=== PATIENT | male | born 1950 | race Caucasian/White ===

== ENCOUNTER 2020-12-24 16:03 | Outpatient (REF) | payer OTHER, SELFPAY ==
[2020-12-24 17:57] LABS: Anion Gap 14 (12-20); Blood Urea Nitrogen 27 mg/dL (9-16); Carbon Dioxide 27 mmol/L (22-29); Chloride 104 mmol/L (96-108); Estimated Glomerular Filt Rate 37; Potassium 4.6 mmol/L (3.3-5.1); Sodium 140 mmol/L (135-145)
== END 2020-12-24 16:04 | disposition home or self-care (01) ==
LOC: HO.LAB 16:03
PROVIDERS: PCP Family Medicine; Visit Provider Family Medicine
DX: I10 Essential (primary) hypertension (principal)
CPT/HCPCS: 36415; 80051; 82565; 84520

== ENCOUNTER → 2020-12-25 12:41 | Outpatient (BNVA) | payer OTHER, SELFPAY | PROVIDERS: PCP Family Medicine; Visit Provider Internal Medicine Cardiovascular Disease | DX: I48.0 Paroxysmal atrial fibrillation (principal) | CPT/HCPCS: 93005 ==

== ENCOUNTER 2021-01-09 15:57 | Outpatient (REF) | payer OTHER, SELFPAY ==
[2021-01-09 17:06] LABS: Blood Urea Nitrogen 19 mg/dL (9-16); Estimated Glomerular Filt Rate > 60
== END 2021-01-09 15:58 | disposition home or self-care (01) ==
LOC: HO.LAB 15:57
PROVIDERS: PCP Family Medicine; Visit Provider Family Medicine
DX: I10 Essential (primary) hypertension (principal)
CPT/HCPCS: 36415; 82565; 84520

== ENCOUNTER → 2021-02-12 09:18 | Outpatient (REF) | payer OTHER, SELFPAY ==
--- NOTE | 2021-02-12 09:21 | CA_ITS ---
Transthoracic Echocardiogram Patient (Last, First, Middle): Graham Hodges R Gender: Male Date of : 1950 Age: 70 Procedure Date: 02/12/2021 Procedure Type: Transthoracic Echocardiogram Location: OP Height: 172.72 cm Weight: 79.38 kg BSA: 1.93 m2 Heart Rate: bpm BP: 130 / 72 mmHg Emd Special Education Teacher: RODRICK/KAN Referring MD: Reese Nicholson MD Printed Circuit Board Panels Plater: Baljit Calderón MD Symptoms: I42.9 - Cardiomyopathy, unspecified Study Quality: Good ECG Rhythm: Atrial Fibrillation Conclusions: - 1. Low normal LV ejection fraction 50-55% 2. Mildly dilated left atrium 3. Mild mitral regurgitation 4. Normal RV systolic pressure 5. No pericardial effusion Findings Left Ventricle Normal left ventricular cavity size. There is normal left ventricular wall thickness. The left ventricular systolic function is low normal. The visually estimated ejection fraction is between 50-55%. Diastolic function is indeterminate on the basis of available data. Right Ventricle Mildly increased right ventricular cavity size. There is normal right ventricular systolic function. Atria The left atrium is mildly dilated. There is no evidence of interatrial shunt. The right atrium is likely dilated. Aortic Valve Normal aortic valve structure and function. There is no aortic valve stenosis. There is no aortic valve regurgitation. Mitral Valve Normal mitral valve structure and function. There is mild mitral valve regurgitation. There is no mitral valve stenosis. Pulmonic Valve The pulmonic valve is likely normal. There is trace pulmonic valve regurgitation. Tricuspid Valve Likely normal tricuspid valve structure and function. There is mild tricuspid valve regurgitation. The right ventricular systolic pressure is normal. The right ventricular systolic pressure is 27 mmHg. Normal right atrial pressure. There is no evidence of pulmonary hypertension. Great Vessels All visible segments of the aorta are normal in size. The pulmonary artery was not well visualized. Venous The inferior vena cava is normal in size and collapses greater than 50% with inspiration. Pericardium/Pleural There is no evidence of pericardial effusion. Prior Study Comparison Changes noted compared to prior study dated: 06/28/2019. LV systolic function is marginally reduced Measurements 2D Linear Measurements IVSd: 0.98 0.6-0.9/0.6-1.0 cm LVIDd: 4.29 3.9-5.3/4.2-5.9 cm LVIDd Index: 2.22 2.4-3.2/2.2-3.1 cm/m2 LVIDs: 3.17 2.0-3.6 cm LVPWd: 0.92 0.7-1.1 cm Ao Root: 3.40 2.1-3.5 cm LA Diam: 3.40 2.7-3.8/3.0-4.0 cm LAIDs Index: 1.76 1.5-2.3 cm/m2 LV Mass: 164.55 67-162/88-224 g LV Mass Index: 85.26 43-95/49-115 g/m2 LVOT Diam: 2.10 3.0+(-)1.3 cm 2D Systolic Function EF 4C: 50.80 >55% EF 2C: 50.90 >55% EF BiP: 52.10 >55% Aortic Valve AoV Pk Lux: 1.09 AoV Mn Lux: 0.83 AoV VTI: 0.19 AoV Pk Grad: 5.00 Aov Mn Grad: 3.00 ESAU Cont.VTI: 3.20 LVOT LVOT Pk Lux: 0.97 LVOT Mn Lux: 0.62 LVOT VTI: 0.17 LVOT Pk Grad: 4.00 LVOT Mn Grad: 2.00 LVOT Diam: 2.10 LVOT Area: 3.46 Right Ventricle TAPSE (mm): 1.74 Tricuspid Valve TR Pk Lux: 2.43 TR Pk Grad: 24.00 RA Press: 3.00 RVSP: 27.00 Great Vessels Aorta Ao Root-2D: 3.40 2.0-3.7 cm Ao Asc: 3.70 2.1-3.4 cm Ao Arch: 3.50 Updated in Other Vendor System with Status of Final Baljit Calderón MD electronically signed on 02/13/2021 9:02:53 AM with status of Final
== END ==
LOC: HO.CARD 09:18
PROVIDERS: Visit Provider Internal Medicine Cardiovascular Disease
DX: I42.9 Cardiomyopathy, unspecified (principal); I48.0 Paroxysmal atrial fibrillation
CPT/HCPCS: 93306

== ENCOUNTER 2021-04-04 07:58 | Day surgery (SDC) | payer OTHER, SELFPAY ==
--- NOTE | 2021-04-03 09:43 | HO.ANESPROP2 ---
Documented by User: Mel Liz NP 04/03/21 09:47 HPI - Anesthesia Eval Consult details Narrative: 70yo M for Colonoscopy Eliquis for PAF PMFSH Active Problems Active Problems: All Active Problems (Updated 03/28/21 @ 15:11 by Amber Mistry RN) PAF (paroxysmal atrial fibrillation) (Acute) Past Medical History Medical History (Updated 03/28/21 @ 15:11 by Amber Mistry RN) GERD (gastroesophageal reflux disease) HTN (hypertension) On anticoagulant therapy Osteoarthritis PAF (paroxysmal atrial fibrillation) Post-nasal drip Surgical History Surgical History (Updated 03/28/21 @ 15:11 by Amber Mistry RN) History of hip replacement Hx of colonoscopy Social History Social History (Updated 12/25/20 @ 13:39 by SYLVESTER Rosales) Alcohol intake: current Alcohol intake frequency: a few times a week Alcohol type: beer Patient Tobacco Use Status: Former Tobacco user Quit Date: 1979 Tobacco use type: Cigarette Years Smoked: 10 Use of substances other than those prescribed or required for medical reasons: No Have you been hit, kicked, punched, or otherwise hurt by someone within the past year? If so, by whom?: No Are you DNR?: No Advance Directives: No Advance Directives Information Provided: Yes Recently lost weight without trying: No Nutrition Risks: No Nutritional Risk Meds Allergies Allergy/AdvReac Type Severity Reaction Status Date / Time No Known Allergies Allergy Unverified 04/11/20 15:02 [No Known Allergies*] Home Medications Medication Instructions Recorded Confirmed Last Taken Type diltiazem HCl 120 mg 120 mg PO DAILY 12/25/20 03/28/21 Unknown History capsule,extended release 24 hr lisinopril 20 mg tablet 20 mg PO DAILY 12/25/20 03/28/21 Unknown History glucosamine sulf dipot 1 cap PO DAILY 03/28/21 03/28/21 Unknown History chlr,msm,chond 550 mg-C 30 mg-william 1 mg capsule (Glucosamine Chondroitin) omeprazole 20 mg capsule,delayed 20 mg PO DAILY 03/28/21 03/28/21 Unknown History release Exam Exam Date and Time: April 03, 2021 0943 Pertinent Lab Results Pertinent Lab Results: Laboratory Tests 06/09/19 12/24/20 01/09/21 10:22 16:23 16:05 WBC 6.1 Hgb 14.1 Hct 42.4 Plt Count 243 Sodium 140 Potassium 4.6 Chloride 104 Carbon Dioxide 27 BUN 19 H Creatinine 1.17 Narrative Narrative: EKG 12/2020 Atrial fibrillation at 98 beats per minute, normal axis, QTC 421 milliseconds. ECHO 01/2021 Conclusions: -? 1. Low normal LV ejection fraction 50-55% ? 2. Mildly dilated left atrium? 3. Mild mitral regurgitation ? 4. Normal RV systolic pressure ? 5. No pericardial effusion ? Assessment and Plan Assessment Anesthesia Assessment: Chart Reviewed Documented by User: Pastora Salinas MD 04/04/21 08:47 PMFSH Past Medical History Medical History (Updated 03/28/21 @ 15:11 by Amber Mistry RN) GERD (gastroesophageal reflux disease) HTN (hypertension) On anticoagulant therapy Osteoarthritis PAF (paroxysmal atrial fibrillation) Post-nasal drip Surgical History Surgical History (Updated 03/28/21 @ 15:11 by Amber Mistry RN) History of hip replacement Hx of colonoscopy Social History Social History (Updated 12/25/20 @ 13:39 by SYLVESTER Rosales) Alcohol intake: current Alcohol intake frequency: a few times a week Alcohol type: beer Patient Tobacco Use Status: Former Tobacco user Quit Date: 1979 Tobacco use type: Cigarette Years Smoked: 10 Use of substances other than those prescribed or required for medical reasons: No Have you been hit, kicked, punched, or otherwise hurt by someone within the past year? If so, by whom?: No Are you DNR?: No Advance Directives: No Advance Directives Information Provided: Yes Recently lost weight without trying: No Nutrition Risks: No Nutritional Risk Meds Allergies Allergy/AdvReac Type Severity Reaction Status Date / Time No Known Allergies Allergy Unverified 04/11/20 15:02 [No Known Allergies*] Home Medications Medication Instructions Recorded Confirmed Last Taken Type diltiazem HCl 120 mg 120 mg PO DAILY 12/25/20 03/28/21 Unknown History capsule,extended release 24 hr lisinopril 20 mg tablet 20 mg PO DAILY 12/25/20 03/28/21 Unknown History glucosamine sulf dipot 1 cap PO DAILY 03/28/21 03/28/21 Unknown History chlr,msm,chond 550 mg-C 30 mg-william 1 mg capsule (Glucosamine Chondroitin) omeprazole 20 mg capsule,delayed 20 mg PO DAILY 03/28/21 03/28/21 Unknown History release Exam Airway Mallampati Class: II TM Dist: >3cm Neck ROM: Full
[2021-04-04] VITALS (7 sets, daily range): BP systolic 97–154; BP diastolic 66–97; PULSE 93–123; RESP 16–18; TEMP 36.1–36.6; O2SAT 96–100; BMI 27.3
--- NOTE | 2021-04-04 08:29 | PC.NURSE ---
pt pulse 93-120S sts hx afib
--- NOTE | 2021-04-04 08:31 | PC.NURSE ---
pt asymptomatic afib now 120s-[address] schulz aware at bedside bianka c/p pwbronson denies dizziness
--- NOTE | 2021-04-04 08:38 | PC.NURSE ---
per anesthesia hydrate pt fluids w/o will reassess pt resting comfortably
[2021-04-04] MEDS: Lactated Ringers 1,000 ML 100 ML IVCONT (08:40)
--- NOTE | 2021-04-04 10:18 | PM.OP ---
Brief Operative Note Date of Service: 04/04/21 Pre-op diagnosis: Screening Post-op diagnosis: other (Colon polyps) Procedure: Colonoscopy to the cecum and TI with snare polypectomy and placement of Resolution clips. Surgeon: Stevan Watters Anesthesia: MAC Was an Chief Passenger Ship Steward/Stewardess used for this Procedure?: No Estimated blood loss (mL): 3.0 Pathology: other (A. Ascending colon polyp B. Polyp at 40cm C. Polyp at 20cm) Condition: stable Disposition: PACU
--- NOTE | 2021-04-04 10:49 | OP_ITS ---
SURGEON: Stevan Watters MD INDICATIONS: The patient presents for evaluation of a personal history of tubular adenomas of the colon and colorectal cancer screening. Full consent has been obtained from him for this, including risks of bleeding and perforation. PREOPERATIVE DIAGNOSIS: POSTOPERATIVE DIAGNOSIS: PROCEDURE PERFORMED: Colonoscopy to the cecum and terminal ileum with snare polypectomy and placement of resolution clips. ESTIMATED BLOOD LOSS: COMPLICATIONS: ANESTHESIA: Monitored anesthesia care. ASSISTANTS: SPECIMENS: PREOPERATIVE DIAGNOSES: Colorectal cancer screening and personal history of tubular adenomas of the colon. POSTOPERATIVE DIAGNOSES: Colorectal cancer screening and personal history of tubular adenomas of the colon, colon polyps, diverticulosis, and internal hemorrhoids. DESCRIPTION OF PROCEDURE: The patient was placed in the left lateral decubitus position. The digital rectal exam revealed no abnormalities. The Photo[employer] video pediatric colonoscope was entered into the rectum and advanced easily to the cecum. Once in the cecum, I did identify normal-appearing cecal pouch other than an approximately 5 mm grossly adenomatous polyp. The remainder of the cecum, including the appendiceal orifice, appeared normal. The terminal ileum was cannulated and appeared normal. The scope was withdrawn back in the colon. The ileocecal valve appeared normal. The cecal polyp was removed by snare polypectomy, but the polypectomy specimen was not recovered. I did place a single clip on the polypectomy site given that he has to go back on his Eliquis. The scope was slowly withdrawn assessing all mucosal surfaces carefully. Preparation was excellent. In the proximal ascending colon, at 40 cm, and at 20 cm, were polyps between 8 and 10 mm in diameter. These were each snared and recovered by suction. Each polypectomy site appeared clean, without any sign of residual polyp nor significant bleeding. I did place resolution clips on each polypectomy site. The polypectomy site at 20 cm did require 2 clips as there was some oozing post polypectomy. All the clips deployed well with good hemostasis. I did not visualize any other polyps, colitis, nor angiodysplasia. There was a mild amount of sigmoid diverticulosis. In the rectum, scope was retroflexed visualizing small internal hemorrhoids, but no other pathology. The rectal mucosa appeared normal. The scope was straightened out and withdrawn from the patient. He tolerated the procedure well and was returned to the recovery area in stable condition. IMPRESSION: 1. Colon polyps. 2. Diverticulosis. 3. Internal hemorrhoids. PLAN: The results of the pathology will be checked. I would recommend a repeat colonoscopy in 5 years. He was advised to resume his Eliquis in 48 hours. He was advised not to use any aspirin and NSAIDs long-term due to his use of Eliquis. MD PENNY Franco/ROBER / [id number] MTDD
== END 2021-04-04 11:25 | disposition home or self-care (01) ==
PROVIDERS: PCP Family Medicine; Visit Provider Internal Medicine
PROC: 0DJD8ZZ Inspection of Lower Intestinal Tract, Via Natural or Artificial Opening Endoscopic (ICD-10-PCS; CPT 45378; principal; 2021-04-04 09:20)
DX: Z12.11 Encounter for screening for malignant neoplasm of colon (principal); D12.2 Benign neoplasm of ascending colon; D12.6 Benign neoplasm of colon, unspecified; K63.5 Polyp of colon; K57.30 Diverticulosis of large intestine without perforation or abscess without bleeding; K64.8 Other hemorrhoids; Z86.010 Personal history of colon polyps; I10 Essential (primary) hypertension; I48.91 Unspecified atrial fibrillation; Z79.01 Long term (current) use of anticoagulants; Z79.899 Other long term (current) drug therapy
CPT/HCPCS: 45385; 88305

== ENCOUNTER → 2021-05-28 09:50 | Outpatient (BNVA) | payer OTHER, SELFPAY | PROVIDERS: PCP Family Medicine; Visit Provider Internal Medicine Cardiovascular Disease ==

== ENCOUNTER → 2021-08-05 11:11 | Outpatient (REF) | payer OTHER, SELFPAY ==
--- NOTE | 2021-08-05 11:15 | HM_ITS ---
Conclusion: 1. Patient was monitored for total period of 2 days and 23 hours 2. Baseline rhythm is atrial fibrillation with average heart rate of 101 beats per minute 3. In adequate rate control with frequent rapid ventricular response, greater than 40% of the time 4. No significant pauses or bradycardia noted 5. Total of 240 PVCs accounting for rare PVCs 6. No patient reported events MTDD
== END ==
LOC: HO.CARD 11:11
PROVIDERS: Visit Provider Internal Medicine Cardiovascular Disease
DX: I48.0 Paroxysmal atrial fibrillation (principal)
CPT/HCPCS: 93242

== ENCOUNTER → 2021-10-16 14:03 | Outpatient (BNVA) | payer OTHER, SELFPAY | PROVIDERS: PCP Family Medicine; Visit Provider Internal Medicine Cardiovascular Disease | DX: I48.0 Paroxysmal atrial fibrillation (principal) | CPT/HCPCS: 93005 ==

== ENCOUNTER 2021-10-17 11:37 | Outpatient (REF) | payer OTHER, SELFPAY ==
[2021-10-17 12:00] LABS: MANUAL DIFF FLAG NO
[2021-10-17 13:17] LABS: Basophils Absolute Auto 0.1 X10*3/uL (0.0-0.2); Basophils Percent Auto 1.4 % (0-2); Eosinophils Absolute Auto 0.1 X10*3/uL (0.0-0.4); Eosinophils Percent Auto 1.9 % (0-4); Hematocrit 46.3 % (42.0-52.0); Hemoglobin 14.8 g/dl (14.0-18.0); Imm Gran Abs Auto 0.01 X10*3/uL (0.00-0.03); Imm Gran Pct Auto 0.2 % (0.0-0.4); Lymphocytes Absolute Auto 1.1 X10*3/uL (1.2-4.9); Lymphocytes Percent Auto 17.3 % (20-40); Mean Corpuscular Hemoglobin 31.9 pg (27.0-33.0); Mean Corpuscular Volume 99.8 fL (80.0-98.0); Monocytes Absolute Auto 0.7 X10*3/uL (0.1-1.2); Monocytes Percent Auto 11.9 % (2-11); Neutrophils Absolute Auto 4.2 x10*3/uL (2.0-8.3); Neutrophils Percent Auto 67.3 % (45-73); Platelet Count 260 X10*3/uL (160-400); Red Blood Count 4.64 X10*6/uL (4.60-5.80); Red Cell Distribution Width 14.4 % (11.0-16.0); White Blood Count 6.2 X10*3/uL (4.8-10.8)
[2021-10-17 13:40] LABS: Alanine Aminotransferase 23 U/L (0-40); Alkaline Phosphatase 133 U/L (39-117); Anion Gap 16 (12-20); Aspartate Amino Transferase 20 U/L (5-37); Bilirubin Total 1.2 mg/dL (0.0-1.0); Blood Urea Nitrogen 12 mg/dL (9-16); Calcium 9.5 mg/dL (8.4-10.2); Carbon Dioxide 25 mmol/L (22-29); Chloride 104 mmol/L (96-108); Estimated Glomerular Filt Rate > 60; Glucose Random 88 mg/dL (60-115); Potassium 4.2 mmol/L (3.3-5.1); Sodium 141 mmol/L (135-145)
== END 2021-10-17 11:38 | disposition home or self-care (01) ==
LOC: HO.LAB 11:37
PROVIDERS: PCP Family Medicine; Visit Provider Family Medicine
DX: I10 Essential (primary) hypertension (principal); I48.91 Unspecified atrial fibrillation; R53.1 Weakness
CPT/HCPCS: 36415; 80053; 85025

== ENCOUNTER → 2021-10-28 11:05 | Outpatient (REF) | payer OTHER, SELFPAY ==
--- NOTE | 2021-10-28 11:10 | CA_ITS ---
Transthoracic Echocardiogram Patient (Last, First, Middle): Graham Hodges R Gender: Male Date of : 1950 Age: 70 Procedure Date: 10/28/2021 Procedure Type: Transthoracic Echocardiogram Location: OP Height: 172.72 cm Weight: 81.65 kg BSA: 1.95 m2 Heart Rate: bpm BP: 160 / 90 mmHg Channel Layer: YR/TO Referring MD: Reese Nicholson MD Gasket Former: Baljit Calderón MD Symptoms: I48.0 - Paroxysmal atrial fibrillation Study Quality: Fair ECG Rhythm: Atrial Fibrillation Conclusions: - 1. Low normal LV ejection fraction 50-55% 2. Moderate biatrial enlargement 3. Mild mitral regurgitation 4. Normal RV systolic pressure 5. No gross pericardial effusion Findings Left Ventricle Normal left ventricular cavity size. There is normal left ventricular wall thickness. The left ventricular systolic function is low normal. The visually estimated ejection fraction is between 50-55%. E/E prime ratio is <8, consistent with normal filling pressures. Right Ventricle Normal right ventricular cavity size and systolic function. Atria The left atrium is moderately dilated. There is no evidence of interatrial shunt. The right atrium is moderately dilated. Aortic Valve There is mild calcification of the aortic valve. There is no aortic valve stenosis. There is no aortic valve regurgitation. Mitral Valve There is mild anterior and posterior mitral leaflet thickening. There is mild mitral valve regurgitation. There is no mitral valve stenosis. Pulmonic Valve The pulmonic valve was not well visualized. Tricuspid Valve Likely normal tricuspid valve structure and function. There is mild to moderate tricuspid valve regurgitation. The right ventricular systolic pressure is normal. The right ventricular systolic pressure is 31 mmHg. Normal right atrial pressure. There is no evidence of pulmonary hypertension. Great Vessels The pulmonary artery was not well visualized. There is mild dilatation of the ascending aorta measuring 4.05 cm. Venous The inferior vena cava is normal in size and collapses greater than 50% with inspiration. Pericardium/Pleural There is no evidence of pericardial effusion. Prior Study Comparison No significant change compared to prior study dated: 02/12/2021. Measurements 2D Linear Measurements IVSd: 0.90 0.6-0.9/0.6-1.0 cm LVIDd: 4.65 3.9-5.3/4.2-5.9 cm LVIDd Index: 2.38 2.4-3.2/2.2-3.1 cm/m2 LVIDs: 3.45 2.0-3.6 cm LVPWd: 0.90 0.7-1.1 cm LA Diam: 4.20 2.7-3.8/3.0-4.0 cm LAIDs Index: 2.15 1.5-2.3 cm/m2 LV Mass: 174.37 67-162/88-224 g LV Mass Index: 89.42 43-95/49-115 g/m2 LVOT Diam: 2.00 3.0+(-)1.3 cm 2D Systolic Function EF 4C: 51.30 >55% EF 2C: 50.60 >55% EF BiP: 50.30 >55% Mitral Valve E'Lateral: 10.80 E'Medial: 8.27 Aortic Valve AoV Pk Lux: 1.51 AoV Mn Lux: 1.13 AoV VTI: 0.27 AoV Pk Grad: 9.00 Aov Mn Grad: 6.00 ESAU Cont.VTI: 1.78 LVOT LVOT Pk Lux: 0.88 LVOT Mn Lux: 0.62 LVOT VTI: 0.15 LVOT Pk Grad: 3.00 LVOT Mn Grad: 2.00 LVOT Diam: 2.00 LVOT Area: 3.14 Diastolic Function E'Medial: 8.27 E' Laterial: 10.80 Right Ventricle TAPSE (mm): 16.10 TVS' Lux: 13.50 Tricuspid Valve TR Pk Lux: 2.65 TR Pk Grad: 28.00 RA Press: 3.00 RVSP: 31.00 Great Vessels Aorta Ao Asc: 4.05 2.1-3.4 cm Ao Arch: 3.10 Updated in Other Vendor System with Status of Final Baljit Calderón MD electronically signed on 10/28/2021 6:15:26 PM with status of Final
== END ==
LOC: HO.CARD 11:05
PROVIDERS: Visit Provider Internal Medicine Cardiovascular Disease
DX: I48.0 Paroxysmal atrial fibrillation (principal)
CPT/HCPCS: 93306

== ENCOUNTER → 2022-03-16 13:53 | Outpatient (BNVA) | payer OTHER, SELFPAY | PROVIDERS: PCP Family Medicine; Referring Provider Family Medicine; Visit Provider Internal Medicine Cardiovascular Disease | DX: R60.9 Edema, unspecified (principal); I48.0 Paroxysmal atrial fibrillation | CPT/HCPCS: 93005 ==

== ENCOUNTER 2022-04-27 11:12 | Outpatient (REF) | payer OTHER, SELFPAY ==
[2022-04-27 12:48] LABS: Anion Gap 14 (12-20); Blood Urea Nitrogen 15 mg/dL (9-16); Carbon Dioxide 33 mmol/L (22-29); Chloride 98 mmol/L (96-108); Estimated Glomerular Filt Rate > 60; Magnesium 1.9 mg/dL (1.6-2.6); Potassium 3.8 mmol/L (3.3-5.1); Sodium 141 mmol/L (135-145)
[2022-04-27 12:58] LABS: Prostate Specific Antigen Scr 1.08 ng/mL (<0.05-4.0)
== END 2022-04-27 11:13 | disposition home or self-care (01) ==
LOC: HO.LAB 11:12
PROVIDERS: Absent Provider Internal Medicine Cardiovascular Disease; PCP Family Medicine; Visit Provider Family Medicine
DX: Z12.5 Encounter for screening for malignant neoplasm of prostate (principal); I10 Essential (primary) hypertension
CPT/HCPCS: 36415; 80051; 82565; 83735; 84153; 84520

== ENCOUNTER 2022-05-26 14:15 | Outpatient (REF) | payer OTHER, SELFPAY | END 2022-05-26 14:16 | disposition home or self-care (01) | LOC: HO.US 14:15 | PROVIDERS: Visit Provider Internal Medicine Cardiovascular Disease | DX: Z13.89 Encounter for screening for other disorder (principal) ==

== ENCOUNTER 2022-08-03 07:43 | Outpatient (REF) | payer OTHER, SELFPAY ==
--- NOTE | ~2022-08-03 | US_ITS ---
EXAMINATION: US LOWER EXTREMITY VENOUS (REFLUX EXAM), BILATERAL CLINICAL INDICATION: Chronic venous insufficiency with lower extremity varicose veins COMPARISON: None. TECHNIQUE: Color flow triplex imaging and compression Doppler was performed to evaluate both the deep and the superficial systems bilaterally. To evaluate the superficial system, the examination was performed in the upright position. Color-flow Doppler ultrasound and compression ultrasound were utilized. In addition, maneuvers were utilized to demonstrate reflux. FINDINGS: 1. DEEP VENOUS ULTRASOUND OF THE RIGHT LOWER EXTREMITY: Common Femoral Vein: Compressible, normal respiratory variation and augmented flow. Femoral Vein: Compressible, normal color flow and augmentation. Popliteal Vein: Compressible, normal augmentation. Deep Reflux: Diffuse deep venous reflux is seen in the common femoral vein, superficial femoral vein and popliteal vein with reflux ranging from 1080 ms to 2064 ms There is no evidence of a Grider's cyst. 2. SUPERFICIAL ULTRASOUND WITH DOPPLER OF RIGHT LOWER EXTREMITY: GREAT SAPHENOUS VEIN: Saphenofemoral Junction: 0.7 cm; Reflux: 0 ms Proximal Thigh: 0.4 cm; Reflux: 0 ms Mid Thigh: 0.2 cm; Reflux: 0 ms Above Knee: 0.1 cm; Reflux: 0 ms At Knee: 0.1 cm; Reflux: 0 ms Below Knee: 0.2 cm; Reflux: 2072 ms Mid Calf: 0.2 cm; Reflux: 0 ms Ankle: 0.2 cm; Reflux: 0 ms DUPLICATED MEDIAL GREAT SAPHENOUS VEIN: Diameter: None Imaged Reflux: NA DUPLICATED LATERAL GREAT SAPHENOUS VEIN: Diameter: 0.2 cm Reflux: None SMALL SAPHENOUS VEIN: Proximal: 0.2 cm; Reflux: 0 ms Distal: 0.2 cm; Reflux: 0 ms VEIN OF GIACOMINI: None Imaged. PERFORATORS: Location: None significant Size: NA Reflux: NA VARICOSITIES: Location: Proximal thigh,Proximal calf and mid calf arising from the great saphenous vein. Size: 0.3 to 0.4 cm Reflux: Ranging from 540 ms to 1820 ms 3. DEEP VENOUS ULTRASOUND OF THE LEFT LOWER EXTREMITY: Common Femoral Vein: Compressible, normal respiratory variation and augmented flow. Femoral Vein: Compressible, normal color flow and augmentation. Popliteal Vein: Compressible, normal augmentation. Deep Reflux: Diffuse deep venous reflux is seen in the common femoral vein, superficial femoral vein and popliteal vein with reflux ranging from 848 ms to 2232 ms There is no evidence of a Grider's cyst. 4. SUPERFICIAL ULTRASOUND WITH DOPPLER OF LEFT LOWER EXTREMITY: GREAT SAPHENOUS VEIN: Saphenofemoral Junction: 0.8 cm; Reflux: 2772 ms Proximal Thigh: 0.6 cm; Reflux: 2040 ms Mid Thigh: 0.2 cm; Reflux: 0 ms Above Knee: 0.2 cm; Reflux: 0 ms At Knee: Not visualized Below Knee: Not visualized Mid Calf: 0.4 cm; Reflux: 0 ms Ankle: 0.4 cm; Reflux: 996 ms DUPLICATED MEDIAL GREAT SAPHENOUS VEIN: Diameter: None Imaged Reflux: NA DUPLICATED LATERAL GREAT SAPHENOUS VEIN: Diameter: None Imaged Reflux: NA SMALL SAPHENOUS VEIN: Proximal: 0.1 cm; Reflux: 0 ms Distal: 0.3 cm; Reflux: 0 ms VEIN OF GIACOMINI: None Imaged. PERFORATORS: Location: None Imaged Size: NA Reflux: NA VARICOSITIES: Location: Mid thigh arising from the great saphenous vein which then rejoins the great saphenous vein in the mid calf Size: 0.4 cm Reflux: 2624 ms US/US venous duplex LE BI IMPRESSION: Right: Moderate diffuse of deep venous reflux throughout the right lower extremity. Focal reflux in the right great saphenous vein in the proximal calf. There are scattered varicose veins as described above Left: Moderate diffuse deep venous reflux throughout the left lower extremity. Severe reflux in the left great saphenous vein with associated varicose vein as described above
== END 2022-08-03 07:44 | disposition home or self-care (01) ==
LOC: HO.US 07:43
PROVIDERS: PCP Family Medicine; Visit Provider Internal Medicine Cardiovascular Disease
DX: R60.9 Edema, unspecified (principal)
CPT/HCPCS: 93970

== ENCOUNTER → 2022-08-13 12:33 | Outpatient (BNVA) | payer OTHER, SELFPAY | PROVIDERS: PCP Family Medicine; Referring Provider Family Medicine; Visit Provider Internal Medicine Cardiovascular Disease | DX: R60.9 Edema, unspecified (principal); I48.0 Paroxysmal atrial fibrillation; I87.2 Venous insufficiency (chronic) (peripheral) | CPT/HCPCS: 93005 ==

== ENCOUNTER 2022-09-09 10:44 | Day surgery (SDC) | payer OTHER, SELFPAY ==
[2022-09-04 10:21] VITALS: BMI 28.8
--- NOTE | 2022-09-09 | ECG_ITS ---
Test Reason : postop Blood Pressure : / mmHG Vent. Rate : 075 BPM Atrial Rate : 075 BPM P-R Int : 182 ms QRS Dur : 080 ms QT Int : 400 ms P-R-T Axes : 044 022 028 degrees QTc Int : 446 ms Sinus rhythm with Premature atrial complexes Otherwise normal ECG When compared with ECG of 09-JUN-2019 10:15, Sinus rhythm has replaced Atrial fibrillation Vent. rate has decreased BY 57 BPM Referred By: Reese Nicholson Electronically Signed By:Reese Nicholson
[2022-09-09 11:26] VITALS: BP 158/91; PULSE 92; RESP 16; TEMP 37.1; O2SAT 98
--- NOTE | 2022-09-09 11:49 | P.CONAN_ITS ---
[facility] Active Problems Active Problems: All Active Problems (Updated 08/13/22 @ 13:38 by Reese Nicholson MD) PAF (paroxysmal atrial fibrillation) (Acute) Peripheral edema (Acute) Impacted molar (Acute) Venous reflux (Acute) Past Medical History Medical History GERD (gastroesophageal reflux disease) HTN (hypertension) On anticoagulant therapy Osteoarthritis PAF (paroxysmal atrial fibrillation) Post-nasal drip Surgical History Surgical History History of hip replacement Hx of colonoscopy History of Problems with Anesthesia: No Social History Social History Alcohol intake: current Alcohol intake frequency: a few times a week Alcohol type: beer Patient Tobacco Use Status: Former Tobacco user Quit Date: 1979 Tobacco use type: Cigarette Years Smoked: 10 +/- Use of substances other than those prescribed or required for medical reasons: No Are you DNR?: No Advance Directives: Yes Advance Directives on File: Yes Advance Directives Date on File: 09/22/16 Meds Allergies Allergy/AdvReac Type Severity Reaction Status Date / Time No Known Allergies Allergy Verified 08/13/22 13:12 [No Known Allergies*] Home Medications Medication Instructions Recorded Confirmed Last Taken Type glucosamine sulf dipot 1 cap PO DAILY 03/28/21 09/04/22 Unknown History chlr,msm,chond 550 mg-C 30 mg-william 1 mg capsule (Glucosamine Chondroitin) omeprazole 20 mg capsule,delayed 20 mg PO DAILY 03/28/21 09/04/22 Unknown History release diltiazem HCl 240 mg 240 mg PO DAILY 05/28/21 09/04/22 Unknown History capsule,extended release 24 hr Exam Exam Date and Time: September 09, 2022 1149 Height,Weight and Vital Signs: Height 5 ft 8 in Weight 86.183 kg Last Vital Signs Temp 98.7 F 09/09/22 11:26 Pulse 92 09/09/22 11:26 Resp 16 09/09/22 11:26 BP 158/91 H 09/09/22 11:26 Pulse Ox 98 09/09/22 11:26 O2 Del Method 09/09/22 11:26 Airway Mallampati Class: III TM Dist: >3cm Neck ROM: Full Loose/Missing/Broken Teeth: No Heart: RRR Lungs: CTA Assessment and Plan Assessment Anesthesia Assessment: Anesthesia Plan Discussed and Chart Reviewed Final Anesthetic Review History of Problems with Anesthesia: No NPO: Yes ASA Class: III Final Preanesthetic Review: Meds/Allgs Chart Reviewed, Consent Obtained/Reviewed and Anes Risks/Benef Reviewed Patient Risk: Intermediate Procedure Risk: Intermediate Anesthetic Plan Anesthetic Plan: GA Disposition: Standard PACU
--- NOTE | 2022-09-09 12:34 | MHC.SHP ---
Pre-Procedural Eval Section A Date of Service: 09/09/22 The patient is an INPATIENT: No Section B Chief Complaint: Paroxysmal atrial fibrillation Details of Present Illness: Here for cardioversion Allergies: Allergies Allergy/AdvReac Type Severity Reaction Status Date / Time No Known Allergies Allergy Verified 08/13/22 13:12 [No Known Allergies*] Plan Diagnosis/Plan: Unchanged I have reviewed the history and physical and performed a pertinent physical examination on my patient. No changes have occurred unless specified. Time Spent With Patient Time: Total time managing care of this patient today ____ minutes.
--- NOTE | 2022-09-09 13:06 | HO.CARDIVERS ---
Cardioversion Procedure Note Cardioversion Date of Procedure: 09/09/22 Ordering Provider: Reese Nicholson MD Performing Provider: Reese Nicholson MD Indication for Procedure: PAF Consent: Verbal and Written consent was obtained from the patient before starting. The patient was made aware of the risk of stroke, skin cassidy, aspiration and failure. Procedure: After consent obtained, defib pads were attached and the patient was sedated by the anesthesia team. Once adequate sedation achieved, single synchronized shock of 200 J was given to the patient. He converted to sinus rhythm. Complications: No acute complications. Recommendations: Adding Multaq 400 mg BID. Continue other medications as before. Eliquis must not be held in the month.
[2022-09-09 13:10] VITALS: BP 136/79; PULSE 80; RESP 18; TEMP 36.6; O2SAT 100
[2022-09-09 13:25] VITALS: BP 157/83; PULSE 82; RESP 16; TEMP 36.6; O2SAT 97
== END 2022-09-09 14:09 | disposition home or self-care (01) ==
PROVIDERS: PCP Family Medicine; Visit Provider Internal Medicine Cardiovascular Disease
PROC: 5A2204Z Restoration of Cardiac Rhythm, Single (ICD-10-PCS; principal; 2022-09-09 12:30)
DX: I48.0 Paroxysmal atrial fibrillation (principal); I10 Essential (primary) hypertension; I87.2 Venous insufficiency (chronic) (peripheral); R60.9 Edema, unspecified; Z79.01 Long term (current) use of anticoagulants; Z79.899 Other long term (current) drug therapy; Z87.891 Personal history of nicotine dependence
CPT/HCPCS: 92960; 93005

== ENCOUNTER → 2022-10-01 10:29 | Outpatient (BNVA) | payer OTHER, SELFPAY | PROVIDERS: PCP Family Medicine; Referring Provider Family Medicine; Visit Provider Internal Medicine Cardiovascular Disease | DX: I48.0 Paroxysmal atrial fibrillation (principal) | CPT/HCPCS: 93005 ==

== ENCOUNTER → 2022-10-14 09:43 | Outpatient (REF) | payer OTHER, SELFPAY ==
--- NOTE | 2022-10-14 09:50 | CA_ITS ---
Transthoracic Echocardiogram Patient (Last, First, Middle): Graham Hodges R Gender: Male Date of : 1950 Age: 71 Procedure Date: 10/14/2022 Procedure Type: Transthoracic Echocardiogram Location: OP Height: 172.72 cm Weight: 81.65 kg BSA: 1.95 m2 Heart Rate: 89 bpm BP: 120 / 74 mmHg Upper [place]: SB Referring MD: Reese Nicholson MD Lead Database Developer: Reese Nicholson MD Symptoms: I48.0 - Paroxysmal atrial fibrillation Study Quality: Adequate ECG Rhythm: Atrial Fibrillation Conclusions: - Normal left ventricular size, thickness, systolic function, and wall motion. The visually estimated ejection fraction is between 60-65%. - Mildly increased right ventricular cavity size. There is normal right ventricular systolic function. Findings Left Ventricle Normal left ventricular size, thickness, systolic function, and wall motion. The visually estimated ejection fraction is between 60-65%. Diastolic function is indeterminate on the basis of available data. Right Ventricle Mildly increased right ventricular cavity size. There is normal right ventricular systolic function. Atria The left atrium is moderately dilated. The right atrium is moderately dilated. Aortic Valve There is a normal trileaflet aortic valve. There is mild calcification of the aortic valve. There is no aortic valve stenosis. There is no aortic valve regurgitation. Mitral Valve Normal mitral valve structure and function. There is trace mitral valve regurgitation. There is no mitral valve stenosis. Pulmonic Valve Normal pulmonic valve structure and function. There is trace pulmonic valve regurgitation. Tricuspid Valve Normal tricuspid valve structure. There is mild tricuspid valve regurgitation. Normal right atrial pressure. There is no evidence of pulmonary hypertension. Great Vessels There is mild dilatation of the ascending aorta measuring 3.80 cm. The visualized portions of the pulmonary artery and branches are normal. Venous The inferior vena cava is normal in size and collapses greater than 50% with inspiration. Pericardium/Pleural There is no evidence of pericardial effusion. Prior Study Comparison Changes noted compared to prior study dated: 10/28/2021. EF 60-65%. Mild RV dilation, Measurements 2D Linear Measurements IVSd: 0.68 0.6-0.9/0.6-1.0 cm LVIDd: 5.27 3.9-5.3/4.2-5.9 cm LVIDd Index: 2.70 2.4-3.2/2.2-3.1 cm/m2 LVIDs: 3.64 2.0-3.6 cm LVPWd: 0.77 0.7-1.1 cm LA Diam: 4.60 2.7-3.8/3.0-4.0 cm LAIDs Index: 2.36 1.5-2.3 cm/m2 LV Mass: 163.10 67-162/88-224 g LV Mass Index: 83.64 43-95/49-115 g/m2 LVOT Diam: 2.20 3.0+(-)1.3 cm 2D Systolic Function EF 4C: 52.30 >55% EF 2C: 63.50 >55% EF BiP: 59.80 >55% Mitral Valve MV Pk E: 1.06 Aortic Valve AoV Pk Lux: 1.32 AoV Pk Grad: 7.00 ESAU: 2.40 LVOT LVOT Pk Lux: 0.83 LVOT Mn Lux: 0.60 LVOT VTI: 0.15 LVOT Pk Grad: 3.00 LVOT Mn Grad: 2.00 LVOT Diam: 2.20 LVOT Area: 3.80 Diastolic Function MV Pk E: 1.06 Right Ventricle TAPSE (mm): 14.70 TVS' Lux: 9.20 Tricuspid Valve TR Pk Lux: 2.35 TR Pk Grad: 22.00 RA Press: 3.00 RVSP: 25.00 Great Vessels Aorta Sinus of Valsalva: 3.50 2.0-3.5 cm Ao Asc: 3.80 2.1-3.4 cm Pulmonary Valve PV Pk Lux: 0.90 Peak PV Grad: 3.00 Updated in Other Vendor System with Status of Final Reese Nicholson MD electronically signed on 10/14/2022 12:53:24 PM with status of Final
== END ==
LOC: HO.CARD 09:43
PROVIDERS: PCP Family Medicine; Visit Provider Internal Medicine Cardiovascular Disease
DX: I48.0 Paroxysmal atrial fibrillation (principal)
CPT/HCPCS: 93306

== ENCOUNTER → 2022-10-26 08:34 | Outpatient (REF) | payer OTHER, SELFPAY | LOC: HO.CARD 08:34 | PROVIDERS: PCP Family Medicine; Visit Provider Internal Medicine Cardiovascular Disease | DX: Z13.89 Encounter for screening for other disorder (principal) ==

== ENCOUNTER → 2022-11-05 08:44 | Outpatient (REF) | payer OTHER, SELFPAY ==
--- NOTE | 2022-11-05 08:47 | HM_ITS ---
Conclusion: 1. Patient was monitored for total period of 3 days 2. Baseline was atrial fibrillation with average heart of 89 beats per minute with borderline rate control with peak heart rate of 160 beats per minute 3. No significant pauses noted 4. Rare PVCs noted 5. No patient reported symptoms MTDD
== END ==
LOC: HO.CARD 08:44
PROVIDERS: PCP Family Medicine; Visit Provider Nurse Practitioner Family
DX: I48.0 Paroxysmal atrial fibrillation (principal); I83.12 Varicose veins of left lower extremity with inflammation; I89.0 Lymphedema, not elsewhere classified
CPT/HCPCS: 93242

== ENCOUNTER → 2022-12-11 10:28 | Outpatient (BNVA) | payer OTHER, SELFPAY | PROVIDERS: PCP Family Medicine; Visit Provider Surgery Vascular Surgery | DX: I83.12 Varicose veins of left lower extremity with inflammation (principal); M79.605 Pain in left leg; I48.0 Paroxysmal atrial fibrillation; I10 Essential (primary) hypertension; Z79.01 Long term (current) use of anticoagulants | CPT/HCPCS: 36482 ==

== ENCOUNTER 2022-12-14 13:44 | Outpatient (REF) | payer OTHER, SELFPAY ==
--- NOTE | ~2022-12-14 | US_ITS ---
EXAMINATION: US VENOUS ULTRASOUND WITH DOPPLER LOWER EXTREMITY, LEFT CLINICAL INFORMATION: Left leg pain COMPARISON: Previous exam July 2022 TECHNIQUE: Ultrasound of the deep veins is performed from the hip to the calf with compression sonography and color and pulse Doppler assessment. Spectral analysis with color-flow imaging is performed. FINDINGS: There is normal venous compression and respiratory variation and augmented flow. The visualized common femoral vein, superficial femoral vein, profunda femoral vein, popliteal vein, and the trifurcation region shows no evidence of deep venous thrombosis. There is echogenic material seen in the left greater saphenous vein post vena seal procedure. This extends to 1.9 cm from the saphenofemoral junction. The greater saphenous vein is partially closed. There is no popliteal fossa cyst. US/US venous duplex LE LT IMPRESSION: No DVT demonstrated in the left lower extremity.
== END 2022-12-14 13:45 | disposition home or self-care (01) ==
LOC: HO.US 13:44
PROVIDERS: PCP Family Medicine; Visit Provider Surgery Vascular Surgery
DX: M79.605 Pain in left leg (principal)
CPT/HCPCS: 93971

== ENCOUNTER → 2022-12-24 09:45 | Outpatient (BNVA) | payer OTHER, SELFPAY | PROVIDERS: PCP Family Medicine; Visit Provider Surgery Vascular Surgery ==

== ENCOUNTER → 2023-01-13 09:34 | Outpatient (BNVA) | payer OTHER, SELFPAY | PROVIDERS: PCP Family Medicine; Referring Provider Family Medicine; Visit Provider Internal Medicine Cardiovascular Disease | DX: I48.19 Other persistent atrial fibrillation (principal); R60.9 Edema, unspecified | CPT/HCPCS: 93005 ==

== ENCOUNTER 2023-04-06 07:42 | Outpatient (REF) | payer OTHER, SELFPAY ==
[2023-04-06 09:08] LABS: Anion Gap 13 (12-20); Blood Urea Nitrogen 11 mg/dL (9-16); Carbon Dioxide 30 mmol/L (22-29); Chloride 103 mmol/L (96-108); Estimated Glomerular Filt Rate > 60; Potassium 4.2 mmol/L (3.3-5.1); Sodium 142 mmol/L (135-145)
== END 2023-04-06 07:43 | disposition home or self-care (01) ==
LOC: HO.LAB 07:42
PROVIDERS: PCP Family Medicine; Visit Provider Family Medicine
DX: I10 Essential (primary) hypertension (principal)
CPT/HCPCS: 36415; 80051; 82565; 84520

== ENCOUNTER 2023-07-21 08:35 | Outpatient (AMB) | payer OTHER, SELFPAY ==
--- NOTE | 2023-07-21 09:27 | A.OFFVIS_ITS ---
Intake Vital Signs 07/21/23 09:28 Height 5 ft 8 in Weight 178 lb 9.191 oz BMI 27.1 BP 130/50 L Blood Pressure Location Rt brachial Position Sitting Pulse 55 Pulse Source Pulse Oximeter Intake Visit Reasons: 6 mth f/up Intake Note: 6 mht f/up pt its feeling good. 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 He has been asymptomatic from atrial fibrillation point of view. Here peripheral edema due to venous reflux and was referred to vascular surgery for further assessment. He underwent cardioversion on 09/09/2022 which was successful and was started on Multaq. Unfortunately his insurance did not cover for Multaq any was not taking it on an follow-up he is back in atrial fibrillation. Our plan was to do a treadmill stress test to see if he has any ischemic changes or symptoms and to consider flecainide or propafenone in that case. Give for stress testing but had atrial fibrillation with rapid ventricular response at that time. His medications were adjusted. Subsequent to that he was referred for transthoracic echocardiography which she did on 10/14/2022 showing normal left ventricular size and function. Mildly increased right ventricular cavity size with normal right ventricular function. He also had a Holter monitor done for 3 days which showed average heart rate of 89 with some he RVR up to 160 beats per minute. He is back in the office. He is denying any other issues right now. Taking medications regularly. Clinically stable. 07/21/2023: He returns for follow-up. Heart rate is well controlled diltiazem and metoprolol tartrate. Denying any symptoms. No chest discomfort shortness of breath. No palpitations. Blood pressure is well controlled. [facility] Medical History GERD (gastroesophageal reflux disease) HTN (hypertension) On anticoagulant therapy Osteoarthritis PAF (paroxysmal atrial fibrillation) Post-nasal drip Surgical History History of cardioversion Hx of colonoscopy History of hip replacement Social History Alcohol intake: current Alcohol intake frequency: a few times a week Alcohol type: beer Patient Tobacco Use Status: Former Tobacco user Quit Date: 1979 Tobacco use type: Cigarette Years Smoked: 10 +/- Advance Directives Date on File: 09/22/16 Review of Systems Const Reports chills, Reports fatigue, Reports fever(s), Reports frequent falls, Reports weakness, Reports weight gain and Reports weight loss ENT Reports dizziness Card Reports chest pain, Reports leg edema, Reports lightheadedness, Reports pal pitations, Reports dyspnea and Reports dyspnea on exertion Resp Reports cough, Reports dyspnea and Reports dyspnea on exertion GI Reports hematochezia Musc Reports abnormal gait, Reports muscle weakness, Reports numbness, Reports radiating pain into limb and Reports tingling Neuro Reports abnormal gait, Reports dizziness, Reports frequent falls, Reports numbness, Reports tingling and Reports weakness Endo Reports fatigue and Reports palpitations Physical Exam Vital Signs: Last Vital Signs Pulse 55 07/21/23 09:28 BP 130/50 L 07/21/23 09:28 BMI result Body Mass Index 27.1 GENERAL APPEARANCE: in no acute distress, pleasant. NECK: no carotid bruit, no jugular venous distention. SKIN: no suspicious lesions, warm and dry. HEART: no murmurs, irregular rate and rhythm. LUNGS: clear to auscultation bilaterally. ABDOMEN: soft, nontender. EXTREMITIES: No significant edema. PERIPHERAL PULSES: equal. NEUROLOGIC: No gross deficits, AAO X 3 Assessment & Plan Assessment & Plan (1) Persistent atrial fibrillation: Code(s): I48.19 - Other persistent atrial fibrillation Plan Pleasant 72-year-old gentleman who is here for follow-up. He has background of atrial fibrillation and hypertension. Blood pressure is well controlled currently. He is on diltiazem and metoprolol tartrate for rate control strategy. Previous echocardiography in October 2022 has shown normal LV function. We have decided to continue rate control strategy for now. He will see us back in 6 months. Thank you for allowing me to participate in the care of your patient. Please feel free to contact me if you have any questions. Coding Level of Care Code Est Pt Level 3 (50890) Diagnoses Persistent atrial fibrillation I48.19
[2023-07-21 09:28] VITALS: BP 130/50; PULSE 55; BMI 27.1
== END 2023-07-21 09:44 | disposition home or self-care (01) ==
PROVIDERS: PCP Family Medicine; Visit Provider Internal Medicine Cardiovascular Disease
DX: I48.19 Other persistent atrial fibrillation (principal)
CPT/HCPCS: 99213

== ENCOUNTER → 2023-07-21 08:35 | Outpatient (BNVA) | payer OTHER, SELFPAY | PROVIDERS: PCP Family Medicine; Visit Provider Internal Medicine Cardiovascular Disease ==

== ENCOUNTER 2024-01-24 08:14 | Outpatient (AMB) | payer OTHER, SELFPAY ==
[2024-01-24 09:11] VITALS: BP 150/70; PULSE 90; BMI 27.1
--- NOTE | 2024-01-24 09:11 | A.OFFVIS_ITS ---
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 Accompanied by: Self / Same As Patient Allergies No Known Allergies [No Known Allergies*] Allergy (Verified 01/13/23 09:50) Medication List - Last Reconciled 01/24/24 by Reese Nicholson MD apixaban (Eliquis) 5 mg PO BID 90 days diltiazem HCl CD 240 mg PO DAILY furosemide 20 mg PO DAILY 90 days glucos sul [id number]-sve-uvfwj-C-Mn 550-30-1 mg (Glucosamine Chondroitin) 1 cap PO DAILY [heel lift As directed Please measure leg length for righ side leg length discrepancy Fit as appropriate ] metoprolol tartrate 50 mg PO BID 90 days omeprazole 20 mg PO DAILY HPI Comments Details: 73-year-old gentleman with atrial fibrillation. He has been asymptomatic from atrial fibrillation point of view. Here peripheral edema due to venous reflux and was referred to vascular surgery for further assessment. He underwent cardioversion on 09/09/2022 which was successful and was started on Multaq. Unfortunately his insurance did not cover for Multaq any was not taking it on an follow-up he is back in atrial fibrillation. Our plan was to do a treadmill stress test to see if he has any ischemic changes or symptoms and to consider flecainide or propafenone in that case. Give for stress testing but had atrial fibrillation with rapid ventricular response at that time. His medications were adjusted. Subsequent to that he was referred for transthoracic echocardiography which she did on 10/14/2022 showing normal left ventricular size and function. Mildly increased right ventricular cavity size with normal right ventricular function. He also had a Holter monitor done for 3 days which showed average heart rate of 89 with some he RVR up to 160 beats per minute. He is back in the office. He is denying any other issues right now. Taking medications regularly. Clinically stable. 07/21/2023: He returns for follow-up. Heart rate is well controlled diltiazem and metoprolol tartrate. Denying any symptoms. No chest discomfort shortness of breath. No palpitations. Blood pressure is well controlled. 01/24/2024: He is here for follow-up. He has been doing well. No palpitations, chest pain or shortness of breath. He has been getting some blisters on his toes and is currently walking with a wa lker. He said he is seeing Podiatry next month. [facility] Medical History GERD (gastroesophageal reflux disease) HTN (hypertension) On anticoagulant therapy Osteoarthritis PAF (paroxysmal atrial fibrillation) Post-nasal drip Surgical History History of cardioversion Hx of colonoscopy History of hip replacement Social History Alcohol intake: current Alcohol intake frequency: a few times a week Alcohol type: beer Patient Tobacco Use Status: Former Tobacco user Tobacco use type: Cigarette Years Smoked: 10 +/- Advance Directives Date on File: 09/22/16 Review of Systems Const Denies chills, Denies fatigue, Denies fever(s), Denies frequent falls, Denies weakness, Denies weight gain and Denies weight loss ENT Denies dizziness Card Denies chest pain, Denies leg edema, Denies lightheadedness, Denies palpitations, Denies dyspnea and Denies dyspnea on exertion Resp Denies cough, Denies dyspnea and Denies dyspnea on exertion GI Denies hematochezia Musc Denies abnormal gait, Denies muscle weakness, Denies numbness, Denies radiating pain into limb and Denies tingling Neuro Denies abnormal gait, Denies dizziness, Denies frequent falls, Denies numbness, Denies tingling and Denies weakness Endo Denies fatigue and Denies palpitations Physical Exam Vital Signs: BMI result Body Mass Index 27.1 GENERAL APPEARANCE: in no acute distress, pleasant. NECK: no carotid bruit, no jugular venous distention. SKIN: no suspicious lesions, warm and dry. HEART: no murmurs, irregular rate and rhythm. LUNGS: clear to auscultation bilaterally. ABDOMEN: soft, nontender. EXTREMITIES: No significant edema. PERIPHERAL PULSES: equal. NEUROLOGIC: No gross deficits, AAO X 3 Office Procedures EKG Details: Atrial fibrillation 90 beats per minute, nonspecific T-wave changes, left ventricular hypertrophy, QTC 464 milliseconds. [id number], Complete Assessment & Plan Assessment & Plan (1) Persistent atrial fibrillation: Code(s): I48.19 - Other persistent atrial fibrillation Category: Medical Plan Pleasant 73 year gentleman who is here for follow-up. He has persistent atrial fibrillation. He is being treated with rate control strategy at this point. Heart rate is well controlled. Denying any chest pain or shortness of breath. No symptoms/signs of congestive heart failure. Continue same medications currently. He has asked for a 90 day supply for metoprolol and I am sending that to his pharmacy. Thank you for allowing me to participate in the care of your patient. Please feel free to contact me if you have any questions. Medications: Refilled metoprolol tartrate 50 mg PO BID 90 days 180 tabs 3RF Coding Level of Care Code Est Pt Level 3 (76626) Diagnoses Persistent atrial fibrillation I48.19 CPT Codes EKG - CPT: 26463-[id number], Complete ([id number])
== END 2024-01-24 09:30 | disposition home or self-care (01) ==
PROVIDERS: PCP Family Medicine; Visit Provider Internal Medicine Cardiovascular Disease
DX: I48.19 Other persistent atrial fibrillation (principal)
CPT/HCPCS: 93010; 99213

== ENCOUNTER → 2024-01-24 08:14 | Outpatient (BNVA) | payer OTHER, SELFPAY | PROVIDERS: PCP Family Medicine; Visit Provider Internal Medicine Cardiovascular Disease | DX: I48.19 Other persistent atrial fibrillation (principal); Z79.899 Other long term (current) drug therapy | CPT/HCPCS: 93005 ==

== ENCOUNTER 2024-01-24 15:07 | Outpatient (REF) | payer OTHER, SELFPAY ==
--- NOTE | ~2024-01-24 | XR_ITS ---
EXAMINATION: XR HAND, RIGHT CLINICAL INFORMATION: Cramping pain COMPARISON: None available. TECHNIQUE: PA, lateral, and oblique views of the right hand. FINDINGS: BONES: Bony structures are intact. Marginal osteophytosis is seen at the base of right second and third fingers distal phalanges. Prominent sesamoid bone is seen just volar to the right first metacarpal head. Prominent hypertrophic bone formation is seen surrounding the right third metacarpal head. Marginal osteophytosis is also seen along the radial border of the right hjlbxofhe-bjwbydtlj-oxjgevmu joint. There is no focal bone destruction or periosteal reaction seen. JOINTS: There is volar subluxation of the right first and third metacarpophalangeal joints. SOFT TISSUE: Soft tissue is normal. Extensive atherosclerotic calcification of the right ulnar artery is partially visualized. No radiopaque foreign body or abnormal air collection is seen. XR/XR hand RT min 3V IMPRESSION: 1. No acute fracture or dislocation. 2. Volar subluxation of the right first and third metacarpophalangeal joints. 3. Right second and third fingers distal interphalangeal joints, right ktfmckwsj-iadrcdjrp-ibtcrnfs joint osteoarthritis. 4. Marked hypertrophic bone formation around the right third metacarpal head is seen. 5. Extensive atherosclerotic calcification of the right ulna artery.
[2024-01-24 15:25] LABS: MANUAL DIFF FLAG NO
[2024-01-24 15:40] LABS: Basophils Percent Auto 0.1 % (0-2); Hematocrit 36.3 % (42.0-52.0); Hemoglobin 12.3 g/dl (14.0-18.0); Imm Gran Abs Auto 0.12 X10*3/uL (0.00-0.03); Imm Gran Pct Auto 1.2 % (0.0-0.4); Lymphocytes Absolute Auto 0.8 X10*3/uL (1.2-4.9); Lymphocytes Percent Auto 7.7 % (20-40); Mean Corpuscular HGB Conc 33.9 g/dl (31.0-36.0); Mean Corpuscular Hemoglobin 31.6 pg (27.0-33.0); Mean Corpuscular Volume 93.3 fL (80.0-98.0); Mean Platelet Volume 9.2 fL (9.4-12.4); Monocytes Absolute Auto 0.5 X10*3/uL (0.1-1.2); Monocytes Percent Auto 4.8 % (2-11); Neutrophils Absolute Auto 8.9 x10*3/uL (2.0-8.3); Neutrophils Percent Auto 86.2 % (45-73); Platelet Count 478 X10*3/uL (160-400); Red Blood Count 3.89 X10*6/uL (4.60-5.80); White Blood Count 10.4 X10*3/uL (4.8-10.8)
[2024-01-24 16:08] LABS: Anion Gap 14 (12-20); Blood Urea Nitrogen 21 mg/dL (9-16); Carbon Dioxide 29 mmol/L (22-29); Chloride 99 mmol/L (96-108); Estimated Glomerular Filt Rate 45; Potassium 3.5 mmol/L (3.3-5.1); Sodium 138 mmol/L (135-145); Uric Acid 4.7 mg/dL (3.4-7.0)
[2024-01-24 16:22] LABS: Rheumatoid Factor < 13.0 IU/mL (<15.0)
== END 2024-01-24 15:08 | disposition home or self-care (01) ==
LOC: HO.XRAY 15:07
PROVIDERS: PCP Family Medicine; Visit Provider Family Medicine
DX: M79.641 Pain in right hand (principal); M19.90 Unspecified osteoarthritis, unspecified site; I10 Essential (primary) hypertension
CPT/HCPCS: 36415; 73130; 80051; 82565; 84520; 84550; 85025; 86431

== ENCOUNTER 2024-01-28 12:30 | Outpatient (REF) | payer OTHER, SELFPAY ==
[2024-01-28 12:48] LABS: MANUAL DIFF FLAG NO
[2024-01-28 13:44] LABS: Basophils Absolute Auto 0.1 X10*3/uL (0.0-0.2); Basophils Percent Auto 0.6 % (0-2); Eosinophils Absolute Auto 0.1 X10*3/uL (0.0-0.4); Eosinophils Percent Auto 1.5 % (0-4); Hematocrit 37.7 % (42.0-52.0); Hemoglobin 12.3 g/dl (14.0-18.0); Imm Gran Abs Auto 0.09 X10*3/uL (0.00-0.03); Immature Retic Fraction 19.3 % (2.3-13.4); Lymphocytes Absolute Auto 1.7 X10*3/uL (1.2-4.9); Lymphocytes Percent Auto 17.7 % (20-40); Mean Corpuscular HGB Conc 32.6 g/dl (31.0-36.0); Mean Corpuscular Hemoglobin 31.9 pg (27.0-33.0); Mean Corpuscular Volume 97.9 fL (80.0-98.0); Mean Platelet Volume 9.5 fL (9.4-12.4); Monocytes Percent Auto 10.3 % (2-11); Neutrophils Absolute Auto 6.4 x10*3/uL (2.0-8.3); Neutrophils Percent Auto 68.9 % (45-73); Platelet Count 473 X10*3/uL (160-400); Red Blood Count 3.85 X10*6/uL (4.60-5.80); Red Cell Distribution Width 13.7 % (11.0-16.0); Retic HGB Equivalent 35.6 pg (30.0-35.0); Reticulocyte Percent 2.6 % (0.5-1.8); White Blood Count 9.3 X10*3/uL (4.8-10.8)
[2024-01-28 14:00] LABS: Blood Urea Nitrogen 16 mg/dL (9-16); Estimated Glomerular Filt Rate > 60; Iron 42 mcg/dL (45-160); Percent Iron Saturation 20 % (15-50); Total Iron Binding Capacity 215 mcg/dL (228-428); Unsaturated Iron Binding 173 ug/dL
[2024-01-28 14:17] LABS: Ferritin 617 ng/mL (20-250)
[2024-01-28 14:33] LABS: Folate 7.6 ng/mL (> or = 4.0); Vitamin B12 313 pg/mL (200-900)
[2024-01-28 14:34] LABS: Erythrocyte Sedimentation Rate 29 MM/HR (0-15)
== END 2024-01-28 12:31 | disposition home or self-care (01) ==
LOC: HO.LAB 12:30
PROVIDERS: PCP Family Medicine; Visit Provider Family Medicine
DX: I10 Essential (primary) hypertension (principal); D64.9 Anemia, unspecified
CPT/HCPCS: 36415; 82565; 82607; 82728; 82746; 83540; 84520; 85025; 85045; 85652

== ENCOUNTER 2024-03-16 11:58 | Outpatient (REF) | payer OTHER, SELFPAY ==
--- NOTE | ~2024-03-16 | XR_ITS ---
EXAMINATION: XR BOTH KNEES AP STANDING XR LEFT KNEE, 2 VIEWS CLINICAL INFORMATION: Left knee pain. COMPARISON: 07/13/2016 TECHNIQUE: Standing AP view of both knees and lateral and sunrise views of the left knee. FINDINGS: LEFT KNEE: Minimal lateral compartment joint space narrowing with tiny marginal osteophytes. Patellofemoral and medial compartment are normal. No effusion. Atherosclerotic calcifications are present in the popliteal and runoff arteries. No fractures. RIGHT KNEE: Mild medial and lateral compartment osteoarthritis on this single AP view, characterized by joint space narrowing. Atherosclerotic calcifications are noted. XR/XR knee LT 3V IMPRESSION: 1. Minimal lateral compartment osteoarthritis in the left knee. 2. Mild medial and lateral compartment osteoarthritis in the right knee. Electronically signed by: Lopez Acosta MD 04/10/2024 05:36 PM EDT
--- NOTE | ~2024-03-16 | XR_ITS ---
EXAMINATION: XR PELVIS CLINICAL INFORMATION: Hip pain. COMPARISON: 11/05/2016 TECHNIQUE: AP view of the pelvis. FINDINGS: Prosthetic components of the right total hip arthroplasty are appropriately aligned. No periprosthetic fracture. There is a small amount of heterotopic bone extending from the right anterior inferior iliac spine, likely at the rectus femoris origin. There is end-stage degenerative arthritis of the left hip with femoral head collapse and impaction into the acetabular roof with degenerative remodeling of both the acetabular roof and femoral head. There is significant loss of height of the left hip as a result, measuring approximately 2.5 cm when compared to the contralateral side. Osseous debris suspected in the left acetabular fossa. Atherosclerotic calcifications are present in the iliac and femoral arteries. XR/XR pelvis 1-2V IMPRESSION: 1. End-stage degenerative arthritis of the left hip with femoral head collapse and impaction into the acetabular roof with significant bone loss. 2. Appropriate alignment of the right total hip arthroplasty. Electronically signed by: Lopez Acosta MD 04/10/2024 05:37 PM EDT
== END 2024-03-16 11:59 | disposition home or self-care (01) ==
LOC: HO.HOSX 11:58
PROVIDERS: Visit Provider Orthopaedic Surgery
DX: M25.562 Pain in left knee (principal); M25.559 Pain in unspecified hip
CPT/HCPCS: 72170; 73562

== ENCOUNTER 2024-03-16 13:27 | Outpatient (AMB) | payer OTHER, SELFPAY ==
[2024-03-16 13:28] VITALS: BMI 27.1
--- NOTE | 2024-03-16 13:28 | MHC.OFFVIS ---
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 Patient reports pain for 3 weeks, this pain is mostly felt while walking,no previous treatment, and doesn't take anything for pain. She can no longer work. He can no longer walk. He had a right hip replacement about 7 years ago. HPI Comments Details: Graham is a 73 year old male who presents today as a new patient with complaints of right knee pain PFSH Medical History Post-nasal drip Osteoarthritis GERD (gastroesophageal reflux disease) PAF (paroxysmal atrial fibrillation) On anticoagulant therapy HTN (hypertension) Surgical History History of cardioversion Hx of colonoscopy History of hip replacement Social History Alcohol intake: current Alcohol intake frequency: a few times a week Alcohol type: beer Patient Tobacco Use Status: Former Tobacco user Tobacco use type: Cigarette Years Smoked: 10 +/- Advance Directives Date on File: 09/22/16 Physical Exam Vital Signs: BMI result Body Mass Index 27.1 Extrem Other: Minimal rotation left hip with markedly positive impingement test. Severe gait antalgia. Results Reviewed Results Reviewed: I personally reviewed relevant radiographs. There is proximal migration and loss of the femoral head consistent with severe arthritis likely secondary to avascular necrosis. 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 He can not function. He still works. I recommend hip replacement. He had a hip replacement on the right 7 years ago and did very well. I discussed the risks, benefits and alternatives including, but not limited to infection, persistent leg length discrepancy, dislocation, fracture, need for further surgery. I also explained some of the medical complications including blood clots, cardio pulmonary complications. He expressed understanding and we will begin the preoperative clearance process. Orders: Orders XR knee LT 3V Today M25.562 - Pain in left knee XR pelvis 1-2V Today M25.559 - Pain in unspecified hip Coding Level of Care Code New Pt Level 4 (21689) Diagnoses Avascular necrosis of bone of left hip M87.052
== END 2024-03-16 14:29 | disposition home or self-care (01) ==
PROVIDERS: PCP Family Medicine; Visit Provider Orthopaedic Surgery
DX: M87.052 Idiopathic aseptic necrosis of left femur (principal)
CPT/HCPCS: 99204

== ENCOUNTER 2024-04-13 07:59 | Outpatient (REF) | payer OTHER, SELFPAY ==
[2024-04-13 08:13] LABS: MANUAL DIFF FLAG NO
[2024-04-13 08:24] LABS: Basophils Absolute Auto 0.1 X10*3/uL (0.0-0.2); Basophils Percent Auto 1.3 % (0-2); Eosinophils Absolute Auto 0.2 X10*3/uL (0.0-0.4); Eosinophils Percent Auto 1.7 % (0-4); Hematocrit 42.8 % (42.0-52.0); Hemoglobin 13.8 g/dl (14.0-18.0); Imm Gran Abs Auto 0.11 X10*3/uL (0.00-0.03); Imm Gran Pct Auto 1.2 % (0.0-0.4); Lymphocytes Absolute Auto 2.1 X10*3/uL (1.2-4.9); Lymphocytes Percent Auto 22.3 % (20-40); Mean Corpuscular HGB Conc 32.2 g/dl (31.0-36.0); Mean Corpuscular Hemoglobin 30.6 pg (27.0-33.0); Mean Corpuscular Volume 94.9 fL (80.0-98.0); Mean Platelet Volume 9.3 fL (9.4-12.4); Monocytes Absolute Auto 1.2 X10*3/uL (0.1-1.2); Monocytes Percent Auto 12.7 % (2-11); Neutrophils Absolute Auto 5.7 x10*3/uL (2.0-8.3); Neutrophils Percent Auto 60.8 % (45-73); Platelet Count 375 X10*3/uL (160-400); Red Blood Count 4.51 X10*6/uL (4.60-5.80); Red Cell Distribution Width 14.4 % (11.0-16.0); White Blood Count 9.4 X10*3/uL (4.8-10.8)
[2024-04-13 08:55] LABS: Iron 72 mcg/dL (45-160); Percent Iron Saturation 29 % (15-50); Total Iron Binding Capacity 252 mcg/dL (228-428); Unsaturated Iron Binding 180 ug/dL
[2024-04-13 09:09] LABS: Erythrocyte Sedimentation Rate 23 MM/HR (0-15)
[2024-04-13 09:22] LABS: Carcinoembryonic Antigen < 1.73 ng/mL; Ferritin 380 ng/mL (20-250)
== END 2024-04-13 08:00 | disposition home or self-care (01) ==
LOC: HO.LAB 07:59
PROVIDERS: PCP Family Medicine; Visit Provider Family Medicine
DX: D50.9 Iron deficiency anemia, unspecified (principal)
CPT/HCPCS: 36415; 82378; 82728; 83540; 85025; 85652

== ENCOUNTER 2024-05-29 12:45 | Outpatient (REF) | payer OTHER, SELFPAY ==
[2024-05-29 16:10] LABS: Anion Gap 16 (12-20); Blood Urea Nitrogen 20 mg/dL (9-16); Carbon Dioxide 25 mmol/L (22-29); Chloride 103 mmol/L (96-108); Estimated Glomerular Filt Rate > 60; Potassium 3.7 mmol/L (3.3-5.1); Sodium 140 mmol/L (135-145)
== END 2024-05-29 12:46 | disposition home or self-care (01) ==
LOC: HO.LAB 12:45
PROVIDERS: PCP Family Medicine; Visit Provider Family Medicine
DX: Z01.810 Encounter for preprocedural cardiovascular examination (principal); I10 Essential (primary) hypertension; I48.19 Other persistent atrial fibrillation
CPT/HCPCS: 36415; 80051; 82565; 84520; 93005

== ENCOUNTER 2024-05-29 13:14 | Outpatient (AMB) | payer OTHER, SELFPAY ==
[2024-05-29 13:39] VITALS: BP 130/60; BMI 27.5
--- NOTE | 2024-05-29 13:39 | MHC.OFFVIS ---
Vital Signs 05/29/24 13:39 Height 5 ft 8 in Weight 180 lb 12.465 oz BMI 27.5 BP 130/60 Blood Pressure Location Rt brachial Position Sitting Intake Visit Reasons: 6 mth/clearance/L KATINA w/Dr. Marie Intake Note: Preop. Hip replacement 08/22/24. Oral And Maxillofacial Surgery Required: No Accompanied by: Self / Same As Patient Allergies No Known Allergies [No Known Allergies*] Allergy (Verified 03/16/24 13:30) Medication List - Last Reconciled 05/29/24 by Reese Nicholson MD apixaban (Eliquis) 5 mg PO BID 90 days diltiazem HCl CD 240 mg PO DAILY furosemide 20 mg PO DAILY 90 days glucos sul [id number]-Mn 550-30-1 mg (Glucosamine Chondroitin) 1 cap PO DAILY [heel lift As directed Please measure leg length for righ side leg length discrepancy Fit as appropriate ] metoprolol tartrate 50 mg PO BID 90 days omeprazole 20 mg PO DAILY HPI Comments Details: 73-year-old gentleman with atrial fibrillation. He has been asymptomatic from atrial fibrillation point of view. Here peripheral edema due to venous reflux and was referred to vascular surgery for further assessment. He underwent cardioversion on 09/09/2022 which was successful and was started on Multaq. Unfortunately his insurance did not cover for Multaq any was not taking it on an follow-up he is back in atrial fibrillation. Our plan was to do a treadmill stress test to see if he has any ischemic changes or symptoms and to consider flecainide or propafenone in that case. Give for stress testing but had atrial fibrillation with rapid ventricular response at that time. His medications were adjusted. Subsequent to that he was referred for transthoracic echocardiography which she did on 10/14/2022 showing normal left ventricular size and function. Mildly increased right ventricular cavity size with normal right ventricular function. He also had a Holter monitor done for 3 days which showed average heart rate of 89 with some he RVR up to 160 beats per minute. He is back in the office. He is denying any other issues right now. Taking medications regularly. Clinically stable. 07/21/2023: He returns for follow-up. Heart rate is well controlled diltiazem and metoprolol tartrate. Denying any symptoms. No chest discomfort shortness of breath. No palpitations. Blood pressure is well controlled. 01/24/2024: He is here for follow-up. He has been doing well. No palpitations, chest pain or shortness of breath. He has been getting some blisters on his toes and is currently walking with a walker. He said he is seeing Podiatry next month. 05/29/2024: He is struggling with severe arthritis in the left hip. He came with a walker. He wants to undergo surgery. Denying chest pain or shortness of breath. Continues to be in atrial fibrillation with rate controlled. On diltiazem 240 mg and metoprolol tartrate 50 mg twice a day. He is on Eliquis for anticoagulation. [facility] Medical History Post-nasal drip Osteoarthritis GERD (gastroesophageal reflux disease) PAF (paroxysmal atrial fibrillation) On anticoagulant therapy HTN (hypertension) Surgical History History of cardioversion Hx of colonoscopy History of hip replacement Social History Alcohol intake: current Alcohol intake frequency: a few times a week Alcohol type: beer Patient Tobacco Use Status: Former Tobacco user Tobacco use type: Cigarette Years Smoked: 10 +/- Advance Directives Date on File: 09/22/16 Review of Systems Const Denies chills, Denies fatigue, Denies fever(s), Denies weight gain and Denies weight loss ENT Denies dizziness Card Denies chest pain, Denies leg edema, Denies lightheadedness, Denies palpitations, Denies dyspnea on exertion, Denies orthopnea and Denies other Resp Denies cough and Denies dyspnea on exertion GI Denies hematochezia and Denies change in stool character Musc Denies abnormal gait, Denies muscle weakness, Denies numbness, Denies radiating pain into limb and Denies tingling Neuro Denies abnormal gait, Denies dizziness, Denies numbness and Denies tingling Endo Denies fatigue and Denies palpitations Physical Exam Vital Signs: Last Vital Signs BP 130/60 05/29/24 13:39 BMI result Body Mass Index 27.5 GENERAL APPEARANCE: in no acute distress, pleasant. NECK: no carotid bruit, no jugular venous distention. SKIN: no suspicious lesions, warm and dry. HEART: no murmurs, irregular rate and rhythm. LUNGS: clear to auscultation bilaterally. ABDOMEN: soft, nontender. EXTREMITIES: No significant edema. PERIPHERAL PULSES: equal. NEUROLOGIC: No gross deficits, AAO X 3 Office Procedures EKG Details: Atrial fibrillation 89 beats per minute, normal axis, nonspecific ST changes, QTC 442 milliseconds. [id number], Complete Assessment & Plan Assessment & Plan (1) Persistent atrial fibrillation: Code(s): I48.19 - Other persistent atrial fibrillation Category: Medical (2) Preop cardiovascular exam: Code(s): Z01.810 - Encounter for preprocedural cardiovascular examination Category: Medical Plan Pleasant 73-year-old gentleman who is here for follow-up. He has known history of persistent atrial fibrillation currently being treated with rate control strategy with diltiazem and metoprolol tartrate 50 mg twice a day. He has good rate control at this stage. On apixaban 5 mg twice a day for anticoagulation. Blood pressure is well controlled. Unfortunately has severe left hip arthritis and needs total hip replacement. He is intermediate risk for perioperative cardiovascular complications. He can hold the Eliquis for 72 hours before surgery. Metoprolol should not be interrupted because he has been chronically on beta-marcus and des procedure interruption of beta-marcus can increase his des procedural risk. I have explained this to the patient and he will continue to take the metoprolol before and after surgery. Thank you for allowing me to participate in the care of your patient. Please feel free to contact me if you have any questions. Coding Level of Care Code Est Pt Level 4 (92034) Diagnoses Persistent atrial fibrillation I48.19 Preop cardiovascular exam Z01.810 CPT Codes EKG - CPT: 36544-[id number], Complete ([id number])
== END 2024-05-29 14:14 | disposition home or self-care (01) ==
LOC: HO.HCS 13:18
PROVIDERS: PCP Family Medicine; Visit Provider Internal Medicine Cardiovascular Disease
DX: I48.19 Other persistent atrial fibrillation (principal); Z01.810 Encounter for preprocedural cardiovascular examination
CPT/HCPCS: 93010; 99214

== ENCOUNTER → 2024-06-01 09:51 | Outpatient (BNVA) | payer OTHER, SELFPAY | PROVIDERS: PCP Family Medicine | DX: Z01.818 Encounter for other preprocedural examination (principal) ==

== ENCOUNTER 2024-06-20 08:35 | Outpatient (AMB) | payer OTHER, SELFPAY ==
[2024-06-20 08:43] VITALS: BMI 27.4
--- NOTE | 2024-06-20 08:43 | MHC.OFFVIS ---
Vital Signs 06/20/24 08:43 Height 5 ft 8 in Weight 180 lb BMI 27.4 Intake Visit Reasons: Pre-Op: LT KATINA w/NE 06/28/24 Intake Note: Graham a 73 year old male who presents today for preoperative LT KATINA, DOS: 06/28/24. Pain management agreement reviewed and signed. Allergies No Known Allergies [No Known Allergies*] Allergy (Verified 06/20/24 08:49) Medication List - Last Reconciled 06/20/24 by Maciej Lemon PA-C apixaban (Eliquis) 5 mg PO BID 90 days diltiazem HCl CD 240 mg PO QAM furosemide 20 mg PO QAM glucos sul 9SXz-qbb-zpbnt-C-Mn 550-30-1 mg (Glucosamine Chondroitin) 1 cap PO DAILY [heel lift As directed Please measure leg length for righ side leg length discrepancy Fit as appropriate ] metoprolol tartrate 50 mg PO BID 90 days omeprazole 20 mg PO DAILY PRN HPI Comments Details: Mr Hodges presents to the office today for preop visit. He is scheduled for left total hip arthroplasty with Dr. Marie. He continues to have ongoing pain and difficulty with ambulation in the left hip, which is affecting his quality of life; therefore, he has elected to move forward with surgery. Previous RT KATINA with Dr Marie [facility] Medical History (Updated 06/02/24 @ 12:53 by Daniela Kemp RN) Arthritis Post-nasal drip Osteoarthritis GERD (gastroesophageal reflux disease) PAF (paroxysmal atrial fibrillation) On anticoagulant therapy HTN (hypertension) Surgical History History of surgery on lower extremity History of cardioversion Hx of colonoscopy History of hip replacement Social History Are you a primary rn patient care to a significant other at home: No Do you presently have visiting nurse or other home services: No Alcohol intake: current Alcohol intake frequency: a few times a week Alcohol type: beer Patient Tobacco Use Status: Former Tobacco user Tobacco use type: Cigarette Years Smoked: 15 Advance Directives Date on File: 09/22/16 Review of Systems Const All systems reviewed & are unremarkable except as noted in HPI and below Physical Exam Vital Signs: BMI result Body Mass Index 27.4 Const General: cooperative and no acute distress Orientation/consciousness: patient oriented x3 Neck Neck: Yes normal visual inspection and Yes no lymphadenopathy Resp Effort & Inspection: normal respiratory effort and able to speak in complete sentences Cardio Peripheral pulses: Peripheral pulses 2+ throughout GI Inspection: Yes normal to inspection Palpation (GI): Soft to palpation Skin General skin exam: no rashes or lesions noted Neuro General: patient oriented x3 Extrem Other: Minimal rotation left hip with markedly positive impingement test. Severe gait antalgia. Results Reviewed Results Reviewed: Xrays were obtained in the office today and personally reviewed by me of the left hip for pre op planning Assessment & Plan Assessment & Plan (1) Avascular necrosis of bone of left hip: Code(s): M87.052 - Idiopathic aseptic necrosis of left femur Category: Medical Plan I discussed in detail the procedure and what to expect pre and post operatively. We discussed the risks, benefits and alternatives to the surgery as well as the rehabilitation course. The risks; which include, but are not limited to infection, bleeding, nerve injury, ongoing pain, swelling, and stiffness, perioperative risk of injury to bones and soft tissues, and blood clots. I?ve answered all questions and with their understanding they have consented to move forward with Left total hip arthroplasty with Dr. Marie He will stop his Eliquis 3 days pre op. Orders: Orders PT Evaluation and Treatment Today Z96.642 - Presence of left artificial hip joint XR hip LT min 2V Today M25.552 - Pain in left hip Type and Screen Today Z01.818 - Encounter for other preprocedural examination Patient Instructions: Scribed for Maciej Lemon PA-C, by Spenser Sheppard pediatrician/medical doctor, on 06/20/2024 at 9:00 AM EST.? I, Maciej Lemon PA-C, have personally reviewed and agree with the information entered by the scribe. Coding Level of Care Code Est Pt Level 3 (92392) Complex EM visit Add On G2211 Diagnoses Avascular necrosis of bone of left hip M87.052
== END 2024-06-20 10:37 | disposition home or self-care (01) ==
PROVIDERS: PCP Family Medicine; Visit Provider Physician Assistant
DX: M87.052 Idiopathic aseptic necrosis of left femur (principal)
CPT/HCPCS: 99213; G2211

== ENCOUNTER 2024-06-20 08:40 | Outpatient (REF) | payer OTHER, SELFPAY ==
--- NOTE | ~2024-06-20 | XR_ITS ---
EXAMINATION: XR HIP, LEFT Pelvis: CLINICAL INFORMATION: M25.552 - Pain in left hip preop COMPARISON: X-ray of the pelvis 03/16/2024. X-ray of the pelvis November 2016 TECHNIQUE: AP view of the pelvis and single AP view of the left hip Radiopaque markers overlie the midline FINDINGS: Left hip: As noted previously there there is marked bone loss of the femoral head with only small portion of the femoral head still present. The surface of the remaining femoral head is irregular as is the acetabular surface. There may be some osseous fragments noted within the joint space. Right total hip arthroplasty noted with the components in usual in unchanged position. There is some heterotopic ossification adjacent to the lateral aspect of the superior acetabulum. There is extensive vascular calcification present. XR/XR hip LT min 2V IMPRESSION: Chronic marked collapse of the left femoral head with remodeling of the joint. I suspect findings secondary to avascular necrosis with subchondral collapse and/or sequela of septic arthritis . No change compared with February 2024, but significant change compared with x-ray 2016. Electronically signed by: Josh Levi MD 06/24/2024 10:29 PM [facility]
== END 2024-06-20 08:41 | disposition home or self-care (01) ==
LOC: HO.HOSX 08:40
PROVIDERS: Visit Provider Physician Assistant
DX: M25.552 Pain in left hip (principal)
CPT/HCPCS: 73502

== ENCOUNTER 2024-06-28 06:12 | Day surgery (SDC) | payer OTHER, SELFPAY ==
[2024-06-02 12:57] VITALS: BP 108/69; PULSE 86; RESP 20; O2SAT 100; BMI 26.6
--- NOTE | 2024-06-02 13:15 | P.CONAN_ITS ---
Documented by User: Mel Liz NP 06/27/24 09:22 HPI - Anesthesia Eval Consult details Narrative: 73yo M for Left Hip Total Replacement, 06/28/24 Cardiac optimized Medically optimized No recent illness No CP/SOB with minimal activity r/t pain Afib: on eliquis GERD: ppi rarely PND: rare PMFSH Active Problems Active Problems: All Active Problems Preop cardiovascular exam (Acute) Avascular necrosis of bone of left hip (Acute) Persistent atrial fibrillation (Acute) Lymphedema (Acute) Varicose veins of left lower extremity with inflammation (Acute) Venous reflux (Acute) Impacted molar (Acute) Peripheral edema (Acute) PAF (paroxysmal atrial fibrillation) (Acute) Past Medical History Medical History Arthritis Post-nasal drip Osteoarthritis GERD (gastroesophageal reflux disease) PAF (paroxysmal atrial fibrillation) On anticoagulant therapy HTN (hypertension) Family History Family history of problems with anesthesia: No Surgical History Surgical History History of surgery on lower extremity History of cardioversion Hx of colonoscopy History of hip replacement History of Problems with Anesthesia: No Social History Social History Are you a primary cardiac care nurse to a significant other at home: No Do you presently have visiting nurse or other home services: No Alcohol intake: current Alcohol intake frequency: a few times a week Alcohol type: beer Patient Tobacco Use Status: Former Tobacco user Tobacco use type: Cigarette Years Smoked: 15 Use of substances other than those prescribed or required for medical reasons: No Have you been hit, kicked, punched, or otherwise hurt by someone within the past year? If so, by whom?: No Spiritual Healthcare Practices: none Church Healthcare Practices: Islam/Denominational Cultural Healthcare Practices: none Are you DNR?: No Advance Directives: Yes (MOLST & HCP on chart) Advance Directives Information Provided: Yes Advance Directives on File: Yes Advance Directives Date on File: 09/22/16 Recently lost weight without trying: No Eating poorly because of decreased appetite: No Nutrition Risks: No Nutritional Risk Poor oral hygiene: No (extracted teeth upper left) Meds Allergies Allergy/AdvReac Type Severity Reaction Status Date / Time No Known Allergies Allergy Verified 06/20/24 08:49 [No Known Allergies*] Home Medications ?Medication ?Instructions ?Recorded ?Confirmed ?Last Taken ?Type glucosamine sulf dipot 1 cap PO DAILY 03/28/21 06/28/24 Unknown History chlr,msm,chond 550 mg-C 30 mg-william 1 mg capsule (Glucosamine Chondroitin) omeprazole 20 mg capsule,delayed 20 mg PO DAILY PRN Acid Reflux 03/28/21 06/28/24 Unknown History release diltiazem HCl 240 mg 240 mg PO QAM 05/28/21 06/20/24 06/28/24 History capsule,extended release 24 hr furosemide 20 mg tablet 20 mg PO QAM 06/02/24 06/20/24 06/27/24 History Exam Height,Weight and Vital Signs: Height 5 ft 8 in Weight 79.379 kg Last Vital Signs Pulse 86 06/02/24 12:57 Resp 20 06/02/24 12:57 BP 108/69 06/02/24 12:57 Pulse Ox 100 06/02/24 12:57 O2 Del Method Room Air 06/02/24 12:57 Pertinent Lab Results Pertinent Lab Results: Laboratory Tests 04/13/24 05/29/24 08:11 13:07 WBC 9.4 Hgb 13.8 L Hct 42.8 Plt Count 375 Sodium 140 Potassium 3.7 Chloride 103 Carbon Dioxide 25 BUN 20 H Creatinine 1.16 Lab Results 06/02/24 06/20/24 Range/Units 13:05 09:29 Nasal Screen MRSA (PCR) NEGATIVE (Negative) Nasal S. aureus Screen NEGATIVE (Negative) Nasal MRSA/S.aureus Interp SEE NOTE Blood Type O Negative Antibody Screen NEGATIVE Narrative Narrative: EKG 05/29/24 Atrial fibrillation 89 beats per minute, normal axis, nonspecific ST changes, QTC 442 milliseconds. Holter 2022 1. Patient was monitored for total period of 3 days 2. Baseline was atrial fibrillation with average heart of 89 beats per minute with borderline rate control with peak heart rate of 160 beats per minute 3. No significant pauses noted 4. Rare PVCs noted 5. No patient reported symptoms ECHO 2022 Conclusions: - Normal left ventricular size, thickness, systolic function, and wall motion. The visually estimated ejection fraction is between 60-65%. - Mildly increased right ventricular cavity size. There is normal right ventricular systolic function. Airway Mallampati Class: II TM Dist: >3cm Neck ROM: Full Loose/Missing/Broken Teeth: Yes (molars extracted) Heart: irreg Lungs: CTAB Assessment and Plan Assessment Anesthesia Assessment: Anesthesia Plan Discussed and PAT Visit Final Anesthetic Review Family History of Problems with Anesthesia: No History of Problems with Anesthesia: No Documented by User: Juani Swift MD 06/28/24 07:31 [facility] Past Medical History Medical History Arthritis Post-nasal drip Osteoarthritis GERD (gastroesophageal reflux disease) PAF (paroxysmal atrial fibrillation) On anticoagulant therapy HTN (hypertension) Surgical History Surgical History History of surgery on lower extremity History of cardioversion Hx of colonoscopy History of hip replacement Social History Social History Are you a primary cardiac care nurse to a significant other at home: No Do you presently have visiting nurse or other home services: No Alcohol intake: current Alcohol intake frequency: a few times a week Alcohol type: beer Patient Tobacco Use Status: Former Tobacco user Tobacco use type: Cigarette Years Smoked: 15 Use of substances other than those prescribed or required for medical reasons: No Have you been hit, kicked, punched, or otherwise hurt by someone within the past year? If so, by whom?: No Spiritual Healthcare Practices: none Church Healthcare Practices: Islam/Denominational Cultural Healthcare Practices: none Are you DNR?: No Advance Directives: Yes (MOLST & HCP on chart) Advance Directives Information Provided: Yes Advance Directives on File: Yes Advance Directives Date on File: 09/22/16 Recently lost weight without trying: No Eating poorly because of decreased appetite: No Nutrition Risks: No Nutritional Risk Poor oral hygiene: No (extracted teeth upper left) Meds Allergies Allergy/AdvReac Type Severity Reaction Status Date / Time No Known Allergies Allergy Verified 06/20/24 08:49 [No Known Allergies*] Home Medications ?Medication ?Instructions ?Recorded ?Confirmed ?Last Taken ?Type glucosamine sulf dipot 1 cap PO DAILY 03/28/21 06/28/24 Unknown History chlr,msm,chond 550 mg-C 30 mg-william 1 mg capsule (Glucosamine Chondroitin) omeprazole 20 mg capsule,delayed 20 mg PO DAILY PRN Acid Reflux 03/28/21 06/28/24 Unknown History release diltiazem HCl 240 mg 240 mg PO QAM 05/28/21 06/20/24 06/28/24 History capsule,extended release 24 hr furosemide 20 mg tablet 20 mg PO QAM 06/02/24 06/20/24 06/27/24 History Assessment and Plan Final Anesthetic Review NPO: Yes ASA Class: III Final Preanesthetic Review: No Changes in Pt Med Stat, Meds/Allgs Chart Reviewed, Consent Obtained/Reviewed and Anes Risks/Benef Reviewed Patient Risk: Intermediate Procedure Risk: Intermediate Anesthetic Plan Anesthetic Plan: GA Disposition: Standard PACU
[2024-06-02 15:56] LABS: MRSA Nasal PCR NEGATIVE (Negative); SA Nasal PCR NEGATIVE (Negative)
[2024-06-28] VITALS (13 sets, daily range): BP systolic 111–131; BP diastolic 62–81; PULSE 62–109; RESP 16–20; TEMP 36.3–36.9; O2SAT 94–99; BMI 27.9
--- NOTE | ~2024-06-28 | XR_ITS ---
EXAMINATION: XR PELVIS CLINICAL INFORMATION: left total hip replacement COMPARISON: [Hip replacement TECHNIQUE: Pelvis 06/20/2024 FINDINGS: Status post left total hip arthroplasty. Usual position and alignment. Intact hardware. No acute periprosthetic fracture. Air in the soft tissues. Skin cam. Redemonstrated is right total hip arthroplasty, stable in position alignment. Extensive vascular calcification. XR/XR pelvis 1-2V IMPRESSION: Postsurgical changes status post left total hip arthroplasty. Electronically signed by: Estuardo Koenig MD 06/28/2024 01:27 PM [facility]
[2024-06-28] MEDS: oxyCODONE HCl ER 10 MG TAB.ER.12H PO ×2 (07:08→20:59)
[2024-06-28] MEDS: Lactated Ringers 1,000 ML 100 ML IVCONT ×3 (07:15→22:52)
--- NOTE | 2024-06-28 07:33 | MHC.SHP ---
Pre-Procedural Eval Section A - 24 Hr Update-Section A only Date of Service: 06/28/24 The patient is an INPATIENT: No Changes since office visit: No Cold of Flu in the past 2 weeks, No New Medical Problems, No Changes in Medication and No Patient answered all questions The patient has been examined within 24 hours of the surgical procedure. The History & Physical has been completed within 30 days and I have reviewed it.: Yes Section B - Complete if H&P > 30 days Chief Complaint: Idiopathic aseptic necrosis of left femur Allergies: Allergies Allergy/AdvReac Type Severity Reaction Status Date / Time No Known Allergies Allergy Verified 06/20/24 08:49 [No Known Allergies*] Plan I have reviewed the history and physical and performed a pertinent physical examination on my patient. No changes have occurred unless specified. Time Spent With Patient Time: Total time managing care of this patient today ____ minutes.
--- NOTE | 2024-06-28 10:27 | P.BOP_ITS ---
Brief Operative Note Date of Service: 06/28/24 Pre-op diagnosis: left hip AVN Post-op diagnosis: same Procedure: Left KATINA Implants: [place] Trident2 62 with 3 acetabular screws [place] Accolade2#6 127 deg with -2.5/36 ceramic femoral head Surgeon: Dwayne Marie MD Anesthesia: GETA Was an Cardiac Rehab Nurse used for this Procedure?: Yes Cardiac Rehab Nurse: Kristi Ponce Estimated blood loss (mL): 200 IV fluids (mL): 1,000 Pathology: other Condition: stable Disposition: PACU
--- NOTE | 2024-06-28 10:29 | W.PM.OPN ---
Operative Note Operative Note Date of Service: 06/28/24 Narrative: Date of Service: 06/28/24 Pre-op diagnosis: left hip AVN Post-op diagnosis: same Procedure: Left KATINA Implants: [place] Trident2 62 with 3 acetabular screws Rukhsana Accolade2#6 127 deg with -2.5/36 ceramic femoral head Surgeon: Dwayne Marie MD Anesthesia: GETA Was an It Project Lead used for this Procedure?: Yes It Project Lead: Kristi Ponce Estimated blood loss (mL): 200 IV fluids (mL): 1,000 Pathology: other Condition: stable Disposition: PACU Patient was brought into the operating room and placed in the right lateral decubitus position. All bony prominences were well padded and the limb was prepped and draped in standard sterile fashion. A time-out was called to identify proper site procedure proper surgeon IV antibiotics and 1 g of tranexamic acid were administered. I began by making a curvilinear incision over the posterolateral aspect of the greater trochanter. Dissection was taken down to the tensor fascia which was incised in line with the incision and a Charnley retractor was placed. Cautery was used to maintain hemostasis. The hip was internally rotated and the external rotators were identified. The vessels were cauterized and a full-thickness capsular/external rotator layer was developed starting just proximal to the piriformis. This layer was tagged and a dull Hohmann retractor was placed underneath the neck in the hip was dislocated. A neck cut was made 1 cm proximal to the lesser trochanter and the head and neck were removed. There was severe flattening and obliteration of typical head anatomy. There was a patulous capsule as well. The superior acetabulum was worn and slow dissection of the abundant paricapsular tissue was undertaken for visualization. Eventually I was able to identify the inner table and I sequentially reamed to a 62 and placed a 62 cup at 45 degrees of inclination and 20 degrees of version. Three acetabular screws were placed to stabilize the cup. I then placed a 20 deg posterior lipped liner and turned my attention to the femur. I identified the piriformis insertion and used this as a starting point for my jacques cutter. The medius tendon was protected with a Hibs retractor. A Charnley awl was inserted in the canal and a curved curette used to remove the lateral bone. I irrigated copiously. I then sequentially broached in the patient's natural version to a size 6 and placed my trial implants. I used a #6/127/+0 based on my pre-operative template. He was stiff in extension at baseline and -2.5 was trialed. I was satisfied with the stability here. a -5 was not sufficiently stable and the +0 felt too tight so I settled on the -2.5. I removed all instrumentation and copiously irrigated. I placed my final femoral implant and again took the hip through range of motion and was satisfied with the stability and length. The final -2.5 implant was impacted in place and the hip reduced. I then irrigated copiously and placed 1 g of local tranexamic acid. I performed a capsular closure with 2.0 fiberwire, Skylar's fascia with 0 Vicryl, subcuticular with 2-0 Vicryl and the skin with cam. Patient was placed into a sterile dressing. A supine AP radiograph was taken prior to extubation. I was satisfied with the alignement. Patient was extubated brought to the recovery room in stable condition. There were no known complications.
[2024-06-28] MEDS: ceFAZolin Sodium/Dextrose,Iso 2 GM/50 ML PIGGYBACK IV (13:14)
--- NOTE | 2024-06-28 14:14 | PHA.MEDREC ---
Addendum entered by Max Jean RPh 06/28/24 14:29: Med rec was reviewed by [facility]. Original Note: Pharmacy Consult ? Medication Reconciliation Pharmacy reviewed med rec done by nursing. Spoke with patient and she was able to verify his medications. He confirmed he is still taking the Eliquis 5mg tabs 1 tab BID and states he gets that mail ordered. He confirmed he still fills some medications at [facility] too but would prefer [facility]. He confirmed he stopped the Eliquis Wednesday due to his surgery today but will be starting it again, unless told otherwise by the Dr, when he gets home. He confirmed he took his Metoprolol 50mg and Diltiazem 240mg tabs this morning and he has not taken anything else since Wednesday.
--- NOTE | 2024-06-28 14:21 | P.CONHOSP_ITS ---
History of Present Illness Data of Consult Service Date: 06/28/24 Primary Care Provider: Frandy Torres MD HPI Medical management post left total hip arthroplasty 73-year-old gentleman with past medical history significant for persistent a trial fibrillation on Eliquis, hypertension, GERD admitted to Orthopedic surgery for an elective left total hip arthroplasty for left hip AVN postprocedure patient offers no acute complaints, has good pain control, denies lightheadedness, no dizziness, no chest pain, no palpitations, no shortness a breath, no nausea, no vomiting or diarrhea participated with physical therapy receiving IV fluids. Review of Systems Review of Systems: General no headache, no dizziness no fever chills. CVS no chest pain, no palpitation. Respiratory no cough no sob Gastrointestinal no nausea no vomiting, no abdominal pain no urgency, no frequency Skin no rash. [facility] Medical History Arthritis Post-nasal drip Osteoarthritis GERD (gastroesophageal reflux disease) PAF (paroxysmal atrial fibrillation) On anticoagulant therapy HTN (hypertension) Surgical History History of surgery on lower extremity History of cardioversion Hx of colonoscopy History of hip replacement Social History Household Members: None Housing: Apartment Are you a primary managed care liaison to a significant other at home: No Do you presently have visiting nurse or other home services: No Alcohol intake: current Alcohol intake frequency: a few times a week Alcohol type: beer Patient Tobacco Use Status: Former Tobacco user Tobacco use type: Cigarette Years Smoked: 15 Use of substances other than those prescribed or required for medical reasons: No Have you been hit, kicked, punched, or otherwise hurt by someone within the past year? If so, by whom?: No Do you feel safe in your current relationship?: No Current Relationship Is there a partner from a previous relationship who is making you feel unsafe now?: No Are you made to feel afraid or neglected: No Spiritual Healthcare Practices: none Adventist Healthcare Practices: Scientologist/Buddhism Cultural Healthcare Practices: none Are you DNR?: No Advance Directives: Yes (MOLST & HCP on chart) Advance Directives Information Provided: Yes Advance Directives on File: Yes Advance Directives Date on File: 09/22/16 Do you have a plan to hurt others: No Plan Recently lost weight without trying: No Eating poorly because of decreased appetite: No Nutrition Risks: No Nutritional Risk Poor oral hygiene: No Meds Allergies Allergy/AdvReac Type Severity Reaction Status Date / Time No Known Allergies Allergy Verified 06/20/24 08:49 [No Known Allergies*] Active Medications: Current Medications Acetaminophen (Acetaminophen 325 Mg Tablet) 650 mg PO Q6H PRN PRN Reason: Pain, Mild (Pain Scale 1-3), fever or headache Apixaban (Apixaban 5 Mg Tablet) 5 mg PO BID [facility] Celecoxib (Celecoxib 200 Mg Capsule) 200 mg PO BID [facility] Diltiazem HCl (Diltiazem Hcl Cd 240 Mg Cap.Er.Deg) 240 mg PO DAILY [facility]; Protocol Furosemide (Furosemide 20 Mg Tablet) 20 mg PO DAILY [facility]; Protocol Hydromorphone HCl (Hydromorphone Hcl 0.5 Mg/0.5 Ml Syringe) 0.25 mg IVPUSH Q4H PRN; Protocol PRN Reason: Pain, Severe (Pain Scale 7-10) Lactated Ringer's (Lr) 1,000 mls @ 100 mls/hr IVCONT .Q10H [facility] Last Admin: 06/28/24 13:01 Dose: 100 mls/hr Magnesium Hydroxide (Milk Of Magnesia 30 Ml Oral.Susp) 30 ml PO DAILY PRN PRN Reason: Constipation Melatonin (Melatonin 3 Mg Tablet) 6 mg PO BEDTIME PRN PRN Reason: Insomnia Metoprolol Tartrate (Metoprolol Tartrate 50 Mg Tablet) 50 mg PO BID [facility]; Protocol Omeprazole (Omeprazole 20 Mg Capsule.Dr) 20 mg PO DAILY PRN PRN Reason: Acid Reflux Ondansetron HCl (Ondansetron Hcl 4 Mg/2 Ml Vial) 4 mg IVPUSH Q8H PRN PRN Reason: Nausea and Vomiting Oxycodone HCl (Oxycodone Hcl Immed Release 5 Mg Tablet) 5 mg PO Q4H PRN PRN Reason: Pain, Moderate(Pain Scale 4-6) Oxycodone HCl (Oxycodone Hcl Er 10 Mg Tab.Er.12h) 10 mg PO BID [facility] Senna (Sennosides 8.6 Mg Tablet) 17.2 mg PO BEDTIME [facility] Sodium Chloride (0.9 % Sodium Chloride Flush 3 Ml Syringe) 3 ml IVFLUSH QSHIFT [facility] Home Medications ?Medication ?Instructions ?Recorded ?Confirmed ?Last Taken ?Type glucosamine sulf dipot 1 cap PO DAILY 03/28/21 06/28/24 06/23/24 History chlr,msm,chond 550 mg-C 30 mg-william 1 mg capsule (Glucosamine Chondroitin) omeprazole 20 mg capsule,delayed 20 mg PO DAILY PRN Acid Reflux 03/28/21 06/28/24 Unknown History release diltiazem HCl 240 mg 240 mg PO DAILY 05/28/21 06/28/24 06/28/24 History capsule,extended release 24 hr furosemide 20 mg tablet 20 mg PO DAILY 06/02/24 06/28/24 06/23/24 History yvihrlxv-zi-jetsk 300 mcg-K 60 1 tab PO DAILY 06/28/24 06/28/24 06/23/24 History mcg-lycop 600 mcg-lutein 300 mcg tablet (Centrum Silver Ultra Men's) Physical Exam Vital Signs and Narrative: Vital Signs: Last Vital Signs Temp 98.5 F 06/28/24 13:10 Pulse 77 06/28/24 13:10 Resp 16 06/28/24 13:10 BP 113/79 06/28/24 13:10 Pulse Ox 98 06/28/24 13:10 O2 Del Method Room Air 06/28/24 13:10 O2 Flow Rate 2 06/28/24 12:19 BMI result Body Mass Index 27.9 Const: Other: General resting comfortably in no acute distress. Moist mucous membrane Neck supple no JVD. CVS irregular rate and rhythm, Respiratory lungs clear to auscultation, no respiratory distress, no wheeze, no rhonchi. Gastrointestinal abdomen soft, non tender, bowel sounds audible Extremities no edema. Neuro non focal Skin no rash Psych appropriate affect Results Imaging Radiologist's Impressions: Impressions Pelvis X-Ray 06/28/24 10:20 IMPRESSION: Postsurgical changes status post left total hip arthroplasty. Electronically signed by: Estuardo Koenig MD 06/28/2024 01:27 PM [facility] Assessment and Plan (1) Persistent atrial fibrillation: Status: Acute Plan 73-year-old gentleman with persistent atrial fibrillation on Eliquis, hypertensi on and severe left hip are pruritus admitted for elective left total hip replacement surgery. Left total hip replacement POD#0 Post procedure offers no complaints of pain,dizziness Continue anticoagulation and pain medication as per Orthopedic surgery Recommend to DC IV fluids if tolerating diet. Encourage incentive spirometry. Follow CBC/BMP Persistent atrial fibrillation Stable ventricular rate, continue metoprolol, Cardizem and Eliquis. GERD continue PPI DVT prophylaxis on Eliquis Thank you for allowing us to participate in the care of this patient will continue to follow along with you.
[2024-06-28] MEDS: Metoprolol Tartrate 50 MG TABLET PO (19:36)
[2024-06-28] MEDS: Celecoxib 200 MG CAPSULE PO (19:37)
[2024-06-28] MEDS: 0.9 % Sodium Chloride Flush 3 ML SYRINGE IVFLUSH (19:39)
--- NOTE | 2024-06-28 19:55 | PC.NURSE ---
Msg sent to ortho sporting goods salesperson with picture of soiled dressing to left hip, dressing saturated with bloody discharge with small amount of blood on the pad. Per ortho instructions site reinforced with abd pads and tape, ice bag applied, patient educated on cold therapy, tolerated procedure well,
[2024-06-29] VITALS (7 sets, daily range): BP systolic 101–125; BP diastolic 61–79; PULSE 58–106; RESP 12–20; TEMP 36.1–36.4; O2SAT 97–99
[2024-06-29] MEDS: Omeprazole 20 MG CAPSULE.DR PO (06:04)
[2024-06-29 07:38] LABS: MANUAL DIFF FLAG NO
[2024-06-29 07:58] LABS: Basophils Percent Auto 0.2 % (0-2); Hematocrit 33.2 % (42.0-52.0); Hemoglobin 10.8 g/dl (14.0-18.0); Imm Gran Abs Auto 0.04 X10*3/uL (0.00-0.03); Imm Gran Pct Auto 0.4 % (0.0-0.4); Lymphocytes Absolute Auto 0.9 X10*3/uL (1.2-4.9); Lymphocytes Percent Auto 9.4 % (20-40); Mean Corpuscular HGB Conc 32.5 g/dl (31.0-36.0); Mean Corpuscular Hemoglobin 32.5 pg (27.0-33.0); Mean Platelet Volume 10.8 fL (9.4-12.4); Monocytes Absolute Auto 1.4 X10*3/uL (0.1-1.2); Neutrophils Absolute Auto 7.5 x10*3/uL (2.0-8.3); Platelet Count 262 X10*3/uL (160-400); Red Blood Count 3.32 X10*6/uL (4.60-5.80); Red Cell Distribution Width 15.2 % (11.0-16.0); White Blood Count 9.9 X10*3/uL (4.8-10.8)
[2024-06-29 08:24] LABS: Anion Gap 13 (12-20); Blood Urea Nitrogen 20 mg/dL (9-16); Calcium 8.5 mg/dL (8.4-10.2); Carbon Dioxide 25 mmol/L (22-29); Chloride 105 mmol/L (96-108); Estimated Glomerular Filt Rate > 60; Glucose Fasting 139 mg/dL (60-99); Potassium 4.7 mmol/L (3.3-5.1); Sodium 138 mmol/L (135-145)
--- NOTE | 2024-06-29 08:56 | HO.POSTANES ---
Post Anesthesia Evaluation Post Anesthesia Evaluation Date of Service: 06/29/24 Vital Signs: Vital Signs Temp Pulse Resp BP Pulse Ox O2 Del Method 06/29/24 07:20 97.3 F 93 16 118/67 97 Room Air 06/29/24 03:25 97.6 F 100 18 111/72 99 Room Air 06/28/24 23:28 97.7 F 95 18 114/69 96 Room Air Anesthesia: General Endotracheal-GETA Mental Status: Awake Pain Control: Satisfactory Nausea/Vomiting: None Hydration: Adequate Anesthesia-Related Issues: No Anes. Related Issues
[2024-06-29] MEDS: 0.9 % Sodium Chloride Flush 3 ML SYRINGE IVFLUSH ×3 (08:58→20:14)
[2024-06-29] MEDS: dilTIAZem HCL CD 240 MG CAP.ER.DEG PO (08:59)
[2024-06-29] MEDS: Apixaban 5 MG TABLET PO ×2 (09:00→20:13)
[2024-06-29] MEDS: oxyCODONE HCl ER 10 MG TAB.ER.12H PO ×2 (09:00→20:12)
[2024-06-29] MEDS: Metoprolol Tartrate 50 MG TABLET PO (09:00)
[2024-06-29] MEDS: Furosemide 20 MG TABLET PO (09:01)
[2024-06-29] MEDS: Celecoxib 200 MG CAPSULE PO ×2 (09:01→20:13)
--- NOTE | 2024-06-29 09:29 | P.PNOP_ITS ---
Subjective Subjective Date of Service: 06/29/24 Interval history: POD 1 s/p LT KATINA no overnight events working with PT denies sob, palpitations, cp Physical Exam Vital Signs: Vital Signs: Last Vital Signs Temp 97.3 F 06/29/24 07:20 Pulse 106 H 06/29/24 08:59 Resp 16 06/29/24 07:20 BP 124/79 06/29/24 08:59 Pulse Ox 97 06/29/24 07:20 O2 Del Method Room Air 06/29/24 07:20 O2 Flow Rate 2 06/28/24 12:19 BMI result Body Mass Index 27.9 Const: General: cooperative, healthy appearing and no acute distress Resp: Effort & Inspection: normal respiratory effort and able to speak in complete sentences Cardio: Rate: regular rate Peripheral pulses: Peripheral pulses 2+ throughout GI: Palpation (GI): Soft to palpation Skin: General skin exam: no rashes or lesions noted Extrem: Other: bandage saturated [place] intact. No erythema or effusion. Calf supple nontender. Neurovascularly intact. Procedures Date of Service Date of Service: 06/29/24 Progress Note: A&P Assessment and plan (1) Status post total hip replacement, left: Status: Acute Assessment and Plan: * Continue pain mgmnt * Eliquis for dvt ppx * begin PT for LT KATINA * Dispo planning-Pending PT eval, pain mgmnt Time Spent With Patient Time: Total time managing care of this patient today ____ minutes. Quality Stroke Does the patient have a stroke diagnosis?: No VTE Prior VTE?: No VTE Risk Level:: Surgical - very high VTE Device Contraindication: N/A - Device Ordered VTE Drug Contraindication: N/A - Med Ordered
--- NOTE | 2024-06-29 09:53 | HO.PM.IMPN ---
Subjective Subjective Date of Service: 06/29/24 Interval History: Being followed for history of persistent atrial fibrillation/hypertension status post left total hip arthroplasty Offers no acute complaints, denies pain, no shortness of breath,no cp Review of Systems All other symptoms reviewed and are negative. Physical Exam Vital Signs: Vital Signs: Last Vital Signs Temp 97.3 F 06/29/24 07:20 Pulse 106 H 06/29/24 08:59 Resp 16 06/29/24 07:20 BP 124/79 06/29/24 08:59 Pulse Ox 97 06/29/24 07:20 O2 Del Method Room Air 06/29/24 07:20 O2 Flow Rate 2 06/28/24 12:19 BMI result Body Mass Index 27.9 Const: Other: General resting comfortably in no acute distress. Moist mucous membrane Neck supple no JVD. CVS irregular rate and rhythm, Respiratory lungs clear to auscultation, no respiratory distress, no wheeze, no rhonchi. Gastrointestinal abdomen soft, non tender, bowel sounds audible Extremities no edema. Neuro non focal Skin no rash Psych appropriate affect Objective Data Active Medications Acetaminophen (Acetaminophen 325 Mg Tablet) 650 mg PO Q6H PRN PRN Reason: Pain, Mild (Pain Scale 1-3), fever or headache Apixaban (Apixaban 5 Mg Tablet) 5 mg PO BID [facility] Last Admin: 06/29/24 09:00 Dose: 5 mg Documented By: LENKA Celecoxib (Celecoxib 200 Mg Capsule) 200 mg PO BID [facility] Last Admin: 06/29/24 09:01 Dose: 200 mg Documented By: LENKA Diltiazem HCl (Diltiazem Hcl Cd 240 Mg Cap.Er.Deg) 240 mg PO DAILY [facility]; Protocol Last Admin: 06/29/24 08:59 Dose: 240 mg Documented By: LENKA Furosemide (Furosemide 20 Mg Tablet) 20 mg PO DAILY [facility]; Protocol Last Admin: 06/29/24 09:01 Dose: 20 mg Documented By: LENKA Hydromorphone HCl (Hydromorphone Hcl 0.5 Mg/0.5 Ml Syringe) 0.25 mg IVPUSH Q4H PRN; Protocol PRN Reason: Pain, Severe (Pain Scale 7-10) Magnesium Hydroxide (Milk Of Magnesia 30 Ml Oral.Susp) 30 ml PO DAILY PRN PRN Reason: Constipation Melatonin (Melatonin 3 Mg Tablet) 6 mg PO BEDTIME PRN PRN Reason: Insomnia Metoprolol Tartrate (Metoprolol Tartrate 50 Mg Tablet) 50 mg PO BID [facility]; Protocol Last Admin: 06/29/24 09:00 Dose: 50 mg Documented By: LENKA Omeprazole (Omeprazole 20 Mg Capsule.Dr) 20 mg PO DAILY@0630 [facility] Last Admin: 06/29/24 06:04 Dose: 20 mg Documented By: ZOE Ondansetron HCl (Ondansetron Hcl 4 Mg/2 Ml Vial) 4 mg IVPUSH Q8H PRN PRN Reason: Nausea and Vomiting Oxycodone HCl (Oxycodone Hcl Immed Release 5 Mg Tablet) 5 mg PO Q4H PRN PRN Reason: Pain, Moderate(Pain Scale 4-6) Oxycodone HCl (Oxycodone Hcl Er 10 Mg Tab.Er.12h) 10 mg PO BID [facility] Last Admin: 06/29/24 09:00 Dose: 10 mg Documented By: LENKA Senna (Sennosides 8.6 Mg Tablet) 17.2 mg PO BEDTIME [facility] Last Admin: 06/28/24 19:40 Dose: Not Given Documented By: ZOE Non-Admin Reason: Patient Refused Sodium Chloride (0.9 % Sodium Chloride Flush 3 Ml Syringe) 3 ml IVFLUSH QSHIFT [facility] Last Admin: 06/29/24 08:58 Dose: 3 ml Documented By: LENKA Labs 06/29/24 05:51 06/29/24 05:51 Labs: Laboratory Results - last 24 hr 06/29/24 05:51 MCV 100.0 H MCH 32.5 MCHC 32.5 RDW 15.2 Plt Count 262 D MPV 10.8 Immature Gran % (Auto) 0.4 Neut % (Auto) 76.0 H Lymph % (Auto) 9.4 L Cole % (Auto) 14.0 H Eos % (Auto) 0.0 Baso % (Auto) 0.2 Lymph # (Auto) 0.9 L Cole # (Auto) 1.4 H Eos # (Auto) 0.0 Baso # (Auto) 0.0 Abs Immat Gran (auto) 0.04 H Absolute Neuts (auto) 7.5 Absolute Nucleated RBC 0.000 Nucleated RBC % (auto) 0.0 Anion Gap 13 Estim Creat Clear Calc 63.0 Estimated GFR > 60 Fasting Glucose 139 H Calcium 8.5 D Assessment and Plan (1) Status post total hip replacement, left: Status: Acute (2) Persistent atrial fibrillation: Status: Acute Plan 73-year-old gentleman with persistent atrial fibrillation on Eliquis, hypertension and severe left hip are pruritus admitted for elective left total hip replacement surgery. Left total hip replacement POD#1 no complaints of pain,no dizziness Continue anticoagulation and pain medication as per Orthopedic surgery DC IV fluids ,tolerating diet. hct dropped but above transfusion threshold Encourage incentive spirometry. Persistent atrial fibrillation Stable ventricular rate, continue metoprolol, Cardizem and Eliquis. GERD continue PPI DVT prophylaxis on Eliquis Thank you for allowing us to participate in the care of this patient will sign off, please call with any medical questions or concern. Quality Stroke Does the patient have a stroke diagnosis?: No VTE Prior VTE?: No VTE Risk Level:: Surgical - very high VTE Device Contraindication: N/A - Device Ordered VTE Drug Contraindication: N/A - Med Ordered
--- NOTE | 2024-06-29 10:21 | MHC.CM.PN ---
Addendum entered by Carlee Pina 07/03/24 16:20: [facility] WAS ABLE TO REACH PTS INSURANCE AND NOW INDICATE THEY ARE OUT OF CONTRACT WITH THEM AND THE PTS COPAY WITH THEM WOULD BE 50% [facility] TO PROVIDE AUTH IF ANOTHER BED OFFER COMES IN REFERRAL RESENT LOLI: [phone] EXT. [id number] FAX: [phone] Addendum entered by Carlee Pina 07/03/24 15:30: [facility] HAS CONFIRMED PTS INSURANCE HAS A 20% COPAY PT STILL AGREEABLE TO STR AUTH STILL PENDING Addendum entered by Carlee Pina 07/03/24 10:11: [facility] IS STILL WAITING FOR AUTH FROM [facility] PT NOTES FROM WEEKEND SENT Pt WILL LIKELY NEED A PT NOTE FROM TODAY FOR AUTH Addendum entered by Carlee Pina 06/30/24 14:56: PT HAS ACCEPTED A STR BED AT [facility] THEY HAVE SUBMITTED FOR AUTH Addendum entered by Carlee Pina 06/29/24 13:12: [facility] HAS DENIED PT INDICATING [facility] WILL NOT AUTH FOR THAT LOC Original Note: PT REPORTS HE LIVES ALONE AND IS INDEPENDENT HE HAS NO SERVICES AND NO DME AT [facility] HCP AND [facility] ON FILE PCP: KEDAR ALONZO PT IS AWARE REHAB IS BEING RECOMMENDED [facility] IS PREFERRED REFERRAL OUT
[2024-06-29] MEDS: Sennosides 8.6 MG TABLET 17.2 MG PO (20:13)
[2024-06-30] VITALS (10 sets, daily range): BP systolic 103–121; BP diastolic 56–68; PULSE 66–79; RESP 15–18; TEMP 36.2–36.9; O2SAT 97–100
[2024-06-30] MEDS: Omeprazole 20 MG CAPSULE.DR PO (05:24)
[2024-06-30 06:12] LABS: MANUAL DIFF FLAG NO
[2024-06-30 06:30] LABS: Anion Gap 12 (12-20); Blood Urea Nitrogen 17 mg/dL (9-16); Calcium 8.6 mg/dL (8.4-10.2); Carbon Dioxide 27 mmol/L (22-29); Chloride 102 mmol/L (96-108); Creatinine Clr Calc Pharmacy 73.4; Estimated Glomerular Filt Rate > 60; Glucose Fasting 97 mg/dL (60-99); Potassium 3.9 mmol/L (3.3-5.1); Sodium 137 mmol/L (135-145)
[2024-06-30 07:07] LABS: Basophils Percent Auto 0.4 % (0-2); Eosinophils Absolute Auto 0.1 X10*3/uL (0.0-0.4); Eosinophils Percent Auto 0.5 % (0-4); Hemoglobin 10.2 g/dl (14.0-18.0); Imm Gran Abs Auto 0.04 X10*3/uL (0.00-0.03); Imm Gran Pct Auto 0.4 % (0.0-0.4); Lymphocytes Absolute Auto 1.7 X10*3/uL (1.2-4.9); Lymphocytes Percent Auto 17.1 % (20-40); Mean Corpuscular HGB Conc 32.9 g/dl (31.0-36.0); Mean Corpuscular Hemoglobin 32.5 pg (27.0-33.0); Mean Corpuscular Volume 98.7 fL (80.0-98.0); Mean Platelet Volume 10.8 fL (9.4-12.4); Monocytes Absolute Auto 1.4 X10*3/uL (0.1-1.2); Monocytes Percent Auto 14.2 % (2-11); Neutrophils Absolute Auto 6.7 x10*3/uL (2.0-8.3); Neutrophils Percent Auto 67.4 % (45-73); Platelet Count 244 X10*3/uL (160-400); Red Blood Count 3.14 X10*6/uL (4.60-5.80); Red Cell Distribution Width 15.4 % (11.0-16.0)
--- NOTE | 2024-06-30 07:46 | P.DS_ITS ---
DS: Providers Provider Date of Service: 06/30/24 Primary care physician: Frandy Torres MD Consults: 06/28/24 12:42 Consult to Hospitalist Routine Comment: Consulting Provider: [facility] Hospitalists Reason For Exam: routine medical management DS: Diagnosis Discharge Diagnosis (1) Status post total hip replacement, left: Status: Acute (2) Persistent atrial fibrillation: Status: Acute DS: Summary Hospital Course Hospital Course: The patient underwent a successful Left total hip arthroplasty on 06/28/[address] Marie , was transferred to PACU and then to the floor to recover. During their stay, their vitals were stable, afebrile at 97.7 . Labs were unremarkable, H/H 10.2/31.2. POD 1 he was re-started on Eliquis for DVT ppx, they also received Physical Therapy services twice a day. Physical therapy should include gait training, core and lumbar strength, glute strength. Posterior precautions intact. WBAT. Prior to discharge, her dressing was changed, incision clean dry and intact, new Aquacel dressing applied. The Aquacel dressing should remain intact and dry at all times. Any concerns with the dressing, please contact orthopedic office. No showering. The plan is to be discharged to [facility] post op appt: 07/13/24 1:00 [facility] [place] Orthopedic Surgeons Maciej Lemon PA-C Time Attestation Discharge Coordination Time (in mins): 30 Quality: Safe Use of Opioids Does Pt have an Active Cancer Diagnosis on the Problem List?: No Quality: Stroke Does the patient have a stroke diagnosis?: No Physical Exam Vital Signs: Vital Signs: Last Vital Signs Temp 97.6 F 06/30/24 07:17 Pulse 74 06/30/24 07:17 Resp 18 06/30/24 07:17 BP 111/56 L 06/30/24 07:17 Pulse Ox 100 06/30/24 07:17 O2 Del Method Room Air 06/30/24 07:17 O2 Flow Rate 2 06/28/24 12:19 BMI result Body Mass Index 27.9 DS: Data Data Completed and Pending Pending studies at discharge: Pending at discharge 06/28/24 10:17 Surgical [PTH] Routine Labs on day of discharge: Laboratory Results - last 24 hr 06/29/24 06/30/24 05:51 05:48 WBC 9.9 10.0 RBC 3.32 L D 3.14 L Hgb 10.8 L D 10.2 L Hct 33.2 L D 31.0 L MCV 100.0 H 98.7 H MCH 32.5 32.5 MCHC 32.5 32.9 RDW 15.2 15.4 Plt Count 262 D 244 MPV 10.8 10.8 Immature Gran % (Auto) 0.4 0.4 Neut % (Auto) 76.0 H 67.4 Lymph % (Auto) 9.4 L 17.1 L Cross % (Auto) 14.0 H 14.2 H Eos % (Auto) 0.0 0.5 Baso % (Auto) 0.2 0.4 Lymph # (Auto) 0.9 L 1.7 Cross # (Auto) 1.4 H 1.4 H Eos # (Auto) 0.0 0.1 Baso # (Auto) 0.0 0.0 Abs Immat Gran (auto) 0.04 H 0.04 H Absolute Neuts (auto) 7.5 6.7 Absolute Nucleated RBC 0.000 0.000 Nucleated RBC % (auto) 0.0 0.0 Sodium 138 137 Potassium 4.7 D 3.9 Chloride 105 102 Carbon Dioxide 25 27 Anion Gap 13 12 BUN 20 H 17 H Creatinine 1.13 0.97 Estim Creat Clear Calc 63.0 73.4 Estimated GFR > 60 > 60 Fasting Glucose 139 H 97 Calcium 8.5 D 8.6 Discharge Plan Discharge Patient Disposition: Xfer Inpatient Rehab Fac Referrals: [facility] [Other] - 1 Week Maciej Lemon PA-C [Physician Cia Agent] - 2 Weeks (07/13/24 13:00 [facility] [place] Orthopedic Surgeons Maciej Lemon PA-C) Discharge Medications: New oxycodone 5 mg Tablet 5 mg PO Q4H PRN (Reason: Pain, Moderate(Pain Scale 4-6)) 7 Days Qty: 42 0RF Rx Instructions: Partial Fill upon patient request. celecoxib 200 mg Capsule 200 mg PO BID 30 Days Qty: 60 0RF sennosides [Senna Lax] 8.6 mg Tablet 17.2 mg PO BEDTIME 7 Days Qty: 14 0RF acetaminophen 325 mg Tablet 650 mg PO Q6H PRN (Reason: Pain, Mild (Pain Scale 1-3), fever or headache) 30 Days Qty: 240 0RF Continued (DME) heel lift See Rx Instructions .ROUTE .MEDSUPPLY Qty: 1 0RF Rx Instructions: As directed Please measure leg length for righ side leg length discrepancy Fit as appropriate Eliquis 5 mg tablet 5 mg PO BID 90 Days Qty: 180 3RF omeprazole 20 mg Capsule,Delayed Release(Dr/Ec) 20 mg PO DAILY@0630 Glucosamine Chondroitin 550-30-1 mg Capsule 1 cap PO DAILY furosemide 20 mg tablet 20 mg PO DAILY Centrum Silver Ultra Men's [phone] mcg Tablet 1 tab PO DAILY diltiazem HCl 240 mg capsule,extended release 24hr 240 mg PO DAILY metoprolol tartrate 50 mg tablet 50 mg PO BID 90 Days Qty: 180 3RF Discharge Orders: Discharge Order (Routine); Ordered 07/04/24 Ordered By: Maciej Lemon Diet: Regular diet Activity on Discharge: Use cane or walker Activity Restrictions/Additional Instructions: * Physical Therapy for Total hip arthroplasty: wbat, posterior precautions, gait training, ROM, strength * Limit stair climbing * No showering, no tub bath-keep dressing clean, dry and intact * No driving x6 weeks * Continue Eliquis * Follow up with [facility] [place] Orthopedics in 2 weeks: Print Language: Persian
[2024-06-30] MEDS: 0.9 % Sodium Chloride Flush 3 ML SYRINGE IVFLUSH ×3 (08:19→20:06)
[2024-06-30] MEDS: oxyCODONE HCl ER 10 MG TAB.ER.12H PO ×2 (08:20→20:04)
[2024-06-30] MEDS: Furosemide 20 MG TABLET PO (08:20)
[2024-06-30] MEDS: dilTIAZem HCL CD 240 MG CAP.ER.DEG PO (08:20)
[2024-06-30] MEDS: Apixaban 5 MG TABLET PO ×2 (08:20→20:06)
[2024-06-30] MEDS: Celecoxib 200 MG CAPSULE PO ×2 (08:21→20:04)
[2024-06-30] MEDS: Metoprolol Tartrate 50 MG TABLET PO ×2 (08:21→20:05)
[2024-06-30] MEDS: Sennosides 8.6 MG TABLET 17.2 MG PO (20:05)
[2024-07-01] VITALS (7 sets, daily range): BP systolic 103–126; BP diastolic 56–66; PULSE 56–78; RESP 16–17; TEMP 36.3–37.1; O2SAT 98–100
[2024-07-01] MEDS: Omeprazole 20 MG CAPSULE.DR PO (06:15)
[2024-07-01 06:32] LABS: MANUAL DIFF FLAG NO
[2024-07-01 06:40] LABS: Basophils Absolute Auto 0.1 X10*3/uL (0.0-0.2); Eosinophils Absolute Auto 0.2 X10*3/uL (0.0-0.4); Eosinophils Percent Auto 2.2 % (0-4); Hematocrit 32.5 % (42.0-52.0); Hemoglobin 10.5 g/dl (14.0-18.0); Imm Gran Abs Auto 0.06 X10*3/uL (0.00-0.03); Imm Gran Pct Auto 0.7 % (0.0-0.4); Lymphocytes Absolute Auto 1.9 X10*3/uL (1.2-4.9); Lymphocytes Percent Auto 20.5 % (20-40); Mean Corpuscular HGB Conc 32.3 g/dl (31.0-36.0); Mean Corpuscular Hemoglobin 32.4 pg (27.0-33.0); Mean Corpuscular Volume 100.3 fL (80.0-98.0); Mean Platelet Volume 10.8 fL (9.4-12.4); Monocytes Absolute Auto 1.1 X10*3/uL (0.1-1.2); Monocytes Percent Auto 12.3 % (2-11); Neutrophils Absolute Auto 5.7 x10*3/uL (2.0-8.3); Neutrophils Percent Auto 63.3 % (45-73); Platelet Count 274 X10*3/uL (160-400); Red Blood Count 3.24 X10*6/uL (4.60-5.80); Red Cell Distribution Width 15.3 % (11.0-16.0)
[2024-07-01 06:55] LABS: Anion Gap 14 (12-20); Blood Urea Nitrogen 19 mg/dL (9-16); Calcium 8.9 mg/dL (8.4-10.2); Carbon Dioxide 28 mmol/L (22-29); Chloride 100 mmol/L (96-108); Creatinine Clr Calc Pharmacy 66.5; Estimated Glomerular Filt Rate > 60; Glucose Fasting 91 mg/dL (60-99); Potassium 3.7 mmol/L (3.3-5.1); Sodium 138 mmol/L (135-145)
[2024-07-01] MEDS: dilTIAZem HCL CD 240 MG CAP.ER.DEG PO (08:35)
[2024-07-01] MEDS: Metoprolol Tartrate 50 MG TABLET PO ×2 (08:35→19:50)
[2024-07-01] MEDS: Apixaban 5 MG TABLET PO ×2 (08:35→19:50)
[2024-07-01] MEDS: Furosemide 20 MG TABLET PO (08:35)
[2024-07-01] MEDS: Celecoxib 200 MG CAPSULE PO ×2 (08:35→19:50)
[2024-07-01] MEDS: oxyCODONE HCl ER 10 MG TAB.ER.12H PO ×2 (08:35→19:49)
[2024-07-01] MEDS: 0.9 % Sodium Chloride Flush 3 ML SYRINGE IVFLUSH ×2 (08:36→19:50)
--- NOTE | 2024-07-01 09:57 | PM.EVENT ---
Event Note Date of Service: 07/01/24 Event Note: POD3 s/p LTHA Checked in with Conner Khalil RN this AM - No overnight events, no additional complaints Waiting insurance auth for rehab Time Spent With Patient Time: Total time managing care of this patient today ____ minutes.
[2024-07-01] MEDS: Sennosides 8.6 MG TABLET 17.2 MG PO (19:50)
[2024-07-02 03:52] VITALS: BP 121/62; PULSE 70; RESP 18; TEMP 36.4; O2SAT 96
[2024-07-02] MEDS: Omeprazole 20 MG CAPSULE.DR PO (05:28)
[2024-07-02 06:47] LABS: MANUAL DIFF FLAG NO
[2024-07-02 07:09] LABS: Basophils Absolute Auto 0.1 X10*3/uL (0.0-0.2); Basophils Percent Auto 1.1 % (0-2); Eosinophils Absolute Auto 0.4 X10*3/uL (0.0-0.4); Hemoglobin 10.4 g/dl (14.0-18.0); Imm Gran Abs Auto 0.11 X10*3/uL (0.00-0.03); Imm Gran Pct Auto 1.2 % (0.0-0.4); Lymphocytes Absolute Auto 1.8 X10*3/uL (1.2-4.9); Lymphocytes Percent Auto 20.3 % (20-40); Mean Corpuscular HGB Conc 32.5 g/dl (31.0-36.0); Mean Corpuscular Hemoglobin 32.3 pg (27.0-33.0); Mean Corpuscular Volume 99.4 fL (80.0-98.0); Mean Platelet Volume 11.5 fL (9.4-12.4); Monocytes Percent Auto 11.1 % (2-11); Neutrophils Absolute Auto 5.6 x10*3/uL (2.0-8.3); Neutrophils Percent Auto 62.3 % (45-73); Platelet Count 272 X10*3/uL (160-400); Red Blood Count 3.22 X10*6/uL (4.60-5.80)
[2024-07-02 07:33] LABS: Anion Gap 14 (12-20); Blood Urea Nitrogen 21 mg/dL (9-16); Calcium 9.4 mg/dL (8.4-10.2); Carbon Dioxide 26 mmol/L (22-29); Chloride 99 mmol/L (96-108); Creatinine Clr Calc Pharmacy 64.7; Estimated Glomerular Filt Rate > 60; Glucose Fasting 85 mg/dL (60-99); Potassium 4.3 mmol/L (3.3-5.1); Sodium 135 mmol/L (135-145)
[2024-07-02 08:20] VITALS: BP 126/58; PULSE 80; RESP 16; TEMP 36.9; O2SAT 99
[2024-07-02] MEDS: Celecoxib 200 MG CAPSULE PO ×2 (08:29→19:58)
[2024-07-02] MEDS: Metoprolol Tartrate 50 MG TABLET PO ×2 (08:29→19:58)
[2024-07-02] MEDS: Furosemide 20 MG TABLET PO (08:29)
[2024-07-02] MEDS: Apixaban 5 MG TABLET PO ×2 (08:29→19:59)
[2024-07-02] MEDS: dilTIAZem HCL CD 240 MG CAP.ER.DEG PO (08:29)
[2024-07-02] MEDS: oxyCODONE HCl ER 10 MG TAB.ER.12H PO ×2 (08:29→19:59)
[2024-07-02] MEDS: 0.9 % Sodium Chloride Flush 3 ML SYRINGE IVFLUSH ×2 (08:30→19:59)
--- NOTE | 2024-07-02 15:41 | PM.EVENT ---
Event Note Date of Service: 07/02/24 Event Note: POD4 s/p LTHA Checked in with Conner Khalil RN this AM - No overnight events, no additional complaints Waiting insurance auth for rehab Time Spent With Patient Time: Total time managing care of this patient today ____ minutes.
[2024-07-02 16:00] VITALS: BP 113/61; PULSE 75; RESP 16; TEMP 36.8; O2SAT 98
[2024-07-02 19:45] VITALS: BP 147/70; PULSE 69; RESP 18; TEMP 37.1; O2SAT 93
[2024-07-02] MEDS: Sennosides 8.6 MG TABLET 17.2 MG PO (19:58)
[2024-07-03 03:28] VITALS: BP 150/72; PULSE 83; RESP 20; TEMP 36.8; O2SAT 96
[2024-07-03] MEDS: Omeprazole 20 MG CAPSULE.DR PO (06:13)
[2024-07-03 06:30] LABS: MANUAL DIFF FLAG NO
[2024-07-03 06:37] LABS: Basophils Absolute Auto 0.1 X10*3/uL (0.0-0.2); Eosinophils Absolute Auto 0.4 X10*3/uL (0.0-0.4); Eosinophils Percent Auto 3.8 % (0-4); Hematocrit 30.8 % (42.0-52.0); Hemoglobin 10.1 g/dl (14.0-18.0); Imm Gran Abs Auto 0.11 X10*3/uL (0.00-0.03); Imm Gran Pct Auto 1.2 % (0.0-0.4); Lymphocytes Absolute Auto 1.6 X10*3/uL (1.2-4.9); Lymphocytes Percent Auto 17.4 % (20-40); Mean Corpuscular HGB Conc 32.8 g/dl (31.0-36.0); Mean Corpuscular Hemoglobin 32.9 pg (27.0-33.0); Mean Corpuscular Volume 100.3 fL (80.0-98.0); Monocytes Absolute Auto 1.2 X10*3/uL (0.1-1.2); Monocytes Percent Auto 13.2 % (2-11); Neutrophils Absolute Auto 5.8 x10*3/uL (2.0-8.3); Neutrophils Percent Auto 63.4 % (45-73); Platelet Count 313 X10*3/uL (160-400); Red Blood Count 3.07 X10*6/uL (4.60-5.80); Red Cell Distribution Width 14.7 % (11.0-16.0); White Blood Count 9.1 X10*3/uL (4.8-10.8)
[2024-07-03 07:05] LABS: Anion Gap 13 (12-20); Blood Urea Nitrogen 23 mg/dL (9-16); Calcium 8.9 mg/dL (8.4-10.2); Carbon Dioxide 27 mmol/L (22-29); Chloride 99 mmol/L (96-108); Creatinine Clr Calc Pharmacy 57.4; Estimated Glomerular Filt Rate 57; Glucose Fasting 91 mg/dL (60-99); Potassium 4.5 mmol/L (3.3-5.1); Sodium 134 mmol/L (135-145)
[2024-07-03 07:36] VITALS: BP 107/57; PULSE 78; RESP 18; TEMP 36.5; O2SAT 99
[2024-07-03] MEDS: Apixaban 5 MG TABLET PO ×2 (08:09→20:04)
[2024-07-03] MEDS: Celecoxib 200 MG CAPSULE PO ×2 (08:09→20:04)
[2024-07-03] MEDS: Furosemide 20 MG TABLET PO (08:09)
[2024-07-03] MEDS: Metoprolol Tartrate 50 MG TABLET PO ×2 (08:09→20:04)
[2024-07-03] MEDS: 0.9 % Sodium Chloride Flush 3 ML SYRINGE IVFLUSH ×2 (08:09→17:27)
[2024-07-03] MEDS: dilTIAZem HCL CD 240 MG CAP.ER.DEG PO (08:09)
[2024-07-03] MEDS: oxyCODONE HCl ER 10 MG TAB.ER.12H PO ×2 (08:09→20:05)
[2024-07-03 15:22] VITALS: BP 115/56; PULSE 71; RESP 18; TEMP 36.4; O2SAT 99
[2024-07-03 19:53] VITALS: BP 130/66; PULSE 85; RESP 18; TEMP 36.9; O2SAT 98
[2024-07-03] MEDS: Sennosides 8.6 MG TABLET 17.2 MG PO (20:04)
[2024-07-04] MEDS: 0.9 % Sodium Chloride Flush 3 ML SYRINGE IVFLUSH ×2 (00:30→09:07)
[2024-07-04 03:55] VITALS: BP 124/60; PULSE 80; RESP 20; TEMP 36.3; O2SAT 94
[2024-07-04] MEDS: Omeprazole 20 MG CAPSULE.DR PO (05:30)
[2024-07-04 07:15] VITALS: BP 116/62; PULSE 84; RESP 16; TEMP 36.5; O2SAT 100
[2024-07-04 08:31] LABS: MANUAL DIFF FLAG NO
[2024-07-04 08:34] LABS: Basophils Absolute Auto 0.1 X10*3/uL (0.0-0.2); Eosinophils Absolute Auto 0.2 X10*3/uL (0.0-0.4); Eosinophils Percent Auto 2.9 % (0-4); Hematocrit 31.2 % (42.0-52.0); Hemoglobin 10.2 g/dl (14.0-18.0); Imm Gran Abs Auto 0.08 X10*3/uL (0.00-0.03); Lymphocytes Absolute Auto 1.4 X10*3/uL (1.2-4.9); Lymphocytes Percent Auto 18.3 % (20-40); Mean Corpuscular HGB Conc 32.7 g/dl (31.0-36.0); Mean Corpuscular Hemoglobin 32.5 pg (27.0-33.0); Mean Corpuscular Volume 99.4 fL (80.0-98.0); Mean Platelet Volume 9.8 fL (9.4-12.4); Monocytes Absolute Auto 0.7 X10*3/uL (0.1-1.2); Monocytes Percent Auto 8.8 % (2-11); Neutrophils Absolute Auto 5.2 x10*3/uL (2.0-8.3); Platelet Count 317 X10*3/uL (160-400); Red Blood Count 3.14 X10*6/uL (4.60-5.80); Red Cell Distribution Width 15.1 % (11.0-16.0); White Blood Count 7.7 X10*3/uL (4.8-10.8)
[2024-07-04 08:47] LABS: Anion Gap 14 (12-20); Blood Urea Nitrogen 19 mg/dL (9-16); Calcium 8.9 mg/dL (8.4-10.2); Carbon Dioxide 26 mmol/L (22-29); Chloride 101 mmol/L (96-108); Creatinine Clr Calc Pharmacy 67.2; Estimated Glomerular Filt Rate > 60; Glucose Random 115 mg/dL (60-115); Potassium 3.9 mmol/L (3.3-5.1); Sodium 137 mmol/L (135-145)
[2024-07-04] MEDS: dilTIAZem HCL CD 240 MG CAP.ER.DEG PO (09:06)
[2024-07-04] MEDS: Celecoxib 200 MG CAPSULE PO (09:06)
[2024-07-04] MEDS: Apixaban 5 MG TABLET PO (09:06)
[2024-07-04] MEDS: Furosemide 20 MG TABLET PO (09:06)
[2024-07-04 09:07] VITALS: BP 122/64; PULSE 91
[2024-07-04] MEDS: Metoprolol Tartrate 50 MG TABLET PO (09:07)
--- NOTE | 2024-07-04 11:40 | MHC.CM.PN ---
pt leaving at 1 today for [facility]
--- NOTE | 2024-07-04 12:06 | MHC.CM.PN ---
PATIENT LIVES ALONE. SHE HAS ASSISTANCE WITH FAMILY AND NEIGHBORS. ALTHOUGH SHE HAS HER LICENSE TO DRIVE, SHE HAS NOT BEEN RELYING ON THIS LATELY. SHE HAS A HCP THAT NAMES HER TWO DAUGHTERS, BUT DOES NOT RECALL WHERE IT IS LOCATED. DAUGHTER, SHIRLEY, IS EXPECTED IN AND SHE STATES THAT SHE WILL ASK THEN. PLAN IS SURGERY TODAY. PATIENT DOES NOT WANT OT DISCUSS REHAB AT THIS TIME. DAUGHTER (BEDSIDE) IS IN AGREEMENT THAT THE CONVERSATION SHOULD NOT BE NOW. IMM 07/04 IN CHART [facility] APPEALS SIGNATURE PAGE UPLOADED INTO [facility].
== END 2024-07-04 13:00 ==
LOC: HO.SSS 06:13 → HO.S3 12:23
PROVIDERS: Physician Assistant; PCP Family Medicine; Visit Provider Orthopaedic Surgery
PROC: (CPT 27130; principal; 2024-06-28 07:30)
DX: M87.052 Idiopathic aseptic necrosis of left femur (principal); M19.90 Unspecified osteoarthritis, unspecified site; I10 Essential (primary) hypertension; I48.19 Other persistent atrial fibrillation; I48.0 Paroxysmal atrial fibrillation; K21.9 Gastro-esophageal reflux disease without esophagitis; Z79.01 Long term (current) use of anticoagulants; Z79.899 Other long term (current) drug therapy; Z98.890 Other specified postprocedural states; Z96.641 Presence of right artificial hip joint; Z87.891 Personal history of nicotine dependence
CPT/HCPCS: 27130; 36415; 72170; 80048; 85025; 86850; 86900; 86901; 87640; 87641; 88304; 88305; 88311; 97110; 97116; 97162; 97166; 97530; C1713; C1776; J0131; J0690; J1100; J1171; J2003; J2371; J2405; J2704; J2795; J3010; J7120

== ENCOUNTER → 2024-06-28 06:12 | Outpatient (BNV) | payer OTHER, SELFPAY | PROVIDERS: PCP Family Medicine; Visit Provider Orthopaedic Surgery | DX: Z96.642 Presence of left artificial hip joint (principal) | CPT/HCPCS: 27130; 99024; 99499 ==

== ENCOUNTER → 2024-06-28 06:12 | Outpatient (BNV) | payer OTHER, SELFPAY | PROVIDERS: PCP Family Medicine; Visit Provider Hospitalist | DX: I48.19 Other persistent atrial fibrillation (principal); Z96.642 Presence of left artificial hip joint; I10 Essential (primary) hypertension; K21.9 Gastro-esophageal reflux disease without esophagitis | CPT/HCPCS: 99222; 99231 ==

== ENCOUNTER 2024-07-17 07:59 | Outpatient (REF) | payer OTHER, SELFPAY ==
--- OUTSIDE RECORDS SUMMARY | 2024-07-17 08:02 | XMS_ITS ---
Author Organization [facility] Address [address] [place] [address] [place] [address] Care Team Providers Care E Marketing Specialist Name Role Phone Brian CLEANING, Frandy Primary Care Provider Unavailab Jordana Pierce Unavailable [phone] Encounters Encounter Location Date Provider Diagnosis [address] [address] 06/01/2024 Jordana Duval Plan Of Treatment No Information Progress Notes * Graham KERRDOB: [birth year] (73 yo M)Acc No.[id number]:06/01/2024 Progress Note Patient:?Graham KERR Provider:?Jordana Duval DPM :1950???Age:73 Y???Sex:Male Gigi e:06/01/2024 Address:[address] [place], [place] [phone] Pcp:Frandy Torres MD Subjective: * Chief Complaints: * ??? * Medical History:? Objective: * Vitals:? Assessment: Plan: * Treatment: * Images: * The named appointment provid er may or may not be the originator of this progress note, and it is not deemed complete until electronically signed by the appointment provider. Sign off status: Pending * Provider:?Jordana Duval DPM Date:?01/2024 Generated for Misha hand/Josefina/eTransmitting on:?07/17/2024 08:01 AM EST
--- OUTSIDE RECORDS SUMMARY | 2024-07-17 08:02 | XMS_ITS | Patient Health Record ---
Author Organization [facility] willie Hazen Address [address] [place] [address] Care Team Providers Care [facility]inary [facility] Attendant Name Role Phone Frandy Torres MD Primary Care Provider Unavailab Jordana Pierce Unavailable [phone] Brannon Pineda Unavailable [phone] Reason For Referral No Information Medications Medication SIG (Take, Route, Frequency, Duration) Notes Start Date End Date Status Metoprolol Tartrate 50 MG 1 tablet with food Orally Twice a day Active Eliquis 5 MG as directed Orally Active Furosemide 20 MG 1 tablet Orally Once a day Active dilTIAZem HCl ER 240 MG 1 tablet Orally Once a day Active Social History Tobacco Use: Social History Observation Description Date Details (start date - stop date) Former Smoker NA - NA Tobacco Use/Smoking Question Answer Notes Are you a: former smoker Additional Findings: Tobacco Non-User Current no n-smoker Alcohol Screen Question Answer Notes Did you have a drink containing alcohol in the p ast year? Yes Points 0 Interpretation Negative Tobacco use other than smoking: Question Answer Notes Are you an other tobacco user? No Problems Problem Type SNOMED Code ICD Code Onset Dates Problem Status W/U Status Risk Notes Problem Ataxic gait (01398817) Ataxic gait (R26.0) Active confirmed Problem Unspecified atherosclerosis of [place] arteries of extremities, bilateral legs (I70.203) Active confirmed Problem Acquired hammer toe of right foot (00845981253 52278) Other hammer toe(s) (acquired), right foot (M20.41) Active confirmed Problem Acquired hammer toe of left foot (45121874435 88073) Other hammer toe(s) (acquired), left foot (M20.42) Active confirmed Problem 34937168 Leg length discrepancy (M21.70) Active confirmed Vital Signs Height 5 ft 8 in in 02/29/2024 Weight 180 lbs 02/29/2024 BMI 27.37 kg/m2 02/29/2024 Procedures Procedure Date Ordered Date Performed Result Body Sit e 78557-BKUY SKIN LESIONS, 2 TO 4 02/29/2024 N/A Encounters Encounter Location Date [facility] [address] 02/29/2024 Brannon Pineda Ingrowing nail L60.0 ; Tinea unguium B35.1 ; Other hammer toe(s) (acquired), right foot M20.41 ; Other hammer toe(s) (acquired), left foot M20.42 ; Leg length discrepancy M21.70 ; Unspecified atherosclerosis of [place] arteries of extremities, bilateral legs I70.203 and Ataxic gait R26.0 [facility] [address] [place] [address] 12/01/2023 Br[facility]ined[facility] [address] 03/16/2024 Jordana Duval [address] [address] 05/30/2024 Jordana Duval Assessments Encounter Date Diagnosis (ICD Code) Assessment Notes Treatment Notes Treatment Clinical Notes Section Notes 02/29/2024 Ingrowing nail (ICD-10 - L60.0) 02/29/2024 Tinea unguium (ICD-10 - B35.1) 02/29/2024 Other hammer toe(s) (acquired), right foot (ICD-10 - M20.41) 02/29/2024 Other hammer toe(s) (acquired), left foot (ICD-10 - M20.42) 02/29/2024 Leg length discrepancy (ICD-10 - M21.70) 02/29/2024 Unspecified atherosclerosis of [place] arteries of extremities, bilateral legs (ICD-10 - I70.203) 02/29/2024 Ataxic gait (ICD-10 - R26.0) Plan Of Treatment Pending Test Test Name Order Date 70096-VSKV SKIN LESIONS, 2 TO 4 02/29/20 24 Insurance Providers Payer Name Payer Address Payer Phone Subscriber Number Group Number Insured Name Patient Relationship to Insured Coverage Start Date Coverage End Date Sukh [address] [place] [phone] [id number] Graham Hodges Self - patient is the insured Medical (General) History Medical History History ICD Code Measles Chicken pox hip replacement, RT Surgical History Surgery Date(Month/Year) right hip replacement
--- OUTSIDE RECORDS SUMMARY | 2024-07-17 08:02 | XMS_ITS ---
Author Organization [facility] Address [address] [place] [address] Care Team Providers Care Liberal Arts Teacher Name Role Phone Frandy Torres MD Primary Care Provider Unavailab Jordana Pierce Unavailable [phone] REASON FOR VISIT cx 06/01 appt Encounters Encounter Location Date Provider Diagnosis [address] [address] 05/30/2024 Jordana Duval Plan Of Treatment No Information Progress Notes * Graham KERRDOB: [birth year] (73 yo M)Acc No.[id number]:05/30/2024 Patient:?Graham Kerr :1950???Age:73 Y???Sex:Male [facility] [facility] [place] [address] * true * Date:? Generated for Renai yazan/Josefina/eTransmitting on:?07/17/2024 08:01 AM EST
--- OUTSIDE RECORDS SUMMARY | 2024-07-17 08:02 | XMS_ITS | Patient Health Record ---
Author Organization [facility] Address [address] [place] [address] Care Team Providers Care Pre Press Proofer Name Role Phone Brian CLEANING, Frandy Primary Care Provider Unavailab Stevan Jones Unavailable [phone] REASON FOR REFERRAL No Information MEDICATIONS Medication SIG (Take, Route, Frequency, Duration) Notes Start Date End Date Status Glucosamine Chondr 1500 Complx 1 2 Orally QD Active PriLOSEC 20 MG 1 capsule Orally Onc e a day/PRN Once per week Active Eliquis Active Lisinopril Active dilTIAZem HCl ER Coated Beads Active IMMUNIZATIONS Vaccine Route Administration Date Status Comme nts Influenza Unknown 02/20/2021 Refused SOCIAL HISTORY Sex Assigned At : Social History Observation Description Sex Assigned At Unknown PROBLEMS Problem Type ICD Code Onset Dates Problem Status W/U Status Risk SNOMED Code Notes Problem Adenomatous colon polyp (D12.6) Active confirmed 706396580 Problem Colon polyps (K63.5) Active confirmed 34591165 Problem Colon cancer screening (Z12.11) Active confirmed 302898671 Problem History of adenomatous polyp of colon (Z86.010) Active confirmed 008402525 Problem Encounter for screening for malignant neoplasm of colon (Z12.11) Active confirmed 044277694 Problem Preprocedural examination (Z01.818) Active confirmed 874787745534079 Problem Diverticulosis of colon (K57.30) Active confirmed Diverticulosi s of colon (656886017) PLAN OF TREATMENT Pending Test Test Name Order Date Pathology 04/04/2021 Future Test Test Name Order Date COLONOSCOPY 05/22/2015 COLONOSCOPY 02/20/2021 Insurance Providers Payer Name Payer Address Payer Phone Subscriber Number Group Number Insured Name Patient Relationship to Insured Coverage Start Date Coverage End Date [employer] [address] [place] [address] [id number] GAEL KERR Self - patient is the insured MEDICAL (GENERAL) HISTORY Medical History History ICD Code Colonoscopy 01-06-2010 and 12 12--removal of small tubular adenomas, mild sigmoid diverticulosis, and small internal hemorrhoids Denies [place],DM,CVA,Lung disease,renal dise ase Afib Hypertension Colonoscopy 07/2015 with removal of 4 sma ll tubular adenomas Surgical History Surgery Date(Month/Year) Hip replacement on the right side - Dr. Marie 2016
--- OUTSIDE RECORDS SUMMARY | 2024-07-17 08:02 | XMS_ITS ---
Author Organization [facility] Address [address] [place] [address] Care Team Providers Care Senior Nuclear Medicine Technologist Name Role Phone Frandy Torres MD Primary Care Provider Unavailab Jordana Pierce Unavailable [phone] REASON FOR VISIT [facility] Encounters Encounter Location Date [facility] [address] [place] [address] [place] [address] 03/16/2024 Jordana Duval Plan Of Treatment No Information Progress Notes * Graham KERRDOB: 3 (73 yo M)Acc No.[id number]:03/16/2024 Patient:?Graham Kerr :1950???Age:73 Y???Sex:Male Address:[address] [place], [place] [address] [place] [address] * true * Date:? Generated for Misha hand/Josefina/eTransmitting on:?07/17/2024 08:02 AM EST
== END 2024-07-17 08:00 | disposition home or self-care (01) ==
LOC: HO.HOSX 07:59
DX: M25.552 Pain in left hip (principal)
CPT/HCPCS: 73502

== ENCOUNTER 2024-07-17 11:40 | Outpatient (AMB) | payer OTHER, SELFPAY ==
--- NOTE | 2024-07-17 11:54 | A.OFFVIS_ITS ---
<Statement entered by Dwayne Marie MD - 07/18/24 10:32> I saw and evaluated this patient. I completed the assessment and plan in its entirety. The patient visit totaled 25 min, 15 of which I spent directly counseling the patient. I discussed the risks benefits and alternatives including but not limited to the risk of pain, infection, stiffness, need for further surgery as well as potential medical complications such as blood clots, pulmonary embolism and cardiac complications. Vital Signs 07/17/24 11:57 Height 5 ft 8 in Weight 178 lb BMI 27.1 Intake Visit Reasons: 2WK PO: L KATINA w/NE 06/28/24 Intake Note: Graham is a 73 year old male who presents today post operatively s/p Left KATINA DOS: 06/28/2024 w/ Dr Marie. Patient reports he only has pain when he bears weight on his left leg. Denies numbness and tingling. Reports he has been taking his presribed medication as directed. Allergies No Known Allergies [No Known Allergies*] Allergy (Verified 07/17/24 11:58) HPI HPI 2WK PO: L KATINA w/NE 06/28/24: Details: Patient is a 73-year-old male who presents for 2 week postoperative evaluation status post left KATINA with Dr. Marie, DOS 06/28/2024. Patient reports that he has been experiencing significant discomfort in his left hip whenever he attempts to weightbear. Patient reports no falls or other injuries since he was discharged from the hospital to rehab. Patient expresses concern that something is wrong with his left hip. No other acute complaints or concerns at this time. [facility] Medical History (Updated 07/17/24 @ 13:42 by SHANNON Bowen) Arthritis Persistent atrial fibrillation Post-nasal drip Osteoarthritis GERD (gastroesophageal reflux disease) PAF (paroxysmal atrial fibrillation) On anticoagulant therapy HTN (hypertension) Surgical History (Updated 07/17/24 @ 13:18 by Doris Wallace RN) History of total left hip arthroplasty History of surgery on lower extremity History of cardioversion Hx of colonoscopy History of hip replacement Social History Household Members: None Housing: Apartment Are you a primary daycare assistant to a significant other at home: No Do you presently have visiting nurse or other home services: No Alcohol intake: current Alcohol intake frequency: a few times a week Alcohol type: beer Patient Tobacco Use Status: Former Tobacco user Tobacco use type: Cigarette Years Smoked: 15 Advance Directives Date on File: 09/22/16 service: No Review of Systems Const All systems reviewed & are unremarkable except as noted in HPI and below Physical Exam Vital Signs: BMI result Body Mass Index 27.1 Extrem Other: Dressing on left hip clean, dry, intact No evidence of surrounding erythema, ecchymosis No evidence of infection Patient is able to flex and extend the digits of the left foot Compartments soft, nontender Distal sensation intact Capillary refill brisk Results Reviewed Results Reviewed: X-rays obtained in the office today and independently reviewed by me, Frandy Sherwood PA-C, demonstrate aseptic loosening of acetabulum of left total hip arthroplasty with broken screws. Assessment & Plan Assessment & Plan (1) Aseptic loosening of prosthetic hip: Code(s): T84.038A - Mechanical loosening of other internal prosthetic joint, initial encounter; Z96.649 - Presence of unspecified artificial hip joint Category: Medical (2) Status post total hip replacement, left: Code(s): Z96.642 - Presence of left artificial hip joint Category: Surgical Plan 1. Aseptic loosening and broken hardware of left KATINA DOS 06/28/2024 Patient is seen and evaluated with Dr. Marie, who was available to see the patient in clinic today, and a collaborative treatment plan was formed: Patient is educated about this condition, and is informed that he will require surgical intervention to remove the loose and broken hardware and to replace it At this time, patient was informed that he will require direct admission to the hospital for monitoring and planned revision surgery tomorrow The risks and benefits of operative treatment were discussed with the patient and the patient wishes to proceed with surgery. These risks include, but are not limited to, risk of damage to blood vessels, nerves, tendons, infection, recurrence, blood clots, incomplete relief of preoperative symptoms, persistent pain, possible need for further surgery, and the risks associated with regional blocks and/or anesthesia. Plan is to take the patient to the operating room tomorrow, 07/18/2024 for the following procedures: 1. Left revision KATINA Upon admission to the hospital, hold Eliquis until 24 hours postoperatively Will obtain CBC and BMP upon admission to the hospital Patient was amenable to this plan Orders: Orders XR hip LT min 2V Today M25.552 - Pain in left hip Coding Level of Care Code Global (25355) Diagnoses Aseptic loosening of prosthetic hip T84.038A; Z96.649 Status post total hip replacement, left Z96.642
[2024-07-17 11:57] VITALS: BMI 27.1
== END 2024-07-17 13:08 | disposition home or self-care (01) ==
PROVIDERS: PCP Family Medicine
DX: Z47.1 Aftercare following joint replacement surgery (principal); Z96.642 Presence of left artificial hip joint; T84.038A Mechanical loosening of other internal prosthetic joint, initial encounter
CPT/HCPCS: 99024

== ENCOUNTER 2024-07-17 13:52 | Outpatient (BNV) | payer OTHER, SELFPAY | END 2024-07-17 16:12 | PROVIDERS: Admitting Provider Orthopaedic Surgery; PCP Family Medicine; Visit Provider Internal Medicine Cardiovascular Disease | DX: I48.91 Unspecified atrial fibrillation (principal); R94.31 Abnormal electrocardiogram [ECG] [EKG] | CPT/HCPCS: 93010 ==

== ENCOUNTER 2024-07-17 13:52 | Inpatient (IN) | payer OTHER, MEDICARE, SELFPAY ==
--- NOTE | 2024-07-17 | ECG_ITS ---
Test Reason : Operative clearance Blood Pressure : / mmHG Vent. Rate : 065 BPM Atrial Rate : 000 BPM P-R Int : 000 ms QRS Dur : 082 ms QT Int : 424 ms P-R-T Axes : 000 013 014 degrees QTc Int : 440 ms Atrial fibrillation Abnormal ECG When compared with ECG of 09-SEP-2022 13:12, Atrial fibrillation has replaced Sinus rhythm Referred By: Frandy Sherwood Electronically Signed By:Reese Nicholson
--- NOTE | ~2024-07-17 | XR_ITS ---
EXAMINATION: XR PELVIS CLINICAL INFORMATION: left total hip revision COMPARISON: July 17, 2024 TECHNIQUE: AP view of the pelvis. FINDINGS: Left hip breast ADC placed on new components. Acetabular component removed and replaced. Multiple screws identified in the acetabulum and there is draining tube seen in the soft tissues. XR/XR pelvis 1-2V IMPRESSION: Interval placement of new left hip prosthesis Electronically signed by: Julius Torres MD 07/18/2024 08:17 PM [facility]
--- NOTE | ~2024-07-17 | XR_ITS ---
EXAMINATION: XR PELVIS CLINICAL INFORMATION: s/p left total hip arthroplasty revision COMPARISON: Same day earlier TECHNIQUE: AP view of the pelvis. FINDINGS: Patient is status post bilateral hip replacement with newly placed breast status on the left. Femoral component present in the incompletely placed acetabular component. Soft tissue changes consistent with acute surgical changes. XR/XR pelvis 1-2V IMPRESSION: Chronic positioning of right hip prosthesis. Newly position left hip prosthesis. Electronically signed by: Julius Torres MD 07/18/2024 08:16 PM [facility]
[2024-07-17 15:36] VITALS: BP 133/64; PULSE 76; RESP 18; TEMP 36.6; O2SAT 99
[2024-07-17 15:47] VITALS: BMI 27.0
--- NOTE | 2024-07-17 16:07 | HO.PM.IMCN ---
History of Present Illness Data of Consult Service Date: 07/17/24 Primary Care Provider: Frandy Torres MD [facility] Reason for consult: Medical management and preop clearance Patient is a 73-year-old male with a past history significant for persistent AFib on Eliquis, HTN, and GERD who was admitted to the hospital under orthopedic services for elective hardware revision. Patient was recently admitted to the hospital and had an elective left KATINA on 06/28/2024. Patient was at a follow-up visit in orthopedic office earlier today complaining of persistent left hip pain with weight-bearing. Repeat imaging showed aseptic loosening of acetabulum of left KATINA with broken screws. Hospitalist consult for medical management and preop clearance. Patient currently only complaint is of left hip pain with weight-bearing. Denies numbness or tingling in extremities. No chest pain/pressure or palpitations. No lightheadedness or dizziness. Denies shortness or breath or difficulty breathing. No nausea, vomiting, abdominal pain. EKG reviewed, showing atrial fibrillation without evidence of significant ischemic changes. Review of Systems Review of Systems: Left hip pain with weight-bearing Otherwise patient has no acute medical complaints [facility] Medical History Arthritis Persistent atrial fibrillation Post-nasal drip Osteoarthritis GERD (gastroesophageal reflux disease) PAF (paroxysmal atrial fibrillation) On anticoagulant therapy HTN (hypertension) Surgical History History of total left hip arthroplasty History of surgery on lower extremity History of cardioversion Hx of colonoscopy History of hip replacement Social History Household Members: None Housing: Apartment Are you a primary emergency care attendant to a significant other at home: No Do you presently have visiting nurse or other home services: No Alcohol intake: current Alcohol intake frequency: a few times a week Alcohol type: beer Patient Tobacco Use Status: Former Tobacco user Tobacco use type: Cigarette Years Smoked: 15 Use of substances other than those prescribed or required for medical reasons: No Have you been hit, kicked, punched, or otherwise hurt by someone within the past year? If so, by whom?: No Do you feel safe in your current relationship?: No Current Relationship Is there a partner from a previous relationship who is making you feel unsafe now?: No Are you made to feel afraid or neglected: No Advance Directives: Yes Advance Directives on File: Yes Advance Directives Date on File: 09/22/16 Do you have a plan to hurt others: No Plan Recently lost weight without trying: No Eating poorly because of decreased appetite: No Nutrition Risks: No Nutritional Risk Poor oral hygiene: No service: No Meds Allergies Allergy/AdvReac Type Severity Reaction Status Date / Time No Known Allergies Allergy Verified 07/17/24 11:58 [No Known Allergies*] Active Medications: Current Medications Acetaminophen (Acetaminophen 325 Mg Tablet) 650 mg PO Q6H PRN PRN Reason: Pain, Mild 1-3,fever,headache Docusate Sodium (Docusate Sodium 100 Mg Capsule) 100 mg PO BID [facility] Lactated Ringer's (Lr) 1,000 mls @ 100 mls/hr IVCONT .Q10H [facility] Metoprolol Tartrate (Metoprolol Tartrate 50 Mg Tablet) 50 mg PO BID [facility]; Protocol Oxycodone HCl (Oxycodone Hcl Immed Release 5 Mg Tablet) 5 mg PO Q4H PRN PRN Reason: Pain, Moderate(Pain Scale 4-6) Sodium Chloride (0.9 % Sodium Chloride Flush 3 Ml Syringe) 3 ml IVFLUSH QSHIFT [facility] Home Medications ?Medication ?Instructions ?Recorded ?Confirmed ?Last Taken ?Type glucosamine sulf dipot 1 cap PO DAILY 03/28/21 06/28/24 06/23/24 History chlr,msm,chond 550 mg-C 30 mg-william 1 mg capsule (Glucosamine Chondroitin) omeprazole 20 mg capsule,delayed 20 mg PO DAILY@0630 03/28/21 06/28/24 Unknown History release diltiazem HCl 240 mg 240 mg PO DAILY 05/28/21 06/28/24 06/28/24 History capsule,extended release 24 hr furosemide 20 mg tablet 20 mg PO DAILY 06/02/24 06/28/24 06/23/24 History xjsyjygu-hp-fjorw 300 mcg-K 60 1 tab PO DAILY 06/28/24 06/28/24 06/23/24 History mcg-lycop 600 mcg-lutein 300 mcg tablet (Centrum Silver Ultra Men's) Physical Exam Vital Signs and Narrative: Vital Signs: Last Vital Signs Temp 97.8 F 07/17/24 15:36 Pulse 76 07/17/24 15:36 Resp 18 07/17/24 15:36 BP 133/64 07/17/24 15:36 Pulse Ox 99 07/17/24 15:36 O2 Del Method Room Air 07/17/24 15:36 BMI result Body Mass Index 27.0 General: AOx3, no acute distress Resp: CTA bilaterally CVS: Irregular irregular rhythm GI: +BS, NT, no distention Skin: Warm, dry Neuro: Cranial nerves II-XII grossly intact bilaterally. Motor grossly intact bilaterally Extremities: No edema Psych: Appropriate affect Results Labs 07/17/24 16:12 07/17/24 16:12 Assessment and Plan (1) Aseptic loosening of prosthetic hip: Status: Acute Plan Patient is a 73-year-old male with a past history significant for persistent AFib on Eliquis, HTN, and GERD who was admitted to the hospital under orthopedic services for elective hardware revision for KATINA on 06/28/2024. Hospitalist consult for medical management and preop clearance. Left KATINA hardware revision KATINA on 06/28/2024 Repeat imaging today showed aseptic loosening of acetabulum w/broken screws Plan as per Orthopedics Preop clearance Patient with history of AFib on Eliquis Asymptomatic: Denies chest pain/pressure, or palpitations EKG showing AFib with rate of 65, without ischemic changes Patient seen and evaluated by Cardiology on 05/29/2024 prior to initial KATINA, deemed an intermediate risk Pt clinically appears stable, continues to be an intermediate risk No further workup or intervention needed prior to surgery Persistent atrial fibrillation Stable ventricular rate, continue metoprolol Continue diltiazem as BP allows Hold Eliquis, resume as per Orthopedics GERD Continue PPI Thank you for allowing us to participate in the care of this patient. We will continue to follow along with you postoperatively.
[2024-07-17 16:24] LABS: MANUAL DIFF FLAG NO
[2024-07-17 16:27] LABS: Basophils Absolute Auto 0.1 X10*3/uL (0.0-0.2); Basophils Percent Auto 1.3 % (0-2); Eosinophils Absolute Auto 0.2 X10*3/uL (0.0-0.4); Hematocrit 33.9 % (42.0-52.0); Hemoglobin 11.6 g/dl (14.0-18.0); Imm Gran Abs Auto 0.03 X10*3/uL (0.00-0.03); Imm Gran Pct Auto 0.3 % (0.0-0.4); Lymphocytes Absolute Auto 1.7 X10*3/uL (1.2-4.9); Mean Corpuscular HGB Conc 34.2 g/dl (31.0-36.0); Mean Corpuscular Hemoglobin 31.5 pg (27.0-33.0); Mean Corpuscular Volume 92.1 fL (80.0-98.0); Mean Platelet Volume 9.5 fL (9.4-12.4); Monocytes Percent Auto 10.3 % (2-11); Neutrophils Absolute Auto 6.5 x10*3/uL (2.0-8.3); Neutrophils Percent Auto 68.1 % (45-73); Platelet Count 500 X10*3/uL (160-400); Red Blood Count 3.68 X10*6/uL (4.60-5.80); Red Cell Distribution Width 14.4 % (11.0-16.0); White Blood Count 9.5 X10*3/uL (4.8-10.8)
[2024-07-17 16:40] LABS: Anion Gap 15 (12-20); Blood Urea Nitrogen 19 mg/dL (9-16); Calcium 9.2 mg/dL (8.4-10.2); Carbon Dioxide 24 mmol/L (22-29); Chloride 102 mmol/L (96-108); Estimated Glomerular Filt Rate > 60; Glucose Random 84 mg/dL (60-115); Potassium 3.9 mmol/L (3.3-5.1); Sodium 137 mmol/L (135-145)
[2024-07-17 16:54] LABS: INTERNATIONAL NORM RATIO 1.3 (0.9-1.1); Prothrombin Time 15.7 SEC (10.9-12.4)
[2024-07-17] MEDS: Lactated Ringers 1,000 ML 100 ML IVCONT (18:17)
--- NOTE | 2024-07-17 19:22 | PHA.MEDREC ---
Addendum entered by Gladys Saldaña RPh 07/17/24 19:31: Reviewed by [facility]. Original Note: Pharmacy Consult ? Medication Reconciliation Pharmacy has completed the medication reconciliation. Utilized list from [facility] to confirm med list. Patient states he is getting surgery tomorrow so the dr told him to hold Eliquis.
[2024-07-17 19:37] VITALS: BP 135/68; PULSE 65; RESP 18; TEMP 36.4; O2SAT 92
[2024-07-17] MEDS: Metoprolol Tartrate 50 MG TABLET PO (20:02)
[2024-07-17] MEDS: Docusate Sodium 100 MG CAPSULE PO (20:02)
[2024-07-18] VITALS (12 sets, daily range): BP systolic 98–140; BP diastolic 60–84; PULSE 70–82; RESP 10–18; TEMP 36.1–36.7; O2SAT 97–100
[2024-07-18] MEDS: Lactated Ringers 1,000 ML 100 ML IVCONT ×2 (03:58→15:32)
[2024-07-18 05:57] LABS: MANUAL DIFF FLAG NO
[2024-07-18 06:01] LABS: Basophils Absolute Auto 0.1 X10*3/uL (0.0-0.2); Basophils Percent Auto 1.4 % (0-2); Eosinophils Absolute Auto 0.3 X10*3/uL (0.0-0.4); Eosinophils Percent Auto 4.1 % (0-4); Hemoglobin 10.7 g/dl (14.0-18.0); Imm Gran Abs Auto 0.03 X10*3/uL (0.00-0.03); Imm Gran Pct Auto 0.5 % (0.0-0.4); Lymphocytes Absolute Auto 1.4 X10*3/uL (1.2-4.9); Lymphocytes Percent Auto 20.7 % (20-40); Mean Corpuscular HGB Conc 33.4 g/dl (31.0-36.0); Mean Corpuscular Hemoglobin 31.3 pg (27.0-33.0); Mean Corpuscular Volume 93.6 fL (80.0-98.0); Mean Platelet Volume 9.8 fL (9.4-12.4); Monocytes Absolute Auto 0.7 X10*3/uL (0.1-1.2); Monocytes Percent Auto 10.9 % (2-11); Neutrophils Absolute Auto 4.1 x10*3/uL (2.0-8.3); Neutrophils Percent Auto 62.4 % (45-73); Platelet Count 447 X10*3/uL (160-400); Red Blood Count 3.42 X10*6/uL (4.60-5.80); Red Cell Distribution Width 14.4 % (11.0-16.0); White Blood Count 6.6 X10*3/uL (4.8-10.8)
[2024-07-18 06:19] LABS: Anion Gap 12 (12-20); Blood Urea Nitrogen 15 mg/dL (9-16); Calcium 8.7 mg/dL (8.4-10.2); Carbon Dioxide 25 mmol/L (22-29); Chloride 106 mmol/L (96-108); Creatinine Clr Calc Pharmacy 64.2; Estimated Glomerular Filt Rate > 60; Glucose Fasting 84 mg/dL (60-99); Potassium 3.7 mmol/L (3.3-5.1); Sodium 139 mmol/L (135-145)
[2024-07-18] MEDS: dilTIAZem HCL CD 240 MG CAP.ER.DEG PO (08:34)
[2024-07-18] MEDS: Metoprolol Tartrate 50 MG TABLET PO ×2 (08:35→20:27)
[2024-07-18] MEDS: Docusate Sodium 100 MG CAPSULE PO ×2 (08:36→20:28)
[2024-07-18] MEDS: Lactated Ringers 1,000 ML 50 ML IVCONT (09:54)
--- NOTE | 2024-07-18 09:54 | MHC.SHP ---
Pre-Procedural Eval Section A - 24 Hr Update-Section A only Date of Service: 07/18/24 The patient is an INPATIENT: Yes Changes since office visit: No Cold of Flu in the past 2 weeks, No New Medical Problems, No Changes in Medication and No Patient answered all questions The patient has been examined within 24 hours of the surgical procedure. The History & Physical has been completed within 30 days and I have reviewed it.: Yes Section B - Complete if H&P > 30 days Chief Complaint: Aseptic Loosening and Broken Hardware of L KATINA St Allergies: Allergies Allergy/AdvReac Type Severity Reaction Status Date / Time No Known Allergies Allergy Verified 07/18/24 09:09 [No Known Allergies*] Plan I have reviewed the history and physical and performed a pertinent physical examination on my patient. No changes have occurred unless specified. Time Spent With Patient Time: Total time managing care of this patient today ____ minutes.
--- NOTE | 2024-07-18 10:47 | MHC.CM.PN ---
CM ATTEMPTED TO MEET WITH PT WHO WAS OFF UNIT CM TO REVISIT
--- NOTE | 2024-07-18 10:53 | HO.ANESPROP2 ---
[facility] Active Problems Active Problems: All Active Problems Aseptic loosening of prosthetic hip (Acute) Status post total hip replacement, left (Acute) Preop cardiovascular exam (Acute) Avascular necrosis of bone of left hip (Acute) Lymphedema (Acute) Varicose veins of left lower extremity with inflammation (Acute) Venous reflux (Acute) Impacted molar (Acute) Peripheral edema (Acute) PAF (paroxysmal atrial fibrillation) (Acute) Past Medical History Medical History Arthritis Persistent atrial fibrillation Post-nasal drip Osteoarthritis GERD (gastroesophageal reflux disease) PAF (paroxysmal atrial fibrillation) On anticoagulant therapy HTN (hypertension) Functional capacity: uses cane/walker Family History Family history of problems with anesthesia: No Surgical History Surgical History History of total left hip arthroplasty History of surgery on lower extremity History of cardioversion Hx of colonoscopy History of hip replacement History of Problems with Anesthesia: No Social History Social History Household Members: None Housing: Apartment Are you a primary healthcare administrator to a significant other at home: No Do you presently have visiting nurse or other home services: No Alcohol intake: current Alcohol intake frequency: a few times a week Alcohol type: beer Patient Tobacco Use Status: Former Tobacco user Tobacco use type: Cigarette Years Smoked: 15 Use of substances other than those prescribed or required for medical reasons: No Currently Displaying Signs/Symptoms of Drug Intoxication Withdrawal: No Have you been hit, kicked, punched, or otherwise hurt by someone within the past year? If so, by whom?: No Do you feel safe in your current relationship?: No Current Relationship Is there a partner from a previous relationship who is making you feel unsafe now?: No Are you made to feel afraid or neglected: No Are you DNR?: No Advance Directives: Yes Advance Directives on File: Yes Advance Directives Date on File: 09/22/16 Do you have a plan to hurt others: No Plan Recently lost weight without trying: No Eating poorly because of decreased appetite: No Nutrition Risks: No Nutritional Risk Poor oral hygiene: No service: No Meds Allergies Allergy/AdvReac Type Severity Reaction Status Date / Time No Known Allergies Allergy Verified 12/24/24 09:09 [No Known Allergies*] Active Medications: Current Medications Acetaminophen (Acetaminophen 325 Mg Tablet) 650 mg PO Q6H PRN PRN Reason: Pain, Mild 1-3,fever,headache Diltiazem HCl (Diltiazem Hcl Cd 240 Mg Cap.Er.Deg) 240 mg PO DAILY [facility]; Protocol Last Admin: 07/18/24 08:34 Dose: 240 mg Docusate Sodium (Docusate Sodium 100 Mg Capsule) 100 mg PO BID [facility] Last Admin: 07/18/24 08:36 Dose: 100 mg Lactated Ringer's (Lr) 1,000 mls @ 100 mls/hr IVCONT .Q10H [facility] Last Infusion: 07/18/24 09:18 Dose: 0 mls/hr Lactated Ringer's (Lr) 1,000 mls @ 50 mls/hr IVCONT .Q20H [facility] Last Admin: 07/18/24 09:54 Dose: 50 mls/hr Metoprolol Tartrate (Metoprolol Tartrate 50 Mg Tablet) 50 mg PO BID [facility]; Protocol Last Admin: 07/18/24 08:35 Dose: 50 mg Oxycodone HCl (Oxycodone Hcl Immed Release 5 Mg Tablet) 5 mg PO Q4H PRN PRN Reason: Pain, Moderate(Pain Scale 4-6) Sodium Chloride (0.9 % Sodium Chloride Flush 3 Ml Syringe) 3 ml IVFLUSH QSHIFT [facility] Last Admin: 07/18/24 08:38 Dose: Not Given Home Medications ?Medication ?Instructions ?Recorded ?Confirmed ?Last Taken ?Type glucosamine sulf dipot 1 cap PO DAILY 03/28/21 07/17/24 06/23/24 History chlr,msm,chond 550 mg-C 30 mg-william 1 mg capsule (Glucosamine Chondroitin) omeprazole 20 mg capsule,delayed 20 mg PO DAILY@0630 03/28/21 07/17/24 Unknown History release diltiazem HCl 240 mg 240 mg PO DAILY 05/28/21 07/17/24 06/28/24 History capsule,extended release 24 hr furosemide 20 mg tablet 20 mg PO DAILY 06/02/24 07/17/24 06/23/24 History ticzgovd-rj-whjbp 300 mcg-K 60 1 tab PO DAILY 06/28/24 07/17/24 06/23/24 History mcg-lycop 600 mcg-lutein 300 mcg tablet (Centrum Silver Ultra Men's) Exam Height,Weight and Vital Signs: Height 5 ft 8 in Weight 80.6 kg Last Vital Signs Temp 98.1 F 07/18/24 09:05 Pulse 77 07/18/24 09:05 Resp 18 07/18/24 09:05 BP 140/84 H 07/18/24 09:05 Pulse Ox 97 07/18/24 09:05 O2 Del Method Room Air 07/18/24 09:05 Pertinent Lab Results Pertinent Lab Results: Laboratory Tests 07/17/24 07/18/24 16:12 05:18 WBC 9.5 6.6 RBC 3.68 L 3.42 L Hgb 11.6 L 10.7 L Hct 33.9 L 32.0 L MCV 92.1 93.6 MCH 31.5 31.3 MCHC 34.2 33.4 RDW 14.4 14.4 Plt Count 500 H D 447 H MPV 9.5 9.8 Immature Gran % (Auto) 0.3 0.5 H Neut % (Auto) 68.1 62.4 Lymph % (Auto) 18.0 L 20.7 [place] % (Auto) 10.3 10.9 Eos % (Auto) 2.0 4.1 H Baso % (Auto) 1.3 1.4 Lymph # (Auto) 1.7 1.4 [place] # (Auto) 1.0 0.7 Eos # (Auto) 0.2 0.3 Baso # (Auto) 0.1 0.1 Abs Immat Gran (auto) 0.03 0.03 Absolute Neuts (auto) 6.5 4.1 Absolute Nucleated RBC 0.000 0.000 Nucleated RBC % (auto) 0.0 0.0 PT 15.7 H INR 1.3 H Sodium 137 139 Potassium 3.9 3.7 Chloride 102 106 Carbon Dioxide 24 25 Anion Gap 15 12 BUN 19 H 15 Creatinine 1.11 1.02 Estim Creat Clear Calc 59.0 64.2 Estimated GFR > 60 > 60 Random Glucose 84 Fasting Glucose 84 Calcium 9.2 8.7 Blood Type O Negative Antibody Screen NEGATIVE Airway Mallampati Class: II TM Dist: >3cm Neck ROM: Full Heart: Regular Lungs: CTA Assessment and Plan Assessment Anesthesia Assessment: Anesthesia Plan Discussed and Chart Reviewed Final Anesthetic Review Family History of Problems with Anesthesia: No History of Problems with Anesthesia: No NPO: Yes ASA Class: II Final Preanesthetic Review: Meds/Allgs Chart Reviewed, Consent Obtained/Reviewed and Anes Risks/Benef Reviewed Patient Risk: Intermediate Procedure Risk: Intermediate Anesthetic Plan Anesthetic Plan: GA Disposition: Standard PACU
--- NOTE | 2024-07-18 14:59 | PM.OP ---
Brief Operative Note Date of Service: 07/18/24 Pre-op diagnosis: Hardware failure left hip Post-op diagnosis: same Procedure: Revision arthroplasty left hip femur and acetabulum Implants: Lando Accolade2#6 127 deg with +5 36 CoCr 15x 62 acetabular augment with 3 6.5 mm screws and a 60 mm Cooter rim fit cemented cup Surgeon: Dwayne Marie MD Anesthesia: GETA and local Was an Experimental Psychologist used for this Procedure?: Yes Experimental Psychologist: Kristi Ponce Estimated blood loss (mL): 300 IV fluids (mL): 1,500 Pathology: none sent Condition: stable Disposition: PACU
[2024-07-18 16:26] LABS: Hematocrit 29.3 % (42.0-52.0); Hemoglobin 9.7 g/dl (14.0-18.0)
[2024-07-18] MEDS: Enoxaparin Sodium 40 MG/0.4 ML SYRINGE SUBCUT (16:35)
[2024-07-18] MEDS: Celecoxib 200 MG CAPSULE PO (20:27)
[2024-07-18] MEDS: ceFAZolin Sodium/Dextrose,Iso 2 GM/50 ML PIGGYBACK IV (20:28)
[2024-07-18] MEDS: oxyCODONE HCl ER 10 MG TAB.ER.12H PO (20:28)
[2024-07-19] VITALS (11 sets, daily range): BP systolic 103–127; BP diastolic 53–77; PULSE 88–108; RESP 16–20; TEMP 36.3–37.6; O2SAT 98–100
[2024-07-19] MEDS: Lactated Ringers 1,000 ML 100 ML IVCONT (01:04)
[2024-07-19 06:40] LABS: MANUAL DIFF FLAG NO
[2024-07-19 06:44] LABS: Basophils Percent Auto 0.2 % (0-2); Hematocrit 25.7 % (42.0-52.0); Hemoglobin 8.3 g/dl (14.0-18.0); Imm Gran Abs Auto 0.06 X10*3/uL (0.00-0.03); Imm Gran Pct Auto 0.5 % (0.0-0.4); Lymphocytes Percent Auto 7.8 % (20-40); Mean Corpuscular HGB Conc 32.3 g/dl (31.0-36.0); Mean Corpuscular Hemoglobin 30.7 pg (27.0-33.0); Mean Corpuscular Volume 95.2 fL (80.0-98.0); Mean Platelet Volume 10.3 fL (9.4-12.4); Monocytes Percent Auto 8.3 % (2-11); Neutrophils Absolute Auto 10.2 x10*3/uL (2.0-8.3); Neutrophils Percent Auto 83.2 % (45-73); Platelet Count 461 X10*3/uL (160-400); Red Cell Distribution Width 14.5 % (11.0-16.0); White Blood Count 12.3 X10*3/uL (4.8-10.8)
--- NOTE | 2024-07-19 07:00 | PM.PNORT ---
Subjective Subjective Date of Service: 07/19/24 Interval history: 73-year-old male postop day 1 status post left KATINA revision Resting comfortably in bed this morning Pain well managed No acute overnight events No other acute complaints or concerns at this time Physical Exam Vital Signs: Vital Signs: Last Vital Signs Temp 98.0 F 07/19/24 03:00 Pulse 88 07/19/24 03:00 Resp 18 07/19/24 03:00 BP 106/59 L 07/19/24 03:00 Pulse Ox 100 07/19/24 03:00 O2 Del Method Room Air 07/19/24 03:00 O2 Flow Rate 2 07/18/24 15:22 BMI result Body Mass Index 27.0 Extrem: Other: Dressing on left hip clean, dry, intact No evidence of surrounding erythema, ecchymosis No evidence of infection Patient is able to flex and extend the digits of the left foot without difficulty Compartments soft, nontender Distal sensation intact Capillary refill brisk Procedures Date of Service Date of Service: 07/19/24 Progress Note: A&P Assessment and plan (1) Aseptic loosening of prosthetic hip: Status: Acute (2) Status post total hip replacement, left: Status: Acute Plan 1. Status post revision left KATINA DOS 07/18/2024 Continue pain management Continue Lovenox for anticoagulation, bridging to Eliquis after 48 hours of Lovenox Begin PT for revision left KATINA Dispo planning-pending PT eval, case management, pain management Time Spent With Patient Time: Total time managing care of this patient today ____ minutes. Quality Stroke Does the patient have a stroke diagnosis?: No VTE Prior VTE?: No VTE Risk Level:: Surgical - high VTE Device Contraindication: N/A - Device Ordered VTE Drug Contraindication: N/A - Med Ordered
[2024-07-19 07:06] LABS: Blood Urea Nitrogen 18 mg/dL (9-16); Calcium 8.2 mg/dL (8.4-10.2); Creatinine Clr Calc Pharmacy 64.9; Estimated Glomerular Filt Rate > 60; Glucose Fasting 130 mg/dL (60-99)
[2024-07-19 07:56] LABS: Anion Gap 15 (12-20); Carbon Dioxide 23 mmol/L (22-29); Chloride 104 mmol/L (96-108); Potassium 4.6 mmol/L (3.3-5.1); Sodium 137 mmol/L (135-145)
[2024-07-19] MEDS: dilTIAZem HCL CD 240 MG CAP.ER.DEG PO (08:00)
[2024-07-19] MEDS: Metoprolol Tartrate 50 MG TABLET PO ×2 (08:00→20:13)
[2024-07-19] MEDS: oxyCODONE HCl ER 10 MG TAB.ER.12H PO ×2 (08:01→20:12)
[2024-07-19] MEDS: Docusate Sodium 100 MG CAPSULE PO ×2 (08:01→20:12)
[2024-07-19] MEDS: Celecoxib 200 MG CAPSULE PO ×2 (08:01→20:13)
--- NOTE | 2024-07-19 08:45 | MHC.CM.PN ---
CM MET WITH PT AT BEDSIDE. PT IS CURRENTLY AT STR AT [facility] S/P LTH[facility]. PT IS OPEN TO RETURNING IF P.T. RECOMMENDS. PRIOR TO [facility], PT WAS LIVING ALONE AND FUNCTIONALLY INDEPENDENT. EMPLOYED F/T. +HCP/MOLST ON FILE AND VERIFIED. PCP DR. ALONZO DP: P.T. ELIUD TO DETERMINE DC DISPO. PT IS AGREEABLE TO RETURN TO [facility] FOR STR, RETURN REFERRAL SENT. PT MAY NEED BLS TRANSPORT. CM WILL CONTINUE TO FOLLOW FOR ANY CHANGE TO DC PLAN/NEEDS. PT STATES HE HAS [employer] INSURANCE BUT DOES NOT HAVE CARDS WITH HIM. MESSAGE SENT TO REGISTRATION.
--- NOTE | 2024-07-19 10:10 | PC.NURSE ---
temp 99.5 ,Dr. Zamora made aware,ok to transfuse blood
--- NOTE | 2024-07-19 10:45 | HO.PM.IMPN ---
Subjective Subjective Date of Service: 07/19/24 Interval History: Admitted for left KATINA hardware revision. Offers no acute complaints, denies shortness of breath, no chest pain, no palpitations, no lightheadedness or dizziness. Review of Systems All other system reviewed and are negative. Physical Exam Vital Signs: Vital Signs: Last Vital Signs Temp 99.5 F 07/19/24 10:23 Pulse 108 H 07/19/24 10:23 Resp 20 07/19/24 10:23 BP 127/77 07/19/24 10:23 Pulse Ox 99 07/19/24 10:24 O2 Del Method Room Air 07/19/24 10:24 O2 Flow Rate 2 07/18/24 15:22 BMI result Body Mass Index 27.0 Const: Other: General resting comfortably in no acute distress. Neck supple no JVD. CVS irregular rate and rhythm, Respiratory lungs clear to auscultation, no respiratory distress, no wheeze, no rhonchi. Gastrointestinal abdomen soft, non tender, bowel sounds audible Extremities no edema. Left hip dressing in place Neuro non focal Skin no rash Psych appropriate affect Objective Data Active Medications Acetaminophen (Acetaminophen 325 Mg Tablet) 650 mg PO Q6H PRN PRN Reason: Pain, Mild 1-3,fever,headache Apixaban (Apixaban 5 Mg Tablet) 5 mg PO BID [facility] Celecoxib (Celecoxib 200 Mg Capsule) 200 mg PO BID [facility] Last Admin: 07/19/24 08:01 Dose: 200 mg Documented By: LENKA Diltiazem HCl (Diltiazem Hcl Cd 240 Mg Cap.Er.Deg) 240 mg PO DAILY [facility]; Protocol Last Admin: 07/19/24 08:00 Dose: 240 mg Documented By: LENKA Docusate Sodium (Docusate Sodium 100 Mg Capsule) 100 mg PO BID [facility] Last Admin: 07/19/24 08:01 Dose: 100 mg Documented By: LENKA Enoxaparin Sodium (Enoxaparin Sodium 40 Mg/0.4 Ml Syringe) 40 mg SUBCUT Q24H [facility] Stop: 07/20/24 15:59 Last Admin: 07/18/24 16:35 Dose: 40 mg Documented By: MONICA Hydromorphone HCl (Hydromorphone Hcl 0.5 Mg/0.5 Ml Syringe) 0.25 mg IVPUSH Q4H PRN; Protocol PRN Reason: Pain, Severe (Pain Scale 7-10) Magnesium Hydroxide (Milk Of Magnesia 30 Ml Oral.Susp) 30 ml PO DAILY PRN PRN Reason: Constipation Melatonin (Melatonin 3 Mg Tablet) 6 mg PO BEDTIME PRN PRN Reason: Insomnia Metoprolol Tartrate (Metoprolol Tartrate 50 Mg Tablet) 50 mg PO BID [facility]; Protocol Last Admin: 07/19/24 08:00 Dose: 50 mg Documented By: LENKA Naloxone HCl (Naloxone Hcl 0.4 Mg/Ml Vial) 0.04 mg IVPUSH Q5M PRN PRN Reason: Excessive sedation or RR < 8 Oxycodone HCl (Oxycodone Hcl Immed Release 5 Mg Tablet) 5 mg PO Q4H PRN PRN Reason: Pain, Moderate(Pain Scale 4-6) Oxycodone HCl (Oxycodone Hcl Er 10 Mg Tab.Er.12h) 10 mg PO BID [facility] Last Admin: 07/19/24 08:01 Dose: 10 mg Documented By: LENKA Sodium Chloride (0.9 % Sodium Chloride Flush 3 Ml Syringe) 3 ml IVFLUSH [facility] Last Admin: 07/19/24 08:01 Dose: Not Given Documented By: LENKA Non-Admin Reason: IV Running Sodium Chloride (0.9 % Sodium Chloride Flush 3 Ml Syringe) 3 ml IVFLUSH [facility] Last Admin: 07/19/24 08:01 Dose: Not Given Documented By: LENKA Non-Admin Reason: IV Running Labs 07/19/24 05:59 07/19/24 05:59 Labs: Laboratory Results - last 24 hr 07/17/24 07/19/24 16:12 05:59 MCV 95.2 MCH 30.7 MCHC 32.3 RDW 14.5 Plt Count 461 H MPV 10.3 Immature Gran % (Auto) 0.5 H Neut % (Auto) 83.2 H Lymph % (Auto) 7.8 L [place] % (Auto) 8.3 Eos % (Auto) 0.0 Baso % (Auto) 0.2 Lymph # (Auto) 1.0 L [place] # (Auto) 1.0 Eos # (Auto) 0.0 Baso # (Auto) 0.0 Abs Immat Gran (auto) 0.06 H Absolute Neuts (auto) 10.2 H Absolute Nucleated RBC 0.000 Nucleated RBC % (auto) 0.0 Anion Gap 15 Estim Creat Clear Calc 64.9 Estimated GFR > 60 Fasting Glucose 130 H Calcium 8.2 L Blood Type O Negative Antibody Screen NEGATIVE Crossmatch See Detail Assessment and Plan (1) Aseptic loosening of prosthetic hip: Status: Acute Plan 73-year-old male with a past history significant for persistent AFib on Eliquis, HTN, and GERD who was admitted to the hospital under orthopedic services for elective hardware revision for KATINA on 06/28/2024. Hospitalist consult for medical management and preop clearance. Status post revision left KATINA POD#1 Plan as per Orthopedics Good pain control Continue Colace/Tylenol Acute on chronic normocytic anemia likely blood loss due to surgery Blood transfusion ordered as per ortho follow CBC Persistent atrial fibrillation Stable ventricular rate, continue metoprolol and diltiazem Resume Eliquis 07/20 as per Orthopedics GERD Continue PPI DVT prophylaxis on Lovenox will be transitioned to Eliquis on 07/20th Quality Stroke Does the patient have a stroke diagnosis?: No VTE Prior VTE?: No VTE Risk Level:: Surgical - high VTE Device Contraindication: N/A - Device Ordered VTE Drug Contraindication: N/A - Med Ordered
[2024-07-19] MEDS: Enoxaparin Sodium 40 MG/0.4 ML SYRINGE SUBCUT (14:51)
[2024-07-19] MEDS: 0.9 % Sodium Chloride Flush 3 ML SYRINGE IVFLUSH (14:52)
[2024-07-19] MEDS: Acetaminophen 325 MG TABLET 650 MG PO (20:13)
[2024-07-20] VITALS (11 sets, daily range): BP systolic 98–128; BP diastolic 59–80; PULSE 65–93; RESP 16–20; TEMP 36.3–37.1; O2SAT 97–99
[2024-07-20] MEDS: 0.9 % Sodium Chloride Flush 3 ML SYRINGE IVFLUSH ×5 (00:29→19:29)
[2024-07-20] MEDS: oxyCODONE HCl Immed Release 5 MG TABLET PO ×2 (03:46→07:40)
[2024-07-20] MEDS: Acetaminophen 325 MG TABLET 650 MG PO (03:46)
[2024-07-20 06:15] LABS: Basophils Absolute Auto 0.1 X10*3/uL (0.0-0.2); Basophils Percent Auto 0.7 % (0-2); Eosinophils Absolute Auto 0.1 X10*3/uL (0.0-0.4); Eosinophils Percent Auto 1.2 % (0-4); Hematocrit 25.2 % (42.0-52.0); Hemoglobin 8.1 g/dl (14.0-18.0); Imm Gran Abs Auto 0.09 X10*3/uL (0.00-0.03); Imm Gran Pct Auto 0.9 % (0.0-0.4); Lymphocytes Absolute Auto 2.1 X10*3/uL (1.2-4.9); MANUAL DIFF FLAG NO; Mean Corpuscular HGB Conc 32.1 g/dl (31.0-36.0); Mean Corpuscular Hemoglobin 30.6 pg (27.0-33.0); Mean Corpuscular Volume 95.1 fL (80.0-98.0); Mean Platelet Volume 9.3 fL (9.4-12.4); Monocytes Absolute Auto 1.4 X10*3/uL (0.1-1.2); Monocytes Percent Auto 13.9 % (2-11); Neutrophils Absolute Auto 6.2 x10*3/uL (2.0-8.3); Neutrophils Percent Auto 62.3 % (45-73); Platelet Count 348 X10*3/uL (160-400); Red Blood Count 2.65 X10*6/uL (4.60-5.80); Red Cell Distribution Width 14.9 % (11.0-16.0)
[2024-07-20 06:35] LABS: Anion Gap 11 (12-20); Blood Urea Nitrogen 19 mg/dL (9-16); Carbon Dioxide 25 mmol/L (22-29); Chloride 103 mmol/L (96-108); Creatinine Clr Calc Pharmacy 66.2; Estimated Glomerular Filt Rate > 60; Glucose Fasting 107 mg/dL (60-99); Sodium 135 mmol/L (135-145)
--- NOTE | 2024-07-20 06:41 | PC.NURSE ---
RN assessed left hip dressing start of shift, saturated with blood and bleeding through dressing. RN re-inforced dressing with abd pads to absorb blood. RN paged MD who came up to assess, no interventions ordered. ABD pads also bleeding through at end of shift. Will continue to assess.
--- NOTE | 2024-07-20 07:22 | PC.NURSE ---
GENEVIEVE saturated with bloody drainage overnight,SHANNON dotson
--- NOTE | 2024-07-20 07:35 | PM.PNORT ---
Subjective Subjective Date of Service: 07/20/24 Interval history: 73-year-old male postop day 1 status post left KATINA revision Resting comfortably in bed this morning Pain well managed Dressing did have to be reinforced overnight due to saturation No other acute complaints or concerns at this time Physical Exam Vital Signs: Vital Signs: Last Vital Signs Temp 97.4 F 07/20/24 03:22 Pulse 80 07/20/24 03:22 Resp 16 07/20/24 03:22 BP 98/61 07/20/24 03:22 Pulse Ox 99 07/20/24 03:22 O2 Del Method Room Air 07/20/24 03:22 O2 Flow Rate 2 07/18/24 15:22 BMI result Body Mass Index 27.0 Extrem: Other: Dressing on left saturated No evidence of surrounding erythema, ecchymosis No evidence of infection Patient is able to flex and extend the digits of the left foot without difficulty Compartments soft, nontender Distal sensation intact Capillary refill brisk Procedures Date of Service Date of Service: 07/20/24 Progress Note: A&P Assessment and plan (1) Aseptic loosening of prosthetic hip: Status: Acute (2) Status post total hip replacement, left: Status: Acute Plan 1. Status post revision left KATINA DOS 07/18/2024 Continue pain management 1 unit of packed RBCs ordered this morning for anemia Hemoglobin dropped after transfusion yesterday Continue Lovenox for anticoagulation, bridging to Eliquis after 48 hours of Lovenox Consider holding anticoagulation due to anemia and bleeding Begin PT for revision left KATINA Dispo planning-pending PT eval, case management, pain management Time Spent With Patient Time: Total time managing care of this patient today ____ minutes. Quality Stroke Does the patient have a stroke diagnosis?: No VTE Prior VTE?: No VTE Risk Level:: Surgical - high VTE Device Contraindication: N/A - Device Ordered VTE Drug Contraindication: N/A - Med Ordered
[2024-07-20] MEDS: dilTIAZem HCL CD 240 MG CAP.ER.DEG PO (07:40)
[2024-07-20] MEDS: Docusate Sodium 100 MG CAPSULE PO ×2 (07:40→18:25)
[2024-07-20] MEDS: oxyCODONE HCl ER 10 MG TAB.ER.12H PO ×2 (07:41→18:25)
[2024-07-20] MEDS: Metoprolol Tartrate 50 MG TABLET PO ×2 (07:41→19:25)
--- NOTE | 2024-07-20 10:52 | PC.NURSE ---
Patient to be transfused with ! unit of PRBC per SHANNON Wise
--- NOTE | 2024-07-20 11:38 | HO.POSTANES ---
Post Anesthesia Evaluation Post Anesthesia Evaluation Date of Service: 07/20/24 Vital Signs: Vital Signs Temp Pulse Resp BP Pulse Ox O2 Del Method 07/20/24 11:28 98.5 F 81 18 128/80 99 Room Air 07/20/24 11:02 99 Room Air 07/20/24 10:56 98.2 F 80 20 115/61 07/20/24 10:37 87 99 07/20/24 10:35 97.3 F 81 20 125/70 07/20/24 07:52 97.7 F 72 18 128/61 99 Room Air 07/20/24 03:22 97.4 F 80 16 98/61 99 Room Air Anesthesia: General Endotracheal-GETA Mental Status: Awake Pain Control: Satisfactory Nausea/Vomiting: None Hydration: Adequate Anesthesia-Related Issues: No Anes. Related Issues
--- NOTE | 2024-07-20 15:09 | MHC.CM.PN ---
PT LIKELY TO BE DISCHARGED TOMORROW [facility] ACCEPTING FOR [facility]
--- NOTE | 2024-07-20 16:01 | P.PNIM_ITS ---
Subjective Subjective Date of Service: 07/20/24 Interval History: Seen and examined this morning Follow-up for revision of left total hip arthroplasty No overnight events Patient awake, alert, no specific complaints this morning-reportedly dressing was saturated. Patient denies any dizziness, shortness of breath, chest pain Review of Systems Review of Systems: Yes all other systems are reviewed and are negative Constitutional Constitutional: Denies chills and Denies fever(s) ENT Ears, Nose, Mouth, and Throat: Denies dizziness Cardiovascular Cardiovascular: Denies dyspnea Respiratory Respiratory: Denies cough and Denies dyspnea Gastrointestinal Gastrointestinal: Denies abdominal pain Neurologic Neurologic: Denies dizziness Physical Exam 2 Vital Signs: Vital Signs: Last Vital Signs Temp 98.3 F 07/20/24 15:30 Pulse 72 07/20/24 15:30 Resp 16 07/20/24 15:30 BP 107/59 L 07/20/24 15:30 Pulse Ox 97 07/20/24 15:30 O2 Del Method Room Air 07/20/24 15:30 O2 Flow Rate 2 07/18/24 15:22 BMI result Body Mass Index 27.0 Const: Nutritional Appearance: well nourished Orientation/consciousness: p atient oriented x3 HEENT: Head: Yes normocephalic and Yes atraumatic Resp: Effort & Inspection: normal respiratory effort and no respiratory distress Auscultation: clear to auscultation bilaterally Cardio: Rate: regular rate GI: Palpation (GI): Soft to palpation and nontender Neuro: General: patient oriented x3 Cranial nerves: Yes CN's II-XII intact bilaterally Psych: Affect: normal affect Objective Data Active Medications Acetaminophen (Acetaminophen 325 Mg Tablet) 650 mg PO Q6H PRN PRN Reason: Pain, Mild 1-3,fever,headache Last Admin: 07/20/24 03:46 Dose: 650 mg Documented By: VIRAJ Apixaban (Apixaban 5 Mg Tablet) 5 mg PO BID [facility] Celecoxib (Celecoxib 200 Mg Capsule) 200 mg PO BID [facility] Last Admin: 07/19/24 20:13 Dose: 200 mg Documented By: VIRAJ Diltiazem HCl (Diltiazem Hcl Cd 240 Mg Cap.Er.Deg) 240 mg PO DAILY [facility]; Protocol Last Admin: 07/20/24 07:40 Dose: 240 mg Documented By: BENTLEY Docusate Sodium (Docusate Sodium 100 Mg Capsule) 100 mg PO BID [facility] Last Admin: 07/20/24 07:40 Dose: 100 mg Documented By: BENTLEY Hydromorphone HCl (Hydromorphone Hcl 0.5 Mg/0.5 Ml Syringe) 0.25 mg IVPUSH Q4H PRN; Protocol PRN Reason: Pain, Severe (Pain Scale 7-10) Magnesium Hydroxide (Milk Of Magnesia 30 Ml Oral.Susp) 30 ml PO DAILY PRN PRN Reason: Constipation Melatonin (Melatonin 3 Mg Tablet) 6 mg PO BEDTIME PRN PRN Reason: Insomnia Metoprolol Tartrate (Metoprolol Tartrate 50 Mg Tablet) 50 mg PO BID [facility]; Protocol Last Admin: 07/20/24 07:41 Dose: 50 mg Documented By: BENTLEY Naloxone HCl (Naloxone Hcl 0.4 Mg/Ml Vial) 0.04 mg IVPUSH Q5M PRN PRN Reason: Excessive sedation or RR < 8 Oxycodone HCl (Oxycodone Hcl Immed Release 5 Mg Tablet) 5 mg PO Q4H PRN PRN Reason: Pain, Moderate(Pain Scale 4-6) Last Admin: 07/20/24 07:40 Dose: 5 mg Documented By: BENTLEY Oxycodone HCl (Oxycodone Hcl Er 10 Mg Tab.Er.12h) 10 mg PO BID [facility] Last Admin: 07/20/24 07:41 Dose: 10 mg Documented By: BENTLEY Sodium Chloride (0.9 % Sodium Chloride Flush 3 Ml Syringe) 3 ml IVFLUSH [facility] Last Admin: 07/20/24 15:21 Dose: 3 ml Documented By: LENKA Sodium Chloride (0.9 % Sodium Chloride Flush 3 Ml Syringe) [facility] Last Admin: 07/20/24 15:29 Dose: Not Given Documented By: LENKA Non-Admin Reason: Previously Administered Labs 07/20/24 06:07 07/20/24 06:07 Labs: Laboratory Results - last 24 hr 07/17/24 07/20/24 16:12 06:07 MCV 95.1 MCH 30.6 MCHC 32.1 RDW 14.9 Plt Count 348 MPV 9.3 L Immature Gran % (Auto) 0.9 H Neut % (Auto) 62.3 Lymph % (Auto) 21.0 Iron % (Auto) 13.9 H Eos % (Auto) 1.2 Baso % (Auto) 0.7 Lymph # (Auto) 2.1 Iron # (Auto) 1.4 H Eos # (Auto) 0.1 Baso # (Auto) 0.1 Abs Immat Gran (auto) 0.09 H Absolute Neuts (auto) 6.2 Absolute Nucleated RBC 0.000 Nucleated RBC % (auto) 0.0 Anion Gap 11 L Estim Creat Clear Calc 66.2 Estimated GFR > 60 Fasting Glucose 107 H Calcium 8.0 L Blood Type O Negative Antibody Screen NEGATIVE Crossmatch See Detail Assessment and Plan (1) Status post total hip replacement, left: Status: Acute Plan 73-year-old male with a past history significant for persistent AFib on Eliquis, HTN, and GERD who was admitted to the hospital under orthopedic services for elective hardware revision for KATINA on 07/18/2024. Hospitalist consult for medical management Status post revision left KATINA 07/18 Plan as per Orthopedics Good pain control Continue Colace/Tylenol plan to resume Eliquis this evening Acute on chronic normocytic anemia likely blood loss due to surgery Additional unit of blood ordered by ortho 07/20 follow CBC Persistent atrial fibrillation Stable ventricular rate, continue metoprolol and diltiazem Resume Eliquis 07/20 as per Orthopedics GERD Continue PPI DVT prophylaxis on Lovenox, transitioned to Eliquis on 07/20 Quality Stroke Does the patient have a stroke diagnosis?: No VTE Prior VTE?: No VTE Risk Level:: Surgical - high VTE Device Contraindication: N/A - Device Ordered VTE Drug Contraindication: N/A - Med Ordered
[2024-07-20] MEDS: Apixaban 5 MG TABLET PO (19:26)
[2024-07-21 03:17] VITALS: BP 102/61; PULSE 76; RESP 16; TEMP 36.5; O2SAT 98
[2024-07-21 06:22] LABS: MANUAL DIFF FLAG NO
[2024-07-21 06:40] LABS: Anion Gap 11 (12-20); Blood Urea Nitrogen 11 mg/dL (9-16); Calcium 8.4 mg/dL (8.4-10.2); Carbon Dioxide 27 mmol/L (22-29); Chloride 103 mmol/L (96-108); Creatinine Clr Calc Pharmacy 75.3; Estimated Glomerular Filt Rate > 60; Glucose Fasting 88 mg/dL (60-99); Potassium 3.9 mmol/L (3.3-5.1); Sodium 137 mmol/L (135-145)
[2024-07-21 07:06] LABS: Basophils Absolute Auto 0.1 X10*3/uL (0.0-0.2); Basophils Percent Auto 0.9 % (0-2); Eosinophils Absolute Auto 0.2 X10*3/uL (0.0-0.4); Eosinophils Percent Auto 2.4 % (0-4); Hematocrit 27.4 % (42.0-52.0); Imm Gran Abs Auto 0.07 X10*3/uL (0.00-0.03); Imm Gran Pct Auto 0.7 % (0.0-0.4); Lymphocytes Absolute Auto 1.7 X10*3/uL (1.2-4.9); Mean Corpuscular HGB Conc 32.8 g/dl (31.0-36.0); Mean Corpuscular Hemoglobin 30.9 pg (27.0-33.0); Mean Corpuscular Volume 94.2 fL (80.0-98.0); Mean Platelet Volume 10.6 fL (9.4-12.4); Monocytes Absolute Auto 1.2 X10*3/uL (0.1-1.2); Monocytes Percent Auto 12.2 % (2-11); Neutrophils Absolute Auto 6.7 x10*3/uL (2.0-8.3); Neutrophils Percent Auto 66.8 % (45-73); Platelet Count 357 X10*3/uL (160-400); Red Blood Count 2.91 X10*6/uL (4.60-5.80); White Blood Count 10.1 X10*3/uL (4.8-10.8)
[2024-07-21 07:08] VITALS: BP 117/63; PULSE 77; RESP 17; TEMP 37.3; O2SAT 99
[2024-07-21] MEDS: Apixaban 5 MG TABLET PO (07:20)
[2024-07-21] MEDS: oxyCODONE HCl Immed Release 5 MG TABLET PO ×2 (07:20→11:00)
[2024-07-21] MEDS: 0.9 % Sodium Chloride Flush 3 ML SYRINGE IVFLUSH (07:20)
[2024-07-21] MEDS: dilTIAZem HCL CD 240 MG CAP.ER.DEG PO (07:20)
[2024-07-21] MEDS: oxyCODONE HCl ER 10 MG TAB.ER.12H PO (07:20)
[2024-07-21] MEDS: Docusate Sodium 100 MG CAPSULE PO (07:21)
[2024-07-21] MEDS: Metoprolol Tartrate 50 MG TABLET PO (07:21)
--- NOTE | 2024-07-21 08:03 | P.DS_ITS ---
DS: Providers Provider Date of Service: 07/21/24 Date of admission: 07/17/24 13:52 Primary care physician: Frandy Torres MD Consults: 07/17/24 13:52 Consult to Hospitalist Routine Comment: Consulting Provider: [facility] Hospitalists Reason For Exam: Medical management, surgical clearance DS: Diagnosis Discharge Diagnosis (1) Status post total hip replacement, left: Status: Acute DS: Summary Hospital Course Hospital Course: The patient underwent a successful left total hip revision arthroplasty, they were transferred to PACU and then to the floor to recover. During their stay, their vitals were stable, afebrile at 99.1. Labs were unremarkable, H/H 9.0/27.4. POD 1 they were started on Lovenox and then transitioned to Eliquis at regular dose 48 hours post operatively for DVT ppx. They also received Physical Therapy services twice a day. Prior to discharge, their dressing was clean dry and intact, and the plan was to be discharged back to the rehab facility. Time Attestation Discharge Coordination Time (in mins): 30 Quality: Safe Use of Opioids Does Pt have an Active Cancer Diagnosis on the Problem List?: No Quality: Stroke Does the patient have a stroke diagnosis?: No Physical Exam Vital Signs: Vital Signs: Last Vital Signs Temp 99.1 F 07/21/24 07:08 Pulse 77 07/21/24 07:08 Resp 17 07/21/24 07:08 BP 117/63 07/21/24 07:08 Pulse Ox 99 07/21/24 07:08 O2 Del Method Room Air 07/21/24 07:08 O2 Flow Rate 2 07/18/24 15:22 BMI result Body Mass Index 27.0 Const: General: cooperative, healthy appearing and no acute distress Resp: Effort & Inspection: normal respiratory effort and able to speak in complete sentences Cardio: Rate: regular rate Peripheral pulses: Peripheral pulses 2+ throughout GI: Palpation (GI): Soft to palpation Skin: Lesions: no lesions Rashes: no rashes Extrem: Other: left hip dressing is c/d/i. Able to dorsi/plantar flex. Calf is supple and nontender. Sensation intact. Pedal pulse intact. DS: Data Data Completed and Pending Labs on day of discharge: Laboratory Results - last 24 hr 07/17/24 07/21/24 16:12 05:30 WBC 10.1 RBC 2.91 L Hgb 9.0 L Hct 27.4 L MCV 94.2 MCH 30.9 MCHC 32.8 RDW 15.0 Plt Count 357 MPV 10.6 Immature Gran % (Auto) 0.7 H Neut % (Auto) 66.8 Lymph % (Auto) 17.0 L [place] % (Auto) 12.2 H Eos % (Auto) 2.4 Baso % (Auto) 0.9 Lymph # (Auto) 1.7 [place] # (Auto) 1.2 Eos # (Auto) 0.2 Baso # (Auto) 0.1 Abs Immat Gran (auto) 0.07 H Absolute Neuts (auto) 6.7 Absolute Nucleated RBC 0.000 Nucleated RBC % (auto) 0.0 Sodium 137 Potassium 3.9 Chloride 103 Carbon Dioxide 27 Anion Gap 11 L BUN 11 Creatinine 0.87 Estim Creat Clear Calc 75.3 Estimated GFR > 60 Fasting Glucose 88 Calcium 8.4 Blood Type O Negative Antibody Screen NEGATIVE Crossmatch See Detail Discharge Plan Discharge Anticipated Discharge Date/Time: 07/21/24 11:38 Patient Disposition: Xfer [facility] Discharge Diagnosis: s/p LTHA revision Referrals: [facility] [Other] - 1 Week Dwayne Marie MD [Physician] - 08/03/24 1:00 pm Discharge Medications: New docusate sodium 100 mg Capsule 100 mg PO BID 30 Days Qty: 60 0RF oxycodone 5 mg Tablet 5 mg PO Q4H PRN (Reason: Pain, Moderate(Pain Scale 4-6)) 7 Days Qty: 42 0RF Rx Instructions: Partial Fill upon patient request. Continued (DME) heel lift See Rx Instructions .ROUTE .MEDSUPPLY Qty: 1 0RF Rx Instructions: As directed Please measure leg length for righ side leg length discrepancy Fit as appropriate Eliquis 5 mg tablet 5 mg PO BID 90 Days Qty: 180 3RF omeprazole 20 mg Capsule,Delayed Release(Dr/Ec) 20 mg PO DAILY@0630 Glucosamine Chondroitin 550-30-1 mg Capsule 1 cap PO DAILY furosemide 20 mg tablet 20 mg PO DAILY Centrum Silver Ultra Men's [phone] mcg Tablet 1 tab PO DAILY celecoxib 200 mg Capsule 200 mg PO BID 30 Days Qty: 60 0RF acetaminophen 325 mg Tablet 650 mg PO Q6H PRN (Reason: Pain, Mild (Pain Scale 1-3), fever or headache) 30 Days Qty: 240 0RF diltiazem HCl 240 mg capsule,extended release 24hr 240 mg PO DAILY metoprolol tartrate 50 mg tablet 50 mg PO BID 90 Days Qty: 180 3RF Discharge Orders: Discharge Order (Routine); Ordered 07/21/24 Ordered By: Kristi Ponce Diet: Advance to usual diet Activity on Discharge: Use cane or walker Stand Alone Forms: Patient Portal Discharge page Print Language: Jamaican Activity Restrictions/Additional Instructions: Physical Therapy for total hip arthroplasty revision: posterior precautions, gait training, ROM, strength Limit stair climbing No showering, no tub bath-keep dressing clean, dry and intact No driving x6 weeks Keep dressing on at all times - Call orthopedics if needs changing or comes off Continue Eliquis at regular dose Follow up with [facility] Orthopedics in 2 weeks Care Plan Goals: restore fxn to left hip Health Concerns: None Plan of Treatment: Physical Therapy for total hip arthroplasty: posterior precautions, gait training, ROM, strength Limit stair climbing No showering, no tub bath-keep dressing clean, dry and intact No driving x6 weeks Continue Eliquis at regular dose Follow up with [facility] Orthopedics in 2 weeks Assessment: stable for discharge
[2024-07-21 09:35] VITALS: BP 117/63; PULSE 77; O2SAT 99
--- NOTE | 2024-08-04 15:15 | P.OP_ITS ---
Operative Note Operative Note Date of Service: 07/18/24 Narrative: Date of Service: 07/18/24 Pre-op diagnosis: Hardware failure left hip Post-op diagnosis: same Procedure: Revision arthroplasty left hip femur and acetabulum Implants: Mcmillan Accolade2#6 127 deg with +5 36 CoCr 15x 62 acetabular augment with 3 6.5 mm screws and a 60 mm Violet rim fit cemented cup Surgeon: Dwayne Marie MD Anesthesia: GETA and local Was an Law Enforcement Officer used for this Procedure?: Yes Law Enforcement Officer: Kristi Ponce Estimated blood loss (mL): 300 IV fluids (mL): 1,500 Pathology: none sent Condition: stable Disposition: PACU Patient was brought into the operating room and placed in the right lateral de cubitus position. All bony prominences were well padded and the limb was prepped and draped in standard sterile fashion. A time-out was called to identify proper site procedure proper surgeon IV antibiotics and 1 g of tranexamic acid were administered. I began by making a curvilinear incision over the prior incision. Dissection was taken down to the tensor fascia which was incised in line with the incision and a Charnley retractor was placed. Cautery was used to maintain hemostasis. Excess suture was removed. The hip was internally rotated and the capsule was identified. This layer was tagged and a dull Hohmann retractor was placed underneath the neck in the hip was dislocated. The cup was loose and was moving with the neck. Application of axial traction allowed me to remove the cup. One of the screws had previously broken off and remained in the acetabulum. I used a flexible osteotome circumferentially around the proximal aspect of the femoral metaphysis and was able to back slap the prosthesis out without bone loss. There was limited bony on growth and fortunately I was able to move the stem without complication. This allowed good access to the acetabulum. The screw that remained in the acetabulum was not prominent and the decision was made to leave it in place. There was superior bone loss in the decision was made to cement in the acetabulum. Prior to that I placed a 15 x 62 acetabular augment with 36.5 mm screws to fill that superior void. Once this was done I cemented in a 60 mm extra rim fit cemented cup. Two bags bone cement were mixed on the back table using standard 3rd generation cementation technique. The cup was then cemented in proximally 45 degrees of inclination and 25 degrees of anteversion. Once the cup was cemented in I returned my attention to the femur. The medius tendon was protected with a Hibs retractor. I used a curette to remove all excess fibrous tissue from the canal. I irrigated copiously. I then sequentially broached in the patient's natural version to a size 6 and placed my trial implants. I used a #6/127/+5. I removed all instrumentation and copiously irrigated. I placed my final femoral implant and again took the hip through range of motion and was satisfied with the stability and length. The final +5 implant was impacted in place and the hip reduced. I then irrigated copiously and placed 1 g of local tranexamic acid. I performed a capsular closure with 2.0 fiberwire, Skylar's fascia with 0 Vicryl, subcuticular with 2-0 Vicryl and the skin with cam. Patient was placed into a sterile dressing. Patient was extubated brought to the recovery room in stable condition. There were no known complications.
== END 2024-07-21 13:41 | disposition skilled nursing facility (03) | DRG 467 ==
PROVIDERS: Admitting Provider Orthopaedic Surgery; PCP Family Medicine; Visit Provider Orthopaedic Surgery
PROC: 0SRB0J9 Replacement of Left Hip Joint with Synthetic Substitute, Cemented, Open Approach (ICD-10-PCS; principal; 2024-07-18 10:00)
DX: T84.033A Mechanical loosening of internal left knee prosthetic joint, initial encounter (principal); I48.19 Other persistent atrial fibrillation; K21.9 Gastro-esophageal reflux disease without esophagitis; Y79.2 Prosthetic and other implants, materials and accessory orthopedic devices associated with adverse incidents; D64.89 Other specified anemias; Z87.891 Personal history of nicotine dependence; Z79.01 Long term (current) use of anticoagulants; Z79.899 Other long term (current) drug therapy
CPT/HCPCS: 36415; 72170; 80048; 85014; 85018; 85025; 85610; 86850; 86900; 86901; 86923; 93005; 97161; 97166; 97530; C1713; C1776; J0131; J0690; J1100; J1171; J1650; J2003; J2250; J2371; J2405; J2704; J2795; J3010; J7120; P9016

== ENCOUNTER → 2024-07-17 13:52 | Outpatient (BNV) | payer OTHER, SELFPAY | PROVIDERS: Admitting Provider Orthopaedic Surgery; PCP Family Medicine; Visit Provider Orthopaedic Surgery | DX: Z47.1 Aftercare following joint replacement surgery (principal); Z96.642 Presence of left artificial hip joint; T84.038A Mechanical loosening of other internal prosthetic joint, initial encounter | CPT/HCPCS: 99024 ==

== ENCOUNTER → 2024-07-17 13:52 | Outpatient (BNV) | payer OTHER, SELFPAY | PROVIDERS: Admitting Provider Orthopaedic Surgery; PCP Family Medicine; Visit Provider Student in an Organized Health Care Education/Training Program | DX: I48.19 Other persistent atrial fibrillation (principal); Z96.642 Presence of left artificial hip joint | CPT/HCPCS: 99222; 99232 ==

== ENCOUNTER 2024-07-24 13:43 | Outpatient (AMB) | payer OTHER, SELFPAY ==
--- OUTSIDE RECORDS SUMMARY | 2024-07-24 13:46 | XMS_ITS ---
Author Organization [facility] Address [address] [place] [address] [place] [address] Care Team Providers Care Vice President Digital Strategist Name Role Phone Brian CLEANING, Frandy Primary Care Provider Unavailab Jordana Pierce Unavailable [phone] Encounters Encounter Location Date Provider Diagnosis [address] [address] 06/01/2024 Jordana Duval Plan Of Treatment No Information Progress Notes * Graham KERRDOB: [birth year] (73 yo M)Acc No.[id number]:06/01/2024 Progress Note Patient:?Graham KERR Provider:?Jordana Duval DPM :1950???Age:73 Y???Sex:Male Gigi e:06/01/2024 Address:[address] [place], [place] [address]Patrizia OO-[id number] Pcp:Frandy Torres MD Subjective: * Chief Complaints: [...] Duval DPM Date:?01/2024 Generated for Misha hand/Josefina/eTransmitting on:?07/24/2024 01:46 PM EST
--- OUTSIDE RECORDS SUMMARY | 2024-07-24 13:46 | XMS_ITS ---
Author Organization [facility] Address [address] [place] [address] Care Team Providers Care Land Survey Technician Name Role Phone Frandy Torres MD Primary Care Provider Unavailab Jordana Pierce Unavailable [phone] REASON FOR VISIT [facility] ppwrk Encounters Encounter Location Date Provider [facility] [address] [place] [address] [place] [address] 03/16/2024 Jordana Duval Plan Of Treatment No Information Progress Notes * Graham KERRDOB: [birth year] (73 yo M)Acc No.[id number]:03/16/2024 Patient:?Graham Kerr :1950???Age:73 Y???Sex:Male Address:[address] [place], [place] [address] [place] [address] * true * Date:? Generated for Misha hand/Josefina/eTransmitting on:?07/24/2024 01:46 PM EST
--- OUTSIDE RECORDS SUMMARY | 2024-07-24 13:46 | XMS_ITS ---
Author Organization [facility] Address [address] [place] [address] Care Team Providers Care Lock Expert Name Role Phone Frandy Torres MD Primary Care Provider Unavailab Jordana Pierce Unavailable [phone] REASON FOR VISIT cx 06/01 appt Encounters Encounter Location Date Provider Diagnosis [address] [address] 05/30/2024 Jordana Duval Plan Of Treatment No Information Progress Notes * Graham KERRDOB: [birth year] (73 yo M)Acc No.[id number]:05/30/2024 Patient:?Graham Kerr :1950???Age:73 Y???Sex:Male [facility] [facility] [address] * true * Date:? Generated for Renai yazan/Josefina/eTransmitting on:?07/24/2024 01:46 PM EST
--- OUTSIDE RECORDS SUMMARY | 2024-07-24 13:47 | XMS_ITS | Patient Health Record ---
Author Organization [facility] Address [address] [place] [address] Care Team Providers Care Front Desk Auxiliary Name Role Phone Brian CLEANING, Frandy Primary Care Provider Unavailab Stevan Jones Unavailable [phone] REASON FOR REFERRAL No Information MEDICATIONS Medication [...] Problem Adenomatous colon polyp (D12.6) Active confirmed 089511409 Problem Colon polyps (K63.5) Active confirmed 73314602 Problem Colon cancer screening (Z12.11) Active confirmed 615073128 Problem History of adenomatous polyp of colon (Z86.010) Active confirmed 364472353 Problem Encounter for screening for malignant neoplasm of colon (Z12.11) Active confirmed 215849932 Problem Preprocedural examination (Z01.818) Active confirmed 145715682496314 Problem Diverticulosis of colon (K57.30) Active confirmed Diverticulosi s of colon (048748652) PLAN OF TREATMENT Pending Test Test Name Order Date Pathology 04/04/2021 Future Test Test Name Order Date COLONOSCOPY 05/22/2015 COLONOSCOPY 02/20/2021 Insurance Providers Payer Name Payer Address Payer Phone Subscriber Number Group Number Insured Name Patient Relationship to Insured Coverage Start Date Coverage End Date [employer] [address] [place] [address] [id number] GAEL KERR Self - patient is the insured MEDICAL (GENERAL) HISTORY Medical History History ICD Code Colonoscopy 01-06-2010 and 12 12--removal of small tubular adenomas, mild sigmoid diverticulosis, and small internal hemorrhoids Denies SC,DM,CVA,Lung disease,renal dise ase Afib Hypertension Colonoscopy 07/2015 with removal of 4 sma ll tubular adenomas Surgical History Surgery Date(Month/Year) Hip replacement on the right side - Dr. Marie 2016
--- OUTSIDE RECORDS SUMMARY | 2024-07-24 13:47 | XMS_ITS | Patient Health Record ---
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, bilateral legs (I70.203) Active confirmed Problem Acquired hammer toe of right foot (64690948595 84587) Other hammer toe(s) (acquired), right foot (M20.41) Active confirmed Problem Acquired hammer toe of left foot (36942823897 64495) Other hammer toe(s) (acquired), left foot (M20.42) Active confirmed Problem 98267807 Leg length discrepancy (M21.70) Active confirmed Vital Signs Height 5 ft 8 in in 02/29/2024 Weight 180 lbs 02/29/2024 BMI 27.37 kg/m2 02/29/2024 Procedures Procedure Date Ordered Date Performed Result Body Sit e 36185-WKTA SKIN LESIONS, 2 TO 4 02/29/2024 N/A Encounters Encounter [facility] Date [facility] [address] [facility]/29/2024 Brannon Pineda Ingrowing nail L60.0 ; Tinea unguium B35.1 ; Other hammer toe(s) (acquired), right foot M20.41 ; Other hammer toe(s) (acquired), left foot M20.42 ; Leg length discrepancy M21.70 ; Unspecified atherosclerosis of prairie band arteries of extremities, bilateral legs I70.203 and Ataxic gait R26.0 [facility] [address] [place] [address] 12/01/2023 [facility] [address] 03/16/2024 Jordana Duval [address] [address] 05/30/2024 Jordana Duval Assessments Encounter Date Diagnosis (ICD Code) Assessment Notes Treatment Notes Treatment Clinical Notes Section Notes 02/29/2024 Ingrowing nail (ICD-10 - L60.0) 02/29/2024 Tinea unguium (ICD-10 - B35.1) 02/29/2024 Other hammer toe(s) (acquired), right foot (ICD-10 - M20.41) 02/29/2024 Other hammer toe(s) (acquired), left foot (ICD-10 - M20.42) 02/29/2024 Leg length discrepancy (ICD-10 - M21.70) 02/29/2024 Unspecified atherosclerosis of prairie band arteries of extremities, bilateral legs (ICD-10 - I70.203) 02/29/2024 Ataxic gait (ICD-10 - R26.0) Plan Of Treatment Pending Test Test Name Order Date 45936-YAEC SKIN LESIONS, 2 TO 4 02/29/20 24 Insurance Providers Payer Name Payer Address Payer Phone Subscriber Number Group Number Insured Name Patient Relationship to Insured Coverage Start Date Coverage End Date Sukh [address] [place] [phone] [id number] Graham Hodges Self - patient is the insured Medical (General) History Medical History History ICD Code Measles Chicken pox hip replacement, RT Surgical History Surgery Date(Month/Year) right hip replacement
--- NOTE | 2024-07-24 13:48 | MHC.OFFVIS ---
Intake Visit Reasons: PO: bandage change L KATINA w/NE 06/28/24 Allergies No Known Allergies [No Known Allergies*] Allergy (Verified 07/18/24 09:09) HPI HPI PO: bandage change L KATINA w/NE 06/28/24: Details: 73-year-old gentleman returns to the office today status post revision left total hip arthroplasty on with Dr. Marie. According to physical therapy notes in the hospital patient is weight-bearing as tolerated with a walker he states he is doing well with ambulation. [facility] Medical History Arthritis Persistent atrial fibrillation Post-nasal drip Osteoarthritis GERD (gastroesophageal reflux disease) PAF (paroxysmal atrial fibrillation) On anticoagulant therapy HTN (hypertension) Surgical History History of total left hip arthroplasty History of surgery on lower extremity History of cardioversion Hx of colonoscopy History of hip replacement Social History Household Members: None Housing: Apartment Are you a primary human services care specialist to a significant other at home: No Do you presently have visiting nurse or other home services: No Alcohol intake: current Alcohol intake frequency: a few times a week Alcohol type: beer Patient Tobacco Use Status: Former Tobacco user Tobacco use type: Cigarette Years Smoked: 15 Advance Directives Date on File: 09/22/16 service: No Review of Systems Const All systems reviewed & are unremarkable except as noted in HPI and below Physical Exam Extrem Other: Left hip incision is clean dry and intact. There is superficial erythema around the cam no evidence of cellulitis no evidence of infection. Assessment & Plan Assessment & Plan (1) S/p revision of left total hip: Code(s): Z96.642 - Presence of left artificial hip joint Category: Surgical Plan: A new Aquacel dressing was placed today. He will continue working with Physical therapy and Occupational therapy weight-bearing as tolerated with walker at all times. Posterior precautions. Gait training. See us back on August [address] Marie for routine postop appointment and staple removal. Coding Level of Care Code Global (65307) Diagnoses S/p revision of left total hip Z96.642
== END 2024-07-24 14:22 | disposition home or self-care (01) ==
PROVIDERS: PCP Family Medicine; Visit Provider Physician Assistant
DX: Z96.642 Presence of left artificial hip joint (principal)
CPT/HCPCS: 99024

== ENCOUNTER 2024-08-03 12:19 | Outpatient (AMB) | payer OTHER, SELFPAY ==
--- NOTE | 2024-08-03 12:59 | A.OFFVIS_ITS ---
Intake Visit Reasons: 6WK PO: L KATINA w/NE 06/28/24 Intake Note: Graham is a 73 year old male who presents today for a post operative appointment s/p Right Hip Arthroplasty 06/28/2024. Patient presents today in a wheelchair, reports that he is doing well Allergies No Known Allergies [No Known Allergies*] Allergy (Verified 07/18/24 09:09) HPI HPI 6WK PO: L KATINA w/NE 06/28/24: Details: Graham is a 73 year old male who presents today for a post operative appointment s/p Right Hip Arthroplasty 06/28/2024. Patient presents today in a wheelchair, reports that he is doing well. [facility] Medical History Arthritis Persistent atrial fibrillation Post-nasal drip Osteoarthritis GERD (gastroesophageal reflux disease) PAF (paroxysmal atrial fibrillation) On anticoagulant therapy HTN (hypertension) Surgical History History of total left hip arthroplasty History of surgery on lower extremity History of cardioversion Hx of colonoscopy History of hip replacement Social History Household Members: None Housing: Apartment Are you a primary healthcare insurance sales agent to a significant other at home: No Do you presently have visiting nurse or other home services: No Alcohol intake: current Alcohol intake frequency: a few times a week Alcohol type: beer Patient Tobacco Use Status: Former Tobacco user Tobacco use type: Cigarette Years Smoked: 15 Advance Directives Date on File: 09/22/16 service: No Physical Exam Extrem Other: inc c/d/i no pain Results Reviewed Results Reviewed: I personally reviewed relevant radiographs. Left revision KATINA in expected post operative position with no hardware complications or evidence of loosening Assessment & Plan Assessment & Plan (1) S/p revision of left total hip: Code(s): Z96.642 - Presence of left artificial hip joint Category: Surgical Plan: Doing well. F/u 4 weeks WBAT with walker continue Eliquis Orders: Orders XR pelvis 1-2V Today M25.559 - Pain in unspecified hip Coding Level of Care Code Global (04279) Diagnoses S/p revision of left total hip Z96.642
--- OUTSIDE RECORDS SUMMARY | 2024-08-03 13:19 | XMS_ITS ---
Author Organization [facility] Address [address] [place] [address] Care Team Providers Care Compliance Mgr Name Role Phone Frandy Torres MD Primary Care Provider Unavailab Jordana Pierce Unavailable [phone] REASON FOR VISIT cx 06/01 appt Encounters Encounter Location Date Provider Diagnosis [address] [address] 05/30/2024 Jordana Duval Plan Of Treatment No Information Progress Notes * Graham KERRDOB: [birth year] (73 yo M)Acc No.[id number]:05/30/2024 Patient:?Graham Kerr :1950???Age:73 Y???Sex:Male [facility] [facility] [address] * true * Date:? Generated for Misha hand/Josefina/eTransmitting on:?08/03/2024 01:19 PM EST
--- OUTSIDE RECORDS SUMMARY | 2024-08-03 13:19 | XMS_ITS ---
Author Organization [facility] Address [address] [place] [address] [place] [address] Care Team Providers Care Operations Controller Name Role Phone Brian CLEANING, Frandy Primary Care Provider Unavailab Jordana Pierce Unavailable [phone] Encounters Encounter Location Date Provider Diagnosis [address] [address] 06/01/2024 Jordana Duval Plan Of Treatment No Information Progress Notes * Graham KERRDOB: [birth year] (73 yo M)Acc No.[id number]:06/01/2024 Progress Note Patient:?Graham KERR Provider:?Jordana Duval DPM :1950???Age:73 Y???Sex:Male Gigi e:06/01/2024 Address:[address] [place], [place] [address]-[id number] Pcp:Frandy Torres MD Subjective: * Chief Complaints: [...] Duval DPM Date:?01/2024 Generated for Misha hand/Josefina/eTransmitting on:?08/03/2024 01:19 PM EST
--- OUTSIDE RECORDS SUMMARY | 2024-08-03 13:20 | XMS_ITS ---
Author Organization [facility] Address [address] [place] [address] Care Team Providers Care Chemist Water Purification Name Role Phone Frandy Torres MD Primary Care Provider Unavailab Jordana Pierce Unavailable [phone] REASON FOR VISIT [facility] ppwrk Encounters Encounter Location Date Provider [facility] [address] [place] [address] [place] [address] 03/16/2024 Jordana Duval Plan Of Treatment No Information Progress Notes * Graham KERRDOB: [birth year] (73 yo M)Acc No.[id number]:03/16/2024 Patient:?Graham Kerr :1950???Age:73 Y???Sex:Male Address:[address] [place], [place] [address] [place] [address] * true * Date:? Generated for Misha hand/Josefina/eTransmitting on:?08/03/2024 01:19 PM EST
--- OUTSIDE RECORDS SUMMARY | 2024-08-03 13:20 | XMS_ITS | Patient Health Record ---
Author Organization [facility] [place] Address [address] [place] [address] Care Team Providers Care Rouge Mixer Name Role Phone Frandy Torres MD Primary Care Provider Unavailab Jordana Pierce Unavailable [phone] Brannon Pineda Unavailable [phone] Reason For Referral No Information Medications Medication [...] W/U Status Risk Notes Problem Ataxic gait (35218864) Ataxic gait (R26.0) Active confirmed Problem Unspecified atherosclerosis of [place] arteries of extremities, bilateral legs (I70.203) Active confirmed Problem Acquired hammer toe of right foot (47114330924 25507) Other hammer toe(s) (acquired), right foot (M20.41) Active confirmed Problem Acquired hammer toe of left foot (57390143472 47225) Other hammer toe(s) (acquired), left foot (M20.42) Active confirmed Problem 88181080 Leg length discrepancy (M21.70) Active confirmed Vital Signs Height 5 ft 8 in in 02/29/2024 Weight 180 lbs 02/29/2024 BMI 27.37 kg/m2 02/29/2024 Procedures Procedure Date Ordered Date Performed Result Body Sit e 57177-KDQW SKIN LESIONS, 2 TO 4 02/29/2024 N/A Encounters Encounter [facility] Date [facility] [address] 02/29/2024 Brannon Pineda Ingrowing nail L60.0 ; Tinea unguium B35.1 ; Other hammer toe(s) (acquired), right foot M20.41 ; Other hammer toe(s) (acquired), left foot M20.42 ; Leg length discrepancy M21.70 ; Unspecified atherosclerosis of [place] arteries of extremities, bilateral legs I70.203 and Ataxic gait R26.0 [facility] [address] [place] [address] 12/01/2023 [facility] [address] 03/16/2024 Jordana Duval [address] [address] 05/30/2024 Jordana Duval Assessments Encounter Date Diagnosis (ICD Code) Assessment Notes Treatment Notes Treatment Clinical Notes Section Notes 02/29/2024 Ingrowing nail (ICD-10 - L60.0) 02/29/2024 Tinea unguium (ICD-10 - B35.1) 02/29/2024 Other hammer toe(s) (acquired), right foot (ICD-10 - M20.41) 02/29/2024 Other hammer toe(s) (acquired), left foot (ICD-10 - M20.42) 02/29/2024 Leg length discrepancy (ICD-10 - M21.70) 02/29/2024 Unspecified atherosclerosis of [place] arteries of extremities, bilateral legs (ICD-10 - I70.203) 02/29/2024 Ataxic gait (ICD-10 - R26.0) Plan Of Treatment Pending Test Test Name Order Date 88203-JWXK SKIN LESIONS, 2 TO 4 02/29/20 24 Insurance Providers Payer Name Payer Address Payer Phone Subscriber Number Group Number Insured Name Patient Relationship to Insured Coverage Start Date Coverage End Date [employer]ukh [address] [place] [phone] [id number] Graham Hodges Self - patient is the insured Medical (General) History Medical History History ICD Code Measles Chicken pox hip replacement, RT Surgical History Surgery Date(Month/Year) right hip replacement
--- OUTSIDE RECORDS SUMMARY | 2024-08-03 13:20 | XMS_ITS | Patient Health Record ---
Author Organization [facility] Address [address] [place] [address] Care Team Providers Care Director Of Athletics Name Role Phone Brian CLEANING, Frandy Primary Care Provider Unavailab Stevan Jones Unavailable [phone] REASON FOR REFERRAL No Information MEDICATIONS Medication [...] Problem Adenomatous colon polyp (D12.6) Active confirmed 959673376 Problem Colon polyps (K63.5) Active confirmed 39801563 Problem Colon cancer screening (Z12.11) Active confirmed 077455298 Problem History of adenomatous polyp of colon (Z86.010) Active confirmed 186919348 Problem Encounter for screening for malignant neoplasm of colon (Z12.11) Active confirmed 291488518 Problem Preprocedural examination (Z01.818) Active confirmed 056074897459283 Problem Diverticulosis of colon (K57.30) Active confirmed Diverticulosi s of colon (950169745) PLAN OF TREATMENT Pending Test Test Name Order Date Pathology 04/04/2021 Future Test Test Name Order Date COLONOSCOPY 05/22/2015 COLONOSCOPY 02/20/2021 Insurance Providers Payer Name Payer Address Payer Phone Subscriber Number Group Number Insured Name Patient Relationship to Insured Coverage Start Date Coverage End Date [employer] [address] [place] [address] [phone] [id number] GAEL KERR Self - patient is the insured MEDICAL (GENERAL) HISTORY Medical History History ICD Code Colonoscopy 01-06-2010 and 12 12--removal of small tubular adenomas, mild sigmoid diverticulosis, and small internal hemorrhoids Denies NV,DM,CVA,Lung disease,renal dise ase Afib Hypertension Colonoscopy 07/2015 with removal of 4 sma ll tubular adenomas Surgical History Surgery Date(Month/Year) Hip replacement on the right side - Dr. Marie 2016
== END 2024-08-03 13:32 | disposition home or self-care (01) ==
LOC: HO.HOS 12:19
PROVIDERS: PCP Family Medicine; Visit Provider Orthopaedic Surgery
DX: Z96.642 Presence of left artificial hip joint (principal)
CPT/HCPCS: 99024

== ENCOUNTER 2024-08-03 12:19 | Outpatient (REF) | payer OTHER, SELFPAY ==
--- NOTE | ~2024-08-03 | XR_ITS ---
EXAMINATION: XR PELVIS CLINICAL INFORMATION: M25.559 - Pain in unspecified hip COMPARISON: 07/18/2024, 06/28/2024. TECHNIQUE: AP view of the pelvis. FINDINGS: Revision arthroplasty of the left hip again noted in stable alignment, however there has been development of periprosthetic lucency surrounding the acetabular component suggesting acetabular component loosening. The old acetabular component is unchanged. No acute fracture is identified. Mild heterotopic ossification lateral to the head and neck prosthesis. The femoral component is intact without subsidence or loosening. Total Right hip arthroplasty, in stable anatomic alignment without complication. Moderate degree of heterotopic ossification superolateral to the acetabular component. Extensive vascular calcifications of the soft tissues. There are lateral left skin cam present. XR/XR pelvis 1-2V IMPRESSION: 1. Interval development of lucency surrounding the left acetabular component revision arthroplasty, consistent with acetabular component loosening. 2. No periprosthetic fracture or additional complication seen. A fax has been requested to be sent to the referring provider with the above information at 2:04 PM, 08/09/2024. Electronically signed by: Lopez Desai MD 08/09/2024 02:04 PM [facility]
== END 2024-08-03 12:20 | disposition home or self-care (01) ==
LOC: HO.HOSX 12:19
PROVIDERS: PCP Family Medicine; Visit Provider Orthopaedic Surgery
DX: M25.559 Pain in unspecified hip (principal)
CPT/HCPCS: 72170

== ENCOUNTER 2024-08-17 11:59 | Outpatient (REF) | payer OTHER, SELFPAY ==
--- NOTE | ~2024-08-17 | XR_ITS ---
CLINICAL HISTORY: M25.559 - Pain in unspecified hip 4 view, pelvis and left hip Comparison: None Findings: The bones are intact. Bilateral hip prostheses are intact. There is marked radiolucency underlying the acetabular component of the left prosthesis possibly related to loosening. No significant arthritic change. The soft tissues are unremarkable. There is regional arterial calcification. IMPRESSION: Radiolucency underlying acetabular component of left hip prosthesis, possible loosening. Clinically appropriate follow-up and further intervention recommended. This document has been electronically signed by: Fuad Bhatti MD on 08/19/2024 07:59:19
--- OUTSIDE RECORDS SUMMARY | 2024-08-18 14:07 | XMS_ITS | Clinical Summary ---
Author Organization [address] [facility] Address [address] [place] [address] Phone Care Team Providers Care Chaser Tar Name Role Phone Olu Norris MD Primary Care Provider [phone] Encounters Date Type Department Care Team Description 07/22/2024 Lab Requisition [facility] Lab [address] [place] [address] Nicolle Rosenberg MD Essential (primary) hypertension; Unspecified atrial fibrillation (CMS/HCC) 07/05/2024 Lab Requisition [facility] Lab [address] [place] [address] Olu Norris MD Presence of unspecified artificial hip joint; Vitamin deficiency, unspecified; Unspecified atrial fibrillation (CMS/HCC) from Last 3 Months Social History Tobacco Use Types Packs/Day Years Used Date Smoking Tobacco: Never Assessed Sex and Gender Information Value Date Recorded Sex Assigned at Not on file Gender Identity Not on file Sexual Orientation Not on file Plan of Treatment Health Maintenance Due Date Last Done Comments Zoster Vaccines (1 of 2) 2002 Pneumococcal Vaccine: 65+ Years (1 of 1 - PCV) 2017 Abdominal Aortic Aneurysm (AAA) Screen 06/27/2022 Cholesterol Screening (Lipid Panel) 06/27/2022 Colorectal Cancer Screening: Colonoscopy 06/27/2022 Depression Screening 06/27/2022 Falls Risk Assessment 06/27/2022 Hepatitis C Screening 06/27/2022 Social Influencers of Health Screening 06/27/2022 COVID-19 Vaccine ( - 2023-2 5 season) 2024 Influenza Vaccine (#1) 2024 Hypertension/CHF/CAD Annual BMP Blood Test 07/22/2025 07/22/2024, 07/05/2024 RSV Immunization Patients 60 + Years Old (1 - 1-dose 75+ series) 10/30/2027 DTaP,Tdap,and Td Vaccines (2 - Td or Tdap) 12/15/2028 12/15/2018 HIB Vaccines Aged Out No longer eligi ble based on patient's age to complete this topic HPV Vaccines Aged Out No longer eligi ble based on patient's age to complete this topic Hepatitis A Vaccines Aged Out No long er eligible based on patient's age to complete this topic Hepatitis B Vaccines Aged Out No long er eligible based on patient's age to complete this topic IPV Vaccines Aged Out No longer eligi ble based on patient's age to complete this topic MMR Vaccines Aged Out No longer eligi ble based on patient's age to complete this topic Meningococcal ACWY Vaccine Aged Out N o longer eligible based on patient's age to complete this topic RSV Immunization Patients Under 20 months Aged Out No longer eligible b ased on patient's age to complete this topic Varicella Vaccines Aged Out No longer eligible based on patient's age to complete this topic Procedures Procedure Name Priority Date/Time Associated Diagnosis Comments COMPREHENSIVE METABOLIC PANEL Routine 07/22/2024 5:50 AM EST Essential (primary) hypertension Unspecified atrial fibrillation (CMS/HCC) COMPLETE BLOOD COUNT Routine 07/22/2024 5:50 AM EST Essential (primary) hypertension Unspecified atrial fibrillation (CMS/HCC) VITAMIN D 25 HYDROXY Routine 07/05/2024 9:36 AM EST Presence of unspecified artificial hip joint Vitamin deficiency, unspecified Unspecified atrial fibrillation (CMS/HCC) FOLATE Routine 07/05/2024 9:36 AM EST Presence of unspecified artificial hip joint Vitamin deficiency, unspecified Unspecified atrial fibrillation (CMS/HCC) VITAMIN B12 Routine 07/05/2024 9:36 AM EST Presence of unspecified artificial hip joint Vitamin deficiency, unspecified Unspecified atrial fibrillation (CMS/HCC) THYROID STIMULATING HORMONE Routine 07/05/2024 9:36 AM EST Presence of unspecified artificial hip joint Vitamin deficiency, unspecified Unspecified atrial fibrillation (CMS/HCC) COMPREHENSIVE METABOLIC PANEL Routine 07/05/2024 9:36 AM EST Presence of unspecified artificial hip joint Vitamin deficiency, unspecified Unspecified atrial fibrillation (CMS/HCC) COMPLETE BLOOD COUNT Routine 07/05/2024 9:36 AM EST Presence of unspecified artificial hip joint Vitamin deficiency, unspecified Unspecified atrial fibrillation (CMS/HCC) from Last 3 Months Results * (ABNORMAL) Complete blood count (07/22/2024 5:50 AM EST) Only the most recent of2 resultswithin the time period is included. Pathologist [facility] WBC 9.1 4.8 - 10.8 K/mcL LAB HEMETOLOGY METHOD 07/22/2024 10:39 AM [facility] RBC 3.10(L) 4.50 - 5.50 M/mcL LAB HEMETOLOGY METHOD 07/22/2024 10:39 AM [facility] Hemoglobin 9.5(L) 13.5 - 17.5 g/dL LAB HEMETOLOGY METHOD 07/22/2024 10:39 AM [facility] Hematocrit 30.5(L) 42.0 - 54.0 % LAB HEMETOLOGY METHOD 07/22/2024 10:39 AM [facility] MCV 97.1 79.0 - 98.0 FL LAB HEMETOLOGY METHOD 07/22/2024 10:39 AM [facility] MCH 30.3 27.0 - 32.0 pcg LAB HEMETOLOGY METHOD 07/22/2024 10:39 AM [facility] MCHC 31.1(L) 32.0 - 37.0 g/dL LAB HEMETOLOGY METHOD 07/22/2024 10:39 AM [facility] RDW 15.0 11.0 - 15.0 % LAB HEMETOLOGY METHOD 07/22/2024 10:39 AM [facility] Platelets 415(H) 130 - 400 K/mcL LAB HEMETOLOGY METHOD 07/22/2024 10:39 AM EST [facility] MPV 12.5(H) 7.0 - 11.0 FL LAB HEMETOLOGY METHOD 07/22/2024 10:39 AM EST [facility] NRBC 0.0 <1.0 % LAB HEMETOLOGY METHOD 07/22/2024 10:39 AM EST [facility] NRBC Absolute 0.00 <0.10 K/mcL LAB HEMETOLOGY METHOD 07/22/2024 10:39 AM EST [facility] Blood Venous blood specimen / Unknown Venipuncture / Unknown 07/22/2024 5:50 AM EST 07/22/2024 9:40 AM EST Nicolle Rosenberg MD LAB BLOOD ORDERABLES [facility] LAB [address] [place] [address], * (ABNORMAL) Comprehensive metabolic panel (07/22/2024 5:50 AM EST) Only the most recent of2 resultswithin the time period is included. Sodium 140 133 - 145 mmol/L LAB CHEMISTRY METHOD 07/22/2024 11:01 AM [facility] Potassium 4.1 3.5 - 5.5 mmol/L LAB CHEMISTRY METHOD 07/22/2024 11:01 AM [facility] Chloride 106 96 - 110 mmol/L LAB CHEMISTRY METHOD 07/22/2024 11:01 AM [facility] CO2 28 21 - 32 mmol/L LAB CHEMISTRY METHOD 07/22/2024 11:01 AM [facility] Anion Gap 6 3 - 11 LAB CHEMISTRY METHOD 07/22/2024 11:01 AM [facility] Glucose 76 70 - 100 mg/dL LAB CHEMISTRY METHOD 07/22/2024 11:01 AM [facility] BUN 12 5 - 25 mg/dL LAB CHEMISTRY METHOD 07/22/2024 11:01 AM [facility] Creatinine 0.87 0.70 - 1.30 mg/dL LAB CHEMISTRY METHOD 07/22/2024 11:01 AM [facility] LAB eGFR 92 >=60 mL/min/1. 73m2 LAB CHEMISTRY METHOD 07/22/2024 11:01 AM [facility] LAB Comment:Calculation based on the??Chronic Kidney Disease Epidemiology Collaboration (CKD-EPI) equation refit??without adjustment for race. BUN/Creatinine Ratio 13.8 LAB CHEMISTRY METHOD 07/22/2024 11:01 AM [facility] Calcium 8.8 8.5 - 10.5 mg/dL LAB CHEMISTRY METHOD 07/22/2024 11:01 AM [facility] AST (SGOT) 31 10 - 42 unit/L LAB CHEMISTRY METHOD 07/22/2024 11:01 AM [facility] ALT (SGPT) 31 10 - 60 unit/L LAB CHEMISTRY METHOD 07/22/2024 11:01 AM [facility] Alkaline Phosphatase 128(H) 42 - 121 unit/L LAB CHEMISTRY METHOD 07/22/2024 11:01 AM [facility] Total Protein 5.5(L) 6.0 - 8.0 g/dL LAB CHEMISTRY METHOD 07/22/2024 11:01 AM [facility] Albumin 2.6(L) 3.2 - 5.0 g/dL LAB CHEMISTRY METHOD 07/22/2024 11:01 AM [facility] Total Bilirubin 1.1 0.0 - 1.4 mg/dL LAB CHEMISTRY METHOD 07/22/2024 11:01 AM [facility] Blood Venous blood specimen / Unknown Venipuncture / Unknown 07/22/2024 5:50 AM EST 07/22/2024 9:40 AM EST Nicolle Rosenberg MD LAB BLOOD ORDERABLES Performing Organization Address [facility]/ZIP Co de Phone Number [facility] [address] [place] [address], * (ABNORMAL) Vitamin D 25 hydroxy (07/05/2024 9:36 AM EST) Vit D, 25-Hydroxy 22.7(L) 30.0 - 80.0 ng/mL LAB CHEMISTRY METHOD 07/05/2024 12:57 PM EST [facility] Blood Venous blood specimen / Unknown Venipuncture / Unknown 07/05/2024 9:36 AM EST 07/05/2024 10:45 AM EST Olu Norris MD LAB BLOOD ORDERABLES Performing Organization Address [facility]/ZIP Co de Phone Number [facility] [address] [place] [address], * Thyroid stimulating hormone (07/05/2024 9:36 AM EST) TSH 1.20 0.40 - 4.00 mcIU/mL LAB CHEMISTRY METHOD 07/05/2024 12:57 PM EST [facility] Blood Venous blood specimen / Unknown Venipuncture / Unknown 07/05/2024 9:36 AM EST 07/05/2024 10:45 AM EST Olu Norris MD LAB BLOOD ORDERABLES [facility] [address] [place] [address], [place] [phone] * (ABNORMAL) Folate (07/05/2024 9:36 AM EST) Folate 17.7(H) 2.8 - 17.0 ng/ml LAB CHEMISTRY METHOD 07/05/2024 12:58 PM EST [facility] Blood Venous blood specimen / Unknown Venipuncture / Unknown 07/05/2024 9:36 AM EST 07/05/2024 10:45 AM EST Olu Norris MD LAB BLOOD ORDERABLES Performing Organization Address City/[facility]/ZIP Co de Phone Number [facility] [address] [place] [address], [place] [phone] * Vitamin B12 (07/05/2024 9:36 AM EST) [facility] Vitamin B-12 251 250 - 900 pcg/mL LAB CHEMISTRY METHOD 07/05/2024 1:12 PM EST [facility] Blood Venous blood specimen / Unknown Venipuncture / Unknown 07/05/2024 9:36 AM EST 07/05/2024 10:45 AM EST Olu Norris MD LAB BLOOD ORDERABLES Performing Organization Address City/[facility]/ZIP Co de Phone Number [facility] [address] [place] [address], [place] [phone] from Last 3 Months Care Teams Chaser Tar Relationship Specialty Start Date End Date Olu Norris MD [address] [facility] [address] [place], [address] PCP - General Family Medicine 07/06/24
--- OUTSIDE RECORDS SUMMARY | 2024-08-18 14:07 | XMS_ITS | Patient Health Record ---
Author Organization [facility] [place] Address [address] [place] [address] Care Team Providers Care Fishing Vessel Captain Name Role Phone Frandy Torres MD Primary Care Provider Unavailab Jordana Pierce Unavailable [phone] Brannon Pineda Unavailable [phone] Reason For Referral No Information Medications Medication [...] W/U Status Risk Notes Problem Ataxic gait (08167263) Ataxic gait (R26.0) Active confirmed Problem Unspecified atherosclerosis of asa'[place] arteries of extremities, bilateral legs (I70.203) Active confirmed Problem Acquired hammer toe of right foot (44777017173 84566) Other hammer toe(s) (acquired), right foot (M20.41) Active confirmed Problem Acquired hammer toe of left foot ([id number] 23808) Other hammer toe(s) (acquired), left foot (M20.42) Active confirmed Problem [id number] Leg length discrepancy (M21.70) Active confirmed Vital Signs Height 5 ft 8 in in 02/29/2024 Weight 180 lbs 02/29/2024 BMI 27.37 kg/m2 02/29/2024 Procedures Procedure Date Ordered Date Performed Result Body Sit e 54578-YIEL SKIN LESIONS, 2 TO 4 02/29/2024 N/A Encounters Encounter [facility] Date [facility] [address] [facility]/29/[facility] Brannon Pineda Ingrowing nail L60.0 ; Tinea unguium B35.1 ; Other hammer toe(s) (acquired), right foot M20.41 ; Other hammer toe(s) (acquired), left foot M20.42 ; Leg length discrepancy M21.70 ; Unspecified atherosclerosis of asa'cars[place] arteries of extremities, bilateral legs I70.203 and Ataxic gait R26.0 [facility] [address] [place] [address] 12/01/2023 [facility] [address] 03/16/2024 Jordana Duval [address] [address] 05/30/2024 Jordana Duval Assessments Encounter Date Diagnosis (ICD Code) Assessment Notes Treatment Notes Treatment Clinical Notes Section Notes 02/29/2024 Ingrowing nail (ICD-10 - L60.0) 02/29/2024 Tinea unguium (ICD-10 - B35.1) 02/29/2024 Other hammer toe(s) (acquired), right foot (ICD-10 - M20.41) 02/29/2024 Other hammer toe(s) (acquired), left foot (ICD-10 - M20.42) 02/29/2024 Leg length discrepancy (ICD-10 - M21.70) 02/29/2024 Unspecified atherosclerosis of asa'cars[place] arteries of extremities, bilateral legs (ICD-10 - I70.203) 02/29/2024 Ataxic gait (ICD-10 - R26.0) Plan Of Treatment Pending Test Test Name Order Date 25716-YQTI SKIN LESIONS, 2 TO 4 02/29/20 24 Insurance Providers Payer Name Payer Address Payer Phone Subscriber Number Group Number Insured Name Patient Relationship to Insured Coverage Start Date Coverage End Date Sukh [address] [place] [phone] [id number] Graham Hodges Self - patient is the insured Medical (General) History Medical History History ICD Code Measles Chicken pox hip replacement, RT Surgical History Surgery Date(Month/Year) right hip replacement
--- OUTSIDE RECORDS SUMMARY | 2024-08-18 14:07 | XMS_ITS | Encounter Summary ---
Author Organization [employer] Address [address] [place] [address] Care Team Providers Care Water Tester Name Role Phone Olu Norris MD Primary Care Provider [phone] Encounter Details Date Type Department Care Team (Late st Contact Info) Description 07/05/2024 Lab Requisition [facility] [address] [facility] [place] [address] Olu Norris MD [address] [place] [address] [address] [place], [address] Presence of unspecified artificial hip joint; Vitamin deficiency, unspecified; Unspecified atrial fibrillation (CMS/HCC) Social History Tobacco Use Types Packs/Day Years Used Date Smoking Tobacco: Never Assessed Sex and Gender Information Value Date Recorded Sex Assigned at Not on file Gender Identity Not on file Sexual Orientation Not on file documented as of this encounter Plan of Treatment Not on file documented as of this encounter Procedures Procedure Name Priority Date/Time Associated Diagnosis Comments VITAMIN D 25 HYDROXY Routine 07/05/2024 9:36 [...] Vitamin deficiency, unspecified Unspecified atrial fibrillation (CMS/HCC) documented in this encounter Results * (ABNORMAL) Vitamin D 25 hydroxy (07/05/2024 9:36 AM EST) [facility] Vit D, 25-Hydroxy 22.7(L) 30.0 - 80.0 ng/mL LAB CHEMISTRY METHOD 07/05/2024 12:57 PM EST [facility] Blood Venous blood specimen / Unknown Venipuncture / Unknown 07/05/2024 9:36 AM EST 07/05/2024 10:45 AM EST Olu Norris MD LAB BLOOD ORDERABLES [facility] [address] [place] [address], * (ABNORMAL) Folate (07/05/2024 9:36 AM EST) [facility] Folate 17.7(H) 2.8 - 17.0 ng/ml LAB CHEMISTRY METHOD 07/05/2024 12:58 PM EST [facility] Blood Venous blood specimen / Unknown Venipuncture / Unknown 07/05/2024 9:36 AM EST 07/05/2024 10:45 AM EST Olu Norris MD LAB BLOOD ORDERABLES [facility] [address] [place] [address], [place] [phone] * Vitamin B12 (07/05/2024 9:36 AM EST) [facility] Vitamin B-12 251 250 - 900 pcg/mL LAB CHEMISTRY METHOD 07/05/2024 1:12 PM EST [facility] Blood Venous blood specimen / Unknown Venipuncture / Unknown 07/05/2024 9:36 AM EST 07/05/2024 10:45 AM EST Olu Norris MD LAB BLOOD ORDERABLES Performing Organization Address City/[facility]/ZIP Co de Phone Number [facility] [address] [place] [address], [place] [phone] * Thyroid stimulating hormone (07/05/2024 9:36 AM EST) [facility] TSH 1.20 0.40 - 4.00 mcIU/mL LAB CHEMISTRY METHOD 07/05/2024 12:57 PM [facility] Blood Venous blood specimen / Unknown Venipuncture / Unknown 07/05/2024 9:36 AM EST 07/05/2024 10:45 AM EST Olu Norris MD LAB BLOOD ORDERABLES Performing Organization Address City/[facility]/ZIP Co de Phone Number [facility] [address] [place] [address], [place] [phone] * (ABNORMAL) Comprehensive metabolic panel (07/05/2024 9:36 AM EST) [facility] Sodium 140 133 - 145 mmol/L LAB CHEMISTRY METHOD 07/05/2024 12:47 PM [facility] Potassium 3.9 3.5 - 5.5 mmol/L LAB CHEMISTRY METHOD 07/05/2024 12:47 PM [facility] Chloride 105 96 - 110 mmol/L LAB CHEMISTRY METHOD 07/05/2024 12:47 PM [facility] CO2 28 21 - 32 mmol/L LAB CHEMISTRY METHOD 07/05/2024 12:47 PM [facility] Anion Gap 7 3 - 11 LAB CHEMISTRY METHOD 07/05/2024 12:47 PM [facility] Glucose 85 70 - 100 mg/dL LAB CHEMISTRY METHOD 07/05/2024 12:47 PM [facility] BUN 16 5 - 25 mg/dL LAB CHEMISTRY METHOD 07/05/2024 12:47 PM [facility] Creatinine 1.05 0.70 - 1.30 mg/dL LAB CHEMISTRY METHOD 07/05/2024 12:47 PM [facility] eGFR 76 >=60 mL/min/1. 73m2 LAB CHEMISTRY METHOD 07/05/2024 12:47 PM [facility] Comment:Calculation based on the??Chronic Kidney Disease Epidemiology Collaboration (CKD-EPI) equation refit??without adjustment for race. BUN/Creatinine Ratio 15.2 LAB CHEMISTRY METHOD 07/05/2024 12:47 PM [facility] Calcium 8.9 8.5 - 10.5 mg/dL LAB CHEMISTRY METHOD 07/05/2024 12:47 PM [facility] AST (SGOT) 19 10 - 42 unit/L LAB CHEMISTRY METHOD 07/05/2024 12:47 PM [facility] ALT (SGPT) 34 10 - 60 unit/L LAB CHEMISTRY METHOD 07/05/2024 12:47 PM [facility] Alkaline Phosphatase 110 42 - 121 unit/L LAB CHEMISTRY METHOD 07/05/2024 12:47 PM [facility] Total Protein 5.5(L) 6.0 - 8.0 g/dL LAB CHEMISTRY METHOD 07/05/2024 12:47 PM [facility] Albumin 2.6(L) 3.2 - 5.0 g/dL LAB CHEMISTRY METHOD 07/05/2024 12:47 PM [facility] Total Bilirubin 1.0 0.0 - 1.4 mg/dL LAB CHEMISTRY METHOD 07/05/2024 12:47 PM [facility] Blood Venous blood specimen / Unknown Venipuncture / Unknown 07/05/2024 9:36 AM EST 07/05/2024 10:45 AM EST Olu Norris MD LAB BLOOD ORDERABLES [facility] [address] [place] [address], * (ABNORMAL) Complete blood count (07/05/2024 9:36 AM EST) Pathologist [facility] WBC 8.9 4.8 - 10.8 K/mcL LAB HEMETOLOGY METHOD 07/05/2024 12:14 PM [facility] RBC 3.00(L) 4.50 - 5.50 M/mcL LAB HEMETOLOGY METHOD 07/05/2024 12:14 PM [facility] Hemoglobin 9.6(L) 13.5 - 17.5 g/dL LAB HEMETOLOGY METHOD 07/05/2024 12:14 PM [facility] Hematocrit 30.5(L) 42.0 - 54.0 % LAB HEMETOLOGY METHOD 07/05/2024 12:14 PM [facility] MCV 101.0(H) 79.0 - 98.0 FL LAB HEMETOLOGY METHOD 07/05/2024 12:14 PM [facility] MCH 31.8 27.0 - 32.0 pcg LAB HEMETOLOGY METHOD 07/05/2024 12:14 PM [facility] MCHC 31.5(L) 32.0 - 37.0 g/dL LAB HEMETOLOGY METHOD 07/05/2024 12:14 PM [facility] RDW 14.7 11.0 - 15.0 % LAB HEMETOLOGY METHOD 07/05/2024 12:14 PM [facility] Platelets 367 130 - 400 K/mcL LAB HEMETOLOGY METHOD 07/05/2024 12:14 PM EST [facility] MPV 11.5(H) 7.0 - 11.0 FL LAB HEMETOLOGY METHOD 07/05/2024 12:14 PM EST [facility] NRBC 0.0 <1.0 % LAB HEMETOLOGY METHOD 07/05/2024 12:14 PM EST [facility] NRBC Absolute 0.00 <0.10 K/mcL LAB HEMETOLOGY METHOD 07/05/2024 12:14 PM EST [facility] Blood Venous blood specimen / Unknown Venipuncture / Unknown 07/05/2024 9:36 AM EST 07/05/2024 10:45 AM EST Olu Norris MD LAB BLOOD ORDERABLES [facility] [address] [place], [place] [address] [phone] documented in this encounter Visit Diagnoses Diagnosis Presence of unspecified artificial hip joint Vitamin deficiency, unspecified Unspecified atrial fibrillation (CMS/HCC) documented in this encounter Care Teams Water Tester Relationship Specialty Start Date End Date Olu Norris MD [address] [place] [address], [phone] PCP - General Family Medicine 07/06/24 documented as of this encounter
--- OUTSIDE RECORDS SUMMARY | 2024-08-18 14:07 | XMS_ITS ---
Author Organization [facility] Address Unknown Medications Medication Dose Frequency Directions Start Date End Gigi e Acetaminophen Tablet 325 MG 2 {tbl} Give 2 tablet by kate th every 4 hours as needed for Mild Pain More than 3 doses in 48 hours, notify physician/advanced practice provider(ARTURO).Do not exceed 3g/day. (standing order) 07/04/2024 Acetaminophen Tablet 325 MG 2 {tbl} Give 2 tablet by kate th every 6 hours as needed for Temp 100F or above Notify Physician/Advanced Practice provider. Do not exceed 3g/day 07/04/2024 Milk of Magnesia Suspension 400 MG/5ML 30 mL Give 30 ml by mouth as needed for Constipation give at bedtime if no BM in 3 days 07/04/2024 Saline Laxative Enema 1 {Dose} Insert 1 dose rectal ly as needed for Constipation if no result from Dulcolax within 2 hours. If no results from Saline laxative enema, call MD/advanced practice provider (ARTURO) for further orders. 07/04/2024 Dulcolax Suppository 10 MG 1 Insert 1 suppository rectally as needed for Constipation if no result from MOM by next shift 07/04/2024 Colace Capsule 100 MG 1 {Capsule} 12 h Give 1 capsule by mouth two times a day for Constipation 07/21/2024 Omeprazole Capsule Delayed Release 20 MG 1 {Capsule} 24 h Give 1 capsule by mouth one time a day for acid indigestion 07/22/2024 Eliquis Oral Tablet 5 MG 1 {tbl} 12 h Give 1 tablet by kate th two times a day for prevention/treatment of blood clots 07/21/2024 OxyCODONE HCl Tablet 5 MG 1 {tbl} Give 1 tablet by kate th every 4 hours as needed for moderate to severe pain for 7 Days 07/21/2024 07/28/2024 Centrum Silver Tablet 1 {tbl} 24 h Give 1 tablet by kate th one time a day for vitamin supplement 07/22/2024 Furosemide Tablet 20 MG 1 {tbl} 24 h Give 1 tablet by kate th one time a day for fluid retention 07/22/2024 Glucosamine-Chondroi tin Oral Tablet 1 {Capsule} 24 h Give 1 capsule by mouth one time a day for supplement 07/22/2024 Cardizem LA Tablet Extended Release 24 Hour 240 MG 1 {tbl} 24 h Give 1 tablet by kate th one time a day for HTN 07/22/2024 CeleBREX Capsule 200 MG 1 {Capsule} 12 h Give 1 capsule by mouth two times a day for inflammation 07/21/2024 Metoprolol Tartrate Tablet 50 MG 1 {tbl} 12 h Give 1 tablet by kate th two times a day for AFIB 07/21/2024 CELECOXIB 200 MG CAPSULE 1 CAP BY MOUTH TWICE DAILY 07/21/2024 07/23/2024 Fluad Quadrivalent Intramuscular Prefilled Syringe 0.5 ML 1 {Dose} Inject 1 dose intramuscularly one time only for preventative for 1 Day 08/01/2024 08/02/2024 Comirnaty Intramuscular Suspension 30 MCG/0.3ML 0.3 mL Inject 0.3 ml intramuscularly one time only for Vaccination for 2 Days at least 4 months after last dose. Any Signs or Symptoms of moderate to severe acute illness contact provider prior to administration and document in PN 08/01/2024 08/03/2024 Prevnar 20 Suspension Prefilled Syringe 0.5 ML 0.5 mL Inject 0.5 ml intramuscularly one time only for Vaccination for 2 Days for patients 65 years or older, who have not previously received the vaccine 08/01/2024 08/03/2024 Medications Administered Medication Dose Frequency Status Start Date End Date Acetaminophen Tablet 325 MG 2 {tbl} Acetaminophen Tablet 325 MG 2 {tbl} Milk of Magnesia Suspension 400 MG/5ML 30 mL 07/04/2024 Saline Laxative Enema 1 {Dose} 07/04/20 24 Dulcolax Suppository 10 MG 1 04/2024 Colace Capsule 100 MG 1 {Capsule} 12 h 2024 Omeprazole Capsule Delayed R elease 20 MG 1 {Capsule} 24 h 08/04/2024 Eliquis Oral Tablet 5 MG 1 {tbl} 12 h 08/04 OxyCODONE HCl Tablet 5 MG 1 {tbl} 06/26 Centrum Silver Tablet 1 {tbl} 24 h 08/04/19 Furosemide Tablet 20 MG 1 {tbl} 24 h 2024 Glucosamine-Chondroitin Oral Tablet 1 {Capsule} 24 h 08/04/2024 Cardizem LA Tablet Extended Release 24 Hour 240 MG 1 {tbl} 24 h 08/04/2024 CeleBREX Capsule 200 MG 1 {Capsule} 12 h 07/26 Metoprolol Tartrate Tablet 50 MG 1 {tbl} 12 h 08/04/2024 CELECOXIB 200 MG CAPSULE 07/21 Fluad Quadrivalent Intramusc ular Prefilled Syringe 0.5 ML 1 {Dose} 08/01/2024 Comirnaty Intramuscular Susp ension 30 MCG/0.3ML 0.3 mL 08/02/2024 Prevnar 20 Suspension Prefil led Syringe 0.5 ML 0.5 mL 08/02/2024 Problems Problem Status Start Date End Date 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) ACTIVE 07/04/2024 ENCOUNTER FOR OTHER ORTHOPED IC AFTERCARE (Z47.89 - ICD-10-CM) ACTIVE 07/04/2024 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 - ICD-10-CM) ACTIVE 07/04/2024 OTHER PERSISTENT ATRIAL FIBR ILLATION (I48.19 - ICD-10-CM) RESOLVED 07/04/2024 07/04/2024 PAROXYSMAL ATRIAL FIBRILLATION (I48.0 - ICD-10-CM) ACT SUSI 07/04/2024 ESSENTIAL (PRIMARY) HYPERTENSION (I10 - ICD-10-CM) ACT SUSI 07/04/2024 GASTRO-ESOPHAGEAL REFLUX DIS EASE WITHOUT ESOPHAGITIS (K21.9 - ICD-10-CM) ACTIVE 07/04/2024 UNSPECIFIED OSTEOARTHRITIS, UNSPECIFIED SITE (M19.90 - ICD-10-CM) ACTIVE 07/04/2024 UNSTEADINESS ON FEET (R26.81 - ICD-10-CM) ACTIVE 07/05/2024 MUSCLE WEAKNESS (GENERALIZED) (M62.81 - ICD-10-CM) ACT SUSI 07/05/2024 Encounters Encounter Performer Performer Role Encounter Diagnoses Location Date Discharge - Discharged / [facility]/04/2024 01:18 pm EST - 07/17/2024 02:51 pm EST Discharge - Discharged to home or self care - *Home Care Agency To Be Determined - Private home/apt. with home health services [facility] 07/21/2024 02:10 pm EST - 08/04/2024 11:15 am EST Advance Directives Directive Description Verification FULL CODE Cardiopulmonary Resuscitation Immunizations Vaccine Date COVID-19 Vaccine Additional Dose/Booster 08/15/2021 12:00 am EST Pneumococcal conjugate PCV20 EBN679 02/2025 11:00 am EST Comirnaty (pfizer) COVID19 CVX 309 08/02/2024 11:00 am EST COVID Vaccine Prior to Admission (histor ical only) 12/10/2020 12:00 am EDT COVID Vaccine Prior to Admission (histor ical only) 11/19/2020 12:00 am EDT pneumococcal polysaccharide PPV23 2019 12:00 am EDT Pneumococcal conjugate PCV15 , polysaccharide [id number] conjugate, adjuvant, PF 06/25/2018 12:00 am EST Social History Vital Signs Vital Sign Reading Time Taken heartrate 77 /min 08/04/2024 09:32 am EST heartrate 84 /min 08/03/2024 11:04 am EST heartrate 98 /min 08/02/2024 01:01 pm EST heartrate 98 /min 08/02/2024 07:11 am EST heartrate 79 /min 08/01/2024 07:28 am EST temperature 97.3 [degF] 08/04/2024 09:32 am EST temperature 97.2 [degF] 08/03/2024 11:04 am EST temperature 97.9 [degF] 08/02/2024 01:01 pm EST temperature 97.9 [degF] 08/02/2024 07:11 am EST temperature 97.9 [degF] 08/01/2024 07:28 am EST systolicValue 118 mm[Hg] 08/04/2024 09:32 am EST diastolicValue 77 mm[Hg] 08/04/2024 09:32 am EST systolicValue 122 mm[Hg] 08/03/2024 11:04 am EST diastolicValue 70 mm[Hg] 08/03/2024 11:04 am EST systolicValue 110 mm[Hg] 08/02/2024 01:01 pm EST diastolicValue 68 mm[Hg] 08/02/2024 01:01 pm EST systolicValue 110 mm[Hg] 08/02/2024 07:11 am EST diastolicValue 68 mm[Hg] 08/02/2024 07:11 am EST systolicValue 111 mm[Hg] 08/01/2024 07:28 am EST diastolicValue 63 mm[Hg] 08/01/2024 07:28 am EST respirations 18 /min 08/04/2024 09:32 am EST respirations 18 /min 08/03/2024 11:04 am EST respirations 20 /min 08/02/2024 01:01 pm EST respirations 20 /min 08/02/2024 07:11 am EST respirations 20 /min 08/01/2024 07:28 am EST painLevel 0 {score} 08/03/2024 07:55 pm EST painLevel 0 {score} 08/02/2024 10:05 pm EST painLevel 0 {score} 08/02/2024 04:31 am EST painLevel 0 {score} 08/01/2024 10:07 pm EST painLevel 0 {score} 08/01/2024 10:18 am EST painLevel 0 {score} 08/01/2024 02:33 am EST painLevel 0 {score} 07/31/2024 10:08 pm EST oxygenSaturation 98 % 08/02/2024 01:0 1 pm EST oxygenSaturation 96 % 08/01/2024 11:1 4 am EST oxygenSaturation 96 % 08/01/2024 11:1 3 am EST oxygenSaturation 98 % 07/31/2024 08:3 5 am EST oxygenSaturation 97 % 07/30/2024 04:5 0 pm EST oxygenSaturation 100 % 07/29/2024 08:5 1 pm EST
--- OUTSIDE RECORDS SUMMARY | 2024-08-18 14:08 | XMS_ITS ---
Author Organization [facility] Address [address] [place] [address] Care Team Providers Care Asphalt Dauber Name Role Phone Frandy Torres MD Primary Care Provider Unavailab Jordana Pierce Unavailable [phone] REASON FOR VISIT [facility] ppwrk Encounters Encounter Location Date [facility] [address] [place] [address] [place] [phone] 03/16/2024 Jordana Duval Plan Of Treatment No Information Progress Notes * Graham KERRDOB: [birth year] (73 yo M)Acc No.[id number]:03/16/2024 Patient:?Graham Kerr :1950???Age:73 Y???Sex:Male Address:[address] [place] [address] [facility] [place] [address] * true * Date:? Generated for Misha hand/Josefina/eTransmitting on:?08/18/2024 02:08 PM EST
--- OUTSIDE RECORDS SUMMARY | 2024-08-18 14:08 | XMS_ITS ---
Author Organization [facility] Address [address] [place] [address] Care Team Providers Care Check Services Clerk Name Role Phone Frandy Torres MD Primary Care Provider Unavailab Jordana Pierce Unavailable [phone] REASON FOR VISIT cx 06/01 appt Encounters Encounter Location Date Provider Diagnosis [address] [address] 05/30/2024 Jordana Duval Plan Of Treatment No Information Progress Notes * Graham KERRDOB: [birth year] (73 yo M)Acc No.[id number]:05/30/2024 Patient:?Graham Kerr :1950???Age:73 Y???Sex:Male [facility] [facility] [place] [address] * true * Date:? Generated for Misha hand/Josefina/eTransmitting on:?08/18/2024 02:07 PM EST
--- OUTSIDE RECORDS SUMMARY | 2024-08-18 14:08 | XMS_ITS ---
Author Organization [facility] Address [address] [place] [address] [place] [address] Care Team Providers Care Trains Dispatcher Supervisor Name Role Phone Brian CLEANING, Frandy Primary Care Provider Unavailab Jordana Pierce Unavailable [phone] Encounters Encounter Location Date Provider Diagnosis [address] [address] 06/01/2024 Jordana Duval Plan Of Treatment No Information Progress Notes * Graham KERRDOB: [birth year] (73 yo M)Acc No.[id number]:06/01/2024 Progress Note Patient:?Graham KERR Provider:?Jordana Duval DPM :1950???Age:73 Y???Sex:Male Gigi e:06/01/2024 Address:[address] [place], [place] [phone] Pcp:Frandy Torres MD Subjective: * Chief Complaints: [...] Duval DPM Date:?01/2024 Generated for Misha hand/Josefina/eTransmitting on:?08/18/2024 02:07 PM EST
--- OUTSIDE RECORDS SUMMARY | 2024-08-18 14:08 | XMS_ITS | Encounter Summary ---
Author Organization [facility] Address [address] [place] [address] Care Team Providers Care Mill Tender Warm Up Name Role Phone Olu Norris MD Primary Care Provider [phone] Encounter Details Date Type Department Care Team (Late st Contact Info) Description 07/22/2024 Lab Requisition [facility] - Main Lab [address] [place] [address] Nicolle Rosenberg MD [address] [place] [phone] Essential (primary) hypertension; Unspecified atrial fibrillation (CMS/HCC) Social History Tobacco [...] Procedure Name Priority Date/Time Associated Diagnosis Comments COMPLETE BLOOD COUNT Routine 07/22/2024 5:50 AM EST Essential (primary) hypertension Unspecified atrial fibrillation (CMS/HCC) COMPREHENSIVE METABOLIC PANEL Routine 07/22/2024 5:50 AM EST Essential (primary) hypertension Unspecified atrial fibrillation (CMS/HCC) documented in this encounter Results * (ABNORMAL) Comprehensive metabolic panel (07/22/2024 5:50 AM EST) Sodium 140 133 - 145 mmol/L LAB CHEMISTRY METHOD 07/22/2024 11:01 AM EST [facility] Potassium 4.1 3.5 - 5.5 mmol/L LAB CHEMISTRY METHOD 07/22/2024 11:01 AM EST [facility] Chloride 106 96 - 110 mmol/L LAB CHEMISTRY METHOD 07/22/2024 11:01 AM [facility] CO2 28 21 - 32 mmol/L LAB CHEMISTRY METHOD 07/22/2024 11:01 AM [facility] Anion Gap 6 3 - 11 LAB CHEMISTRY METHOD 07/22/2024 11:01 AM [facility] Glucose 76 70 - 100 mg/dL LAB CHEMISTRY METHOD 07/22/2024 11:01 AM [facility] BUN 12 5 - 25 mg/dL LAB CHEMISTRY METHOD 07/22/2024 11:01 AM [facility] Creatinine 0.87 0.70 - 1.30 mg/dL LAB CHEMISTRY METHOD 07/22/2024 11:01 AM [facility] eGFR 92 >=60 mL/min/1. 73m2 LAB CHEMISTRY METHOD 07/22/2024 11:01 AM [facility] Comment:Calculation based on the??Chronic Kidney Disease Epidemiology Collaboration (CKD-EPI) equation refit??without adjustment for race. BUN/Creatinine Ratio 13.8 LAB CHEMISTRY METHOD 07/22/2024 11:01 AM [facility] Calcium 8.8 8.5 - 10.5 mg/dL LAB CHEMISTRY METHOD 07/22/2024 11:01 AM [facility] AST (SGOT) 31 10 - 42 unit/L LAB CHEMISTRY METHOD 07/22/2024 11:01 AM [facility] ALT (SGPT) 31 10 - 60 unit/L LAB CHEMISTRY METHOD 07/22/2024 11:01 AM [facility] Alkaline Phosphatase 128(H) 42 - 121 unit/L LAB CHEMISTRY METHOD 07/22/2024 11:01 AM [facility] Total Protein 5.5(L) 6.0 - 8.0 g/dL LAB CHEMISTRY METHOD 07/22/2024 11:01 AM [facility] Albumin 2.6(L) 3.2 - 5.0 g/dL LAB CHEMISTRY METHOD 07/22/2024 11:01 AM [facility] Total Bilirubin 1.1 0.0 - 1.4 mg/dL LAB CHEMISTRY METHOD 07/22/2024 11:01 AM [facility] Blood Venous blood specimen / Unknown Venipuncture / Unknown 07/22/2024 5:50 AM EST 07/22/2024 9:40 AM EST Nicolle Rosenberg MD LAB BLOOD ORDERABLES [facility] [address] [place] [address], * (ABNORMAL) Complete blood count (07/22/2024 5:50 AM EST) WBC 9.1 4.8 - 10.8 K/mcL LAB HEMETOLOGY METHOD 07/22/2024 10:39 AM [facility] RBC 3.10(L) 4.50 - 5.50 M/[facility] LAB HEMETOLOGY METHOD 07/22/2024 10:39 AM [facility] Hemoglobin 9.5(L) 13.5 - 17.5 g/dL LAB HEMETOLOGY METHOD 07/22/2024 10:39 AM [facility] Hematocrit 30.5(L) 42.0 - 54.0 % LAB HEMETOLOGY METHOD 07/22/2024 10:39 AM [facility] MCV 97.1 79.0 - 98.0 FL LAB HEMETOLOGY METHOD 07/22/2024 10:39 AM [facility] MCH 30.3 27.0 - 32.0 pcg LAB HEMETOLOGY METHOD 07/22/2024 10:39 AM [facility] MCHC 31.1(L) 32.0 - 37.0 g/dL LAB HEMETOLOGY METHOD 07/22/2024 10:39 AM [facility] RDW 15.0 11.0 - 15.0 % LAB HEMETOLOGY METHOD 07/22/2024 10:39 AM EST [facility] Platelets 415(H) 130 - 400 K/mcL LAB HEMETOLOGY METHOD 07/22/2024 10:39 AM EST [facility] MPV 12.5(H) 7.0 - 11.0 FL LAB HEMETOLOGY METHOD 07/22/2024 10:39 AM EST [facility] NRBC 0.0 <1.0 % LAB HEMETOLOGY METHOD 07/22/2024 10:39 AM EST [facility] NRBC Absolute 0.00 <0.10 K/mcL LAB HEMETOLOGY METHOD 07/22/2024 10:39 AM EST [facility] Blood Venous blood specimen / Unknown Venipuncture / Unknown 07/22/2024 5:50 AM EST 07/22/2024 9:40 AM EST Nicolle Rosenberg MD LAB BLOOD ORDERABLES [facility] [address] [place] [address], documented in this encounter Visit Diagnoses Diagnosis Essential (primary) hypertension Unspecified essential hypertension Unspecified atrial fibrillation (CMS/HCC) documented in this encounter Care Teams Mill Tender Warm Up Relationship Specialty Start Date End Date Olu Norris MD [address] [place] [address], [phone] PCP - General Family Medicine 07/06/24 documented as of this encounter
--- OUTSIDE RECORDS SUMMARY | 2024-08-18 14:08 | XMS_ITS | Patient Health Record ---
Author Organization [facility] Address [address] [place] [address] Care Team Providers Care Metal Drill Press Operator Name Role Phone Brian CLEANING, Frandy Primary Care Provider Unavailab Stevan Jones Unavailable [phone] REASON FOR REFERRAL No Information MEDICATIONS Medication [...] Problem Adenomatous colon polyp (D12.6) Active confirmed 533928916 Problem Colon polyps (K63.5) Active confirmed 17513034 Problem Colon cancer screening (Z12.11) Active confirmed 340432386 Problem History of adenomatous polyp of colon (Z86.010) Active confirmed 557038604 Problem Encounter for screening for malignant neoplasm of colon (Z12.11) Active confirmed 570699219 Problem Preprocedural examination (Z01.818) Active confirmed 833220409738650 Problem Diverticulosis of colon (K57.30) Active confirmed Diverticulosi s of colon (703844161) PLAN OF TREATMENT Pending Test Test Name Order Date Pathology 04/04/2021 Future Test Test Name Order Date COLONOSCOPY 05/22/2015 COLONOSCOPY 02/20/2021 Insurance Providers Payer Name Payer Address Payer Phone Subscriber Number Group Number Insured Name Patient Relationship to Insured Coverage Start Date Coverage End Date [employer] [address] [place] [address] [id number] GAEL KERR Self - patient is the insured MEDICAL (GENERAL) HISTORY Medical History History ICD Code Colonoscopy 01-06-2010 and 12 12--removal of small tubular adenomas, mild sigmoid diverticulosis, and small internal hemorrhoids Denies NC,DM,CVA,Lung disease,renal dise ase Afib Hypertension Colonoscopy 07/2015 with removal of 4 sma ll tubular adenomas Surgical History Surgery Date(Month/Year) Hip replacement on the right side - Dr. Marie 2016
== END 2024-08-17 12:00 | disposition home or self-care (01) ==
LOC: HO.HOSX 11:59
PROVIDERS: Visit Provider Physician Assistant
DX: M87.052 Idiopathic aseptic necrosis of left femur (principal); T84.038A Mechanical loosening of other internal prosthetic joint, initial encounter; M25.552 Pain in left hip; Z96.642 Presence of left artificial hip joint
CPT/HCPCS: 73502; 99212

== ENCOUNTER 2024-08-17 13:44 | Outpatient (AMB) | payer MEDICARE, SELFPAY ==
--- NOTE | 2024-08-17 14:08 | A.OFFVIS_ITS ---
Intake Visit Reasons: PO: left KATINA 06/28/24 NE Intake Note: Graham is a 73 year old male who presents today for a post operative appointment s/p Right Hip Arthroplasty 06/28/2024. Patient presents he is doing well. He mentions little to no pain at this time. Allergies No Known Allergies [No Known Allergies*] Allergy (Verified 08/17/24 14:15) HPI HPI PO: left KATINA 06/28/24 NE: Details: Mr. Hodges presents to the office today for routine follow-up status post left total hip arthroplasty initially performed on 06/28/2024. Unfortunately, the patient developed aseptic loosening resulting in a revision left total hip arthroplasty on 07/18/[address] Marie. Patient reports he has been using a walker to assist with ambulation and denies any pain. [facility] Medical History Arthritis Persistent atrial fibrillation Post-nasal drip Osteoarthritis GERD (gastroesophageal reflux disease) PAF (paroxysmal atrial fibrillation) On anticoagulant therapy HTN (hypertension) Surgical History History of total left hip arthroplasty History of surgery on lower extremity History of cardioversion Hx of colonoscopy History of hip replacement Social History Household Members: None Housing: Apartment Are you a primary personal care service provider to a significant other at home: No Do you presently have visiting nurse or other home services: No Alcohol intake: current Alcohol intake frequency: a few times a week Alcohol type: beer Patient Tobacco Use Status: Former Tobacco user Tobacco use type: Cigarette Years Smoked: 15 Advance Directives Date on File: 09/22/16 service: No Review of Systems Const All systems reviewed & are unremarkable except as noted in HPI and below Physical Exam Extrem Other: Left hip incision site is clean dry and intact. No surrounding erythema or drainage no signs of infection. NVI. Assessment & Plan Assessment & Plan (1) Avascular necrosis of bone of left hip: Code(s): M87.052 - Idiopathic aseptic necrosis of left femur Category: Medical (2) Aseptic loosening of prosthetic hip: Code(s): T84.038A - Mechanical loosening of other internal prosthetic joint, initial encounter; Z96.649 - Presence of unspecified artificial hip joint Category: Medical (3) S/p revision of left total hip: Code(s): Z96.642 - Presence of left artificial hip joint Category: Surgical Plan Mr. Hodges presents to the office today for routine follow-up status post left total hip arthroplasty initially performed on 06/28/2024. Unfortunately, the patient developed aseptic loosening resulting in a revision left total hip arthroplasty on 07/18/[address] Marie. Patient reports he has been using a walker to assist with ambulation and denies any pain. While in the office today Dr. Marie was available to meet the patient with me. X-rays were reviewed in the office today and again reveal hardware failure of the left hip. The decision has been made to do a referral to [facility]. I have placed this referral while the patient was in the office today and the patient was encouraged to reach out to financial services in regards to finding a secondary health insurance. He will continue to use a walker to assist with ambulation. Should he have any increase in pain he should [facility] immediately or contact our office immediately. X-rays of the left hip were obtained in the office today and reveal hardware failure. Orders: Orders XR hip LT min 2V Today M25.559 - Pain in unspecified hip Referrals Orthopedics Referral M87.052 - Idiopathic aseptic necrosis of left femur, T84.038A - Mechanical loosening of other internal prosthetic joint, initial encounter, Z96.642 - Presence of left artificial hip joint, Z96.649 - Presence of unspecified artificial hip joint Coding Level of Care Code Global (94594) Diagnoses Avascular necrosis of bone of left hip M87.052 Aseptic loosening of prosthetic hip T84.038A; Z96.649 S/p revision of left total hip Z96.642
== END 2024-08-17 14:48 | disposition home or self-care (01) ==
PROVIDERS: PCP Family Medicine; Visit Provider Physician Assistant
DX: M87.052 Idiopathic aseptic necrosis of left femur (principal); T84.038A Mechanical loosening of other internal prosthetic joint, initial encounter; Z96.649 Presence of unspecified artificial hip joint; Z96.642 Presence of left artificial hip joint
CPT/HCPCS: 99024

== ENCOUNTER 2024-09-07 13:08 | Outpatient (AMB) | payer OTHER, SELFPAY ==
--- NOTE | 2024-09-07 13:12 | MHC.OFFVIS ---
Intake Visit Reasons: Discussion:s/p L KATINA rev 07/18/24& L KATINA 06/28/24 Intake Note: Graham is a 73 year old male who presents today for a post operative appointment s/p L KATINA revision 07/18/24& L KATINA 06/28/24. Patient presents today VIA wheelchair, reports that he is doing well with no concerns. Allergies No Known Allergies [No Known Allergies*] Allergy (Verified 08/17/24 14:15) HPI HPI Discussion:s/p L KATINA rev 07/18/24& L KATINA 06/28/24: Details: Graham is a 73 year old male who presents today for a post operative appointment s/p L KATINA revision 07/18/24& L KATINA 06/28/24. Patient presents today in a wheelchair, reports that he is doing well with no concerns. He is here however with his who states that he is not doing well and cannot ambulate. He returns after having some difficulty with insurance and being concerned that further treatment would come out of his pocket. He states he is frustrated and would like to get back to work. He denies fever/ chills. He has noticed that his left leg is shorter than his right. [facility] Medical History Arthritis Persistent atrial fibrillation Post-nasal drip Osteoarthritis GERD (gastroesophageal reflux disease) PAF (paroxysmal atrial fibrillation) On anticoagulant therapy HTN (hypertension) Surgical History History of total left hip arthroplasty History of surgery on lower extremity History of cardioversion Hx of colonoscopy History of hip replacement Social History Household Members: None Housing: Apartment Are you a primary care director to a significant other at home: No Do you presently have visiting nurse or other home services: No Alcohol intake: current Alcohol intake frequency: a few times a week Alcohol type: beer Patient Tobacco Use Status: Former Tobacco user Tobacco use type: Cigarette Years Smoked: 15 Advance Directives Date on File: 09/22/16 service: No Physical Exam Extrem Other: Reactive erythema and swelling around left hip incision. There is no discharge. He has minimal motion with passive motion of the left hip and is guarded. He has a 2+ DP pulse and firing EHL/TA/GC bilaterally Assessment & Plan Assessment & Plan (1) Aseptic loosening of prosthetic hip: Code(s): T84.038A - Mechanical loosening of other internal prosthetic joint, initial encounter; Z96.649 - Presence of unspecified artificial hip joint Category: Medical Plan: Graham is a 73 yo M with aseptic loosening of the left hip. I revised his hip in June and the acetabular component has failed. I have been trying to get him to see me back and now that he has his insurance sorted out he is comfortable proceeding forward with needed treatment. I spoke with the Orthopedic team at [facility] and they agree that he needs surgery and that a higher level of care is appropriate for this complex case. I ordered an ESR/SED rate and we will likely admit to hospital to make sure he is not infected. Once he is stable I will discuss transfer to [facility] for definitive surgical treatment. Orders: Orders Complete Blood Count Auto Diff 09/07/24 T84.038A - Mechanical loosening of other internal prosthetic joint, initial encounter, Z96.649 - Presence of unspecified artificial hip joint Erythrocyte Sedimentation Rate 09/07/24 T84.038A - Mechanical loosening of other internal prosthetic joint, initial encounter, Z96.649 - Presence of unspecified artificial hip joint C Reactive Protein 09/07/24 T84.038A - Mechanical loosening of other internal prosthetic joint, initial encounter, Z96.649 - Presence of unspecified artificial hip joint Coding Level of Care Code Global (44881) Diagnoses Aseptic loosening of prosthetic hip T84.038A; Z96.649
--- OUTSIDE RECORDS SUMMARY | 2024-09-07 13:19 | XMS_ITS | Clinical Summary ---
Author Organization [address] [facility] Address [address] [place] [address] Phone Care Team Providers Care Safety And Health Manager Name Role Phone Olu Norris MD Primary Care Provider [phone] Encounters Date Type Department Care Team Description 07/22/2024 Lab Requisition [facility] [address] [place] [address] Nicolle Rosenberg MD Essential (primary) hypertension; Unspecified atrial fibrillation (CMS/HCC) 07/05/2024 Lab Requisition [facility] [address] [place] [address] Olu Norris MD Presence of unspecified artificial hip joint; Vitamin deficiency, unspecified; Unspecified atrial fibrillation (CMS/HCC) from Last 3 Months Social History Tobacco Use Types Packs/Day Years Used Date Smoking Tobacco: Never Assessed Sex and Gender Information Value Date Recorded Sex Assigned at Not on file Legal Sex Male 8:38 PM EST Gender Identity Not on file Sexual Orientation Not on file Plan of Treatment Health Maintenance Due Date Last Done Comments Pneumococcal Vaccine: 50+ Years (1 of 1 - PCV) 2002 Zoster Vaccines (1 of 2) 2002 Abdominal Aortic Aneurysm (AAA) Screen 06/27/2022 Cholesterol [...] patient's age to complete this topic Meningococcal B Vacine Aged Out No lo nger eligible based on patient's age to complete [...] of2 resultswithin the time period is included. WBC 9.1 4.8 - 10.8 K/mcL LAB HEMETOLOGY METHOD 07/22/2024 10:39 AM [facility] RBC 3.10(L) 4.50 - 5.50 M/mcL LAB HEMETOLOGY METHOD 07/22/2024 10:39 AM [facility] Hemoglobin 9.5(L) 13.5 - 17.5 g/dL LAB HEMETOLOGY METHOD 07/22/2024 10:39 AM [facility] Hematocrit 30.5(L) 42.0 - 54.0 % LAB HEMETOLOGY METHOD 07/22/2024 10:39 AM [facility] MCV 97.1 79.0 - 98.0 FL LAB HEMETOLOGY METHOD 07/22/2024 10:39 AM [facility] MCH 30.3 27.0 - 32.0 pcg LAB HEMETOLOGY METHOD 07/22/2024 10:39 AM [facility] LAB MCHC 31.1(L) 32.0 - 37.0 g/dL LAB HEMETOLOGY METHOD 07/22/2024 10:39 AM [facility] RDW 15.0 11.0 - 15.0 % LAB HEMETOLOGY METHOD 07/22/2024 10:39 AM EST [facility] Platelets 415(H) 130 - 400 K/mcL LAB HEMETOLOGY METHOD 07/22/2024 10:39 AM [facility] MPV 12.5(H) 7.0 - 11.0 FL LAB HEMETOLOGY METHOD 07/22/2024 10:39 AM EST [facility] NRBC 0.0 <1.0 % LAB HEMETOLOGY METHOD 07/22/2024 10:39 AM EST [facility] NRBC Absolute 0.00 <0.10 K/mcL LAB HEMETOLOGY METHOD 07/22/2024 10:39 AM [facility] Blood Venous blood specimen / Unknown Venipuncture / Unknown 07/22/2024 5:50 AM EST 07/22/2024 9:40 AM EST Nicolle Rosenberg MD LAB BLOOD ORDERABLES Final Resul t [facility] [address] [place] [address], * (ABNORMAL) Comprehensive metabolic panel (07/22/2024 5:50 AM EST) Only the most recent of2 resultswithin the time period is included. Sodium 140 133 - 145 mmol/L LAB CHEMISTRY METHOD 07/22/2024 11:01 AM [facility] Potassium 4.1 3.5 - 5.5 mmol/L LAB CHEMISTRY METHOD 07/22/2024 11:01 AM [facility] Chloride 106 96 - 110 mmol/L LAB CHEMISTRY METHOD 07/22/2024 11:01 AM EST [facility] CO2 28 21 - 32 mmol/L LAB CHEMISTRY METHOD 07/22/2024 11:01 AM EST [facility] Anion Gap 6 3 - 11 LAB CHEMISTRY METHOD 07/22/2024 11:01 AM [facility] Glucose 76 70 - 100 mg/dL LAB CHEMISTRY METHOD 07/22/2024 11:01 AM [facility] BUN 12 5 - 25 mg/dL LAB CHEMISTRY METHOD 07/22/2024 11:01 AM [facility] Creatinine 0.87 0.70 - 1.30 mg/dL LAB CHEMISTRY METHOD 07/22/2024 11:01 AM [facility] eGFR 92 >=60 mL/min/1. 73m2 LAB CHEMISTRY METHOD 07/22/2024 11:01 AM [facility] Comment:Calculation based on the??Chronic Kidney Disease Epidemiology Collaboration (CKD-EPI) equation refit??without adjustment for race. BUN/Creatinine Ratio 13.8 LAB CHEMISTRY METHOD 07/22/2024 11:01 AM [facility] Calcium 8.8 8.5 - 10.5 mg/dL LAB CHEMISTRY METHOD 07/22/2024 11:01 AM [facility] AST (SGOT) 31 10 - 42 unit/L LAB CHEMISTRY METHOD 07/22/2024 11:01 AM [facility] ALT (SGPT) 31 10 - 60 unit/L LAB CHEMISTRY METHOD 07/22/2024 11:01 AM [facility] Alkaline Phosphatase 128(H) 42 - 121 unit/L LAB CHEMISTRY METHOD 07/22/2024 11:01 AM [facility] Total Protein 5.5(L) 6.0 - 8.0 g/dL LAB CHEMISTRY METHOD 07/22/2024 11:01 AM [facility] Albumin 2.6(L) 3.2 - 5.0 g/dL LAB CHEMISTRY METHOD 07/22/2024 11:01 AM [facility] Total Bilirubin 1.1 0.0 - 1.4 mg/dL LAB CHEMISTRY METHOD 07/22/2024 11:01 AM [facility] Blood Venous blood specimen / Unknown Venipuncture / Unknown 07/22/2024 5:50 AM EST 07/22/2024 9:40 AM EST us Nicolle Rosenberg MD LAB BLOOD ORDERABLES Final Resul t Performing Organization Address [facility] Co de Phone Number [facility] [address] [place] [address], [place] [phone] * (ABNORMAL) Vitamin D 25 hydroxy (07/05/2024 9:36 AM EST) Vit D, 25-Hydroxy 22.7(L) 30.0 - 80.0 ng/mL LAB CHEMISTRY METHOD 07/05/2024 12:57 PM EST [facility] Blood Venous blood specimen / Unknown Venipuncture / Unknown 07/05/2024 9:36 AM EST 07/05/2024 10:45 AM EST us Olu Norris MD LAB BLOOD ORDERABLES Final Resul t Performing Organization Address [facility] de Phone Number [facility] [address] [place] [address], * Thyroid stimulating hormone (07/05/2024 9:36 AM EST) [facility] TSH 1.20 0.40 - 4.00 mcIU/mL LAB CHEMISTRY METHOD 07/05/2024 12:57 PM EST [facility] Blood Venous blood specimen / Unknown Venipuncture / Unknown 07/05/2024 9:36 AM EST 07/05/2024 10:45 AM EST us Olu Norris MD LAB BLOOD ORDERABLES Final Resul t Performing Organization Address City/[facility] Co de Phone Number [facility] [address] [place] [address], [place] [phone] * (ABNORMAL) Folate (07/05/2024 9:36 AM EST) Folate 17.7(H) 2.8 - 17.0 ng/ml LAB CHEMISTRY METHOD 07/05/2024 12:58 PM EST [facility] Blood Venous blood specimen / Unknown Venipuncture / Unknown 07/05/2024 9:36 AM EST 07/05/2024 10:45 AM EST Olu Norris MD LAB BLOOD ORDERABLES Final Resul t Performing Organization Address City/[facility]/ZIP Co de Phone Number [facility] [address] [place] [address], [place] [phone] * Vitamin B12 (07/05/2024 9:36 AM EST) [facility] Vitamin B-12 251 250 - 900 pcg/mL LAB CHEMISTRY METHOD 07/05/2024 1:12 PM EST [facility] Blood Venous blood specimen / Unknown Venipuncture / Unknown 07/05/2024 9:36 AM EST 07/05/2024 10:45 AM EST Olu Norris MD LAB BLOOD ORDERABLES Final Resul t Performing Organization Address City/[facility]/ZIP Co de Phone Number [facility] [address] [place] [address], [place] [phone] from Last 3 Months Insurance MEDICARE [employer] Care Teams Safety And Health Manager Relationship Specialty Start Date End Date Olu Norris MD [address] [place] [address], [phone] PCP - General Family Medicine 07/06/24
--- OUTSIDE RECORDS SUMMARY | 2024-09-07 13:19 | XMS_ITS | Patient Health Record ---
Author Organization [facility] Address [address] [place] [address] Care Team Providers Care Manager Law Name Role Phone Frandy Torres MD Primary Care Provider Unavailab Jordana Pierce Unavailable [phone] Brannon Pineda Unavailable [phone] Reason For Referral No Information Medications Medication [...] W/U Status Risk Notes Problem Ataxic gait (29390130) Ataxic gait (R26.0) Active confirmed Problem Unspecified atherosclerosis of [place] arteries of extremities, bilateral legs (I70.203) Active confirmed Problem Acquired hammer toe of right foot (04459177624 87191) Other hammer toe(s) (acquired), right foot (M20.41) Active confirmed Problem Acquired hammer toe of left foot (32593796095 43195) Other hammer toe(s) (acquired), left foot (M20.42) Active confirmed Problem 46162120 Leg length discrepancy (M21.70) Active confirmed Vital Signs Height 5 ft 8 in in 02/29/2024 Weight 180 lbs 02/29/2024 BMI 27.37 kg/m2 02/29/2024 Procedures Procedure Date Ordered Date Performed Result Body Sit e 59340-PQZQ SKIN LESIONS, 2 TO 4 02/29/2024 N/A Encounters Encounter Location Date [facility] [address] 02/29/2024 Brannon Pineda Ingrowing nail L60.0 ; Tinea unguium B35.1 ; Other hammer toe(s) (acquired), right foot M20.41 ; Other hammer toe(s) (acquired), left foot M20.42 ; Leg length discrepancy M21.70 ; Unspecified atherosclerosis of [place] arteries of extremities, bilateral legs I70.203 and Ataxic gait R26.0 [facility] [address] [place] [address] 12/01/2023 [facility] [address] 03/16/2024 Jordana Duval [address] [address] 05/30/2024 Jordana Duval Assessments Encounter Date Diagnosis (ICD Code) Assessment Notes Treatment Notes Treatment Clinical Notes Section Notes 02/29/2024 Ingrowing nail (ICD-10 - L60.0) 02/29/2024 Tinea unguium (ICD-10 - B35.1) 02/29/2024 Other hammer toe(s) (acquired), right foot (ICD-10 - M20.41) 02/29/2024 Other hammer toe(s) (acquired), left foot (ICD-10 - M20.42) 02/29/2024 Leg length discrepancy (ICD-10 - M21.70) 02/29/2024 Unspecified atherosclerosis of [place] arteries of extremities, bilateral legs (ICD-10 - I70.203) 02/29/2024 Ataxic gait (ICD-10 - R26.0) Plan Of Treatment Pending Test Test Name Order Date [id number] SKIN LESIONS, 2 TO 4 02/29/20 24 Insurance Providers Payer Name Payer Address Payer Phone Subscriber Number Group Number Insured Name Patient Relationship to Insured Coverage Start Date Coverage End Date Sukh [address] [place] [phone] [id number] Graham Hodges Self - patient is the insured Medical (General) History Medical History History ICD Code Measles Chicken pox hip replacement, RT Surgical History Surgery Date(Month/Year) right hip replacement
--- OUTSIDE RECORDS SUMMARY | 2024-09-07 13:20 | XMS_ITS ---
Author Organization [facility] Address [address] [place] [address] Care Team Providers Care Bottom Ironer Name Role Phone Frandy Torres MD Primary Care Provider Unavailab Jordana Pierce Unavailable [phone] REASON FOR VISIT [facility] ppwrk Encounters Encounter Location Date [facility] [address] [place] [address] [place] [address] 03/16/2024 Jordana Duval Plan Of Treatment No Information Progress Notes * Graham KERRDOB: 3 (73 yo M)Acc No.[id number]:03/16/2024 Patient:?Graham Kerr :1950???Age:73 Y???Sex:Male Address:[address] [place] [address] [place] [address] * true * Date:? Generated for Misha hand/Josefina/eTransmitting on:?09/07/2024 01:20 PM EST
--- OUTSIDE RECORDS SUMMARY | 2024-09-07 13:20 | XMS_ITS ---
Author Organization [facility] Address [address] [place] [address] Care Team Providers Care Senior Recruitment Consultant Name Role Phone Frandy Torres MD Primary Care Provider Unavailab Jordana Pierce Unavailable [phone] REASON FOR VISIT cx 06/01 appt Encounters Encounter Location Date Provider Diagnosis [address] [address] 05/30/2024 Jordana Duval Plan Of Treatment No Information Progress Notes * Graham KERRDOB: 3 (73 yo M)Acc No.[id number]:05/30/2024 Patient:?Graham Kerr :1950???Age:73 Y???Sex:Male [facility] [facility] [place] [address] * true * Date:? Generated for Misha hand/Josefina/eTransmitting on:?09/07/2024 01:19 PM EST
--- OUTSIDE RECORDS SUMMARY | 2024-09-07 13:20 | XMS_ITS ---
Author Organization [facility] Address [address] [place] [address] [place] [address] Care Team Providers Care Quarter Seamer Name Role Phone Brian CLEANING, Frandy Primary Care Provider Unavailab Jordana Pierce Unavailable [phone] Encounters Encounter Location Date Provider Diagnosis [address] [address] 06/01/2024 Jordana Duval Plan Of Treatment No Information Progress Notes * Graham KERRDOB: 3 (73 yo M)Acc No.[id number]:06/01/2024 Progress Note Patient:?Graham KERR Provider:?Jordana Duval DPM :1950???Age:73 Y???Sex:Male Gigi e:06/01/2024 Address:[address] [place], [place] [address]Patriz[place] VF-[id number] Pcp:Frandy Torres MD Subjective: * Chief Complaints: [...] Duval DPM Date:?01/2024 Generated for Misha hand/Josefina/eTransmitting on:?09/07/2024 01:20 PM EST
--- OUTSIDE RECORDS SUMMARY | 2024-09-07 13:20 | XMS_ITS | Encounter Summary ---
Author Organization [facility] Address [address] [place] [address] Care Team Providers Care Molecular Physicist Name Role Phone Olu Norris MD Primary Care Provider [phone] Encounter Details Date Type Department Care Team (Late st Contact Info) Description 07/05/2024 Lab Requisition [facility] [address] [facility] [place] [address] Olu Norris MD [address] [place] [address] [address] [place], [address] Presence of unspecified artificial hip joint; [...] LAB CHEMISTRY METHOD 07/05/2024 12:57 PM EST [facility] Blood Venous blood specimen / Unknown Venipuncture / Unknown 07/05/2024 9:36 AM EST 07/05/2024 10:45 AM EST us Olu Norris MD LAB BLOOD ORDERABLES Final Resul t Performing Organization Address City/[facility] [address]/ZIP Co de Phone Number [facility] [address] [place] [address], [place] [phone] * (ABNORMAL) Folate (07/05/2024 9:36 AM EST) Folate 17.7(H) 2.8 - 17.0 ng/ml LAB CHEMISTRY METHOD 07/05/2024 12:58 PM EST [facility] Blood Venous blood specimen / Unknown Venipuncture / Unknown 07/05/2024 9:36 AM EST 07/05/2024 10:45 AM EST us Olu Norris MD LAB BLOOD ORDERABLES Final Resul t Performing Organization Address City/[facility] [address]/ZIP Co de Phone Number [facility] [address] [place] [address], [place] [phone] * Vitamin B12 (07/05/2024 9:36 AM EST) Pathologist [facility] Vitamin B-12 251 250 - 900 pcg/mL LAB CHEMISTRY METHOD 07/05/2024 1:12 PM [facility] Blood Venous blood specimen / Unknown Venipuncture / Unknown 07/05/2024 9:36 AM EST 07/05/2024 10:45 AM EST Olu Norris MD LAB BLOOD ORDERABLES Final Resul t Performing Organization Address City/[facility] [address]/ZIP Co de Phone Number [facility] [address] [place] [address], [place] [phone] * Thyroid stimulating hormone (07/05/2024 9:36 AM EST) [facility] TSH 1.20 0.40 - 4.00 mcIU/mL LAB CHEMISTRY METHOD 07/05/2024 12:57 PM [facility] Blood Venous blood specimen / Unknown Venipuncture / Unknown 07/05/2024 9:36 AM EST 07/05/2024 10:45 AM EST Olu Norris MD LAB BLOOD ORDERABLES Final Resul t Performing Organization Address [facility] [address]/ZIP Oh de Phone Number [facility] [address] [place] [address], [place] [phone] * (ABNORMAL) Comprehensive metabolic panel (07/05/2024 9:36 AM EST) [facility] Sodium 140 133 - 145 mmol/L LAB CHEMISTRY METHOD 07/05/2024 12:47 PM [facility] Potassium 3.9 3.5 - 5.5 mmol/L LAB CHEMISTRY METHOD 07/05/2024 12:47 PM [facility] Chloride 105 96 - 110 mmol/L LAB CHEMISTRY METHOD 07/05/2024 12:47 PM EST [facility] CO2 28 21 - 32 mmol/L LAB CHEMISTRY METHOD 07/05/2024 12:47 PM [facility] Anion Gap 7 3 - 11 LAB CHEMISTRY METHOD 07/05/2024 12:47 PM [facility] Glucose 85 70 - 100 mg/dL LAB CHEMISTRY METHOD 07/05/2024 12:47 PM [facility] BUN 16 5 - 25 mg/dL LAB CHEMISTRY METHOD 07/05/2024 12:47 PM [facility] Creatinine 1.05 0.70 - 1.30 mg/dL LAB CHEMISTRY METHOD 07/05/2024 12:47 PM [facility] eGFR 76 >=60 mL/min/1. 73m2 LAB CHEMISTRY METHOD 07/05/2024 12:47 PM [facility] Comment:Calculation based on the??Chronic Kidney Disease Epidemiology Collaboration (CKD-EPI) equation refit??without adjustment for race. BUN/Creatinine Ratio 15.2 LAB CHEMISTRY METHOD 07/05/2024 12:47 PM [facility] Calcium 8.9 8.5 - 10.5 mg/dL LAB CHEMISTRY METHOD 07/05/2024 12:47 PM [facility] AST (SGOT) 19 10 - 42 unit/L LAB CHEMISTRY METHOD 07/05/2024 12:47 PM [facility] ALT (SGPT) 34 10 - 60 unit/L LAB CHEMISTRY METHOD 07/05/2024 12:47 PM [facility] Alkaline Phosphatase 110 42 - 121 unit/L LAB CHEMISTRY METHOD 07/05/2024 12:47 PM [facility] Total Protein 5.5(L) 6.0 - 8.0 g/dL LAB CHEMISTRY METHOD 07/05/2024 12:47 PM [facility] Albumin 2.6(L) 3.2 - 5.0 g/dL LAB CHEMISTRY METHOD 07/05/2024 12:47 PM [facility] Total Bilirubin 1.0 0.0 - 1.4 mg/dL LAB CHEMISTRY METHOD 07/05/2024 12:47 PM [facility] Blood Venous blood specimen / Unknown Venipuncture / Unknown 07/05/2024 9:36 AM EST 07/05/2024 10:45 AM EST us Olu Norris MD LAB BLOOD ORDERABLES Final Resul t [facility] [address] [place] [address], [place] [phone] * (ABNORMAL) Complete blood count (07/05/2024 9:36 AM EST) WBC 8.9 4.8 - 10.8 K/mcL LAB HEMETOLOGY METHOD 07/05/2024 12:14 PM [facility] RBC 3.00(L) 4.50 - 5.50 M/mcL LAB HEMETOLOGY METHOD 07/05/2024 12:14 PM [facility] Hemoglobin 9.6(L) 13.5 - 17.5 g/dL LAB HEMETOLOGY METHOD 07/05/2024 12:14 PM [facility] Hematocrit 30.5(L) 42.0 - 54.0 % LAB HEMETOLOGY METHOD 07/05/2024 12:14 PM [facility] MCV 101.0(H) 79.0 - 98.0 FL LAB HEMETOLOGY METHOD 07/05/2024 12:14 PM [facility] MCH 31.8 27.0 - 32.0 pcg LAB HEMETOLOGY METHOD 07/05/2024 12:14 PM [facility] MCHC 31.5(L) 32.0 - 37.0 g/dL LAB HEMETOLOGY METHOD 07/05/2024 12:14 PM [facility] RDW 14.7 11.0 - 15.0 % LAB HEMETOLOGY METHOD 07/05/2024 12:14 PM EST [facility] Platelets 367 130 - 400 K/mcL LAB HEMETOLOGY METHOD 07/05/2024 12:14 PM EST [facility] MPV 11.5(H) 7.0 - 11.0 FL LAB HEMETOLOGY METHOD 07/05/2024 12:14 PM EST [facility] NRBC 0.0 <1.0 % LAB HEMETOLOGY METHOD 07/05/2024 12:14 PM EST [facility] NRBC Absolute 0.00 <0.10 K/mcL LAB HEMETOLOGY METHOD 07/05/2024 12:14 PM [facility] Blood Venous blood specimen / Unknown Venipuncture / Unknown 07/05/2024 9:36 AM EST 07/05/2024 10:45 AM EST us Olu Norris MD LAB BLOOD ORDERABLES Final Resul t [facility] [address] [place] [address], documented in this encounter Visit Diagnoses Diagnosis Presence of unspecified artificial hip joint Vitamin deficiency, unspecified Unspecified atrial fibrillation (CMS/HCC) documented in this encounter Care Teams Molecular Physicist Relationship Specialty Start Date End Date Olu Norris MD [address] [place] [address], [phone] PCP - General Family Medicine 07/06/24 documented as of this encounter
--- OUTSIDE RECORDS SUMMARY | 2024-09-07 13:20 | XMS_ITS | Patient Health Record ---
Author Organization [facility] Address [address] [place] [address] Care Team Providers Care Orthopedics Pediatric Physician Name Role Phone Brian CLEANING, Frandy Primary Care Provider Unavailab Stevan Jones Unavailable [phone] REASON FOR REFERRAL No Information MEDICATIONS Medication [...] Problem Adenomatous colon polyp (D12.6) Active confirmed 322291201 Problem Colon polyps (K63.5) Active confirmed 36190390 Problem Colon cancer screening (Z12.11) Active confirmed 139816813 Problem History of adenomatous polyp of colon (Z86.010) Active confirmed 304228473 Problem Encounter for screening for malignant neoplasm of colon (Z12.11) Active confirmed 757897480 Problem Preprocedural examination (Z01.818) Active confirmed 276937352412386 Problem Diverticulosis of colon (K57.30) Active confirmed Diverticulosi s of colon (715526389) PLAN OF TREATMENT Pending Test Test Name Order Date Pathology 04/04/2021 Future Test Test Name Order Date COLONOSCOPY 05/22/2015 COLONOSCOPY 02/20/2021 Insurance Providers Payer Name Payer Address Payer Phone Subscriber Number Group Number Insured Name Patient Relationship to Insured Coverage Start Date Coverage End Date [employer] [address] [place] [address] [id number] GAEL KERR Self - patient is the insured MEDICAL (GENERAL) HISTORY Medical History History ICD Code Colonoscopy 01-06-2010 and 12 12--removal of small tubular adenomas, mild sigmoid diverticulosis, and small internal hemorrhoids Denies UT,DM,CVA,Lung disease,renal dise ase Afib Hypertension Colonoscopy 07/2015 with removal of 4 sma ll tubular adenomas Surgical History Surgery Date(Month/Year) Hip replacement on the right side - Dr. Marie 2016
--- OUTSIDE RECORDS SUMMARY | 2024-09-07 13:20 | XMS_ITS | Encounter Summary ---
Author Organization [facility] Address [address] [place] [address] Care Team Providers Care Studio Model Name Role Phone Olu Norris MD Primary Care Provider [phone] Encounter Details Date Type Department Care Team (Late st Contact Info) Description 07/22/[address] [facility] - Main Lab [address] [place] [address] Nicolle Rosenberg MD [address] [place] [id number] Essential (primary) hypertension; Unspecified atrial fibrillation (CMS/HCC) [...] LAB CHEMISTRY METHOD 07/22/2024 11:[address] [facility] Potassium 4.1 3.5 - 5.5 mmol/L LAB CHEMISTRY METHOD 07/22/2024 11:[address] [facility] Chloride 106 96 - 110 mmol/L LAB CHEMISTRY METHOD 07/22/2024 11:[address] [facility] CO2 28 21 - 32 mmol/L LAB CHEMISTRY METHOD 07/22/2024 11:[address] [facility] Anion Gap 6 3 - 11 LAB CHEMISTRY METHOD 07/22/2024 11:[address] [facility] Glucose 76 70 - 100 mg/dL LAB CHEMISTRY METHOD 07/22/2024 11:[address] [facility] BUN 12 5 - 25 mg/dL LAB CHEMISTRY METHOD 07/22/2024 11:[address] [facility] Creatinine 0.87 0.70 - 1.30 mg/dL LAB CHEMISTRY METHOD 07/22/2024 11:[address] [facility] eGFR 92 >=60 mL/min/1. 73m2 LAB CHEMISTRY METHOD 07/22/2024 11:[address] [facility] Comment:Calculation based on the??Chronic Kidney Disease Epidemiology Collaboration (CKD-EPI) equation refit??without adjustment for race. BUN/Creatinine Ratio 13.8 LAB CHEMISTRY METHOD 07/22/2024 11:[address] [facility] Calcium 8.8 8.5 - 10.5 mg/dL LAB CHEMISTRY METHOD 07/22/2024 11:[address] [facility] AST (SGOT) 31 10 - 42 unit/L LAB CHEMISTRY METHOD 07/22/2024 11:[address] [facility] ALT (SGPT) 31 10 - 60 unit/L LAB CHEMISTRY METHOD 07/22/2024 11:[address] [facility] Alkaline Phosphatase 128(H) 42 - 121 unit/L LAB CHEMISTRY METHOD 07/22/2024 11:[address] [facility] Total Protein 5.5(L) 6.0 - 8.0 g/dL LAB CHEMISTRY METHOD 07/22/2024 11:[address] [facility] Albumin 2.6(L) 3.2 - 5.0 g/dL LAB CHEMISTRY METHOD 07/22/2024 11:[address] [facility] Total Bilirubin 1.1 0.0 - 1.4 mg/dL LAB CHEMISTRY METHOD 07/22/2024 11:[address] [facility] Blood Venous blood specimen / Unknown Venipuncture / Unknown 07/22/2024 5:50 AM EST 07/22/2024 9:40 AM EST us Nicolle Rosenberg MD LAB BLOOD ORDERABLES Final Resul t [facility] [address] [place] [address], * (ABNORMAL) Complete blood count (07/22/2024 5:50 AM EST) WBC 9.1 4.8 - 10.8 K/mcL LAB HEMETOLOGY METHOD 07/22/2024 10:[address] [facility] RBC 3.10(L) 4.50 - 5.50 M/[facility] LAB HEMETOLOGY METHOD 07/22/2024 10:[address] [facility] Hemoglobin 9.5(L) 13.5 - 17.5 g/dL LAB HEMETOLOGY METHOD 07/22/2024 10:[address] [facility] Hematocrit 30.5(L) 42.0 - 54.0 % LAB HEMETOLOGY METHOD 07/22/2024 10:[address] [facility] MCV 97.1 79.0 - 98.0 FL LAB HEMETOLOGY METHOD 07/22/2024 10:[address] [facility] MCH 30.3 27.0 - 32.0 pcg LAB HEMETOLOGY METHOD 07/22/2024 10:[address] [facility] MCHC 31.1(L) 32.0 - 37.0 g/dL LAB HEMETOLOGY METHOD 07/22/2024 10:[address] [facility] RDW 15.0 11.0 - 15.0 % LAB HEMETOLOGY METHOD 07/22/2024 10:[address] [facility] Platelets 415(H) 130 - 400 K/mcL LAB HEMETOLOGY METHOD 07/22/2024 10:[address] [facility] MPV 12.5(H) 7.0 - 11.0 FL LAB HEMETOLOGY METHOD 07/22/2024 10:[address] [facility] NRBC 0.0 <1.0 % LAB HEMETOLOGY METHOD 07/22/2024 10:[address] [facility] NRBC Absolute 0.00 <0.10 K/mcL LAB HEMETOLOGY METHOD 07/22/2024 10:[address] [facility] Blood Venous blood specimen / Unknown Venipuncture / Unknown 07/22/2024 5:50 AM EST 07/22/2024 9:40 AM EST Nicolle Rosenberg MD LAB BLOOD ORDERABLES Final Resul t [facility] [address] [place] [address], documented in this encounter Visit Diagnoses Diagnosis Essential (primary) hypertension Unspecified essential hypertension Unspecified atrial fibrillation (CMS/HCC) documented in this encounter Care Teams Studio Model Relationship Specialty Start Date End Date Olu Norris MD [address] [place] [address], [phone] PCP - General Family Medicine 07/06/24 documented as of this encounter
--- NOTE | 2024-09-08 08:22 | MHC.OFFVIS ---
Intake Visit Reasons: Discussion:s/p L KATINA rev 07/18/24& L KATINA 06/28/24 Allergies No Known Allergies [No Known Allergies*] Allergy (Verified 08/17/24 14:15) PFSH Medical History Arthritis Persistent atrial fibrillation Post-nasal drip Osteoarthritis GERD (gastroesophageal reflux disease) PAF (paroxysmal atrial fibrillation) On anticoagulant therapy HTN (hypertension) Surgical History History of total left hip arthroplasty History of surgery on lower extremity History of cardioversion Hx of colonoscopy History of hip replacement Social History Household Members: None Housing: Apartment Are you a primary care team coordinator scheduler to a significant other at home: No Do you presently have visiting nurse or other home services: No Alcohol intake: current Alcohol intake frequency: a few times a week Alcohol type: beer Patient Tobacco Use Status: Former Tobacco user Tobacco use type: Cigarette Years Smoked: 15 Advance Directives Date on File: 09/22/16 service: No Assessment & Plan Assessment & Plan Orders: Orders Complete Blood Count Auto Diff 09/07/24 T84.038A - Mechanical loosening of other internal prosthetic joint, initial encounter, Z96.649 - Presence of unspecified artificial hip joint Erythrocyte Sedimentation Rate 09/07/24 T84.038A - Mechanical loosening of other internal prosthetic joint, initial encounter, Z96.649 - Presence of unspecified artificial hip joint C Reactive Protein 09/07/24 T84.038A - Mechanical loosening of other internal prosthetic joint, initial encounter, Z96.649 - Presence of unspecified artificial hip joint Coding
== END 2024-09-07 13:40 | disposition home or self-care (01) ==
PROVIDERS: Visit Provider Orthopaedic Surgery
DX: T84.038A Mechanical loosening of other internal prosthetic joint, initial encounter (principal); Z96.649 Presence of unspecified artificial hip joint
CPT/HCPCS: 99024

== ENCOUNTER 2024-09-07 13:08 | Outpatient (REF) | payer OTHER, SELFPAY ==
--- OUTSIDE RECORDS SUMMARY | 2024-09-07 14:01 | XMS_ITS | Clinical Summary ---
Author Organization [address] [facility] Address [address] [place] [address] Phone Care Team Providers Care Sap Trainer Name Role Phone Olu Norris MD Primary Care Provider [phone] Encounters Date Type Department Care Team Description 07/22/2024 Lab Requisition [facility] Lab [address] [place] [address] Nicolle Rosenberg MD Essential (primary) hypertension; Unspecified atrial fibrillation (CMS/HCC) 07/05/2024 Lab Requisition [facility] Lab [address] [place] [address] Olu Norris MD Presence of [...] K/mcL LAB HEMETOLOGY METHOD 07/22/2024 10:[address] [facility] RBC 3.10(L) 4.50 - 5.50 M/mcL LAB HEMETOLOGY METHOD 07/22/2024 10:[address] [facility] Hemoglobin 9.5(L) 13.5 - 17.5 g/dL LAB HEMETOLOGY METHOD 07/22/2024 10:[address] [facility] Hematocrit 30.5(L) 42.0 - 54.0 % LAB HEMETOLOGY METHOD 07/22/2024 10:[address] [facility] MCV 97.1 79.0 - 98.0 FL LAB HEMETOLOGY METHOD 07/22/2024 10:[address] [facility] MCH 30.3 27.0 - 32.0 pcg LAB HEMETOLOGY METHOD 07/22/2024 10:[address] [facility] MCHC 31.1(L) 32.0 - 37.0 g/dL LAB HEMETOLOGY METHOD 07/22/2024 10:[address] [facility] RDW 15.0 11.0 - 15.0 % LAB HEMETOLOGY METHOD 07/22/2024 10:39 AM EST [facility] Platelets 415(H) 130 - 400 K/mcL LAB HEMETOLOGY METHOD 07/22/2024 10:[address] [facility] MPV 12.5(H) 7.0 - 11.0 FL LAB HEMETOLOGY METHOD 07/22/2024 10:39 AM EST [facility] NRBC 0.0 <1.0 % LAB HEMETOLOGY METHOD 07/22/2024 10:39 AM EST [facility] NRBC Absolute 0.00 <0.10 K/mcL LAB HEMETOLOGY METHOD 07/22/2024 10:[address] [facility] Blood Venous blood specimen / Unknown Venipuncture / Unknown 07/22/2024 5:50 AM EST 07/22/2024 9:40 AM EST Nicolle Rosenberg MD LAB BLOOD ORDERABLES Final Resul t [facility] [address] [place] [address], * (ABNORMAL) Comprehensive metabolic panel (07/22/2024 5:50 AM EST) Only the most recent of2 resultswithin the time period is included. Sodium 140 133 - 145 mmol/L LAB CHEMISTRY METHOD 07/22/2024 11:[address] [facility] Potassium 4.1 3.5 - 5.5 mmol/L LAB CHEMISTRY METHOD 07/22/2024 11:[address] [facility] Chloride 106 96 - 110 mmol/L LAB CHEMISTRY METHOD 07/22/2024 11:01 AM EST [facility] CO2 28 21 - 32 mmol/L LAB CHEMISTRY METHOD 07/22/2024 11:01 AM EST [facility] Anion Gap 6 3 - 11 LAB CHEMISTRY METHOD 07/22/2024 11:[address] [facility] Glucose 76 70 - 100 mg/dL LAB CHEMISTRY METHOD 07/22/2024 11:[address] [facility] BUN 12 5 - 25 mg/dL LAB CHEMISTRY METHOD 07/22/2024 11:[address] [facility] Creatinine 0.87 0.70 - 1.30 mg/dL LAB CHEMISTRY METHOD 07/22/2024 11:[address] [facility] eGFR 92 >=60 mL/min/1. 73m2 LAB CHEMISTRY METHOD 07/22/2024 11:[address] [facility] Comment:Calculation based on the??Chronic Kidney Disease Epidemiology Collaboration (CKD-EPI) equation refit??without adjustment for race. BUN/Creatinine Ratio 13.8 LAB CHEMISTRY METHOD 07/22/2024 11:[address] [facility] Calcium 8.8 8.5 - 10.5 mg/dL LAB CHEMISTRY METHOD 07/22/2024 11:[address] [facility] AST (SGOT) 31 10 - 42 unit/L LAB CHEMISTRY METHOD 07/22/2024 11:[address] [facility] ALT (SGPT) 31 10 - 60 unit/L LAB CHEMISTRY METHOD 07/22/2024 11:[address] [facility] Alkaline Phosphatase 128(H) 42 - 121 unit/L LAB CHEMISTRY METHOD 07/22/2024 11:[address] [facility] Total Protein 5.5(L) 6.0 - 8.0 g/dL LAB CHEMISTRY METHOD 07/22/2024 11:[address] [facility] Albumin 2.6(L) 3.2 - 5.0 g/dL LAB CHEMISTRY METHOD 07/22/2024 11:[address] [facility] Total Bilirubin 1.1 0.0 - 1.4 mg/dL LAB CHEMISTRY METHOD 07/22/2024 11:[address] [facility] Blood Venous blood specimen / Unknown Venipuncture / Unknown 07/22/2024 5:50 AM EST 07/22/2024 9:40 AM EST us Nicolle Rosenberg MD LAB BLOOD ORDERABLES Final Resul t Performing Organization Address [facility] Co de Phone Number [facility] [address] [place] [address], [place] [phone] * (ABNORMAL) Vitamin D 25 hydroxy (07/05/2024 9:36 AM EST) Vit D, 25-Hydroxy 22.7(L) 30.0 - 80.0 ng/mL LAB CHEMISTRY METHOD 07/05/2024 12:57 PM EST [facility] Blood Venous blood specimen / Unknown Venipuncture / Unknown 07/05/2024 9:36 AM EST 07/05/2024 10:45 AM EST us Olu Norris MD LAB BLOOD ORDERABLES Final Resul t Performing Organization Address [facility] de Phone Number [facility] [address] [place] [address], * Thyroid stimulating hormone (07/05/2024 9:36 AM EST) [facility] TSH 1.20 0.40 - 4.00 mcIU/mL LAB CHEMISTRY METHOD 07/05/2024 12:57 PM EST [facility] Blood Venous blood specimen / Unknown Venipuncture / Unknown 07/05/2024 9:36 AM EST 07/05/2024 10:45 AM EST us Olu Norris MD LAB BLOOD ORDERABLES Final Resul t Performing Organization Address City/[facility] Co de Phone Number [facility] [address] [place] [address], [place] [phone] * (ABNORMAL) Folate (07/05/2024 9:36 AM EST) Folate 17.7(H) 2.8 - 17.0 ng/ml LAB CHEMISTRY METHOD 07/05/2024 12:58 PM EST [facility] Blood Venous blood specimen / Unknown Venipuncture / Unknown 07/05/2024 9:36 AM EST 07/05/2024 10:45 AM EST Olu Norris MD LAB BLOOD ORDERABLES Final Resul t Performing Organization Address City/[facility]/ZIP Co de Phone Number [facility] [address] [place] [address], [place] [phone] * Vitamin B12 (07/05/2024 9:36 AM EST) [facility] Vitamin B-12 251 250 - 900 pcg/mL LAB CHEMISTRY METHOD 07/05/2024 1:12 PM EST [facility] Blood Venous blood specimen / Unknown Venipuncture / Unknown 07/05/2024 9:36 AM EST 07/05/2024 10:45 AM EST Olu Norris MD LAB BLOOD ORDERABLES Final Resul t Performing Organization Address City/[facility]/ZIP Co de Phone Number [facility] [address] [place] [address], [place] [phone] from Last 3 Months Insurance MEDICARE [employer] Care Teams Sap Trainer Relationship Specialty Start Date End Date Olu Norris MD [address] [place] [address], [phone] PCP - General Family Medicine 07/06/24
--- OUTSIDE RECORDS SUMMARY | 2024-09-07 14:01 | XMS_ITS | Encounter Summary ---
Author Organization [email or web address] [facility] Address [address] [place] [address] Care Team Providers Care Air Tank Assembler Name Role Phone Olu Norris MD Primary Care Provider [phone] Encounter Details Date Type Department Care Team (Late st Contact Info) Description 07/22/2024 Lab Requisition [facility] - Main Lab [address] [place] [address] Nicolle Rosenberg MD [address] [place] [phone] Essential (primary) hypertension; Unspecified atrial fibrillation (CMS/HCC) [...] LAB CHEMISTRY METHOD 07/22/2024 11:01 AM EST [facility] Potassium 4.1 3.5 - 5.5 mmol/L LAB CHEMISTRY METHOD 07/22/2024 11:01 AM EST [facility] Chloride 106 96 - 110 mmol/L LAB CHEMISTRY METHOD 07/22/2024 11:01 AM [facility] CO2 28 21 - 32 mmol/L LAB CHEMISTRY METHOD 07/22/2024 11:01 AM [facility] Anion Gap 6 3 - 11 LAB CHEMISTRY METHOD 07/22/2024 11:01 AM [facility] Glucose 76 70 - 100 mg/dL LAB CHEMISTRY METHOD 07/22/2024 11:01 AM [facility] BUN 12 5 - 25 mg/dL LAB CHEMISTRY METHOD 07/22/2024 11:01 AM [facility] Creatinine 0.87 0.70 - 1.30 mg/dL LAB CHEMISTRY METHOD 07/22/2024 11:01 AM [facility] eGFR 92 >=60 mL/min/1. 73m2 LAB CHEMISTRY METHOD 07/22/2024 11:01 AM [facility] Comment:Calculation based on the??Chronic Kidney Disease Epidemiology Collaboration (CKD-EPI) equation refit??without adjustment for race. BUN/Creatinine Ratio 13.8 LAB CHEMISTRY METHOD 07/22/2024 11:01 AM [facility] Calcium 8.8 8.5 - 10.5 mg/dL LAB CHEMISTRY METHOD 07/22/2024 11:01 AM [facility] AST (SGOT) 31 10 - 42 unit/L LAB CHEMISTRY METHOD 07/22/2024 11:01 AM [facility] ALT (SGPT) 31 10 - 60 unit/L LAB CHEMISTRY METHOD 07/22/2024 11:01 AM [facility] Alkaline Phosphatase 128(H) 42 - 121 unit/L LAB CHEMISTRY METHOD 07/22/2024 11:01 AM [facility] Total Protein 5.5(L) 6.0 - 8.0 g/dL LAB CHEMISTRY METHOD 07/22/2024 11:01 AM [facility] Albumin 2.6(L) 3.2 - 5.0 g/dL LAB CHEMISTRY METHOD 07/22/2024 11:01 AM EST [facility] Total Bilirubin 1.1 0.0 - 1.4 mg/dL LAB CHEMISTRY METHOD 07/22/2024 11:01 AM [facility] Blood Venous blood specimen / Unknown Venipuncture / Unknown 07/22/2024 5:50 AM EST 07/22/2024 9:40 AM EST us Nicolle Rosenberg MD LAB BLOOD ORDERABLES Final Resul t [facility] [address] [place] [address], * (ABNORMAL) Complete blood count (07/22/2024 5:50 AM EST) WBC 9.1 4.8 - 10.8 K/mcL LAB HEMETOLOGY METHOD 07/22/2024 10:39 AM [facility] RBC 3.10(L) 4.50 - 5.50 M/[facility] LAB HEMETOLOGY METHOD 07/22/2024 10:39 AM [facility] Hemoglobin 9.5(L) 13.5 - 17.5 g/dL LAB HEMETOLOGY METHOD 07/22/2024 10:39 AM [facility] Hematocrit 30.5(L) 42.0 - 54.0 % LAB HEMETOLOGY METHOD 07/22/2024 10:39 AM [facility] MCV 97.1 79.0 - 98.0 FL LAB HEMETOLOGY METHOD 07/22/2024 10:39 AM [facility] MCH 30.3 27.0 - 32.0 pcg LAB HEMETOLOGY METHOD 07/22/2024 10:39 AM [facility] MCHC 31.1(L) 32.0 - 37.0 g/dL LAB HEMETOLOGY METHOD 07/22/2024 10:39 AM EST [facility] RDW 15.0 11.0 - 15.0 % LAB HEMETOLOGY METHOD 07/22/2024 10:39 AM [facility] Platelets 415(H) 130 - 400 K/mcL LAB HEMETOLOGY METHOD 07/22/2024 10:39 AM [facility] MPV 12.5(H) 7.0 - 11.0 FL LAB HEMETOLOGY METHOD 07/22/2024 10:39 AM EST [facility] NRBC 0.0 <1.0 % LAB HEMETOLOGY METHOD 07/22/2024 10:39 AM [facility] NRBC Absolute 0.00 <0.10 K/mcL LAB HEMETOLOGY METHOD 07/22/2024 10:39 AM [facility] Blood Venous blood specimen / Unknown Venipuncture / Unknown 07/22/2024 5:50 AM EST 07/22/2024 9:40 AM EST Nicolle Rosenberg MD LAB BLOOD ORDERABLES Final Resul t [facility] [address] [place] [address], documented in this encounter Visit Diagnoses Diagnosis Essential (primary) hypertension Unspecified essential hypertension Unspecified atrial fibrillation (CMS/HCC) documented in this encounter Care Teams Air Tank Assembler Relationship Specialty Start Date End Date Olu Norris MD [address] [place] [address], [phone] PCP - General Family Medicine 07/06/24 documented as of this encounter
--- OUTSIDE RECORDS SUMMARY | 2024-09-07 14:02 | XMS_ITS | Encounter Summary ---
Author Organization [employer] Address [address] [place] [address] Care Team Providers Care New Home Sales Consultant Name Role Phone Olu Norris MD Primary Care Provider [phone] Encounter Details Date Type Department Care Team (Late st Contact Info) Description 07/05/2024 Lab Requisition [facility] - Main Lab [address] [facility] [place] [address] Olu Norris MD [address] [place] [address] [address] [place], [phone] Presence of unspecified artificial hip joint; [...] LAB CHEMISTRY METHOD 07/05/2024 12:57 PM EST [facility] Blood Venous blood specimen / Unknown Venipuncture / Unknown 07/05/2024 9:36 AM EST 07/05/2024 10:45 AM EST us Olu Norris MD LAB BLOOD ORDERABLES Final Resul t Performing Organization Address City/[facility]/ZIP Co de Phone Number [facility] [address] [place] [address], [place] [phone] * (ABNORMAL) Folate (07/05/2024 9:36 AM EST) Folate 17.7(H) 2.8 - 17.0 ng/ml LAB CHEMISTRY METHOD 07/05/2024 12:58 PM EST [facility] Blood Venous blood specimen / Unknown Venipuncture / Unknown 07/05/2024 9:36 AM EST 07/05/2024 10:45 AM EST us Olu Norris MD LAB BLOOD ORDERABLES Final Resul t Performing Organization Address City/[facility]/ZIP Co de Phone Number [facility] [address] [place] [address], [place] [phone] * Vitamin B12 (07/05/2024 9:36 AM EST) Pathologist [facility] Vitamin B-12 251 250 - 900 pcg/mL LAB CHEMISTRY METHOD 07/05/2024 1:12 PM [facility] Blood Venous blood specimen / Unknown Venipuncture / Unknown 07/05/2024 9:36 AM EST 07/05/2024 10:45 AM EST Olu Norris MD LAB BLOOD ORDERABLES Final Resul t Performing Organization Address City/[facility]/ZIP Co de Phone Number [facility] [address] [place] [address], [place] [phone] * Thyroid stimulating hormone (07/05/2024 9:36 AM EST) [facility] TSH 1.20 0.40 - 4.00 mcIU/mL LAB CHEMISTRY METHOD 07/05/2024 12:57 PM [facility] Blood Venous blood specimen / Unknown Venipuncture / Unknown 07/05/2024 9:36 AM EST 07/05/2024 10:45 AM EST Olu Norris MD LAB BLOOD ORDERABLES Final Resul t Performing Organization Address [facility]/ZIP Dc de Phone Number [facility] [address] [place] [address], [place] [phone] * (ABNORMAL) Comprehensive metabolic panel (07/05/2024 9:36 AM EST) [facility] Sodium 140 133 - 145 mmol/L LAB CHEMISTRY METHOD 07/05/2024 12:47 PM [facility] Potassium 3.9 3.5 - 5.5 mmol/L LAB CHEMISTRY METHOD 07/05/2024 12:47 PM [facility] Chloride 105 96 - 110 mmol/L LAB CHEMISTRY METHOD 07/05/2024 12:47 PM EST [facility] CO2 28 21 - 32 mmol/L LAB CHEMISTRY METHOD 07/05/2024 12:47 PM [facility] Anion Gap 7 3 - 11 LAB CHEMISTRY METHOD 07/05/2024 12:47 PM [facility] Glucose 85 70 - 100 mg/dL LAB CHEMISTRY METHOD 07/05/2024 12:47 PM [facility] BUN 16 5 - 25 mg/dL LAB CHEMISTRY METHOD 07/05/2024 12:47 PM [facility] Creatinine 1.05 0.70 - 1.30 mg/dL LAB CHEMISTRY METHOD 07/05/2024 12:47 PM [facility] eGFR 76 >=60 mL/min/1. 73m2 LAB CHEMISTRY METHOD 07/05/2024 12:47 PM [facility] Comment:Calculation based on the??Chronic Kidney Disease Epidemiology Collaboration (CKD-EPI) equation refit??without adjustment for race. BUN/Creatinine Ratio 15.2 LAB CHEMISTRY METHOD 07/05/2024 12:47 PM [facility] Calcium 8.9 8.5 - 10.5 mg/dL LAB CHEMISTRY METHOD 07/05/2024 12:47 PM [facility] AST (SGOT) 19 10 - 42 unit/L LAB CHEMISTRY METHOD 07/05/2024 12:47 PM [facility] ALT (SGPT) 34 10 - 60 unit/L LAB CHEMISTRY METHOD 07/05/2024 12:47 PM [facility] Alkaline Phosphatase 110 42 - 121 unit/L LAB CHEMISTRY METHOD 07/05/2024 12:47 PM [facility] Total Protein 5.5(L) 6.0 - 8.0 g/dL LAB CHEMISTRY METHOD 07/05/2024 12:47 PM [facility] Albumin 2.6(L) 3.2 - 5.0 g/dL LAB CHEMISTRY METHOD 07/05/2024 12:47 PM [facility] Total Bilirubin 1.0 0.0 - 1.4 mg/dL LAB CHEMISTRY METHOD 07/05/2024 12:47 PM [facility] Blood Venous blood specimen / Unknown Venipuncture / Unknown 07/05/2024 9:36 AM EST 07/05/2024 10:45 AM EST us Olu Norris MD LAB BLOOD ORDERABLES Final Resul t [facility] [address] [place] [address], [place] [phone] * (ABNORMAL) Complete blood count (07/05/2024 9:36 AM EST) WBC 8.9 4.8 - 10.8 K/mcL LAB HEMETOLOGY METHOD 07/05/2024 12:14 PM [facility] RBC 3.00(L) 4.50 - 5.50 M/mcL LAB HEMETOLOGY METHOD 07/05/2024 12:14 PM [facility] Hemoglobin 9.6(L) 13.5 - 17.5 g/dL LAB HEMETOLOGY METHOD 07/05/2024 12:14 PM [facility] Hematocrit 30.5(L) 42.0 - 54.0 % LAB HEMETOLOGY METHOD 07/05/2024 12:14 PM [facility] MCV 101.0(H) 79.0 - 98.0 FL LAB HEMETOLOGY METHOD 07/05/2024 12:14 PM [facility] MCH 31.8 27.0 - 32.0 pcg LAB HEMETOLOGY METHOD 07/05/2024 12:14 PM [facility] MCHC 31.5(L) 32.0 - 37.0 g/dL LAB HEMETOLOGY METHOD 07/05/2024 12:14 PM [facility] RDW 14.7 11.0 - 15.0 % LAB HEMETOLOGY METHOD 07/05/2024 12:14 PM EST [facility] Platelets 367 130 - 400 K/mcL LAB HEMETOLOGY METHOD 07/05/2024 12:14 PM EST [facility] MPV 11.5(H) 7.0 - 11.0 FL LAB HEMETOLOGY METHOD 07/05/2024 12:14 PM EST [facility] NRBC 0.0 <1.0 % LAB HEMETOLOGY METHOD 07/05/2024 12:14 PM EST [facility] NRBC Absolute 0.00 <0.10 K/mcL LAB HEMETOLOGY METHOD 07/05/2024 12:14 PM [facility] Blood Venous blood specimen / Unknown Venipuncture / Unknown 07/05/2024 9:36 AM EST 07/05/2024 10:45 AM EST us Olu Norris MD LAB BLOOD ORDERABLES Final Resul t [facility] [address] [place] [address], documented in this encounter Visit Diagnoses Diagnosis Presence of unspecified artificial hip joint Vitamin deficiency, unspecified Unspecified atrial fibrillation (CMS/HCC) documented in this encounter Care Teams New Home Sales Consultant Relationship Specialty Start Date End Date Olu Norris MD [address] [place] [address], [phone] PCP - General Family Medicine 07/06/24 documented as of this encounter
[2024-09-07 14:22] LABS: MANUAL DIFF FLAG NO
[2024-09-07 15:15] LABS: Basophils Absolute Auto 0.1 X10*3/uL (0.0-0.2); Basophils Percent Auto 1.2 % (0-2); Eosinophils Absolute Auto 0.5 X10*3/uL (0.0-0.4); Eosinophils Percent Auto 5.4 % (0-4); Hematocrit 26.2 % (42.0-52.0); Hemoglobin 8.3 g/dl (14.0-18.0); Imm Gran Abs Auto 0.03 X10*3/uL (0.00-0.03); Imm Gran Pct Auto 0.3 % (0.0-0.4); Lymphocytes Absolute Auto 2.3 X10*3/uL (1.2-4.9); Lymphocytes Percent Auto 25.3 % (20-40); Mean Corpuscular HGB Conc 31.7 g/dl (31.0-36.0); Mean Corpuscular Volume 88.5 fL (80.0-98.0); Mean Platelet Volume 9.7 fL (9.4-12.4); Monocytes Absolute Auto 0.8 X10*3/uL (0.1-1.2); Monocytes Percent Auto 9.3 % (2-11); Neutrophils Absolute Auto 5.2 x10*3/uL (2.0-8.3); Neutrophils Percent Auto 58.5 % (45-73); Platelet Count 496 X10*3/uL (160-400); Red Blood Count 2.96 X10*6/uL (4.60-5.80); Red Cell Distribution Width 17.2 % (11.0-16.0); White Blood Count 8.9 X10*3/uL (4.8-10.8)
[2024-09-07 15:43] LABS: C Reactive Protein 8.82 mg/dL (< or = 0.50)
[2024-09-07 16:01] LABS: Erythrocyte Sedimentation Rate 105 MM/HR (0-15)
== END 2024-09-07 13:09 | disposition home or self-care (01) ==
LOC: HO.LAB 13:08
PROVIDERS: PCP Family Medicine; Visit Provider Orthopaedic Surgery
DX: T84.038A Mechanical loosening of other internal prosthetic joint, initial encounter (principal); Z96.649 Presence of unspecified artificial hip joint
CPT/HCPCS: 36415; 85025; 85652; 86140

== ENCOUNTER 2024-09-08 08:21 | Outpatient (AMB) | payer OTHER, SELFPAY ==
--- NOTE | 2024-09-08 08:22 | MHC.OFFVIS ---
Intake Visit Reasons: PO - Left Hip KATINA Intake Note: Graham is a 73 year old male who presents today s/p Labwork Allergies No Known Allergies [No Known Allergies*] Allergy (Verified 08/17/24 14:15) HPI HPI PO - Left Hip KATINA: Details: Mr. Hodges is a 73-year-old male who was contacted via telephone from our office to discuss complications regarding his left total hip arthroplasty and aseptic loosening. The patient will need additional workup for left total hip arthroplasty aspiration and will require direct admit to the hospital. [facility] Medical History Arthritis Persistent atrial fibrillation Post-nasal drip Osteoarthritis GERD (gastroesophageal reflux disease) PAF (paroxysmal atrial fibrillation) On anticoagulant therapy HTN (hypertension) Surgical History History of total left hip arthroplasty History of surgery on lower extremity History of cardioversion Hx of colonoscopy History of hip replacement Social History Household Members: None Housing: Apartment Are you a primary family day care provider to a significant other at home: No Do you presently have visiting nurse or other home services: No Alcohol intake: current Alcohol intake frequency: a few times a week Alcohol type: beer Patient Tobacco Use Status: Former Tobacco user Tobacco use type: Cigarette Years Smoked: 15 Advance Directives Date on File: 09/22/16 service: No Review of Systems Const All systems reviewed & are unremarkable except as noted in HPI and below Physical Exam Extrem Other: Deferred due to telehealth Assessment & Plan Assessment & Plan (1) Aseptic loosening of prosthetic hip: Code(s): T84.038A - Mechanical loosening of other internal prosthetic joint, initial encounter; Z96.649 - Presence of unspecified artificial hip joint Category: Medical (2) S/p revision of left total hip: Code(s): Z96.642 - Presence of left artificial hip joint Category: Surgical Plan Mr. Hodges is a 73-year-old male who was contacted via telephone from our office to discuss complications regarding his left total hip arthroplasty and aseptic loosening. Patient is status post left total hip arthroplasty on 06/28/[address] Marie. Unfortunately, after surgery patient sustained aseptic loosening and hardware failure. He then underwent a left total hip revision on 07/18/2024 where again the patient ultimately sustained aseptic loosening. The patient will need additional workup for left total hip arthroplasty aspiration and will require direct admit to the hospital. Patient understands and accepts. We will plan for left hip aspiration to be done under imaging guidance at the hospital. Coding Level of Care Code Tele Est Pt Level 3 (78467) Diagnoses Aseptic loosening of prosthetic hip T84.038A; Z96.649 S/p revision of left total hip Z96.642
--- OUTSIDE RECORDS SUMMARY | 2024-09-08 08:34 | XMS_ITS | Clinical Summary ---
Author Organization [address] [facility] Address [address] [place] [address] Phone Care Team Providers Care Technical Account Manager Name Role Phone Olu Norris MD Primary Care Provider [phone] Encounters Date Type Department Care Team Description 07/22/2024 Lab Requisition [facility] Lab [address] [place] [address] Nicolle Rosenberg MD Essential (primary) hypertension; Unspecified atrial fibrillation (CMS/HCC) 07/05/2024 Lab Requisition [facility] Lab [address] [place] [address] Olu Norris MD Presence of [...] K/mcL LAB HEMETOLOGY METHOD 07/22/2024 10:39 AM [facility] RBC 3.10(L) 4.50 - 5.50 M/mcL LAB HEMETOLOGY METHOD 07/22/2024 10:39 AM [facility] Hemoglobin 9.5(L) 13.5 - 17.5 g/dL LAB HEMETOLOGY METHOD 07/22/2024 10:39 AM [facility] Hematocrit 30.5(L) 42.0 - 54.0 % LAB HEMETOLOGY METHOD 07/22/2024 10:39 AM [facility] MCV 97.1 79.0 - 98.0 FL LAB HEMETOLOGY METHOD 07/22/2024 10:39 AM [facility] MCH 30.3 27.0 - 32.0 pcg LAB HEMETOLOGY METHOD 07/22/2024 10:39 AM [facility] MCHC 31.1(L) 32.0 - 37.0 g/dL LAB HEMETOLOGY METHOD 07/22/2024 10:39 AM [facility] RDW 15.0 11.0 - 15.0 % LAB HEMETOLOGY METHOD 07/22/2024 10:39 AM EST [facility] Platelets 415(H) 130 - 400 K/mcL LAB HEMETOLOGY METHOD 07/22/2024 10:39 AM [facility] MPV 12.5(H) 7.0 - 11.0 FL LAB HEMETOLOGY METHOD 07/22/2024 10:39 AM EST [facility] NRBC 0.0 <1.0 % LAB HEMETOLOGY METHOD 07/22/2024 10:39 AM EST [facility] NRBC Absolute 0.00 <0.10 K/mcL LAB HEMETOLOGY METHOD 07/22/2024 10:39 AM [facility] Blood Venous blood specimen / Unknown Venipuncture / Unknown 07/22/2024 5:50 AM EST 07/22/2024 9:40 AM EST Nicolle Rosenberg MD LAB BLOOD ORDERABLES Final Resul t [facility] [address] [place] [address], * (ABNORMAL) Comprehensive metabolic panel (07/22/2024 5:50 AM EST) Only the most recent of2 resultswithin the time period is included. Sodium 140 133 - 145 mmol/L LAB CHEMISTRY METHOD 07/22/2024 11:01 AM [facility] Potassium 4.1 3.5 - 5.5 mmol/L LAB CHEMISTRY METHOD 07/22/2024 11:01 AM [facility] Chloride 106 96 - 110 mmol/L LAB CHEMISTRY METHOD 07/22/2024 11:01 AM EST [facility] CO2 28 21 - 32 mmol/L LAB CHEMISTRY METHOD 07/22/2024 11:01 AM EST [facility] Anion Gap 6 3 - 11 LAB CHEMISTRY METHOD 07/22/2024 11:01 AM [facility] Glucose 76 70 - 100 mg/dL LAB CHEMISTRY METHOD 07/22/2024 11:01 AM [facility] BUN 12 5 - 25 mg/dL LAB CHEMISTRY METHOD 07/22/2024 11:01 AM [facility] Creatinine 0.87 0.70 - 1.30 mg/dL LAB CHEMISTRY METHOD 07/22/2024 11:01 AM [facility] eGFR 92 >=60 mL/min/1. 73m2 LAB CHEMISTRY METHOD 07/22/2024 11:01 AM [facility] Comment:Calculation based on the??Chronic Kidney Disease Epidemiology Collaboration (CKD-EPI) equation refit??without adjustment for race. BUN/Creatinine Ratio 13.8 LAB CHEMISTRY METHOD 07/22/2024 11:01 AM [facility] Calcium 8.8 8.5 - 10.5 mg/dL LAB CHEMISTRY METHOD 07/22/2024 11:01 AM [facility] AST (SGOT) 31 10 - 42 unit/L LAB CHEMISTRY METHOD 07/22/2024 11:01 AM [facility] ALT (SGPT) 31 10 - 60 unit/L LAB CHEMISTRY METHOD 07/22/2024 11:01 AM [facility] Alkaline Phosphatase 128(H) 42 - 121 unit/L LAB CHEMISTRY METHOD 07/22/2024 11:01 AM [facility] Total Protein 5.5(L) 6.0 - 8.0 g/dL LAB CHEMISTRY METHOD 07/22/2024 11:01 AM [facility] Albumin 2.6(L) 3.2 - 5.0 g/dL LAB CHEMISTRY METHOD 07/22/2024 11:01 AM [facility] Total Bilirubin 1.1 0.0 - 1.4 mg/dL LAB CHEMISTRY METHOD 07/22/2024 11:01 AM [facility] Blood Venous blood specimen / Unknown Venipuncture / Unknown 07/22/2024 5:50 AM EST 07/22/2024 9:40 AM EST us Nicolle Rosenberg MD LAB BLOOD ORDERABLES Final Resul t Performing Organization Address [facility] Co de Phone Number [facility] [address] [place] [address], [place] [phone] * (ABNORMAL) Vitamin D 25 hydroxy (07/05/2024 9:36 AM EST) Vit D, 25-Hydroxy 22.7(L) 30.0 - 80.0 ng/mL LAB CHEMISTRY METHOD 07/05/2024 12:57 PM EST [facility] Blood Venous blood specimen / Unknown Venipuncture / Unknown 07/05/2024 9:36 AM EST 07/05/2024 10:45 AM EST us Olu Norris MD LAB BLOOD ORDERABLES Final Resul t Performing Organization Address [facility] de Phone Number [facility] [address] [place] [address], * Thyroid stimulating hormone (07/05/2024 9:36 AM EST) [facility] TSH 1.20 0.40 - 4.00 mcIU/mL LAB CHEMISTRY METHOD 07/05/2024 12:57 PM EST [facility] Blood Venous blood specimen / Unknown Venipuncture / Unknown 07/05/2024 9:36 AM EST 07/05/2024 10:45 AM EST us Olu Norris MD LAB BLOOD ORDERABLES Final Resul t Performing Organization Address City/[facility] Co de Phone Number [facility] [address] [place] [address], [place] [phone] * (ABNORMAL) Folate (07/05/2024 9:36 AM EST) Folate 17.7(H) 2.8 - 17.0 ng/ml LAB CHEMISTRY METHOD 07/05/2024 12:58 PM EST [facility] Blood Venous blood specimen / Unknown Venipuncture / Unknown 07/05/2024 9:36 AM EST 07/05/2024 10:45 AM EST Olu Norris MD LAB BLOOD ORDERABLES Final Resul t Performing Organization Address City/[facility]/ZIP Co de Phone Number [facility] [address] [place] [address], [place] [phone] * Vitamin B12 (07/05/2024 9:36 AM EST) [facility] Vitamin B-12 251 250 - 900 pcg/mL LAB CHEMISTRY METHOD 07/05/2024 1:12 PM EST [facility] Blood Venous blood specimen / Unknown Venipuncture / Unknown 07/05/2024 9:36 AM EST 07/05/2024 10:45 AM EST Olu Norris MD LAB BLOOD ORDERABLES Final Resul t Performing Organization Address City/[facility]/ZIP Co de Phone Number [facility] [address] [place] [address], [place] [phone] from Last 3 Months Insurance MEDICARE [employer] Care Teams Technical Account Manager Relationship Specialty Start Date End Date Olu Norris MD [address] [place] [address], [phone] PCP - General Family Medicine 07/06/24
--- OUTSIDE RECORDS SUMMARY | 2024-09-08 08:34 | XMS_ITS | Encounter Summary ---
Author Organization [employer] Address [address] [place] [address] Care Team Providers Care Sr. Manager Marketing Name Role Phone Olu Norris MD Primary Care Provider [phone] Encounter Details Date Type Department Care Team (Late st Contact Info) Description 07/05/2024 Lab Requisition [facility] [address] [facility] [place] [address] Olu Norris MD [address] [place] [address] [address], [address] Presence of unspecified artificial hip joint; [...] LAB CHEMISTRY METHOD 07/05/2024 12:57 PM EST [facility] Blood Venous blood specimen / Unknown Venipuncture / Unknown 07/05/2024 9:36 AM EST 07/05/2024 10:45 AM EST us Olu Norris MD LAB BLOOD ORDERABLES Final Resul t Performing Organization Address City/[facility]/ZIP Co de Phone Number [facility] [address] [place] [address], [place] [phone] * (ABNORMAL) Folate (07/05/2024 9:36 AM EST) Folate 17.7(H) 2.8 - 17.0 ng/ml LAB CHEMISTRY METHOD 07/05/2024 12:58 PM EST [facility] Blood Venous blood specimen / Unknown Venipuncture / Unknown 07/05/2024 9:36 AM EST 07/05/2024 10:45 AM EST us Olu Norris MD LAB BLOOD ORDERABLES Final Resul t Performing Organization Address City/[facility]/ZIP Co de Phone Number [facility] [address] [place] [address], [place] [phone] * Vitamin B12 (07/05/2024 9:36 AM EST) Pathologist [facility] Vitamin B-12 251 250 - 900 pcg/mL LAB CHEMISTRY METHOD 07/05/2024 1:12 PM [facility] Blood Venous blood specimen / Unknown Venipuncture / Unknown 07/05/2024 9:36 AM EST 07/05/2024 10:45 AM EST Olu Norris MD LAB BLOOD ORDERABLES Final Resul t Performing Organization Address City/[facility]/ZIP Co de Phone Number [facility] [address] [place] [address], [place] [phone] * Thyroid stimulating hormone (07/05/2024 9:36 AM EST) [facility] TSH 1.20 0.40 - 4.00 mcIU/mL LAB CHEMISTRY METHOD 07/05/2024 12:57 PM [facility] Blood Venous blood specimen / Unknown Venipuncture / Unknown 07/05/2024 9:36 AM EST 07/05/2024 10:45 AM EST Olu Norris MD LAB BLOOD ORDERABLES Final Resul t Performing Organization Address [facility]/ZIP Tn de Phone Number [facility] [address] [place] [address], [place] [phone] * (ABNORMAL) Comprehensive metabolic panel (07/05/2024 9:36 AM EST) [facility] Sodium 140 133 - 145 mmol/L LAB CHEMISTRY METHOD 07/05/2024 12:47 PM [facility] Potassium 3.9 3.5 - 5.5 mmol/L LAB CHEMISTRY METHOD 07/05/2024 12:47 PM [facility] Chloride 105 96 - 110 mmol/L LAB CHEMISTRY METHOD 07/05/2024 12:47 PM EST [facility] CO2 28 21 - 32 mmol/L LAB CHEMISTRY METHOD 07/05/2024 12:47 PM [facility] Anion Gap 7 3 - 11 LAB CHEMISTRY METHOD 07/05/2024 12:47 PM [facility] Glucose 85 70 - 100 mg/dL LAB CHEMISTRY METHOD 07/05/2024 12:47 PM [facility] BUN 16 5 - 25 mg/dL LAB CHEMISTRY METHOD 07/05/2024 12:47 PM [facility] Creatinine 1.05 0.70 - 1.30 mg/dL LAB CHEMISTRY METHOD 07/05/2024 12:47 PM [facility] eGFR 76 >=60 mL/min/1. 73m2 LAB CHEMISTRY METHOD 07/05/2024 12:47 PM [facility] Comment:Calculation based on the??Chronic Kidney Disease Epidemiology Collaboration (CKD-EPI) equation refit??without adjustment for race. BUN/Creatinine Ratio 15.2 LAB CHEMISTRY METHOD 07/05/2024 12:47 PM [facility] Calcium 8.9 8.5 - 10.5 mg/dL LAB CHEMISTRY METHOD 07/05/2024 12:47 PM [facility] AST (SGOT) 19 10 - 42 unit/L LAB CHEMISTRY METHOD 07/05/2024 12:47 PM [facility] ALT (SGPT) 34 10 - 60 unit/L LAB CHEMISTRY METHOD 07/05/2024 12:47 PM [facility] Alkaline Phosphatase 110 42 - 121 unit/L LAB CHEMISTRY METHOD 07/05/2024 12:47 PM [facility] Total Protein 5.5(L) 6.0 - 8.0 g/dL LAB CHEMISTRY METHOD 07/05/2024 12:47 PM [facility] Albumin 2.6(L) 3.2 - 5.0 g/dL LAB CHEMISTRY METHOD 07/05/2024 12:47 PM [facility] Total Bilirubin 1.0 0.0 - 1.4 mg/dL LAB CHEMISTRY METHOD 07/05/2024 12:47 PM [facility] Blood Venous blood specimen / Unknown Venipuncture / Unknown 07/05/2024 9:36 AM EST 07/05/2024 10:45 AM EST us Olu Norris MD LAB BLOOD ORDERABLES Final Resul t [facility] [address] [place] [address], [place] [phone] * (ABNORMAL) Complete blood count (07/05/2024 9:36 AM EST) WBC 8.9 4.8 - 10.8 K/mcL LAB HEMETOLOGY METHOD 07/05/2024 12:14 PM [facility] RBC 3.00(L) 4.50 - 5.50 M/mcL LAB HEMETOLOGY METHOD 07/05/2024 12:14 PM [facility] Hemoglobin 9.6(L) 13.5 - 17.5 g/dL LAB HEMETOLOGY METHOD 07/05/2024 12:14 PM [facility] Hematocrit 30.5(L) 42.0 - 54.0 % LAB HEMETOLOGY METHOD 07/05/2024 12:14 PM [facility] MCV 101.0(H) 79.0 - 98.0 FL LAB HEMETOLOGY METHOD 07/05/2024 12:14 PM [facility] MCH 31.8 27.0 - 32.0 pcg LAB HEMETOLOGY METHOD 07/05/2024 12:14 PM [facility] MCHC 31.5(L) 32.0 - 37.0 g/dL LAB HEMETOLOGY METHOD 07/05/2024 12:14 PM [facility] RDW 14.7 11.0 - 15.0 % LAB HEMETOLOGY METHOD 07/05/2024 12:14 PM EST [facility] Platelets 367 130 - 400 K/mcL LAB HEMETOLOGY METHOD 07/05/2024 12:14 PM EST [facility] MPV 11.5(H) 7.0 - 11.0 FL LAB HEMETOLOGY METHOD 07/05/2024 12:14 PM EST [facility] NRBC 0.0 <1.0 % LAB HEMETOLOGY METHOD 07/05/2024 12:14 PM EST [facility] NRBC Absolute 0.00 <0.10 K/mcL LAB HEMETOLOGY METHOD 07/05/2024 12:14 PM [facility] Blood Venous blood specimen / Unknown Venipuncture / Unknown 07/05/2024 9:36 AM EST 07/05/2024 10:45 AM EST us Olu Norris MD LAB BLOOD ORDERABLES Final Resul t [facility] [address] [place] [address], documented in this encounter Visit Diagnoses Diagnosis Presence of unspecified artificial hip joint Vitamin deficiency, unspecified Unspecified atrial fibrillation (CMS/HCC) documented in this encounter Care Teams Sr. Manager Marketing Relationship Specialty Start Date End Date Olu Norris MD [address] [place] [address], [phone] PCP - General Family Medicine 07/06/24 documented as of this encounter
--- OUTSIDE RECORDS SUMMARY | 2024-09-08 08:34 | XMS_ITS | Patient Health Record ---
Author Organization [facility] willie Derby Address [address] [place] [address] Care Team Providers Care Compound Mixer Name Role Phone Frandy Torres MD Primary Care Provider Unavailab Jordana Pierce Unavailable [phone] Brannon Pineda Unavailable [phone] Reason For Referral No Information Medications Medication [...] W/U Status Risk Notes Problem Ataxic gait (99818216) Ataxic gait (R26.0) Active confirmed Problem Unspecified atherosclerosis of [place] arteries of extremities, bilateral legs (I70.203) Active confirmed Problem Acquired hammer toe of right foot ([id number] 49273) Other hammer toe(s) (acquired), right foot (M20.41) Active confirmed Problem Acquired hammer toe of left foot (56057443235 59462) Other hammer toe(s) (acquired), left foot (M20.42) Active confirmed Problem [id number] Leg length discrepancy (M21.70) Active confirmed Vital Signs Height 5 ft 8 in in 02/29/2024 Weight 180 lbs 02/29/2024 BMI 27.37 kg/m2 02/29/2024 Procedures Procedure Date Ordered Date Performed Result Body Sit e 91312-FZTY SKIN LESIONS, 2 TO 4 02/29/2024 N/A Encounters Encounter Location Date Provider Diagnosis [facility] [address] 02/29/2024 Brannon Pineda Ingrowing nail L60.0 ; Tinea unguium B35.1 ; Other hammer toe(s) (acquired), right foot M20.41 ; Other hammer toe(s) (acquired), left foot M20.42 ; Leg length discrepancy M21.70 ; Unspecified atherosclerosis of [place] arteries of extremities, bilateral legs I70.203 and Ataxic gait R26.0 [facility] [address] [place] [address] 12/01/2023 Brannon Pineda [facility] [address] 03/16/2024 Jordana Duval [address] [address] 05/30/2024 Jordana Duval Assessments Encounter Date Diagnosis (ICD Code) Assessment Notes Treatment Notes Treatment Clinical Notes Section Notes 02/29/2024 Ingrowing nail (ICD-10 - L60.0) 02/29/2024 Tinea unguium (ICD-10 - B35.1) 02/29/2024 Other hammer toe(s) (acquired), right foot (ICD-10 - M20.41) 02/29/2024 Other hammer toe(s) (acquired), left foot (ICD-10 - M20.42) 02/29/2024 Leg length discrepancy (ICD-10 - M21.70) 02/29/2024 Unspecified atherosclerosis of [place] arteries of extremities, bilateral legs (ICD-10 - I70.203) 02/29/2024 Ataxic gait (ICD-10 - R26.0) Plan Of Treatment Pending Test Test Name Order Date 61506-UZGO SKIN LESIONS, 2 TO 4 02/29/20 24 Insurance Providers Payer Name Payer Address Payer Phone Subscriber Number Group Number Insured Name Patient Relationship to Insured Coverage Start Date Coverage End Date [employer]ukh [address] [place] [id number] Graham Hodges Self - patient is the insured Medical (General) History Medical History History ICD Code Measles Chicken pox hip replacement, RT Surgical History Surgery Date(Month/Year) right hip replacement
--- OUTSIDE RECORDS SUMMARY | 2024-09-08 08:35 | XMS_ITS | Encounter Summary ---
Author Organization [facility] Address [address] [place] [address] Care Team Providers Care Supervisor Erection Shop Name Role Phone Olu Norris MD Primary Care Provider [phone] Encounter Details Date Type Department Care Team (Late st Contact Info) Description 07/22/2024 Lab Requisition [facility] - Main Lab [address] [place] [address] Nicolle Rosenberg MD [address] [place] [id number] Essential (primary) hypertension; Unspecified atrial fibrillation (CMS/HCC) [...] LAB CHEMISTRY METHOD 07/22/2024 11:01 AM EST [facility] Potassium 4.1 3.5 - 5.5 mmol/L LAB CHEMISTRY METHOD 07/22/2024 11:01 AM EST [facility] Chloride 106 96 - 110 mmol/L LAB CHEMISTRY METHOD 07/22/2024 11:01 AM [facility] CO2 28 21 - 32 mmol/L LAB CHEMISTRY METHOD 07/22/2024 11:01 AM [facility] Anion Gap 6 3 - 11 LAB CHEMISTRY METHOD 07/22/2024 11:01 AM [facility] Glucose 76 70 - 100 mg/dL LAB CHEMISTRY METHOD 07/22/2024 11:01 AM [facility] BUN 12 5 - 25 mg/dL LAB CHEMISTRY METHOD 07/22/2024 11:01 AM [facility] Creatinine 0.87 0.70 - 1.30 mg/dL LAB CHEMISTRY METHOD 07/22/2024 11:01 AM [facility] eGFR 92 >=60 mL/min/1. 73m2 LAB CHEMISTRY METHOD 07/22/2024 11:01 AM [facility] Comment:Calculation based on the??Chronic Kidney Disease Epidemiology Collaboration (CKD-EPI) equation refit??without adjustment for race. BUN/Creatinine Ratio 13.8 LAB CHEMISTRY METHOD 07/22/2024 11:01 AM [facility] Calcium 8.8 8.5 - 10.5 mg/dL LAB CHEMISTRY METHOD 07/22/2024 11:01 AM [facility] AST (SGOT) 31 10 - 42 unit/L LAB CHEMISTRY METHOD 07/22/2024 11:01 AM [facility] ALT (SGPT) 31 10 - 60 unit/L LAB CHEMISTRY METHOD 07/22/2024 11:01 AM [facility] Alkaline Phosphatase 128(H) 42 - 121 unit/L LAB CHEMISTRY METHOD 07/22/2024 11:01 AM [facility] Total Protein 5.5(L) 6.0 - 8.0 g/dL LAB CHEMISTRY METHOD 07/22/2024 11:01 AM [facility] Albumin 2.6(L) 3.2 - 5.0 g/dL LAB CHEMISTRY METHOD 07/22/2024 11:01 AM EST [facility] Total Bilirubin 1.1 0.0 - 1.4 mg/dL LAB CHEMISTRY METHOD 07/22/2024 11:01 AM [facility] Blood Venous blood specimen / Unknown Venipuncture / Unknown 07/22/2024 5:50 AM EST 07/22/2024 9:40 AM EST us Nicolle Rosenberg MD LAB BLOOD ORDERABLES Final Resul t [facility] [address] [place] [address], * (ABNORMAL) Complete blood count (07/22/2024 5:50 AM EST) WBC 9.1 4.8 - 10.8 K/mcL LAB HEMETOLOGY METHOD 07/22/2024 10:39 AM [facility] RBC 3.10(L) 4.50 - 5.50 M/[facility] LAB HEMETOLOGY METHOD 07/22/2024 10:39 AM [facility] Hemoglobin 9.5(L) 13.5 - 17.5 g/dL LAB HEMETOLOGY METHOD 07/22/2024 10:39 AM [facility] Hematocrit 30.5(L) 42.0 - 54.0 % LAB HEMETOLOGY METHOD 07/22/2024 10:39 AM [facility] MCV 97.1 79.0 - 98.0 FL LAB HEMETOLOGY METHOD 07/22/2024 10:39 AM [facility] MCH 30.3 27.0 - 32.0 pcg LAB HEMETOLOGY METHOD 07/22/2024 10:39 AM [facility] MCHC 31.1(L) 32.0 - 37.0 g/dL LAB HEMETOLOGY METHOD 07/22/2024 10:39 AM EST [facility] RDW 15.0 11.0 - 15.0 % LAB HEMETOLOGY METHOD 07/22/2024 10:39 AM [facility] Platelets 415(H) 130 - 400 K/mcL LAB HEMETOLOGY METHOD 07/22/2024 10:39 AM [facility] MPV 12.5(H) 7.0 - 11.0 FL LAB HEMETOLOGY METHOD 07/22/2024 10:39 AM EST [facility] NRBC 0.0 <1.0 % LAB HEMETOLOGY METHOD 07/22/2024 10:39 AM [facility] NRBC Absolute 0.00 <0.10 K/mcL LAB HEMETOLOGY METHOD 07/22/2024 10:39 AM [facility] Blood Venous blood specimen / Unknown Venipuncture / Unknown 07/22/2024 5:50 AM EST 07/22/2024 9:40 AM EST Nicolle Rosenberg MD LAB BLOOD ORDERABLES Final Resul t [facility] [address] [place] [address], documented in this encounter Visit Diagnoses Diagnosis Essential (primary) hypertension Unspecified essential hypertension Unspecified atrial fibrillation (CMS/HCC) documented in this encounter Care Teams Supervisor Erection Shop Relationship Specialty Start Date End Date Olu Norris MD [address] [place] [address], [phone] PCP - General Family Medicine 07/06/24 documented as of this encounter
--- OUTSIDE RECORDS SUMMARY | 2024-09-08 08:35 | XMS_ITS ---
Author Organization [facility] Address [address] [place] [address] [place] [address] Care Team Providers Care Migration Agent Name Role Phone Brian CLEANING, Frandy Primary Care Provider Unavailab Jordana Pierce Unavailable [phone] Encounters Encounter Location Date Provider Diagnosis [address] [address] 06/01/2024 Jordana Duval Plan Of Treatment No Information Progress Notes * Graham KERRDOB: [birth year] (73 yo M)Acc No.[id number]:06/01/2024 Progress Note Patient:?Graham KERR Provider:?Jordana Duval DPM :1950???Age:73 Y???Sex:Male Gigi e:06/01/2024 Address:[address] [place], [place] [address]Patrizia [id number] Pcp:Frandy Torres MD Subjective: * Chief Complaints: [...] Duval DPM Date:?01/2024 Generated for Misha hand/Josefina/eTransmitting on:?09/08/2024 08:35 AM EST
--- OUTSIDE RECORDS SUMMARY | 2024-09-08 08:35 | XMS_ITS ---
Author Organization [facility] Address [address] [place] [address] Care Team Providers Care Booster Plant Operator Name Role Phone Frandy Torres MD Primary Care Provider Unavailab Jordana Pierce Unavailable [phone] REASON FOR VISIT cx 06/01 appt Encounters Encounter Location Date Provider Diagnosis [address] [address] 05/30/2024 Jordana Duval Plan Of Treatment No Information Progress Notes * Graham KERRDOB: 3 (73 yo M)Acc No.[id number]:05/30/2024 Patient:?Graham Kerr :1950???Age:73 Y???Sex:Male [facility] [facility] [place] [address] * true * Date:? Generated for Renai yazan/Josefina/eTransmitting on:?09/08/2024 08:34 AM EST
--- OUTSIDE RECORDS SUMMARY | 2024-09-08 08:35 | XMS_ITS ---
Author Organization [facility] Address [address] [place] [address] Care Team Providers Care Bagging Salvager Name Role Phone Frandy Torres MD Primary Care Provider Unavailab Jordana Pierce Unavailable [phone] REASON FOR VISIT [facility] pp[facility]k Encounters Encounter Location Date [facility] [address] [place] [address] [place] [address] 03/16/2024 Jrodana Duval Plan Of Treatment No Information Progress Notes * Graham KERRDOB: [birth year] (73 yo M)Acc No.[id number]:03/16/2024 Patient:?Graham Kerr :1950???Age:73 Y???Sex:Male Address:[address] [place], [place] [address] [place] [address] * true * Date:? Generated for Misha hand/Josefina/eTransmitting on:?09/08/2024 08:35 AM EST
== END 2024-09-08 08:23 | disposition home or self-care (01) ==
LOC: HO.HOS 08:21
PROVIDERS: PCP Family Medicine; Visit Provider Physician Assistant
DX: T84.038A Mechanical loosening of other internal prosthetic joint, initial encounter (principal); Z47.1 Aftercare following joint replacement surgery; Z96.642 Presence of left artificial hip joint
CPT/HCPCS: 99024

== ENCOUNTER 2024-09-08 10:27 | Outpatient (BNV) | payer OTHER, SELFPAY | END 2024-09-09 12:37 | PROVIDERS: Admitting Provider Physician Assistant; Visit Provider Internal Medicine Cardiovascular Disease | DX: I48.91 Unspecified atrial fibrillation (principal) | CPT/HCPCS: 93010 ==

== ENCOUNTER 2024-09-08 10:27 | Inpatient (IN) | payer OTHER, MEDICARE, SELFPAY ==
--- NOTE | ~2024-09-08 | US_ITS ---
CLINICAL HISTORY: r o bilat lower extremity DVT Venous duplex ultrasound bilateral lower extremity Comparison: US/SR - US VENOUS DUPLEX LE LT - 12/14/22 14:20 EDT US/SR - US VENOUS DUPLEX LE BI - 08/03/22 08:10 EST Findings: The visualized deep veins are fully compressible with normal Doppler color flow and spectral tracings. No right-sided popliteal cyst. There is a left popliteal cyst measuring 3.4 x 1.1 x 3.0 cm IMPRESSION: 1. Negative for bilateral lower extremity deep vein thrombosis. 2. Left popliteal cyst present. This document has been electronically signed by: Saul Mcarthur MD on 09/08/2024 20:13:51
--- NOTE | ~2024-09-08 | FL_ITS ---
EXAMINATION: XR FLUOROSCOPY WITH IMAGES CLINICAL INFORMATION: Left hip aspiration. COMPARISON: X-rays dated 05/17/2025. TECHNIQUE: Fluoroscopy provided to: Dr. Marie Fluoroscopy time: 0.2 minutes DAP: 0.115 mGycm2 Images: 5 FINDINGS: 5 images obtained left hip during aspiration hip arthroplasty. Please refer to the full operative report for details. FL/FL guidance in OR IMPRESSION: Fluoroscopic guidance. Electronically signed by: Lopez Desai MD 09/13/2024 08:21 AM INDER
--- OUTSIDE RECORDS SUMMARY | 2024-09-08 11:19 | XMS_ITS | Encounter Summary ---
Author Organization [employer] Address [address] [place] [address] Care Team Providers Care Geophysical Prospecting Surveyor Name Role Phone Olu Norris MD Primary Care Provider [phone] Encounter Details Date Type Department Care Team (Late st Contact Info) Description 07/05/2024 Lab Requisition [facility] - Main Lab [address] [facility] [place] [address] Olu Norris MD [address] [place] [address] [address] [place], [phone] Presence of unspecified artificial hip joint; [...] Final Resul t Performing Organization Address City/[facility]/ZIP Co de Phone Number [facility] [address] [place] [address], [place] [phone] * (ABNORMAL) Folate (07/05/2024 9:36 AM EST) Folate 17.7(H) 2.8 - 17.0 ng/ml LAB CHEMISTRY METHOD 07/05/2024 12:58 PM EST [facility] Blood Venous blood specimen / Unknown Venipuncture / Unknown 07/05/2024 9:36 AM EST 07/05/2024 10:45 AM EST us Olu Norris MD LAB BLOOD ORDERABLES Final Resul t Performing Organization Address City/[facility]/ZIP Co de Phone Number [facility] [address] [place] [address], [place] [phone] * Vitamin B12 (07/05/2024 9:36 AM EST) Pathologist [facility] Vitamin B-12 251 250 - 900 pcg/mL LAB CHEMISTRY METHOD 07/05/2024 1:12 PM [facility] Blood Venous blood specimen / Unknown Venipuncture / Unknown 07/05/2024 9:36 AM EST 07/05/2024 10:45 AM EST Olu Norris MD LAB BLOOD ORDERABLES Final Resul t Performing Organization Address City/[facility]/ZIP Co de Phone Number [facility] [address] [place] [address], [place] [phone] * Thyroid stimulating hormone (07/05/2024 9:36 AM EST) [facility] TSH 1.20 0.40 - 4.00 mcIU/mL LAB CHEMISTRY METHOD 07/05/2024 12:57 PM [facility] Blood Venous blood specimen / Unknown Venipuncture / Unknown 07/05/2024 9:36 AM EST 07/05/2024 10:45 AM EST Olu Norris MD LAB BLOOD ORDERABLES Final Resul t Performing Organization Address [facility]/ZIP Ma de Phone Number [facility] [address] [place] [address], [place] [phone] * (ABNORMAL) Comprehensive metabolic panel (07/05/2024 9:36 AM EST) [facility] Sodium 140 133 - 145 mmol/L LAB CHEMISTRY METHOD 07/05/2024 12:47 PM [facility] Potassium 3.9 3.5 - 5.5 mmol/L LAB CHEMISTRY METHOD 07/05/2024 12:47 PM [facility] Chloride 105 96 - 110 mmol/L LAB CHEMISTRY METHOD 07/05/2024 12:47 PM EST [facility] CO2 28 21 - 32 mmol/L LAB CHEMISTRY METHOD 07/05/2024 12:47 PM [facility] Anion Gap 7 3 - 11 LAB CHEMISTRY METHOD 07/05/2024 12:47 PM [facility] Glucose 85 70 - 100 mg/dL LAB CHEMISTRY METHOD 07/05/2024 12:47 PM [facility] BUN 16 5 - 25 mg/dL LAB CHEMISTRY METHOD 07/05/2024 12:47 PM [facility] Creatinine 1.05 0.70 - 1.30 mg/dL LAB CHEMISTRY METHOD 07/05/2024 12:47 PM [facility] eGFR 76 >=60 mL/min/1. 73m2 LAB CHEMISTRY METHOD 07/05/2024 12:47 PM [facility] Comment:Calculation based on the??Chronic Kidney Disease Epidemiology Collaboration (CKD-EPI) equation refit??without adjustment for race. BUN/Creatinine Ratio 15.2 LAB CHEMISTRY METHOD 07/05/2024 12:47 PM [facility] Calcium 8.9 8.5 - 10.5 mg/dL LAB CHEMISTRY METHOD 07/05/2024 12:47 PM [facility] AST (SGOT) 19 10 - 42 unit/L LAB CHEMISTRY METHOD 07/05/2024 12:47 PM [facility] ALT (SGPT) 34 10 - 60 unit/L LAB CHEMISTRY METHOD 07/05/2024 12:47 PM [facility] Alkaline Phosphatase 110 42 - 121 unit/L LAB CHEMISTRY METHOD 07/05/2024 12:47 PM [facility] Total Protein 5.5(L) 6.0 - 8.0 g/dL LAB CHEMISTRY METHOD 07/05/2024 12:47 PM [facility] Albumin 2.6(L) 3.2 - 5.0 g/dL LAB CHEMISTRY METHOD 07/05/2024 12:47 PM [facility] Total Bilirubin 1.0 0.0 - 1.4 mg/dL LAB CHEMISTRY METHOD 07/05/2024 12:47 PM [facility] Blood Venous blood specimen / Unknown Venipuncture / Unknown 07/05/2024 9:36 AM EST 07/05/2024 10:45 AM EST us Olu Norris MD LAB BLOOD ORDERABLES Final Resul t [facility] [address] [place] [address], [place] [phone] * (ABNORMAL) Complete blood count (07/05/2024 9:36 AM EST) WBC 8.9 4.8 - 10.8 K/mcL LAB HEMETOLOGY METHOD 07/05/2024 12:14 PM [facility] RBC 3.00(L) 4.50 - 5.50 M/mcL LAB HEMETOLOGY METHOD 07/05/2024 12:14 PM [facility] Hemoglobin 9.6(L) 13.5 - 17.5 g/dL LAB HEMETOLOGY METHOD 07/05/2024 12:14 PM [facility] Hematocrit 30.5(L) 42.0 - 54.0 % LAB HEMETOLOGY METHOD 07/05/2024 12:14 PM [facility] MCV 101.0(H) 79.0 - 98.0 FL LAB HEMETOLOGY METHOD 07/05/2024 12:14 PM [facility] MCH 31.8 27.0 - 32.0 pcg LAB HEMETOLOGY METHOD 07/05/2024 12:14 PM [facility] MCHC 31.5(L) 32.0 - 37.0 g/dL LAB HEMETOLOGY METHOD 07/05/2024 12:14 PM [facility] RDW 14.7 11.0 - 15.0 [...] K/mcL LAB HEMETOLOGY METHOD 07/05/2024 12:14 PM [facility] Blood Venous blood specimen / Unknown Venipuncture / Unknown 07/05/2024 9:36 AM EST 07/05/2024 10:45 AM EST us Olu Norris MD LAB BLOOD ORDERABLES Final Resul t [facility] [address] [place] [address], documented in this encounter Visit Diagnoses Diagnosis Presence of unspecified artificial hip joint Vitamin deficiency, unspecified Unspecified atrial fibrillation (CMS/HCC) documented in this encounter Care Teams Geophysical Prospecting Surveyor Relationship Specialty Start Date End Date Olu Norris MD [address] [place] [address], [phone] PCP - General Family Medicine 07/06/24 documented as of this encounter
--- OUTSIDE RECORDS SUMMARY | 2024-09-08 11:19 | XMS_ITS | Patient Health Record ---
Author Organization [facility] Address [address] [place] [address] Care Team Providers Care Administrative Office Manager Name Role Phone Brian CLEANING, Frandy Primary Care Provider Unavailab Stevan Jones Unavailable [phone] REASON FOR REFERRAL No Information MEDICATIONS Medication [...] Problem Adenomatous colon polyp (D12.6) Active confirmed 664426806 Problem Colon polyps (K63.5) Active confirmed 87117780 Problem Colon cancer screening (Z12.11) Active confirmed 640562249 Problem History of adenomatous polyp of colon (Z86.010) Active confirmed 992468879 Problem Encounter for screening for malignant neoplasm of colon (Z12.11) Active confirmed 681433569 Problem Preprocedural examination (Z01.818) Active confirmed 328776925547881 Problem Diverticulosis of colon (K57.30) Active confirmed Diverticulosi s of colon (267493379) PLAN OF TREATMENT Pending Test Test Name Order Date Pathology 04/04/2021 Future Test Test Name Order Date COLONOSCOPY 05/22/2015 COLONOSCOPY 02/20/2021 Insurance Providers Payer Name Payer Address Payer Phone Subscriber Number Group Number Insured Name Patient Relationship to Insured Coverage Start Date Coverage End Date [employer] [address] [place] [address] [phone] [id number] GAEL KERR Self - patient is the insured MEDICAL (GENERAL) HISTORY Medical History History ICD Code Colonoscopy 01-06-2010 and 12 12--removal of small tubular adenomas, mild sigmoid diverticulosis, and small internal hemorrhoids Denies IN,DM,CVA,Lung disease,renal dise ase Afib Hypertension Colonoscopy 07/2015 with removal of 4 sma ll tubular adenomas Surgical History Surgery Date(Month/Year) Hip replacement on the right side - Dr. Marie 2016
--- OUTSIDE RECORDS SUMMARY | 2024-09-08 11:19 | XMS_ITS | Encounter Summary ---
Author Organization [facility] Address [address] [place] [address] Care Team Providers Care Dressage Judge Name Role Phone Olu Norris MD Primary Care Provider [phone] Encounter Details Date Type Department Care Team (Late st Contact Info) Description 07/22/2024 Lab Requisition [facility] - Main Lab [address] [place] [address] Nicolle Rosenberg MD [address] [place] [id number] Essential (primary) hypertension; Unspecified atrial fibrillation (CMS/HCC) [...] 11:01 AM EST [facility] Potassium 4.1 3.5 - 5.5 mmol/L LAB CHEMISTRY METHOD 07/22/2024 11:01 AM EST [facility] Chloride 106 96 [...] 11:01 AM EST [facility] Total Bilirubin 1.1 0.0 - 1.4 mg/dL LAB CHEMISTRY METHOD 07/22/2024 11:01 AM [facility] Blood Venous blood specimen / Unknown Venipuncture / Unknown 07/22/2024 5:50 AM EST 07/22/2024 9:40 AM EST us Nicolle Rosenberg MD LAB BLOOD ORDERABLES Final Resul t [facility] [address] [place] [address], * (ABNORMAL) Complete blood count (07/22/2024 5:50 AM EST) WBC 9.1 4.8 - 10.8 K/mcL LAB HEMETOLOGY METHOD 07/22/2024 10:39 AM [facility] RBC 3.10(L) 4.50 - 5.50 M/[facility] LAB HEMETOLOGY METHOD 07/22/2024 10:39 AM [...] 10:39 AM EST [facility] RDW 15.0 11.0 - 15.0 % LAB HEMETOLOGY METHOD 07/22/2024 10:39 AM [facility] Platelets 415(H) 130 - 400 K/mcL LAB HEMETOLOGY METHOD 07/22/2024 10:39 AM [facility] MPV 12.5(H) 7.0 - 11.0 FL LAB HEMETOLOGY METHOD 07/22/2024 10:39 AM EST [facility] NRBC 0.0 <1.0 % LAB HEMETOLOGY METHOD 07/22/2024 10:39 AM [facility] NRBC Absolute 0.00 <0.10 K/mcL LAB HEMETOLOGY METHOD 07/22/2024 10:39 AM [facility] Blood Venous blood specimen / Unknown Venipuncture / Unknown 07/22/2024 5:50 AM EST 07/22/2024 9:40 AM EST Nicolle Rosenberg MD LAB BLOOD ORDERABLES Final Resul t [facility] [address] [place] [address], documented in this encounter Visit Diagnoses Diagnosis Essential (primary) hypertension Unspecified essential hypertension Unspecified atrial fibrillation (CMS/HCC) documented in this encounter Care Teams Dressage Judge Relationship Specialty Start Date End Date Olu Norris MD [address] [place] [address], [phone] PCP - General Family Medicine 07/06/24 documented as of this encounter
--- OUTSIDE RECORDS SUMMARY | 2024-09-08 11:19 | XMS_ITS | Clinical Summary ---
Author Organization [address] [facility] Address [address] [place] [address] Phone Care Team Providers Care Manager Mining Name Role Phone Olu Norris MD Primary Care Provider [phone] Encounters Date Type Department Care Team Description 07/22/2024 Lab Requisition [facility] Lab [address] [place] [address] Nicolle Rosenberg MD Essential (primary) hypertension; Unspecified atrial fibrillation (CMS/HCC) 07/05/2024 Lab Requisition [facility] Lab [address] [place] [address] Olu Norris MD Presence of [...] K/mcL LAB HEMETOLOGY METHOD 07/22/2024 10:39 AM [facility] RBC 3.10(L) 4.50 - 5.50 M/mcL LAB HEMETOLOGY METHOD 07/22/2024 10:39 AM [facility] Hemoglobin 9.5(L) 13.5 - 17.5 g/dL LAB HEMETOLOGY METHOD 07/22/2024 10:39 AM [facility] Hematocrit 30.5(L) 42.0 - 54.0 % LAB HEMETOLOGY METHOD 07/22/2024 10:39 AM [facility] MCV 97.1 79.0 - 98.0 FL LAB HEMETOLOGY METHOD 07/22/2024 10:39 AM [facility] MCH 30.3 27.0 - 32.0 pcg LAB HEMETOLOGY METHOD 07/22/2024 10:39 AM [facility] MCHC 31.1(L) 32.0 - 37.0 g/dL LAB HEMETOLOGY METHOD 07/22/2024 10:39 AM [facility] RDW 15.0 11.0 - 15.0 % LAB HEMETOLOGY METHOD 07/22/2024 10:39 AM EST [facility] Platelets 415(H) 130 - 400 K/mcL LAB HEMETOLOGY METHOD 07/22/2024 10:39 AM [facility] MPV 12.5(H) 7.0 - 11.0 FL LAB HEMETOLOGY METHOD 07/22/2024 10:39 AM EST [facility] LAB NRBC 0.0 <1.0 % LAB HEMETOLOGY METHOD 07/22/2024 10:39 AM EST [facility] LAB NRBC Absolute 0.00 <0.10 K/mcL LAB HEMETOLOGY METHOD 07/22/2024 10:39 AM [facility] Blood Venous blood specimen / Unknown Venipuncture / Unknown 07/22/2024 5:50 AM EST 07/22/2024 9:40 AM EST Nicolle Rosenberg MD LAB BLOOD ORDERABLES Final Resul t [facility] [address] [place] [address], * (ABNORMAL) Comprehensive metabolic panel (07/22/2024 5:50 AM EST) Only the most recent of2 resultswithin the time period is included. Sodium 140 133 - 145 mmol/L LAB CHEMISTRY METHOD 07/22/2024 11:01 AM [facility] Potassium 4.1 3.5 - 5.5 mmol/L LAB CHEMISTRY METHOD 07/22/2024 11:01 AM [facility] Chloride 106 96 - 110 mmol/L LAB CHEMISTRY METHOD 07/22/2024 11:01 AM EST [facility] CO2 28 21 - 32 mmol/L LAB CHEMISTRY METHOD 07/22/2024 11:01 AM EST [facility] Anion Gap 6 3 - 11 LAB CHEMISTRY METHOD 07/22/2024 11:01 AM [facility] Glucose 76 70 - 100 mg/dL LAB CHEMISTRY METHOD 07/22/2024 11:01 AM [facility] BUN 12 5 - 25 mg/dL LAB CHEMISTRY METHOD 07/22/2024 11:01 AM [facility] Creatinine 0.87 0.70 - 1.30 mg/dL LAB CHEMISTRY METHOD 07/22/2024 11:01 AM [facility] LAB eGFR 92 >=60 mL/min/1. 73m2 LAB CHEMISTRY METHOD 07/22/2024 11:01 AM [facility] LAB Comment:Calculation based on the??Chronic Kidney Disease Epidemiology Collaboration (CKD-EPI) equation refit??without adjustment for race. BUN/Creatinine Ratio 13.8 LAB CHEMISTRY METHOD 07/22/2024 11:01 AM [facility] Calcium 8.8 8.5 - 10.5 mg/dL LAB CHEMISTRY METHOD 07/22/2024 11:01 AM [facility] AST (SGOT) 31 10 - 42 unit/L LAB CHEMISTRY METHOD 07/22/2024 11:01 AM [facility] ALT (SGPT) 31 10 - 60 unit/L LAB CHEMISTRY METHOD 07/22/2024 11:01 AM [facility] Alkaline Phosphatase 128(H) 42 - 121 unit/L LAB CHEMISTRY METHOD 07/22/2024 11:01 AM [facility] Total Protein 5.5(L) 6.0 - 8.0 g/dL LAB CHEMISTRY METHOD 07/22/2024 11:01 AM [facility] Albumin 2.6(L) 3.2 - 5.0 g/dL LAB CHEMISTRY METHOD 07/22/2024 11:01 AM [facility] Total Bilirubin 1.1 0.0 - 1.4 mg/dL LAB CHEMISTRY METHOD 07/22/2024 11:01 AM [facility] Blood Venous blood specimen / Unknown Venipuncture / Unknown 07/22/2024 5:50 AM EST 07/22/2024 9:40 AM EST us Nicolle Rosenberg MD LAB BLOOD ORDERABLES Final Resul t Performing Organization Address [facility] Co de Phone Number [facility] [address] [place] [address], [place] [phone] * (ABNORMAL) Vitamin D 25 hydroxy (07/05/2024 9:36 AM EST) Vit D, 25-Hydroxy 22.7(L) 30.0 - 80.0 ng/mL LAB CHEMISTRY METHOD 07/05/2024 12:57 PM EST [facility] Blood Venous blood specimen / Unknown Venipuncture / Unknown 07/05/2024 9:36 AM EST 07/05/2024 10:45 AM EST us Olu Norris MD LAB BLOOD ORDERABLES Final Resul t Performing Organization Address [facility] de Phone Number [facility] [address] [place] [address], * Thyroid stimulating hormone (07/05/2024 9:36 AM EST) [facility] TSH 1.20 0.40 - 4.00 mcIU/mL LAB CHEMISTRY METHOD 07/05/2024 12:57 PM EST [facility] Blood Venous blood specimen / Unknown Venipuncture / Unknown 07/05/2024 9:36 AM EST 07/05/2024 10:45 AM EST us Olu Norris MD LAB BLOOD ORDERABLES Final Resul t Performing Organization Address City/[facility] Co de Phone Number [facility] [address] [place] [address], [place] [phone] * (ABNORMAL) Folate (07/05/2024 9:36 AM EST) Folate 17.7(H) 2.8 - 17.0 ng/ml LAB CHEMISTRY METHOD 07/05/2024 12:58 PM EST [facility] Blood Venous blood specimen / Unknown Venipuncture / Unknown 07/05/2024 9:36 AM EST 07/05/2024 10:45 AM EST Olu Norris MD LAB BLOOD ORDERABLES Final Resul t Performing Organization Address City/[facility]/ZIP Co de Phone Number [facility] [address] [place] [address], [place] [phone] * Vitamin B12 (07/05/2024 9:36 AM EST) [facility] Vitamin B-12 251 250 - 900 pcg/mL LAB CHEMISTRY METHOD 07/05/2024 1:12 PM EST [facility] Blood Venous blood specimen / Unknown Venipuncture / Unknown 07/05/2024 9:36 AM EST 07/05/2024 10:45 AM EST Olu Norris MD LAB BLOOD ORDERABLES Final Resul t Performing Organization Address City/[facility]/ZIP Co de Phone Number [facility] [address] [place] [address], [place] [phone] from Last 3 Months Insurance MEDICARE [employer] Care Teams Manager Mining Relationship Specialty Start Date End Date Olu Norris MD [address] [place] [address], [phone] PCP - General Family Medicine 07/06/24
[2024-09-08 13:20] VITALS: BP 112/68; PULSE 97; RESP 20; TEMP 36.6; O2SAT 100
[2024-09-08 13:25] VITALS: BMI 27.1
[2024-09-08] MEDS: Lactated Ringers 1,000 ML 100 ML IVCONT (13:45)
--- NOTE | 2024-09-08 14:50 | PC.NURSE ---
Patient in preop. Last took Eliquis PO yesterday. Dr. Marie at bedside and made aware. Okay to proceed with local procedure.
[2024-09-08 14:52] VITALS: BP 113/68; PULSE 86; RESP 16; TEMP 37.4; O2SAT 97
[2024-09-08 15:48] VITALS: BP 115/60; PULSE 92; RESP 17; TEMP 37.3; O2SAT 100
[2024-09-08 16:00] VITALS: BP 134/70; PULSE 93; RESP 16; TEMP 36.5; O2SAT 99
[2024-09-08] MEDS: 0.9 % Sodium Chloride Flush 3 ML SYRINGE IVFLUSH (16:01)
--- NOTE | 2024-09-08 17:04 | PHA.MEDREC ---
Addendum entered by Mary Barron RPh 09/08/24 17:23: reviewed by [facility]. Original Note: Pharmacy Consult ? Medication Reconciliation Pharmacy has completed the medication reconciliation. Spoke with patient and he confirmed his medications, dosage and how he is taking them. He states he is filling everything at [facility]. He confirmed he is taking his Eliquis 5mg tab twice day and confirmed he took it yesterday but states he is stopping it today for 5 days until he sees his Dr in [place] on Wednesday to see if he is going to start it again. He confirmed he took his Diltiazem 240mg tab and Metoprolol 50mg tab this morning and everything else yesterday.
--- NOTE | 2024-09-08 17:08 | PM.OP ---
Brief Operative Note Date of Service: 09/08/24 Pre-op diagnosis: Aseptic loosening left hip Post-op diagnosis: same Procedure: Aspiration left hip Implants: none Surgeon: Dwayne Marie MD Anesthesia: local Was an Animal Impersonator used for this Procedure?: Yes Animal Impersonator: Kristi Ponce Estimated blood loss (mL): 5 IV fluids (mL): 0 Pathology: other Condition: stable Disposition: PACU
--- NOTE | 2024-09-08 17:27 | P.DS_ITS ---
DS: Providers Provider Date of Service: 09/11/24 Date of admission: 09/08/24 10:27 Date of discharge: 09/11/24 Primary care physician: Unknown Physician Consults: 09/08/24 17:02 Consult to Cardiology Routine Consulting Provider: [facility] Reason for consultation: pre op examination pending revision left total hip Consult to Hospitalist Routine Comment: Consulting Provider: [facility] Hospitalists Reason For Exam: pre op exam, anemia, pending revision lt total hip DS: Transfer Hospital Acceptance Reason for Transfer: Aseptic Loosening in a complicated KATINA Name of Facility: [facility] Accepting Provider: Dr. Bain DS: Diagnosis Discharge Diagnosis (1) Aseptic loosening of prosthetic hip: Status: Acute DS: Summary Hospital Course Hospital Course: 73 yo male admitted to the Orthopedic service on 09/08/24 for aseptic loosening of the left hip. The patient underwent a successful Left total hip arthrop lasty on 06/28/[address] Dennis. He was discharged 06/30/24 to a STR where he was progressing well. 07/17/24 he was seen in the Orthopedic office for his 2wk routine post op appt, xrays obtained which demonstrated aseptic loosening of the acetabulum. He was direct admitted to the hospital at that time for revision LT KATINA on 07/18/25. On 07/18/25 patient underwent a successful Revision arthroplasty left hip femur and acetabulum * Implants: Rukhsana Accolade2#6 127 deg with +5 36 CoCr 15x 62 acetabular augment with 3 6.5 mm screws and a 60 mm [place] rim fit cemented cup He was discharged on 07/21/24 to a STR where he was progressing well. 08/03/24 he was seen in the Orthopedic office for his 2wk routine post op appt, xrays obtained which demonstrated intact hardware without complications. Patient continued WBAT with a walker. 08/17/24 routine post op appt in Orthopedic office with xrays demonstrated orthopedic harware failure of the acetabulum. The plan was to proceed with another revision surgery; however, the patient was experiencing conflicts with insurance and the plan was to proceed when this was straightening out. -in the meantime, our office was in the process of contacting a surgeron who could perform a complex revision arthroplasty surgery of the hip. 09/07/24-patient returned to the orthopedic office in a wheelchair, unable to bear weight. Decision was made to direct admit , perform aspiration to rule out infection and proceed with transfer options. 09/08/24 Left hip intra-articular aspiration performed. No fluid obtained. -the patient is on Eliquis which was held, Lovenox 40mg sub Q started q24 hrs 09/09/24 Bilat lower ext US negative for DVT -patient is on lovenox for dvt ppx/compression boots -H/H 7.3/23.2--> patients transfused with 2 unites PRBCs, also on Iron supplementation 09/09/24 Hospitalist Consultation: for management of comorbidities and preop optimization and risk assessment -Plan 73-year-old male with a past history significant for persistent AFib on Eliquis, HTN, and GERD admitted to orthopedic service for aseptic loosening of left hip hardware Persistent atrial fibrillation Hold Eliquis for surgery, continue metoprolol and diltiazem Hypertension Continue diltiazem and metoprolol Acute anemia unspecified Check iron studies, transfusing 2 units PRBC, follow up CBC Aseptic loosening of left hip hardware No need for anticoagulation bridge, was transfused prior to surgery and make sure hemoglobin stable, obtain EKG, benefits of surgery Outweigh risks would proceed as planned. DVT prophylaxis-Lovenox/compression boots 09/10/24 -H/H has improved after 2 units , today 9.0/27.6 -Vitals stable -he has been out of bed ambulating to restroom and has normal BM 09/11/24 -H/H 9.4/29.1 -Vitals stable The plan is for the patient to be Transferred to [facility]. Time Attestation Discharge Coordination Time (in mins): 60 Quality: Safe Use of Opioids Does Pt have an Active Cancer Diagnosis on the Problem List?: No Quality: Stroke Does the patient have a stroke diagnosis?: No Physical Exam Vital Signs: Vital Signs: Last Vital Signs Temp 97.7 F 09/08/24 16:00 Pulse 93 09/08/24 16:00 Resp 16 09/08/24 16:00 BP 134/70 09/08/24 16:00 Pulse Ox 99 09/08/24 16:00 O2 Del Method Room Air 09/08/24 16:00 BMI result Body Mass Index 27.1 Const: General: cooperative, healthy appearing and no acute distress Resp: Effort & Inspection: normal respiratory effort and able to speak in complete sentences Cardio: Rate: regular rate Peripheral pulses: Peripheral pulses 2+ throughout GI: Palpation (GI): Soft to palpation Skin: General skin exam: no rashes or lesions noted Extrem: Other: Left hip incision well healed. Mild erythema, no drainage or pain. DS: Data Data Completed and Pending Completed studies during hospitalization [Text1]: Procedures Removal of Synthetic Substitute from Left Hip Joint, Open Approach (07/17/24) Replacement of Left Hip Joint with Synthetic Substitute, Cemented, Open Approach (07/17/24) Transfusion of Nonautologous Red Blood Cells into Peripheral Vein, Percutaneous Approach (07/17/24) Discharge Plan Discharge Anticipated Discharge Date/Time: 09/11/24 15:32 Patient Disposition: [facility] Hospital Discharge Diagnosis: aseptic loosening left KATINA Discharge Medications: New enoxaparin 40 mg/0.4 mL Syringe 40 mg subcut Q24H 5 Days Qty: 2 0RF ferrous sulfate 324 mg (65 mg iron) Tablet,Delayed Release (Dr/Ec) 324 mg PO DAILY 30 Days Qty: 30 0RF Continued (DME) heel lift See Rx Instructions .ROUTE .MEDSUPPLY Qty: 1 0RF Rx Instructions: As directed Please measure leg length for righ side leg length discrepancy Fit as appropriate furosemide 20 mg tablet 20 mg PO DAILY Qty: 90 3RF omeprazole 20 mg Capsule,Delayed Release(Dr/Ec) 20 mg PO DAILY@0630 Glucosamine Chondroitin 550-30-1 mg Capsule 1 cap PO DAILY Centrum Silver Ultra Men's 152-05-198-300 mcg Tablet 1 tab PO DAILY acetaminophen 325 mg Tablet 650 mg PO Q6H PRN (Reason: Pain, Mild (Pain Scale 1-3), fever or headache) 30 Days Qty: 240 0RF diltiazem HCl 240 mg capsule,extended release 24hr 240 mg PO DAILY metoprolol tartrate 50 mg tablet 50 mg PO BID 90 Days Qty: 180 3RF Discontinued Eliquis 5 mg tablet 5 mg PO BID 90 Days Qty: 180 3RF Discharge Orders: Discharge Order (Routine); Ordered 09/11/24 Ordered By: aMciej Lemon Diet: Regular diet Activity on Discharge: Use cane or walker Stand Alone Forms: Patient Portal Discharge page Print Language: Greenlandic Care Plan Goals: Restore function of joint Health Concerns: none Plan of Treatment: Restore function of joint Assessment: Transfer to acute care hospital for further treatment
[2024-09-08] MEDS: Enoxaparin Sodium 40 MG/0.4 ML SYRINGE SUBCUT (18:01)
[2024-09-08 19:47] VITALS: BP 114/56; PULSE 86; RESP 18; TEMP 36.7; O2SAT 98
[2024-09-08] MEDS: Metoprolol Tartrate 50 MG TABLET PO (20:03)
[2024-09-08] MEDS: Docusate Sodium 100 MG CAPSULE PO (20:03)
[2024-09-08] MEDS: Celecoxib 200 MG CAPSULE PO (20:03)
[2024-09-09] VITALS (13 sets, daily range): BP systolic 103–127; BP diastolic 56–69; PULSE 69–96; RESP 16–20; TEMP 36.4–37.3; O2SAT 98–99
--- NOTE | 2024-09-09 | ECG_ITS ---
Test Reason : preop Blood Pressure : */* mmHG Vent. Rate : 68 BPM Atrial Rate : * BPM P-R Int : * ms QRS Dur : 72 ms QT Int : 392 ms P-R-T Axes : * 34 35 degrees QTcB Int : 416 ms Atrial fibrillation Abnormal ECG When compared with ECG of 17-Jul-2024 16:12, No significant change was found Referred By: Chandana Lozano Electronically Signed By: JEMIMA STERLING MD
[2024-09-09] MEDS: Lactated Ringers 1,000 ML 100 ML IVCONT ×2 (00:50→20:21)
[2024-09-09] MEDS: Omeprazole 20 MG CAPSULE.DR PO (05:38)
[2024-09-09 06:40] LABS: MANUAL DIFF FLAG NO
[2024-09-09 06:57] LABS: Anion Gap 11 (12-20); Blood Urea Nitrogen 15 mg/dL (9-16); Calcium 8.6 mg/dL (8.4-10.2); Carbon Dioxide 22 mmol/L (22-29); Chloride 106 mmol/L (96-108); Creatinine Clr Calc Pharmacy 61.2; Estimated Glomerular Filt Rate > 60; Glucose Fasting 71 mg/dL (60-99); Potassium 3.9 mmol/L (3.3-5.1); Sodium 135 mmol/L (135-145)
[2024-09-09 07:14] LABS: Basophils Absolute Auto 0.1 X10*3/uL (0.0-0.2); Basophils Percent Auto 1.4 % (0-2); Eosinophils Absolute Auto 0.4 X10*3/uL (0.0-0.4); Eosinophils Percent Auto 5.4 % (0-4); Hematocrit 23.2 % (42.0-52.0); Hemoglobin 7.3 g/dl (14.0-18.0); Imm Gran Abs Auto 0.02 X10*3/uL (0.00-0.03); Imm Gran Pct Auto 0.3 % (0.0-0.4); Lymphocytes Absolute Auto 2.2 X10*3/uL (1.2-4.9); Lymphocytes Percent Auto 30.9 % (20-40); Mean Corpuscular HGB Conc 31.5 g/dl (31.0-36.0); Mean Corpuscular Hemoglobin 27.5 pg (27.0-33.0); Mean Corpuscular Volume 87.5 fL (80.0-98.0); Mean Platelet Volume 9.7 fL (9.4-12.4); Monocytes Absolute Auto 0.8 X10*3/uL (0.1-1.2); Monocytes Percent Auto 10.8 % (2-11); Neutrophils Absolute Auto 3.6 x10*3/uL (2.0-8.3); Neutrophils Percent Auto 51.2 % (45-73); Platelet Count 397 X10*3/uL (160-400); Red Blood Count 2.65 X10*6/uL (4.60-5.80); Red Cell Distribution Width 17.2 % (11.0-16.0)
[2024-09-09] MEDS: Metoprolol Tartrate 50 MG TABLET PO ×2 (08:11→20:14)
[2024-09-09] MEDS: dilTIAZem HCL CD 240 MG CAP.ER.DEG PO (08:11)
[2024-09-09] MEDS: Furosemide 20 MG TABLET PO (08:11)
[2024-09-09] MEDS: Docusate Sodium 100 MG CAPSULE PO ×2 (08:11→20:14)
[2024-09-09] MEDS: Multivitamin TABLET 1 TAB PO (08:11)
[2024-09-09] MEDS: Ferrous Sulfate 324 MG TABLET.DR PO (08:11)
[2024-09-09] MEDS: Celecoxib 200 MG CAPSULE PO ×2 (08:12→20:14)
--- NOTE | 2024-09-09 10:13 | PM.EVENT ---
Event Note Date of Service: 09/09/24 Event Note: Patient was transferred prior to is able to consult on him Time Spent With Patient Time: Total time managing care of this patient today ____ minutes.
--- NOTE | 2024-09-09 10:54 | P.PNOP_ITS ---
Subjective Subjective Date of Service: 09/09/24 Interval history: LOS day 1 Left hip aseptiv loosening no overnight events resting in bed h/h 7.3/23.3 VSS no concerns Physical Exam Vital Signs: Vital Signs: Last Vital Signs Temp 97.8 F 09/09/24 07:44 Pulse 87 09/09/24 07:44 Resp 16 09/09/24 07:44 BP 118/64 09/09/24 07:44 Pulse Ox 98 09/09/24 07:44 O2 Del Method Room Air 09/09/24 07:44 BMI result Body Mass Index 27.1 Const: General: cooperative, healthy appearing and no acute distress Resp: Effort & Inspection: normal respiratory effort and able to speak in complete sentences Cardio: Rate: regular rate Peripheral pulses: Peripheral pulses 2+ throughout GI: Palpation (GI): Soft to palpation Skin: General skin exam: no rashes or lesions noted Extrem: Other: Reactive erythema and swelling around left hip incision. There is no discharge. He has minimal motion with passive motion of the left hip and is guarded. He has a 2+ DP pulse and firing EHL/TA/GC bilaterally Procedures Date of Service Date of Service: 09/09/24 Progress Note: A&P Assessment and plan (1) Aseptic loosening of prosthetic hip: Status: Acute Assessment and Plan: Patient requires inpatient stay for stabilization-h/h low at 7.3/23.3 -2units PRBCs -Iron DVT ppx -lovenox -U/S patrizia LE negative -compression boots Hospitalist consult Cardiology consult Pending transfer to [facility] Wednesday09/12/24 Time Spent With Patient Time: Total time managing care of this patient today ____ minutes. Quality Stroke Does the patient have a stroke diagnosis?: No VTE Prior VTE?: No VTE Risk Level:: Surgical - very high VTE Device Contraindication: N/A - Device Ordered VTE Drug Contraindication: N/A - Med Ordered
--- NOTE | 2024-09-09 11:19 | MHC.CM.PN ---
PT LICES ALONE HAS OWN RIDE HOME AND IS INDEPENDENT DC PLAN HOME NO SERVICES
--- NOTE | 2024-09-09 11:25 | PM.IMCN ---
History of Present Illness Data of Consult Service Date: 09/09/24 Primary Care Provider: Unknown Physician HPI Reason for consult: anemia 73-year-old male with a past history significant for persistent AFib on Eliquis, HTN, and GERD admitted to orthopedic service for aseptic loosening of left hip hardware. Medical consult requested for management of comorbidities and preop optimization and risk assessment. Patient denies chest pain, shortness of breath. Review of Systems Review of Systems: Yes all other systems are reviewed and are negative [facility] Medical History Arthritis Persistent atrial fibrillation Post-nasal drip Osteoarthritis GERD (gastroesophageal reflux disease) PAF (paroxysmal atrial fibrillation) On anticoagulant therapy HTN (hypertension) Surgical History Status post total hip replacement, left History of total left hip arthroplasty History of surgery on lower extremity History of cardioversion Hx of colonoscopy History of hip replacement Social History Household Members: None and Other Housing: Apartment Are you a primary career development coordinator/teacher to a significant other at home: No Do you presently have visiting nurse or other home services: No Alcohol intake: current Alcohol intake frequency: a few times a week Alcohol type: beer Patient Tobacco Use Status: Former Tobacco user Tobacco use type: Cigarette Years Smoked: 15 Use of substances other than those prescribed or required for medical reasons: No Currently Displaying Signs/Symptoms of Drug Intoxication Withdrawal: No Do you feel safe in your current relationship?: No Advance Directives: Yes Advance Directives on File: Yes Advance Directives Date on File: 09/10/22 Do you have a plan to hurt others: No Plan Recently lost weight without trying: No Eating poorly because of decreased appetite: No Poor oral hygiene: No service: No Meds Allergies Allergy/AdvReac Type Severity Reaction Status Date / Time No Known Allergies Allergy Verified 09/08/24 14:51 [No Known Allergies*] Active Medications: Current Medications Acetaminophen (Acetaminophen 325 Mg Tablet) 650 mg PO Q6H PRN PRN Reason: Pain, Mild 1-3,fever,headache Celecoxib (Celecoxib 200 Mg Capsule) 200 mg PO BID [facility] Last Admin: 09/09/24 08:12 Dose: 200 mg Diltiazem HCl (Diltiazem Hcl Cd 240 Mg Cap.Er.Deg) 240 mg PO DAILY [facility]; Protocol Last Admin: 09/09/24 08:11 Dose: 240 mg Docusate Sodium (Docusate Sodium 100 Mg Capsule) 100 mg PO BID [facility] Last Admin: 09/09/24 08:11 Dose: 100 mg Enoxaparin Sodium (Enoxaparin Sodium 40 Mg/0.4 Ml Syringe) 40 mg SUBCUT Q24H [facility] Last Admin: 09/08/24 18:01 Dose: 40 mg Ferrous Sulfate (Ferrous Sulfate 324 Mg Tablet.) 324 mg PO DAILY [facility] Last Admin: 09/09/24 08:11 Dose: 324 mg Furosemide (Furosemide 20 Mg Tablet) 20 mg PO DAILY [facility]; Protocol Last Admin: 09/09/24 08:11 Dose: 20 mg Hydromorphone HCl (Hydromorphone Hcl 0.5 Mg/0.5 Ml Syringe) 0.25 mg IVPUSH Q4H PRN; Protocol PRN Reason: Pain, Severe (Pain Scale 7-10) Lactated Ringer's (Lr) 1,000 mls @ 100 mls/hr IVCONT .Q10H [facility] Last Infusion: 09/09/24 11:05 Dose: Infused Magnesium Hydroxide (Milk Of Magnesia 30 Ml Oral.Susp) 30 ml PO DAILY PRN PRN Reason: Constipation Melatonin (Melatonin 3 Mg Tablet) 6 mg PO BEDTIME PRN PRN Reason: Insomnia Metoprolol Tartrate (Metoprolol Tartrate 50 Mg Tablet) 50 mg PO BID [facility]; Protocol Last Admin: 09/09/24 08:11 Dose: 50 mg Multivitamins/Vitamin C (Multivitamin Tablet) 1 tab PO DAILY [facility] Last Admin: 09/09/24 08:11 Dose: 1 tab Omeprazole (Omeprazole 20 Mg Capsule.) 20 mg PO DAILY@0630 [facility] Last Admin: 09/09/24 05:38 Dose: 20 mg Oxycodone HCl (Oxycodone Hcl Immed Release 5 Mg Tablet) 5 mg PO Q4H PRN PRN Reason: Pain, Moderate(Pain Scale 4-6) Sodium Chloride (0.9 % Sodium Chloride Flush 3 Ml Syringe) 3 ml IVFLUSH QSHIFT [facility] Last Admin: 09/09/24 08:13 Dose: Not Given Home Medications ?Medication ?Instructions ?Recorded ?Confirmed ?Last Taken ?Type glucosamine sulf dipot 1 cap PO DAILY 03/28/21 09/08/24 09/07/24 History chlr,msm,chond 550 mg-C 30 mg-william 1 mg capsule (Glucosamine Chondroitin) omeprazole 20 mg capsule,delayed 20 mg PO DAILY@0630 03/28/21 09/08/24 09/07/24 History release diltiazem HCl 240 mg 240 mg PO DAILY 05/28/21 09/08/24 09/08/24 History capsule,extended release 24 hr coiiavui-df-vbotn 300 mcg-K 60 1 tab PO DAILY 06/28/24 09/08/24 09/07/24 History mcg-lycop 600 mcg-lutein 300 mcg tablet (Centrum Silver Ultra Men's) Physical Exam Vital Signs and Narrative: Vital Signs: Last Vital Signs Temp 97.8 F 09/09/24 07:44 Pulse 87 09/09/24 07:44 Resp 16 09/09/24 07:44 BP 118/64 09/09/24 07:44 Pulse Ox 98 09/09/24 07:44 O2 Del Method Room Air 09/09/24 07:44 BMI result Body Mass Index 27.1 General: AOx3, no acute distress Resp: CTA bilaterally CVS: Irregular irregular rhythm GI: +BS, NT, no distention Skin: Warm, dry Neuro: Cranial nerves II-XII grossly intact bilaterally. Motor grossly intact bilaterally Extremities: No edema Psych: Appropriate affect Results Labs 09/09/24 06:01 09/09/24 06:01 Labs: Laboratory Results - last 24 hr 09/09/24 06:01 MCV 87.5 MCH 27.5 MCHC 31.5 RDW 17.2 H Plt Count 397 MPV 9.7 Immature Gran % (Auto) 0.3 Neut % (Auto) 51.2 Lymph % (Auto) 30.9 Aiken % (Auto) 10.8 Eos % (Auto) 5.4 H Baso % (Auto) 1.4 Lymph # (Auto) 2.2 Aiken # (Auto) 0.8 Eos # (Auto) 0.4 Baso # (Auto) 0.1 Abs Immat Gran (auto) 0.02 Absolute Neuts (auto) 3.6 Absolute Nucleated RBC 0.000 Nucleated RBC % (auto) 0.0 Anion Gap 11 L Estim Creat Clear Calc 61.2 Estimated GFR > 60 Fasting Glucose 71 Calcium 8.6 Assessment and Plan (1) PAF (paroxysmal atrial fibrillation): Status: Acute Plan 73-year-old male with a past history significant for persistent AFib on Eliquis, HTN, and GERD admitted to orthopedic service for aseptic loosening of left hip hardware Persistent atrial fibrillation Hold Eliquis for surgery, continue metoprolol and diltiazem Hypertension Continue diltiazem and metoprolol Acute anemia unspecified Check iron studies, transfusing 2 units PRBC, follow up CBC Aseptic loosening of left hip hardware No need for anticoagulation bridge, was transfused prior to surgery and make sure hemoglobin stable, obtain EKG, benefits of surgery Outweigh risks would proceed as planned. DVT prophylaxis-Lovenox
[2024-09-09 11:45] LABS: Iron 27 mcg/dL (45-160); Percent Iron Saturation 15 % (15-50); Total Iron Binding Capacity 184 mcg/dL (228-428); Unsaturated Iron Binding 157 ug/dL
[2024-09-09] MEDS: Enoxaparin Sodium 40 MG/0.4 ML SYRINGE SUBCUT (17:52)
[2024-09-10 03:15] VITALS: BP 142/64; PULSE 85; RESP 18; TEMP 36.3; O2SAT 99
[2024-09-10] MEDS: Lactated Ringers 1,000 ML 100 ML IVCONT (04:56)
[2024-09-10] MEDS: Omeprazole 20 MG CAPSULE.DR PO (05:07)
[2024-09-10 06:17] LABS: MANUAL DIFF FLAG NO
[2024-09-10 06:28] LABS: Basophils Absolute Auto 0.1 X10*3/uL (0.0-0.2); Basophils Percent Auto 1.4 % (0-2); Eosinophils Absolute Auto 0.5 X10*3/uL (0.0-0.4); Eosinophils Percent Auto 7.2 % (0-4); Hematocrit 27.6 % (42.0-52.0); Imm Gran Abs Auto 0.03 X10*3/uL (0.00-0.03); Imm Gran Pct Auto 0.4 % (0.0-0.4); Lymphocytes Absolute Auto 2.2 X10*3/uL (1.2-4.9); Lymphocytes Percent Auto 30.7 % (20-40); Mean Corpuscular HGB Conc 32.6 g/dl (31.0-36.0); Mean Platelet Volume 9.7 fL (9.4-12.4); Monocytes Absolute Auto 0.8 X10*3/uL (0.1-1.2); Monocytes Percent Auto 10.7 % (2-11); Neutrophils Absolute Auto 3.6 x10*3/uL (2.0-8.3); Neutrophils Percent Auto 49.6 % (45-73); Platelet Count 395 X10*3/uL (160-400); Red Blood Count 3.21 X10*6/uL (4.60-5.80); Red Cell Distribution Width 16.5 % (11.0-16.0); White Blood Count 7.2 X10*3/uL (4.8-10.8)
[2024-09-10 06:45] LABS: Anion Gap 14 (12-20); Blood Urea Nitrogen 16 mg/dL (9-16); Calcium 8.6 mg/dL (8.4-10.2); Carbon Dioxide 22 mmol/L (22-29); Chloride 106 mmol/L (96-108); Creatinine Clr Calc Pharmacy 68.2; Estimated Glomerular Filt Rate > 60; Glucose Fasting 75 mg/dL (60-99); Potassium 3.8 mmol/L (3.3-5.1); Sodium 138 mmol/L (135-145)
[2024-09-10 07:08] VITALS: BP 127/80; PULSE 76; RESP 20; TEMP 36.5; O2SAT 97
[2024-09-10] MEDS: Metoprolol Tartrate 50 MG TABLET PO ×2 (07:51→21:43)
[2024-09-10] MEDS: Ferrous Sulfate 324 MG TABLET.DR PO (07:52)
[2024-09-10] MEDS: Celecoxib 200 MG CAPSULE PO ×2 (07:52→21:43)
[2024-09-10] MEDS: dilTIAZem HCL CD 240 MG CAP.ER.DEG PO (07:52)
[2024-09-10] MEDS: Multivitamin TABLET 1 TAB PO (07:52)
[2024-09-10] MEDS: Docusate Sodium 100 MG CAPSULE PO ×2 (07:52→21:43)
[2024-09-10] MEDS: Furosemide 20 MG TABLET PO (07:52)
--- NOTE | 2024-09-10 12:49 | PM.EVENT ---
Event Note Date of Service: 09/10/24 Event Note: Spoke darío THOMPSON who is caring for Mr Stevenson currently. -he is doing well, no overnight events -he has been getting out of bed and using the restroom -has good BM -no additional complaints H/H has improved after 2 units , today 9.0/27.6 Vitals stable Time Spent With Patient Time: Total time managing care of this patient today ____ minutes.
[2024-09-10 16:00] VITALS: BP 116/65; PULSE 73; RESP 16; TEMP 36.8; O2SAT 95
[2024-09-10] MEDS: Enoxaparin Sodium 40 MG/0.4 ML SYRINGE SUBCUT (17:23)
[2024-09-10 19:40] VITALS: BP 127/60; PULSE 84; RESP 18; TEMP 36.5; O2SAT 98
[2024-09-10] MEDS: 0.9 % Sodium Chloride Flush 3 ML SYRINGE IVFLUSH (21:43)
[2024-09-11 04:00] VITALS: BP 143/74; PULSE 88; RESP 18; TEMP 36.9; O2SAT 98
[2024-09-11] MEDS: Omeprazole 20 MG CAPSULE.DR PO (05:50)
[2024-09-11 06:09] LABS: MANUAL DIFF FLAG NO
[2024-09-11 06:22] LABS: Basophils Absolute Auto 0.1 X10*3/uL (0.0-0.2); Eosinophils Absolute Auto 0.5 X10*3/uL (0.0-0.4); Eosinophils Percent Auto 6.4 % (0-4); Hematocrit 29.1 % (42.0-52.0); Hemoglobin 9.4 g/dl (14.0-18.0); Imm Gran Abs Auto 0.03 X10*3/uL (0.00-0.03); Imm Gran Pct Auto 0.4 % (0.0-0.4); Lymphocytes Absolute Auto 2.1 X10*3/uL (1.2-4.9); Lymphocytes Percent Auto 27.3 % (20-40); Mean Corpuscular HGB Conc 32.3 g/dl (31.0-36.0); Mean Corpuscular Hemoglobin 27.6 pg (27.0-33.0); Mean Corpuscular Volume 85.6 fL (80.0-98.0); Mean Platelet Volume 9.5 fL (9.4-12.4); Monocytes Percent Auto 13.3 % (2-11); Neutrophils Absolute Auto 4.1 x10*3/uL (2.0-8.3); Neutrophils Percent Auto 51.6 % (45-73); Platelet Count 391 X10*3/uL (160-400); Red Cell Distribution Width 16.6 % (11.0-16.0); White Blood Count 7.8 X10*3/uL (4.8-10.8)
[2024-09-11 06:46] LABS: Anion Gap 11 (12-20); Blood Urea Nitrogen 15 mg/dL (9-16); Calcium 8.7 mg/dL (8.4-10.2); Carbon Dioxide 25 mmol/L (22-29); Chloride 104 mmol/L (96-108); Estimated Glomerular Filt Rate > 60; Glucose Fasting 78 mg/dL (60-99); Potassium 3.8 mmol/L (3.3-5.1); Sodium 136 mmol/L (135-145)
[2024-09-11 07:54] VITALS: BP 112/58; PULSE 82; RESP 16; TEMP 36.3; O2SAT 93
[2024-09-11] MEDS: Multivitamin TABLET 1 TAB PO (08:17)
[2024-09-11] MEDS: Celecoxib 200 MG CAPSULE PO (08:17)
[2024-09-11] MEDS: Ferrous Sulfate 324 MG TABLET.DR PO (08:17)
[2024-09-11] MEDS: Furosemide 20 MG TABLET PO (08:17)
[2024-09-11] MEDS: dilTIAZem HCL CD 240 MG CAP.ER.DEG PO (08:17)
[2024-09-11] MEDS: Docusate Sodium 100 MG CAPSULE PO (08:17)
[2024-09-11] MEDS: Metoprolol Tartrate 50 MG TABLET PO (08:18)
[2024-09-11] MEDS: 0.9 % Sodium Chloride Flush 3 ML SYRINGE IVFLUSH (08:18)
--- NOTE | 2024-09-11 14:14 | P.EN_ITS ---
Event Note Date of Service: 09/11/24 Event Note: Suha at -spoke with her and registered the patient Sid transfer line fax number Time Spent With Patient Time: Total time managing care of this patient today ____ minutes.
--- NOTE | 2024-09-11 14:14 | PM.EVENT ---
Event Note Date of Service: 09/11/24 Event Note: Suha at -spoke with her and registered the patient Sid transfer line fax number Time Spent With Patient Time: Total time managing care of this patient today ____ minutes.
[2024-09-11 15:41] VITALS: BP 101/61; PULSE 78; RESP 14; TEMP 36.9; O2SAT 99
--- NOTE | 2024-09-11 16:04 | MHC.CM.PN ---
pt being dcd to acute care in [place]
[2024-09-11] MEDS: Enoxaparin Sodium 40 MG/0.4 ML SYRINGE SUBCUT (17:20)
[2024-09-11 17:27] VITALS: BP 106/58; PULSE 78; RESP 16; TEMP 37.1; O2SAT 96
--- NOTE | 2024-09-15 11:10 | W.PM.OPN ---
Operative Note Operative Note Date of Service: 09/08/24 Narrative: Date of Service: 09/08/24 Pre-op diagnosis: Aseptic loosening left hip Post-op diagnosis: same Procedure: Aspiration left hip Implants: none Surgeon: Dwayne Marie MD Anesthesia: local Was an Associate Professor Of Art used for this Procedure?: Yes Associate Professor Of Art: Kristi Ponce Estimated blood loss (mL): 5 IV fluids (mL): 0 Pathology: other Condition: stable Disposition: PACU Procedure in detail: Patient was brought to the operating room placed supine on the operative table. He was prepped and draped in standard sterile fashion a time-out was called to identify present from her procedure and proper surgeon. I began by injecting local over the left hip. A start site approximately 3 fingerbreadths lateral to the femoral artery at the level of the inguinal crease was used. Under fluoroscopic guidance and after anesthetic was injected an 18 gauge spinal needle was injected into the hip joint. I attempted aspiration at the level of the lesser trochanter and into the and no the most cross phrenic but was unable to aspirate anything other than a few drops of blood. I then removed the spinal needle and re-attempted via direct lateral approach just anterior to the greater trochanter. Again the area was sterilely prepped and a an 18 gauge spinal needle was inserted after the area was anesthetized with lidocaine. Again I attempted multiple points of aspiration within the and around the joint but was unable to aspirate any fluid. Needle was then removed. Band-Aids were placed over the needle insertion sites and patient was brought to recovery in stable condition. There were no known complications.
== END 2024-09-11 17:43 | disposition short-term general hospital (02) | DRG 560 ==
PROVIDERS: Internal Medicine; Orthopaedic Surgery; Admitting Provider Physician Assistant; PCP Family Medicine; Visit Provider Physician Assistant
PROC: 0SJD3ZZ Inspection of Left Knee Joint, Percutaneous Approach (ICD-10-PCS; CPT 29860; principal; 2024-09-08 16:30)
DX: T84.031A Mechanical loosening of internal left hip prosthetic joint, initial encounter (principal); I48.19 Other persistent atrial fibrillation; D64.9 Anemia, unspecified; Y79.2 Prosthetic and other implants, materials and accessory orthopedic devices associated with adverse incidents; I10 Essential (primary) hypertension; K21.9 Gastro-esophageal reflux disease without esophagitis; Z87.891 Personal history of nicotine dependence; Z79.899 Other long term (current) drug therapy
CPT/HCPCS: 20610; 36415; 80048; 83540; 85025; 86850; 86900; 86901; 86923; 93005; 93970; 99221; J1650; J2003; J2795; J7120; P9016

== ENCOUNTER 2024-09-08 10:27 | Outpatient (BNV) | payer OTHER, SELFPAY | END 2024-09-08 15:37 | PROVIDERS: Admitting Provider Physician Assistant; Visit Provider Radiology Diagnostic Radiology | DX: M71.22 Synovial cyst of popliteal space [Baker], left knee (principal) | CPT/HCPCS: 93970 ==

== ENCOUNTER → 2024-09-08 10:27 | Outpatient (BNV) | payer OTHER, SELFPAY | PROVIDERS: Admitting Provider Physician Assistant; Visit Provider Internal Medicine | DX: I48.0 Paroxysmal atrial fibrillation (principal) | CPT/HCPCS: 99223 ==

== ENCOUNTER → 2024-09-08 10:27 | Outpatient (BNV) | payer OTHER, SELFPAY | PROVIDERS: Admitting Provider Physician Assistant; Visit Provider Orthopaedic Surgery | DX: T84.031A Mechanical loosening of internal left hip prosthetic joint, initial encounter (principal); M25.452 Effusion, left hip | CPT/HCPCS: 20610; 77002; 99024; 99499 ==

== ENCOUNTER 2025-06-05 11:30 | Outpatient (REF) | payer OTHER, SELFPAY ==
[2025-06-05 14:10] LABS: Hematocrit 36.6 % (42.0-52.0); Hemoglobin 11.0 g/dl (14.0-18.0); Mean Corpuscular HGB Conc 30.1 g/dl (31.0-36.0); Mean Corpuscular Hemoglobin 28.2 pg (27.0-33.0); Mean Corpuscular Volume 93.8 fL (80.0-98.0); NRBC Abs Auto 0.000 X10*3/uL (0.0-0.012); NRBC Pct Auto 0.0 /100WBC (0.0-0.2); Platelet Count 631 X10*3/uL (160-400); Red Blood Count 3.90 X10*6/uL (4.60-5.80); White Blood Count 12.4 X10*3/uL (4.8-10.8)
[2025-06-05 15:02] LABS: Alanine Aminotransferase 10 U/L (0-40); Albumin Level 4.1 g/dL (3.5-5.0); Alkaline Phosphatase 202 U/L (39-117); Anion Gap 17 (12-20); Aspartate Amino Transferase 20 U/L (5-37); Blood Urea Nitrogen 12 mg/dL (9-16); Calcium 9.3 mg/dL (8.4-10.2); Carbon Dioxide 22 mmol/L (22-29); Chloride 104 mmol/L (96-108); Estimated Glomerular Filt Rate > 60; Iron 42 mcg/dL (45-160); Percent Iron Saturation 17 % (15-50); Potassium 3.2 mmol/L (3.3-5.1); Sodium 140 mmol/L (135-145); Total Iron Binding Capacity 242 mcg/dL (228-428); Total Protein 7.6 g/dL (6.5-8.0); Unsaturated Iron Binding 200 ug/dL
[2025-06-05 15:06] LABS: Ferritin 529 ng/mL (20-250)
== END 2025-06-05 11:31 | disposition home or self-care (01) ==
LOC: HO.LAB 11:30
PROVIDERS: PCP Physician Assistant Medical; Visit Provider Physician Assistant Medical
DX: I10 Essential (primary) hypertension (principal); D64.9 Anemia, unspecified; I48.0 Paroxysmal atrial fibrillation; K21.9 Gastro-esophageal reflux disease without esophagitis; M25.551 Pain in right hip; M25.552 Pain in left hip; G89.29 Other chronic pain; Z96.643 Presence of artificial hip joint, bilateral; Z79.01 Long term (current) use of anticoagulants; Z79.899 Other long term (current) drug therapy
CPT/HCPCS: 36415; 80053; 82728; 83540; 84443; 85027; 96127; 99212

== ENCOUNTER 2025-06-05 11:30 | Outpatient (AMB) | payer SELFPAY ==
--- OUTSIDE RECORDS SUMMARY | 2024-06-01 04:30 | XMS_ITS ---
Author Organization [facility] Address [address] [place] [id number] Care Team Providers Care Machining Technician Name Role Phone Brian CLEANING, Frandy Primary Care Provider Unavailab Jordana Pierce Unavailable [phone] Encounters Encounter Location Date Provider Diagnosis [address] [address] 06/01/2024 Jordana Duval Plan Of Treatment No Information Progress Notes * Graham KERRDOB: [birth year] (74 yo M)Acc No.[id number]:06/01/2024 Progress Note Patient: Graham GILLESPIE Provider: Neris Duval DPM :1950 A ge:73 Y S ex:Male Date:06/01/2024 Address:[address] [place], [place] [id number] Pcp:Frandy Torres MD Subjective: * Chief Complaints: * * Medical History: Objective: * Vitals: Assessment: Plan: * Treatment: * Images: * The named appointment provid er may or may not be the originator of this progress note, and it is not deemed complete until electronically signed by the appointment provider. Sign off status: Pending * Provider: Neris Duval DPM Date: 08/01/2023 Generated for Misha hand/Josefina/eTransmitting on: 08/05/2024 01:36 PM EST
--- NOTE | 2025-06-04 18:04 | A.OFFPC_ITS ---
Vital Signs 06/05/25 11:38 Height 5 ft 8 in Weight 187 lb BMI 28.4 BP 125/61 Blood Pressure Location Lt brachial Position Sitting Pulse 93 Pulse Source Pulse Oximeter Temp 97.6 F Temp Source Temporal Artery Scan Pulse Oximetry (%) 98 Oxygen Delivery Method Room Air Intake Visit Reasons: KENA/Brian re: D/C [facility] 06/02 Cutter Inspector Required: No Accompanied by: Self / Same As Patient Allergies No Known Allergies (No Known Allergies*) Allergy (Verified 04/10/25 08:48) Medication List - Last Reconciled 06/05/25 by SHANNON Rock acetaminophen 650 mg (2 x 325 mg) PO Q6H PRN 30 days apixaban (Eliquis) 5 mg PO BID diltiazem HCl CD 240 mg PO DAILY ferrous sulfate 324 mg PO DAILY 30 days folic acid 1 mg PO DAILY furosemide 20 mg PO DAILY glucos sul 0NEs-tdu-falff-C-Mn 550-30-1 mg (Glucosamine Chondroitin) 1 cap PO DAILY [heel lift As directed Please measure leg length for righ side leg length discrepancy Fit as appropriate ] loratadine 10 mg PO DAILY magnesium oxide 400 mg PO DAILY metoprolol tartrate 75 mg PO BID omeprazole 20 mg PO DAILY@0630 oxycodone 5 mg PO Q6H PRN polyethylene glycol 3350 (Miralax) 17 grams PO DAILY sennosides (senna) 8.6 mg PO BEDTIME thiamine mononitrate (vit B1) 100 mg PO DAILY Tobacco use date assessed: 06/05/25 Fall risk assessment: No Falls in past year Last assessed Fall Risk: 06/05/25 Dental Screening Dental Screen Date: 06/05/25 Did you have a dental visit in the last 12 months?: No Did you have a dental problem in the last 6 months where you did not have access to dental care?: No HPI HPI Comments History of Present Illness Details The patient is a 74-year-old male with HTN, Anemia, paroxysmal Afib on Eliquis, GERD and arthritis presenting to establish care and for a follow-up visit after hip revision surgery and rehabilitation. He has a complex history regarding his hip, which started with a replacement done by Dr. Marie that had a material malfunction, causing the prongs to come out of the socket. This required another surgery to remove the implant and place a spacer, which was complicated by a subsequent infection. He was then transferred to Dr. Bain in [place] for two additional procedures and has since been in rehabilitation, most recently at [facility], from which he was discharged on Wednesday, 06/02. His chronic medical conditions include hypertension, managed with diltiazem and metoprolol. His BP today was 125/61. He has acid reflux, treated with omepraz ole. He had been on enoxaparin for anticoagulation but was switched to Eliquis. During his hospitalization, he required two blood transfusions. The patient reports his hips are doing well and he is able to walk up and down stairs, focusing on rebuilding muscle mass. He developed a blister on his foot that popped, which is being monitored by a visiting nurse. He is overdue for a follow-up with his systems applications programming lead, Dr. Salinas. Medical History: - Hypertension - Gastroesophageal reflux disease - History of anemia requiring blood acosta sfusions - Condition requiring chronic anticoagul ation Surgical History: - Hip replacement by Dr. Marie - Hip implant removal with spacer placem ent by Dr. Marie due to material malfunction - Two subsequent revision hip surgeries by Dr. Bain due to infection Patient was informed and verbally consented to the use of an ambient scribe for clinic note documentation during this visit. 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 Father No problems noted. Social History Household Members: None and Other Housing: Apartment Are you a primary healthcare prof to a significant other at home: No Do you presently have visiting nurse or other home services: No Alcohol intake: current Alcohol intake frequency: a few times a week Alcohol type: beer Patient Tobacco Use Status: Former Tobacco user Tobacco use type: Cigarette Years Smoked: 15 e-Cigarette/Vaping Use: Never Used Advance Directives Date on File: 09/10/22 service: No Cognitive needs: No Hearing needs: No Vision needs: No Questionnaire PHQ-9 Over the last 2 weeks, how often have you been bothered by any of the following problems? 1. Little interest or pleasure in doing things: not at all 2. Feeling down, depressed, or hopeless: not at all 3. Trouble falling or staying asleep, or sleeping too much: not at all 4. Feeling tired or having little energy: not at all 5. Poor appetite or overeating: not at all 6. Feeling bad about yourself - or that you are a failure or have let yourself or your family down: not at all 7. Trouble concentrating on things, such as reading the newspaper or watching television: not at all 8. Moving or speaking so slowly that other people could have noticed. Or the opposite - being so fidgety or restless that you have been moving around a lot more than usual: not at all 9. Thoughts that you would be better off or of hurting yourself in some way: not at all Total score: 0 Depression Screening Interpretation: Negative Depression Screening Done: Yes Source: Developed by Drs. Stevan Camara, Emelia Swift, Isak Zamarripa and colleagues, with an educational madelin from [employer]. Thrive Questionnaire Date Thrive assessed: 06/05/25 I am a: Patient Within the past 12 months, did the food you bought not last and you didn't have the money to get more?: Never true Within the past 12 months, did you worry whether your food would run out before you got money to buy more?: Never true Do you have trouble paying for medicines?: No Do you have trouble getting transportation to medical appointments?: No Do you have trouble paying your heating and electricity bill?: No Do you have trouble taking care of your child, family member or friend?: No Do you have trouble with day-to-day activities such as bathing, preparing meals, shopping, managing finances, etc.?: No Are you currently unemployed and looking for a job?: No Are you interested in more education?: No THRIVE Score: 0 AUDIT C Alcohol Use Questionnaire (AUDIT-C) 1. How often do you have a drink containing alcohol?: Monthly or less 2. How many drinks containing alcohol do you have on a typical day when you are drinking?: 1 or 2 3. How often do you have six or more drinks on one occasion?: Less than monthly Total Score: 2 VIVIANA-7 AMB Questionnaire VIVIANA-7 Date VIVIANA - 7 assessed: 06/05/25 Feeling nervous, anxious, or on edge: 0 = Not at all Not being able to stop or control worryin = Not at all Worrying too much about different things: 0 = Not at all Trouble relaxin = Not at all Being so restless that it is hard to sit still: 0 = Not at all Becoming easily annoyed or irritable: 0 = Not at all Feeling afraid as if something awful might happen: 0 = Not at all Total VIVIANA-7 score (0-4 normal; 5-9 mild; 10-14 moderate; 15-21 severe): 0 Source: Developed by Drs. Stevan Camara, Emelia Swift, Isak Zamarripa and colleagues, with an educational madelin from [employer]. Review of Systems Narrative - HEENT: Denies problems with hearing or vision. - Cardiovascular: Denies chest pain. - Respiratory: Denies shortness of breath. - Gastrointestinal: Denies stomach pains, constipation, or diarrhea. - Musculoskeletal: Reports the hips are doing well. - Integumentary: Reports a blister on his foot that popped. Physical exam (Primary Care) Vital Signs: Last Vital Signs Temp 97.6 F 06/05/25 11:38 Pulse 93 06/05/25 11:38 BP 125/61 06/05/25 11:38 Pulse Ox 98 06/05/25 11:38 Oxygen Delivery Method Room Air 06/05/25 11:38 BMI result Body Mass Index 28.4 GENERAL Well developed, Well nourished, in no apparent distress HEENT Head-Normocephalic Eyes- PERRLA, EOMI, Conjuctiva clear, lids WNL Ears- Canals clear, TMs WNL Mouth/Throat-No lesions, no erythema, no exudate Neck- Supple, No lymphadenopathy, thyroid WNL RESPIRATORY Normal I:E, Clear to auscultation CARDIOVASCULAR Regular, rate irregular rhythm, No murmurs or rubs, 1+ pitting edema, left >right GASTROINTESTINAL Soft, nontender, normal bowel sounds, no masses MUSCULOSKELETAL Joints- no swelling or deformity NEUROLOGICAL Gait slow with walker PSYCHIATRIC Oriented to person, place and time Mood and affect WNL Appearance WNL Speech WNL Thought processes WNL Tobacco/Smoking Status: Tobacco use Status Tobacco use date assessed 06/05/25 06/04/25 18:06 Patient Tobacco Use Status Former Tobacco user 06/04/25 18:06 Tobacco use type Cigarette 06/04/25 18:06 e-Cigarette/Vaping Use Never Used 06/04/25 18:06 PHQ-9: PHQ-9 Score PHQ-9: Total score 0 06/05/25 11:47 Depression Screening Interpretation: Negative Thrive Assessment: Date of Thrive Assessment Date Thrive assessed 06/05/25 06/04/25 18:06 Coding Level of Care Code New Pt Est Pt Level 4 (48340) Patient Type New Diagnoses Primary hypertension I10 Hypertension type: primary hypertension Anemia D64.9 Peripheral edema R60.9 PAF (paroxysmal atrial fibrillation) I48.0 Chronic bilateral hip pain 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 M25.551; M25.552; G89.28; Z96.643 Time Spent (min) 35 Comment Time spent on chart review, medication reconciliation, H&P, patient education, Orders Assessment & Plan Assessment & Plan (1) HTN (hypertension): Comment: BP today was 125/61 Code(s): I10 - Essential (primary) hypertension Category: Medical Qualifiers: Hypertension type: primary hypertension Qualified Code(s): I10 - Essential (primary) hypertension Plan: The patient's blood pressure is well controlled on his current regimen of diltiazem and metoprolol, He will continue his current medications, and refills will be provided as needed from this office. Patient to follow up in 8 weeks or sooner if symptoms persist or worsen. (2) Anemia: Code(s): D64.9 - Anemia, unspecified Category: Medical Plan: Will get labs. Patient to continue Iron. Patient to follow up in 8 weeks or sooner if symptoms persist or worsen. (3) Peripheral edema: Code(s): R60.9 - Edema, unspecified Category: Medical Plan: Will watch for now. Has VNA twice a week. Patient to follow up in 8 weeks or sooner if symptoms persist or worsen. (4) PAF (paroxysmal atrial fibrillation): Comment: Sees Dr. Nicholson and is on Eliquis and Metoprolol Code(s): I48.0 - Paroxysmal atrial fibrillation Category: Medical Plan: Patient to continue to follow up with cardiology. He will call for an appointment. 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 He is attending physical therapy twice weekly to regain muscle mass and strength. A heel blister is being managed by a visiting nurse twice a week and appears to be healing without signs of infection. Plan is to continue with current physical therapy and home nursing care. A follow-up appointment will be scheduled in 8 weeks to monitor progress. Plan I have reviewed the patient's complex post-surgical course and current recovery. I advised him to continue his physical therapy and home nursing care for his heel wound. We discussed the importance of scheduling a follow-up appointment with his systems applications programming lead, Dr. Salinas particularly for the management of his Eliquis. I have ordered baseline lab work to be done today to establish his current status. We will follow up in the office in approximately eight weeks to review his lab results and overall progress. Orders: Orders TSH reflex Free T4 Today I10 - Essential (primary) hypertension Complete Blood Count no Diff Today D64.9 - Anemia, unspecified Comprehensive Met. Panel Today I10 - Essential (primary) hypertension, Z79.899 - Other half-way (current) drug therapy Ferritin Today D64.9 - Anemia, unspecified, I10 - Essential (primary) hyperten star IRON PROFILE Today D64.9 - Anemia, unspecified, I10 - Essential (primary) hypertension Medications: Discontinued metoprolol tartrate Discontinued Reason: Doctor's Order 50 mg PO BID 90 days 180 tabs 3RF furosemide Discontinued Reason: Doctor's Order 20 mg PO DAILY 90 tabs 3RF Patient Instructions: - Go to the lab to get your blood work done today. - Continue your current medications for blood pressure and acid reflux as prescribed. - Continue attending physical therapy twice a week. - Allow the visiting nurse to continue checking the wound on your heel twice a week. - Call your heart doctor, Dr. Navarro, to schedule an appointment. - Please go to the first front ventilator to schedule a follow-up appointment here in about 8 weeks.
[2025-06-05 11:38] VITALS: BP 125/61; PULSE 93; TEMP 36.4; O2SAT 98; BMI 28.4
--- OUTSIDE RECORDS SUMMARY | 2025-06-05 13:36 | XMS_ITS | Encounter Summary ---
Author Organization [facility] Address [address] [place] [address] Care Team Providers Care Chain Saw Driver Name Role Phone Olu Norris MD Primary Care Provider [phone] Encounter Details Date Type Department Care Team (Late st Contact Info) Description 10/16/2024 Lab Requisition [facility] - Main Lab [address] [facility] [place] [address] David Leung MD [address] [place] [id number] Unspecified atrial fibrillation (CMS/HCC V24, CMS/HCC V28); Anemia, unspecified Social History Tobacco Use Types Packs/Day Years Used Date Smoking Tobacco: Never Assessed Sex and Gender Information Value Date Recorded Sex Assigned at Not on file Legal Sex Male 8:38 PM EST Gender Identity Not on file Sexual Orientation Not on file documented as of this encounter Plan of Treatment Not on file documented as of this encounter Visit Diagnoses Diagnosis Unspecified atrial fibrillation (CMS/HCC V24, CMS/HCC V28) Anemia, unspecified documented in this encounter Care Teams Chain Saw Driver Relationship Specialty Start Date End Date Olu Norris MD [address] [place] [address] [address] [place], [id number] PCP - General Family Medicine 07/06/24 documented as of this encounter
--- OUTSIDE RECORDS SUMMARY | 2025-06-05 13:36 | XMS_ITS | Patient Health Record ---
Author Organization [facility] Address [address] [place] [address] Care Team Providers Care Doubler Helper Name Role Phone Brian (RETIRED) Frandy CLEANING Primary Care Provider Unavailable Stevan Watters Unavailable [phone] Reason For Referral No Information Medications Medication SIG (Take, Route, Frequency, Duration) Notes Start Date End Date Status Glucosamine Chondr 1500 Complx 1 2 Orally QD Active PriLOSEC 20 MG 1 capsule Orally Onc e a day/PRN Once per week Active Eliquis Active Lisinopril Active dilTIAZem HCl ER Coated Beads Active Immunizations Vaccine Route Administration Date Status Comme nts Influenza Unknown 02/20/2021 Refused Problems Problem Type SNOMED Code ICD Code Onset Dates Problem Status W/U Status Risk Notes Problem Colon cancer screening (794052464) Colon cancer screening (Z12.11) Active confirmed Problem Screening for malignant neoplasm of colon (785328842) Encounter for screening for malignant neoplasm of colon (Z12.11) Active confirmed Problem History of adenomatous polyp of colon (550288991) History of adenomatous polyp of colon (Z86.010) Active confirmed Problem Polyp of colon (disorder) (60620355) Colon polyps (K63.5) Active confirmed Problem Preprocedural examination (230240017883292) Preprocedural examination (Z01.818) Active confirmed Problem Adenomatous polyp of colon (889033810) Adenomatous colon polyp (D12.6) Active confirmed Problem Diverticulosis of colon (626573360) Diverticulosis of colon (K57.30) Active confirmed Plan Of Treatment Pending Test Test Name Order Date Pathology 04/04/2021 Future Test Test Name Order Date COLONOSCOPY 05/22/2015 COLONOSCOPY 02/20/2021 Insurance Providers Payer Name Payer Address Payer Phone Subscriber Number Group Number Insured Name Patient Relationship to Insured Coverage Start Date Coverage End Date JOSÉ LUIS [address] [place] [address] [id number] GAEL KERR Self - patient is the insured Medical (General) History Medical History History ICD Code Colonoscopy 01-06-2010 and 12 12--removal of small tubular adenomas, mild sigmoid diverticulosis, and small internal hemorrhoids Denies GA,DM,CVA,Lung disease,renal dise ase Afib Hypertension Colonoscopy 07/2015 with removal of 4 sma ll tubular adenomas Surgical History Surgery Date(Month/Year) Hip replacement on the right side - Dr. Marie 2016
--- OUTSIDE RECORDS SUMMARY | 2025-06-05 13:36 | XMS_ITS | Clinical Summary ---
Author Organization [address] Address [address] [place] [address] Phone Care Team Providers Care Electronic Science Teacher Name Role Phone Olu Norris MD Primary Care Provider [phone] Encounters Date Type Department Care Team Description 06/04/2025 Lab Requisition [facility] [address] [place] [address] David Leung MD Anemia, unspecified 05/28/2025 Lab Requisition [facility] [address] [place] [address] David Leung MD Anemia, unspecified 05/21/2025 Lab Requisition [facility] [address] [place] [address] David Leung MD Anemia, unspecified 05/15/2025 Lab Requisition [facility] [address] [place] [address] David Leung MD Anemia, unspecified 04/30/2025 Lab Requisition [facility] [address] [place] [address] David Leung MD Anemia, unspecified 03/13/2025 Lab Requisition [facility] Lab [address] [place] [address] David Leung MD Anemia, unspecified; Unspecified atrial fibrillation (CMS/HCC V24, CMS/HCC V28); Sepsis, unspecified organism (CMS/HCC V24, CMS/HCC V28) from Last 3 Months Social History Tobacco Use Types Packs/Day Years Used Date Smoking Tobacco: Never Assessed Sex and Gender Information Value Date Recorded Sex Assigned at Not on file Legal Sex Male 8:38 PM EST Gender Identity Not on file Sexual Orientation Not on file Plan of Treatment Health Maintenance Due Date Last Done Comments Colorectal Cancer Screening: Colonoscopy 1950 Pneumococcal Vaccine: 50+ Years (1 of 1 - PCV) 2002 Zoster Vaccines (1 of 2) 2002 Abdominal Aortic Aneurysm (AAA) Screen 06/27/2022 Cholesterol Screening (Lipid Panel) 06/27/2022 Falls Risk Assessment 06/27/2022 Hepatitis C Screening 06/27/2022 Social Influencers of Health Screening 06/27/2022 Depression Screening 07/26/2024 COVID-19 Vaccine ( - season) 2025 Influenza Vaccine (#1) 2025 Hypertension/CHF/CAD Annual BMP Blood Test 05/22/2026 05/22/2025, 05/15/2025, 05/13/2025, Additional history exists RSV Immunization Adult Patients (1 - 1-dose 75+ series) 10/30/2027 DTaP,Tdap,and [...] age to complete this topic Meningococcal B Vaccine Aged Out No l onger eligible based on patient's age to complete this topic RSV Immunization Patients Under 20 months Aged Out No longer eligible based on patient's age to complete this topic Varicella Vaccines Aged Out No longer eligible based on patient's age to complete this topic Procedures Procedure Name Priority Date/Time Associated Diagnosis Comments BASIC METABOLIC PANEL Routine 05/22/2025 8:21 AM EDT Anemia, unspecified COMPLETE BLOOD COUNT Routine 05/22/2025 8:21 AM EDT Anemia, unspecified COMPREHENSIVE METABOLIC PANEL Routine 05/15/2025 8:38 AM EDT Anemia, unspecified COMPLETE BLOOD COUNT Routine 05/15/2025 8:38 AM EDT Anemia, unspecified SEDIMENTATION RATE Routine 03/13/2025 7: 20 AM EDT Anemia, unspecified Unspecified atrial fibrillation (CMS/HCC V24, CMS/HCC V28) Sepsis, unspecified organism (CMS/HCC V24, CMS/HCC V28) C-REACTIVE PROTEIN Routine 03/13/2025 7: 20 AM EDT Anemia, unspecified Unspecified atrial fibrillation (CMS/HCC V24, CMS/HCC V28) Sepsis, unspecified organism (CMS/HCC V24, CMS/HCC V28) from Last 3 Months Results * (ABNORMAL) Complete blood count (05/22/2025 8:21 AM EDT) Only the most recent of2 resultswithin the time period is included. WBC 8.0 4.8 - 10.8 K/mcL LAB HEMETOLOGY METHOD 05/22/2025 11:02 AM [facility] RBC 2.60(L) 4.50 - 5.50 M/mcL LAB HEMETOLOGY METHOD 05/22/2025 11:02 AM [facility] Hemoglobin 7.7(L) 13.5 - 17.5 g/dL LAB HEMETOLOGY METHOD 05/22/2025 11:02 AM [facility] Hematocrit 24.7(L) 42.0 - 54.0 % LAB HEMETOLOGY METHOD 05/22/2025 11:02 AM [facility] MCV 95.0 79.0 - 98.0 FL LAB HEMETOLOGY METHOD 05/22/2025 11:02 AM EDT [facility] MCH 29.6 27.0 - 32.0 pcg LAB HEMETOLOGY METHOD 05/22/2025 11:02 AM EDT [facility] MCHC 31.2(L) 32.0 - 37.0 g/dL LAB HEMETOLOGY METHOD 05/22/2025 11:02 AM EDT [facility] RDW 15.4(H) 11.0 - 15.0 % LAB HEMETOLOGY METHOD 05/22/2025 11:02 AM T [facility] Platelets 527(H) 130 - 400 K/mcL LAB HEMETOLOGY METHOD 05/22/2025 11:02 AM EDT [facility] MPV 10.2 7.0 - 11.0 FL LAB HEMETOLOGY METHOD 05/22/2025 11:02 AM EDT [facility] NRBC 0.0 <1.0 % LAB HEMETOLOGY METHOD 05/22/2025 11:02 AM [facility] NRBC Absolute 0.00 <0.10 K/mcL LAB HEMETOLOGY METHOD 05/22/2025 11:02 AM [facility] Blood Venous blood specimen / Unknown Venipuncture / Unknown 05/22/2025 8:21 AM EDT 05/22/2025 9:43 AM EDT us David Leung MD LAB BLOOD ORDERABLES Final Result [facility] [address] [place] [address], * (ABNORMAL) Basic metabolic panel (05/22/2025 8:21 AM EDT) Sodium 138 133 - 145 mmol/L LAB CHEMISTRY METHOD 05/22/2025 11:33 AM EDT [facility] Potassium 3.8 3.5 - 5.5 mmol/L LAB CHEMISTRY METHOD 05/22/2025 11:33 AM [facility] Chloride 104 96 - 110 mmol/L LAB CHEMISTRY METHOD 05/22/2025 11:33 AM [facility] CO2 29 21 - 32 mmol/L LAB CHEMISTRY METHOD 05/22/2025 11:33 AM [facility] Anion Gap 5 3 - 11 LAB CHEMISTRY METHOD 05/22/2025 11:33 AM [facility] Glucose 70 70 - 100 mg/dL LAB CHEMISTRY METHOD 05/22/2025 11:33 AM [facility] BUN 11 5 - 25 mg/dL LAB CHEMISTRY METHOD 05/22/2025 11:33 AM [facility] Creatinine 0.88 0.70 - 1.30 mg/dL LAB CHEMISTRY METHOD 05/22/2025 11:33 AM [facility] eGFR 91 >=60 mL/min/1. 73m2 LAB CHEMISTRY METHOD 05/22/2025 11:33 AM [facility] Comment:Calculation based on the Chronic Kidney Disease Epidemiology Collaboration (CKD-EPI) equation refit without adjustment for race. BUN/Creatinine Ratio 12.5 LAB CHEMISTRY METHOD 05/22/2025 11:33 AM [facility] Calcium 8.1(L) 8.5 - 10.5 mg/dL LAB CHEMISTRY METHOD 05/22/2025 11:33 AM [facility] Blood Venous blood specimen / Unknown Venipuncture / Unknown 05/22/2025 8:21 AM EDT 05/22/2025 9:43 AM EDT us David Leung MD LAB BLOOD ORDERABLES Final Result [facility] [address] [place], [place] [address] [phone] * (ABNORMAL) Comprehensive metabolic panel (05/15/2025 8:38 AM EDT) Sodium 135 133 - 145 mmol/L LAB CHEMISTRY METHOD 05/15/2025 11:42 AM [facility] Potassium 3.5 3.5 - 5.5 mmol/L LAB CHEMISTRY METHOD 05/15/2025 11:42 AM [facility] Chloride 101 96 - 110 mmol/L LAB CHEMISTRY METHOD 05/15/2025 11:42 AM [facility] CO2 26 21 - 32 mmol/L LAB CHEMISTRY METHOD 05/15/2025 11:42 AM [facility] Anion Gap 8 3 - 11 LAB CHEMISTRY METHOD 05/15/2025 11:42 AM [facility] Glucose 84 70 - 100 mg/dL LAB CHEMISTRY METHOD 05/15/2025 11:42 AM [facility] BUN 11 5 - 25 mg/dL LAB CHEMISTRY METHOD 05/15/2025 11:42 AM [facility] Creatinine 0.94 0.70 - 1.30 mg/dL LAB CHEMISTRY METHOD 05/15/2025 11:42 AM [facility] eGFR 86 >=60 mL/min/1. 73m2 LAB CHEMISTRY METHOD 05/15/2025 11:42 AM [facility] Comment:Calculation based on the Chronic Kidney Disease Epidemiology Collaboration (CKD-EPI) equation refit without adjustment for race. BUN/Creatinine Ratio 11.7 LAB CHEMISTRY METHOD 05/15/2025 11:42 AM [facility] Calcium 8.6 8.5 - 10.5 mg/dL LAB CHEMISTRY METHOD 05/15/2025 11:42 AM [facility] AST (SGOT) 38 10 - 42 unit/L LAB CHEMISTRY METHOD 05/15/2025 11:42 AM [facility] ALT (SGPT) 20 10 - 60 unit/L LAB CHEMISTRY METHOD 05/15/2025 11:42 AM EDT [facility] Alkaline Phosphatase 141(H) 42 - 121 unit/L LAB CHEMISTRY METHOD 05/15/2025 11:42 AM EDT [facility] Total Protein 5.7(L) 6.0 - 8.0 g/dL LAB CHEMISTRY METHOD 05/15/2025 11:42 AM EDT [facility] Albumin 2.8(L) 3.2 - 5.0 g/dL LAB CHEMISTRY METHOD 05/15/2025 11:42 AM EDT [facility] Total Bilirubin 1.5(H) 0.0 - 1.4 mg/dL LAB CHEMISTRY METHOD 05/15/2025 11:42 AM EDT [facility] Blood Venous blood specimen / Unknown Venipuncture / Unknown 05/15/2025 8:38 AM EDT 05/15/2025 10:08 AM EDT us David Leung MD LAB BLOOD ORDERABLES Final Result Performing Organization Address City/[facility]/ZIP Co de Phone Number [facility] [address] [place] [address], [place] [phone] * Sedimentation rate (03/13/2025 7:20 AM EDT) Sed Rate 20 0 - 20 mm/hr LAB HEMETOLOGY METHOD 03/13/2025 9:34 AM EDT [facility] Blood Venous blood specimen / Unknown Venipuncture / Unknown 03/13/2025 7:20 AM EDT 03/13/2025 9:15 AM EDT us David Leung MD LAB BLOOD ORDERABLES Final Result Performing Organization Address City/[facility]/ZIP Co de Phone Number [facility] [address] [place] [address], [place] [phone] * (ABNORMAL) C-reactive protein (03/13/2025 7:20 AM EDT) C-Reactive Protein 1.52(H) <=0.50 mg/dL LAB CHEMISTRY METHOD 03/13/2025 10:04 AM EDT [facility] Blood Venous blood specimen / Unknown Venipuncture / Unknown 03/13/2025 7:20 AM EDT 03/13/2025 9:15 AM EDT us David Leung MD LAB BLOOD ORDERABLES Final Result [facility] [address] [place] [address], [place] [phone] from Last 3 Months Insurance MEDICARE MEDICAID - [place] Care Teams Electronic Science Teacher Relationship Specialty Start Date End Date Olu Norris MD [address] [facility] [address] [facility] [address] PCP - General Family Medicine 07/06/24
--- OUTSIDE RECORDS SUMMARY | 2025-06-05 13:36 | XMS_ITS | Patient Health Record ---
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 confirmed Problem Bilateral atherosclerosis of arteries of lower limbs (disorder) (54571113144032733 ) Unspecified atherosclerosis of creek arteries of extremities, bilateral legs (I70.203) Active confirmed Problem Acquired hammer toe of right foot (4388532414812972) Other hammer toe(s) (acquired), right foot (M20.41) Active confirmed Problem Acquired hammer toe of left foot (1870245121739790) Other hammer toe(s) (acquired), left foot (M20.42) Active confirmed Problem Leg length discrepancy (417977753) Leg length discrepancy (M21.70) Active confirmed Plan Of Treatment Pending Test Test Name Order Date 13763-GGLW SKIN LESIONS, 2 TO 4 02/29/20 24 Insurance Providers Payer Name Payer Address Payer Phone Subscriber Number Group Number Insured Name Patient Relationship to Insured Coverage Start Date Coverage End Date Sukh SCHUYLER [address] [place] [phone] [id number] Graham Hodges Self - patient is the insured Medical (General) History Medical History History ICD Code Measles Chicken pox hip replacement, RT Surgical History Surgery Date(Month/Year) right hip replacement
--- OUTSIDE RECORDS SUMMARY | 2025-06-05 13:36 | XMS_ITS | Encounter Summary ---
Author Organization [facility] Address [id number] [place] [address] Care Team Providers Care Photo Mask Inspector Name Role Phone Olu Norris MD Primary Care Provider [phone] Encounter Details Date Type Department Care Team (Late st Contact Info) Description 03/13/[address] [facility] - Main Lab [address] [facility] [place] [address] David Leung MD [address] [place] [phone] Anemia, unspecified; Unspecified atrial fibrillation (CMS/HCC V24, CMS/HCC V28); Sepsis, unspecified organism (CMS/HCC V24, CMS/HCC V28) Social History Tobacco Use Types Packs/Day Years [...] Procedure Name Priority Date/Time Associated Diagnosis Comments SEDIMENTATION RATE Routine 03/13/2025 7: 20 AM EDT Anemia, unspecified Unspecified atrial fibrillation (CMS/HCC V24, CMS/HCC V28) Sepsis, unspecified organism (CMS/HCC V24, CMS/HCC V28) C-REACTIVE PROTEIN Routine 03/13/2025 7: 20 AM EDT Anemia, unspecified Unspecified atrial fibrillation (CMS/HCC V24, CMS/HCC V28) Sepsis, unspecified organism (CMS/HCC V24, CMS/HCC V28) documented in this encounter Results * Sedimentation rate (03/13/2025 7:20 AM EDT) Sed Rate 20 0 - 20 mm/hr LAB HEMETOLOGY METHOD 03/13/2025 9:34 AM EDT [facility] Blood Venous blood specimen / Unknown Venipuncture / Unknown 03/13/2025 7:20 AM EDT 03/13/2025 9:15 AM EDT us David Leung MD LAB BLOOD ORDERABLES Final Result [facility] [address] [place] [address], [place] [phone] * (ABNORMAL) C-reactive protein (03/13/2025 7:20 AM EDT) Pathologist [facility] C-Reactive Protein 1.52(H) <=0.50 mg/dL LAB CHEMISTRY METHOD 03/13/2025 10:04 AM EDT [facility] Blood Venous blood specimen / Unknown Venipuncture / Unknown 03/13/2025 7:20 AM EDT 03/13/2025 9:15 AM EDT us David Leung MD LAB BLOOD ORDERABLES Final Result Performing Organization Address City/[facility]/ZIP Co de Phone Number [facility] [address] [place] [address], [place] [phone] documented in this encounter Visit Diagnoses Diagnosis Anemia, unspecified Unspecified atrial fibrillation (CMS/HCC V24, CMS/HCC V28) Sepsis, unspecified organism (CMS/HCC V24, CMS/HCC V28) documented in this encounter Care Teams Photo Mask Inspector Relationship Specialty Start Date End Date Olu Norris MD [address] [place] [address], [phone] PCP - General Family Medicine 07/06/24 documented as of this encounter
--- OUTSIDE RECORDS SUMMARY | 2025-06-05 13:36 | XMS_ITS | Encounter Summary ---
Author Organization [facility] Address [address] [place] [address] Care Team Providers Care Project Design Engineer Name Role Phone Olu Norris MD Primary Care Provider [phone] Encounter Details Date Type Department Care Team (Late st Contact Info) Description 10/09/2024 Lab Requisition [facility] - Main Lab [address] [facility] [place] [address] David Leung MD [address] [place], [place] [phone] Unspecified atrial fibrillation (CMS/HCC V24, CMS/HCC V28); [...] Associated Diagnosis Comments COMPLETE BLOOD COUNT Routine 10/10/2024 8:06 AM EDT Unspecified atrial fibrillation (CMS/HCC) Anemia, unspecified CREATINE KINASE Routine 10/10/2024 8:06 AM EDT Unspecified atrial fibrillation (CMS/HCC) Anemia, unspecified COMPREHENSIVE METABOLIC PANEL Routine 10/10/2024 8:06 AM EDT Unspecified atrial fibrillation (CMS/HCC) Anemia, unspecified documented in this encounter Results * Creatine kinase (10/10/2024 8:06 AM EDT) Total CK 39 22 - 269 unit/L LAB CHEMISTRY METHOD 10/10/2024 10:08 AM [facility] Blood Venous blood specimen / Unknown Venipuncture / Unknown 10/10/2024 8:06 AM EDT 10/10/2024 9:06 AM EDT David Leung MD LAB BLOOD ORDERABLES Final Result [facility] [address] [place] [address], * (ABNORMAL) Comprehensive metabolic panel (10/10/2024 8:06 AM EDT) Sodium 138 133 - 145 mmol/L LAB CHEMISTRY METHOD 10/10/2024 10:07 AM [facility] Potassium 4.1 3.5 - 5.5 mmol/L LAB CHEMISTRY METHOD 10/10/2024 10:07 AM [facility] Chloride 105 96 - 110 mmol/L LAB CHEMISTRY METHOD 10/10/2024 10:07 AM [facility] CO2 23 21 - 32 mmol/L LAB CHEMISTRY METHOD 10/10/2024 10:07 AM [facility] Anion Gap 10 3 - 11 LAB CHEMISTRY METHOD 10/10/2024 10:07 AM [facility] Glucose 72 70 - 100 mg/dL LAB CHEMISTRY METHOD 10/10/2024 10:07 AM [facility] BUN 13 5 - 25 mg/dL LAB CHEMISTRY METHOD 10/10/2024 10:07 AM [facility] Creatinine 1.03 0.70 - 1.30 mg/dL LAB CHEMISTRY METHOD 10/10/2024 10:07 AM [facility] eGFR 78 >=60 mL/min/1. 73m2 LAB CHEMISTRY METHOD 10/10/2024 10:07 AM [facility] Comment:Calculation based on the Chronic Kidney Disease Epidemiology Collaboration (CKD-EPI) equation refit without adjustment for race. BUN/Creatinine Ratio 12.6 LAB CHEMISTRY METHOD 10/10/2024 10:07 AM [facility] Calcium 8.8 8.5 - 10.5 mg/dL LAB CHEMISTRY METHOD 10/10/2024 10:07 AM [facility] AST (SGOT) 12 10 - 42 unit/L LAB CHEMISTRY METHOD 10/10/2024 10:07 AM [facility] ALT (SGPT) 21 10 - 60 unit/L LAB CHEMISTRY METHOD 10/10/2024 10:07 AM [facility] Alkaline Phosphatase 134(H) 42 - 121 unit/L LAB CHEMISTRY METHOD 10/10/2024 10:07 AM [facility] Total Protein 6.0 6.0 - 8.0 g/dL LAB CHEMISTRY METHOD 10/10/2024 10:07 AM [facility] Albumin 2.4(L) 3.2 - 5.0 g/dL LAB CHEMISTRY METHOD 10/10/2024 10:07 AM [facility] Total Bilirubin 0.6 0.0 - 1.4 mg/dL LAB CHEMISTRY METHOD 10/10/2024 10:07 AM [facility] Blood Venous blood specimen / Unknown Venipuncture / Unknown 10/10/2024 8:06 AM EDT 10/10/2024 9:06 AM EDT us David Leung MD LAB BLOOD ORDERABLES Final Result [facility] [address] [place] [address], * (ABNORMAL) Complete blood count (10/10/2024 8:06 AM EDT) WBC 7.0 4.8 - 10.8 K/mcL LAB HEMETOLOGY METHOD 10/10/2024 9:38 AM [facility] RBC 3.30(L) 4.50 - 5.50 M/mcL LAB HEMETOLOGY METHOD 10/10/2024 9:38 AM [facility] Hemoglobin 8.8(L) 13.5 - 17.5 g/dL LAB HEMETOLOGY METHOD 10/10/2024 9:38 AM [facility] Hematocrit 27.8(L) 42.0 - 54.0 % LAB HEMETOLOGY METHOD 10/10/2024 9:38 AM [facility] MCV 85.3 79.0 - 98.0 FL LAB HEMETOLOGY METHOD 10/10/2024 9:38 AM [facility] MCH 27.0 27.0 - 32.0 pcg LAB HEMETOLOGY METHOD 10/10/2024 9:38 AM [facility] MCHC 31.7(L) 32.0 - 37.0 g/dL LAB HEMETOLOGY METHOD 10/10/2024 9:38 AM [facility] RDW 16.0(H) 11.0 - 15.0 % LAB HEMETOLOGY METHOD 10/10/2024 9:38 AM [facility] Platelets 451(H) 130 - 400 K/mcL LAB HEMETOLOGY METHOD 10/10/2024 9:38 AM [facility] MPV 9.9 7.0 - 11.0 FL LAB HEMETOLOGY METHOD 10/10/2024 9:38 AM [facility] NRBC 0.0 <1.0 % LAB HEMETOLOGY METHOD 10/10/2024 9:38 AM [facility] NRBC Absolute 0.00 <0.10 K/mcL LAB HEMETOLOGY METHOD 10/10/2024 9:38 AM [facility] Blood Venous blood specimen / Unknown Venipuncture / Unknown 10/10/2024 8:06 AM EDT 10/10/2024 9:08 AM EDT David Leung MD LAB BLOOD ORDERABLES Final Result [facility] [address] [place] [address], documented in this encounter Visit Diagnoses Diagnosis Unspecified atrial fibrillation (CMS/HCC V24, CMS/HCC V28) Anemia, unspecified documented in this encounter Care Teams Project Design Engineer Relationship Specialty Start Date End Date Olu Norris MD [address] [place] [address], [phone] PCP - General Family Medicine 07/06/24 documented as of this encounter
--- OUTSIDE RECORDS SUMMARY | 2025-06-05 13:36 | XMS_ITS | Encounter Summary ---
Author Organization [facility] Address [address] [place] [address] Care Team Providers Care Forging Roll Operator Name Role Phone Olu Norris MD Primary Care Provider [phone] Encounter Details Date Type Department Care Team (Late st Contact Info) Description 05/28/2025 Lab Requisition [facility] - Main Lab [address] [facility] [place] [address] David Leung MD [address] [place] [phone] Anemia, unspecified Social History Tobacco Use Types Packs/Day Years Used Date Smoking Tobacco: Never Assessed Sex and Gender Information Value Date Recorded Sex Assigned at Not on file Legal Sex Male 8:38 PM EST Gender Identity Not on file Sexual Orientation Not on file documented as of this encounter Plan of Treatment Not on file documented as of this encounter Visit Diagnoses Diagnosis Anemia, unspecified documented in this encounter Care Teams Forging Roll Operator Relationship Specialty Start Date End Date Olu Norris MD [address] [place] [address] [address] [facility] [phone] PCP - General Family Medicine 07/06/24 documented as of this encounter
--- OUTSIDE RECORDS SUMMARY | 2025-06-05 13:36 | XMS_ITS | Encounter Summary ---
Author Organization [facility] Address [address] [place] [address] Care Team Providers Care Biochemical Development Engineer Name Role Phone Olu Norris MD Primary Care Provider [phone] Encounter Details Date Type Department Care Team (Late st Contact Info) Description 10/26/[address] [facility] - Main Lab [address] [facility] [address] David Leung MD [address] [place] [address] [phone] Sepsis, unspecified organism (CMS/HCC V24, CMS/HCC V28); Anemia, unspecified; Unspecified atrial fibrillation (CMS/HCC V24, CMS/HCC V28) Social History Tobacco [...] Procedure Name Priority Date/Time Associated Diagnosis Comments CBC WITH AUTO DIFFERENTIAL Routine 10/26/2024 6:51 AM EDT Sepsis, unspecified organism (CMS/HCC) Anemia, unspecified Unspecified atrial fibrillation (CMS/HCC) SEDIMENTATION RATE Routine 10/26/2024 6: 51 AM EDT Sepsis, unspecified organism (CMS/HCC) Anemia, unspecified Unspecified atrial fibrillation (CMS/HCC) CBC AND DIFFERENTIAL Routine 10/26/2024 6:51 AM EDT Sepsis, unspecified organism (CMS/HCC) Anemia, unspecified Unspecified atrial fibrillation (CMS/HCC) C-REACTIVE PROTEIN Routine 10/26/2024 6: 51 AM EDT Sepsis, unspecified organism (CMS/HCC) Anemia, unspecified Unspecified atrial fibrillation (CMS/HCC) COMPREHENSIVE METABOLIC PANEL Routine 10/26/2024 6:51 AM EDT Sepsis, unspecified organism (CMS/HCC) Anemia, unspecified Unspecified atrial fibrillation (CMS/HCC) documented in this encounter Results * (ABNORMAL) CBC auto differential (10/26/2024 6:51 AM EDT) WBC 6.6 4.8 - 10.8 K/mcL LAB HEMETOLOGY METHOD 10/26/2024 8:22 AM [facility] RBC 3.50(L) 4.50 - 5.50 M/mcL LAB HEMETOLOGY METHOD 10/26/2024 8:22 AM [facility] Hemoglobin 9.3(L) 13.5 - 17.5 g/dL LAB HEMETOLOGY METHOD 10/26/2024 8:22 AM [facility] Hematocrit 29.2(L) 42.0 - 54.0 % LAB HEMETOLOGY METHOD 10/26/2024 8:22 AM [facility] MCV 83.4 79.0 - 98.0 FL LAB HEMETOLOGY METHOD 10/26/2024 8:22 AM [facility] MCH 26.6(L) 27.0 - 32.0 pcg LAB HEMETOLOGY METHOD 10/26/2024 8:22 AM [facility] MCHC 31.8(L) 32.0 - 37.0 g/dL LAB HEMETOLOGY METHOD 10/26/2024 8:22 AM [facility] RDW 16.5(H) 11.0 - 15.0 % LAB HEMETOLOGY METHOD 10/26/2024 8:22 AM [facility] Platelets 407(H) 130 - 400 K/mcL LAB HEMETOLOGY METHOD 10/26/2024 8:22 AM [facility] MPV 10.0 7.0 - 11.0 FL LAB HEMETOLOGY METHOD 10/26/2024 8:22 AM [facility] NRBC 0.0 <1.0 % LAB HEMETOLOGY METHOD 10/26/2024 8:22 AM [facility] NRBC Absolute 0.00 <0.10 K/mcL LAB HEMETOLOGY METHOD 10/26/2024 8:22 AM [facility] Neutrophils Relative 54.2 % LAB HEMETOLOGY METHOD 10/26/2024 8:22 AM [facility] Lymphocytes Relative 23.9 % LAB HEMETOLOGY METHOD 10/26/2024 8:22 AM [facility] Monocytes Relative 12.3 % LAB HEMETOLOGY METHOD 10/26/2024 8:22 AM [facility] Eosinophils Relative 7.8 % LAB HEMETOLOGY METHOD 10/26/2024 8:22 AM [facility] Basophils Relative 1.5 % LAB HEMETOLOGY METHOD 10/26/2024 8:22 AM [facility] Immature Granulocytes Relative 0.3 % LAB HEMETOLOGY METHOD 10/26/2024 8:22 AM [facility] Neutrophils Absolute 3.59 1.50 - 7.00 K/mcL LAB HEMETOLOGY METHOD 10/26/2024 8:22 AM [facility] Lymphocytes Absolute 1.59 1.00 - 5.00 K/mcL LAB HEMETOLOGY METHOD 10/26/2024 8:22 AM [facility] Monocytes Absolute 0.82 0.20 - 1.00 K/mcL LAB HEMETOLOGY METHOD 10/26/2024 8:22 AM EDT [facility] Eosinophils Absolute 0.52(H) 0.00 - 0.50 K/mcL LAB HEMETOLOGY METHOD 10/26/2024 8:22 AM EDT [facility] Basophils Absolute 0.10 0.00 - 0.20 K/mcL LAB HEMETOLOGY METHOD 10/26/2024 8:22 AM EDT [facility] Immature Granulocytes Absolute 0.02 0.00 - 0.03 K/mcL LAB HEMETOLOGY METHOD 10/26/2024 8:22 AM EDT [facility] Blood Venous blood specimen / Unknown Venipuncture / Unknown 10/26/2024 6:51 AM EDT 10/26/2024 7:59 AM EDT us David Leung MD LAB BLOOD ORDERABLES Final Result Performing Organization Address City/[facility]/ZIP Co de Phone Number [facility] [address] [place] [address], [place] [phone] * (ABNORMAL) Sedimentation rate (10/26/2024 6:51 AM EDT) Pathologist [facility] Sed Rate 62(H) 0 - 20 mm/hr LAB HEMETOLOGY METHOD 10/26/2024 8:31 AM EDT [facility] Blood Venous blood specimen / Unknown Venipuncture / Unknown 10/26/2024 6:51 AM EDT 10/26/2024 7:59 AM EDT us David Leung MD LAB BLOOD ORDERABLES Final Result [facility] [address] [place] [address], [place] [phone] * (ABNORMAL) C-reactive protein (10/26/2024 6:51 AM EDT) C-Reactive Protein 5.35(H) <=0.50 mg/dL LAB CHEMISTRY METHOD 10/26/2024 8:51 AM [facility] Blood Venous blood specimen / Unknown Venipuncture / Unknown 10/26/2024 6:51 AM EDT 10/26/2024 7:59 AM EDT David Leung MD LAB BLOOD ORDERABLES Final Result [facility] [address] [place] [address], * (ABNORMAL) Comprehensive metabolic panel (10/26/2024 6:51 AM EDT) Sodium 135 133 - 145 mmol/L LAB CHEMISTRY METHOD 10/26/2024 8:51 AM [facility] Potassium 3.9 3.5 - 5.5 mmol/L LAB CHEMISTRY METHOD 10/26/2024 8:51 AM [facility] Chloride 103 96 - 110 mmol/L LAB CHEMISTRY METHOD 10/26/2024 8:51 AM [facility] CO2 25 21 - 32 mmol/L LAB CHEMISTRY METHOD 10/26/2024 8:51 AM [facility] Anion Gap 7 3 - 11 LAB CHEMISTRY METHOD 10/26/2024 8:51 AM [facility] Glucose 69(L) 70 - 100 mg/dL LAB CHEMISTRY METHOD 10/26/2024 8:51 AM [facility] BUN 17 5 - 25 mg/dL LAB CHEMISTRY METHOD 10/26/2024 8:51 AM [facility] Creatinine 1.10 0.70 - 1.30 mg/dL LAB CHEMISTRY METHOD 10/26/2024 8:51 AM [facility] eGFR 72 >=60 mL/min/1. 73m2 LAB CHEMISTRY METHOD 10/26/2024 8:51 AM EDT [facility] Comment:Calculation based on the Chronic Kidney Disease Epidemiology Collaboration (CKD-EPI) equation refit without adjustment for race. BUN/Creatinine Ratio 15.5 LAB CHEMISTRY METHOD 10/26/2024 8:51 AM [facility] Calcium 9.0 8.5 - 10.5 mg/dL LAB CHEMISTRY METHOD 10/26/2024 8:51 AM [facility] AST (SGOT) 16 10 - 42 unit/L LAB CHEMISTRY METHOD 10/26/2024 8:51 AM [facility] ALT (SGPT) 26 10 - 60 unit/L LAB CHEMISTRY METHOD 10/26/2024 8:51 AM [facility] Alkaline Phosphatase 186(H) 42 - 121 unit/L LAB CHEMISTRY METHOD 10/26/2024 8:51 AM [facility] Total Protein 6.1 6.0 - 8.0 g/dL LAB CHEMISTRY METHOD 10/26/2024 8:51 AM [facility] Albumin 2.5(L) 3.2 - 5.0 g/dL LAB CHEMISTRY METHOD 10/26/2024 8:51 AM [facility] Total Bilirubin 0.4 0.0 - 1.4 mg/dL LAB CHEMISTRY METHOD 10/26/2024 8:51 AM [facility] Blood Venous blood specimen / Unknown Venipuncture / Unknown 10/26/2024 6:51 AM EDT 10/26/2024 7:59 AM EDT David Leung MD LAB BLOOD ORDERABLES Final Result [facility] [address] [place] [address], documented in this encounter Visit Diagnoses Diagnosis Sepsis, unspecified organism (CMS/[facility] V24, [facility] V28) Anemia, unspecified Unspecified atrial fibrillation (CMS/[facility] V24, [facility] V28) documented in this encounter Care Teams Biochemical Development Engineer Relationship Specialty Start Date End Date Olu Norris MD [address] [place] [address], [phone] PCP - General Family Medicine 07/06/24 documented as of this encounter
--- OUTSIDE RECORDS SUMMARY | 2025-06-05 13:36 | XMS_ITS | Encounter Summary ---
Author Organization [facility] Address [address] [place] [address] Care Team Providers Care Backroom Associate Name Role Phone Olu Norris MD Primary Care Provider [phone] Encounter Details Date Type Department Care Team (Late st Contact Info) Description 09/19/2024 Lab Requisition [facility] - Main Lab [address] [place] [address] David Leung MD [address] [place] [address] [phone] Anemia, unspecified Social History Tobacco Use Types [...] Diagnosis Comments CBC WITH AUTO DIFFERENTIAL Routine 09/19/2024 8:40 AM EST Anemia, unspecified CBC AND DIFFERENTIAL Routine 09/19/2024 8:40 AM EST Anemia, unspecified COMPREHENSIVE METABOLIC PANEL Routine 09/19/2024 8:40 AM EST Anemia, unspecified documented in this encounter Results * (ABNORMAL) CBC auto differential (09/19/2024 8:40 AM EST) [facility] Signature WBC 8.0 4.8 - 10.8 K/mcL LAB HEMETOLOGY METHOD 09/19/2024 10:26 AM EST [facility] RBC 3.10(L) 4.50 - 5.50 M/mcL LAB HEMETOLOGY METHOD 09/19/2024 10:26 AM [facility] Hemoglobin 8.9(L) 13.5 - 17.5 g/dL LAB HEMETOLOGY METHOD 09/19/2024 10:26 AM [facility] Hematocrit 28.1(L) 42.0 - 54.0 % LAB HEMETOLOGY METHOD 09/19/2024 10:26 AM [facility] MCV 89.8 79.0 - 98.0 FL LAB HEMETOLOGY METHOD 09/19/2024 10:26 AM [facility] MCH 28.4 27.0 - 32.0 pcg LAB HEMETOLOGY METHOD 09/19/2024 10:26 AM [facility] MCHC 31.7(L) 32.0 - 37.0 g/dL LAB HEMETOLOGY METHOD 09/19/2024 10:26 AM [facility] RDW 17.2(H) 11.0 - 15.0 % LAB HEMETOLOGY METHOD 09/19/2024 10:26 AM [facility] Platelets 459(H) 130 - 400 K/mcL LAB HEMETOLOGY METHOD 09/19/2024 10:26 AM [facility] MPV 9.9 7.0 - 11.0 FL LAB HEMETOLOGY METHOD 09/19/2024 10:26 AM [facility] NRBC 0.0 <1.0 % LAB HEMETOLOGY METHOD 09/19/2024 10:26 AM [facility] NRBC Absolute 0.00 <0.10 K/mcL LAB HEMETOLOGY METHOD 09/19/2024 10:26 AM [facility] Neutrophils Relative 64.0 % LAB HEMETOLOGY METHOD 09/19/2024 10:26 AM [facility] Lymphocytes Relative 21.3 % LAB HEMETOLOGY METHOD 09/19/2024 10:26 AM EST [facility] Monocytes Relative 10.8 % LAB HEMETOLOGY METHOD 09/19/2024 10:26 AM [facility] Eosinophils Relative 2.3 % LAB HEMETOLOGY METHOD 09/19/2024 10:26 AM [facility] Basophils Relative 0.8 % LAB HEMETOLOGY METHOD 09/19/2024 10:26 AM [facility] Immature Granulocytes Relative 0.8 % LAB HEMETOLOGY METHOD 09/19/2024 10:26 AM [facility] Neutrophils Absolute 5.13 1.50 - 7.00 K/mcL LAB HEMETOLOGY METHOD 09/19/2024 10:26 AM [facility] Lymphocytes Absolute 1.70 1.00 - 5.00 K/mcL LAB HEMETOLOGY METHOD 09/19/2024 10:26 AM EST [facility] Monocytes Absolute 0.86 0.20 - 1.00 K/mcL LAB HEMETOLOGY METHOD 09/19/2024 10:26 AM [facility] Eosinophils Absolute 0.18 0.00 - 0.50 K/mcL LAB HEMETOLOGY METHOD 09/19/2024 10:26 AM [facility] Basophils Absolute 0.06 0.00 - 0.20 K/mcL LAB HEMETOLOGY METHOD 09/19/2024 10:26 AM [facility] Immature Granulocytes Absolute 0.06(H) 0.00 - 0.03 K/mcL LAB HEMETOLOGY METHOD 09/19/2024 10:26 AM [facility] Blood Venous blood specimen / Unknown Venipuncture / Unknown 09/19/2024 8:40 AM EST 09/19/2024 9:48 AM EST us David Leung MD LAB BLOOD ORDERABLES Final Result [facility] [address] [place] [address], * (ABNORMAL) Comprehensive metabolic panel (09/19/2024 8:40 AM EST) Sodium 140 133 - 145 mmol/L LAB CHEMISTRY METHOD 09/19/2024 10:26 AM [facility] Potassium 4.1 3.5 - 5.5 mmol/L LAB CHEMISTRY METHOD 09/19/2024 10:26 AM [facility] Chloride 108 96 - 110 mmol/L LAB CHEMISTRY METHOD 09/19/2024 10:26 AM [facility] CO2 22 21 - 32 mmol/L LAB CHEMISTRY METHOD 09/19/2024 10:26 AM [facility] Anion Gap 10 3 - 11 LAB CHEMISTRY METHOD 09/19/2024 10:26 AM [facility] Glucose 71 70 - 100 mg/dL LAB CHEMISTRY METHOD 09/19/2024 10:26 AM [facility] BUN 12 5 - 25 mg/dL LAB CHEMISTRY METHOD 09/19/2024 10:26 AM [facility] Creatinine 0.87 0.70 - 1.30 mg/dL LAB CHEMISTRY METHOD 09/19/2024 10:26 AM [facility] eGFR 92 >=60 mL/min/1. 73m2 LAB CHEMISTRY METHOD 09/19/2024 10:26 AM [facility] Comment:Calculation based on the Chronic Kidney Disease Epidemiology Collaboration (CKD-EPI) equation refit without adjustment for race. BUN/Creatinine Ratio 13.8 LAB CHEMISTRY METHOD 09/19/2024 10:26 AM [facility] Calcium 8.5 8.5 - 10.5 mg/dL LAB CHEMISTRY METHOD 09/19/2024 10:26 AM [facility] AST (SGOT) 17 10 - 42 unit/L LAB CHEMISTRY METHOD 09/19/2024 10:26 AM EST [facility] ALT (SGPT) 20 10 - 60 unit/L LAB CHEMISTRY METHOD 09/19/2024 10:26 AM [facility] Alkaline Phosphatase 131(H) 42 - 121 unit/L LAB CHEMISTRY METHOD 09/19/2024 10:26 AM [facility] Total Protein 5.5(L) 6.0 - 8.0 g/dL LAB CHEMISTRY METHOD 09/19/2024 10:26 AM [facility] Albumin 2.3(L) 3.2 - 5.0 g/dL LAB CHEMISTRY METHOD 09/19/2024 10:26 AM [facility] Total Bilirubin 0.9 0.0 - 1.4 mg/dL LAB CHEMISTRY METHOD 09/19/2024 10:26 AM [facility] Blood Venous blood specimen / Unknown Venipuncture / Unknown 09/19/2024 8:40 AM EST 09/19/2024 9:48 AM EST us David Leung MD LAB BLOOD ORDERABLES Final Result [facility] [address] [place] [address], documented in this encounter Visit Diagnoses Diagnosis Anemia, unspecified documented in this encounter Care Teams Backroom Associate Relationship Specialty Start Date End Date Olu Norris MD [address] [place] [address] [address] [place], [phone] PCP - General Family Medicine 07/06/24 documented as of this encounter
--- OUTSIDE RECORDS SUMMARY | 2025-06-05 13:36 | XMS_ITS | Encounter Summary ---
Author Organization [facility] Address [address] [place] [address] Care Team Providers Care Project Management Consultant Name Role Phone Olu Norris MD Primary Care Provider [phone] Encounter Details Date Type Department Care Team (Late st Contact Info) Description 10/02/2024 Lab Requisition [facility] - Main Lab [address] [facility] [place] [address] David Leung MD [address] [place], [place] [id number] Unspecified atrial fibrillation (CMS/HCC V24, CMS/HCC V28); [...] Associated Diagnosis Comments COMPLETE BLOOD COUNT Routine 10/03/2024 9:15 AM EDT Unspecified atrial fibrillation (CMS/HCC) Anemia, unspecified CREATINE KINASE Routine 10/03/2024 9:15 AM EDT Unspecified atrial fibrillation (CMS/HCC) Anemia, unspecified COMPREHENSIVE METABOLIC PANEL Routine 10/03/2024 9:15 AM EDT Unspecified atrial fibrillation (CMS/HCC) Anemia, unspecified documented in this encounter Results * Creatine kinase (10/03/2024 9:15 AM EDT) Total CK 39 22 - 269 unit/L LAB CHEMISTRY METHOD 10/03/2024 1:46 PM [facility] Blood Venous blood specimen / Unknown Venipuncture / Unknown 10/03/2024 9:15 AM EDT 10/03/2024 10:26 AM EDT David Leung MD LAB BLOOD ORDERABLES Final Result [facility] [address] [place] [address], * (ABNORMAL) Comprehensive metabolic panel (10/03/2024 9:15 AM EDT) Sodium 136 133 - 145 mmol/L LAB CHEMISTRY METHOD 10/03/2024 1:46 PM [facility] Potassium 3.6 3.5 - 5.5 mmol/L LAB CHEMISTRY METHOD 10/03/2024 1:46 PM [facility] Chloride 102 96 - 110 mmol/L LAB CHEMISTRY METHOD 10/03/2024 1:46 PM [facility] CO2 23 21 - 32 mmol/L LAB CHEMISTRY METHOD 10/03/2024 1:46 PM [facility] Anion Gap 11 3 - 11 LAB CHEMISTRY METHOD 10/03/2024 1:46 PM [facility] Glucose 122(H) 70 - 100 mg/dL LAB CHEMISTRY METHOD 10/03/2024 1:46 PM [facility] BUN 15 5 - 25 mg/dL LAB CHEMISTRY METHOD 10/03/2024 1:46 PM [facility] Creatinine 1.10 0.70 - 1.30 mg/dL LAB CHEMISTRY METHOD 10/03/2024 1:46 PM [facility] eGFR 72 >=60 mL/min/1. 73m2 LAB CHEMISTRY METHOD 10/03/2024 1:46 PM [facility] Comment:Calculation based on the Chronic Kidney Disease Epidemiology Collaboration (CKD-EPI) equation refit without adjustment for race. BUN/Creatinine Ratio 13.6 LAB CHEMISTRY METHOD 10/03/2024 1:46 PM EDT [facility] Calcium 8.7 8.5 - 10.5 mg/dL LAB CHEMISTRY METHOD 10/03/2024 1:46 PM EDT [facility] AST (SGOT) 17 10 - 42 unit/L LAB CHEMISTRY METHOD 10/03/2024 1:46 PM T [facility] ALT (SGPT) 16 10 - 60 unit/L LAB CHEMISTRY METHOD 10/03/2024 1:46 PM [facility] Alkaline Phosphatase 121 42 - 121 unit/L LAB CHEMISTRY METHOD 10/03/2024 1[facility] Total Protein 6.1 6.0 - 8.0 g/dL LAB CHEMISTRY METHOD 10/03/2024 1:[facility] Albumin 2.6(L) 3.2 - 5.0 g/dL LAB CHEMISTRY METHOD 10/03/2024 1:46 PM [facility] Total Bilirubin 0.9 0.0 - 1.4 mg/dL LAB CHEMISTRY METHOD 10/03/2024 1:46 PM T [facility] Blood Venous blood specimen / Unknown Venipuncture / Unknown 10/03/2024 9:15 AM EDT 10/03/2024 10:26 AM EDT us David Leung MD LAB BLOOD ORDERABLES Final Result [facility] [address] [place] [address], * (ABNORMAL) Complete blood count (10/03/2024 9:15 AM EDT) WBC 7.4 4.8 - 10.8 K/mcL LAB HEMETOLOGY METHOD 10/03/2024 12:18 PM [facility] RBC 3.50(L) 4.50 - 5.50 M/mcL LAB HEMETOLOGY METHOD 10/03/2024 12:18 PM [facility] Hemoglobin 9.5(L) 13.5 - 17.5 g/dL LAB HEMETOLOGY METHOD 10/03/2024 12:18 PM [facility] Hematocrit 31.0(L) 42.0 - 54.0 % LAB HEMETOLOGY METHOD 10/03/2024 12:18 PM [facility] MCV 88.3 79.0 - 98.0 FL LAB HEMETOLOGY METHOD 10/03/2024 12:18 PM [facility] MCH 27.1 27.0 - 32.0 pcg LAB HEMETOLOGY METHOD 10/03/2024 12:18 PM [facility] MCHC 30.6(L) 32.0 - 37.0 g/dL LAB HEMETOLOGY METHOD 10/03/2024 12:18 PM [facility] RDW 16.1(H) 11.0 - 15.0 % LAB HEMETOLOGY METHOD 10/03/2024 12:18 PM [facility] Platelets 442(H) 130 - 400 K/mcL LAB HEMETOLOGY METHOD 10/03/2024 12:18 PM [facility] MPV 10.1 7.0 - 11.0 FL LAB HEMETOLOGY METHOD 10/03/2024 12:18 PM [facility] NRBC 0.0 <1.0 % LAB HEMETOLOGY METHOD 10/03/2024 12:18 PM [facility] NRBC Absolute 0.00 <0.10 K/mcL LAB HEMETOLOGY METHOD 10/03/2024 12:18 PM [facility] Blood Venous blood specimen / Unknown Venipuncture / Unknown 10/03/2024 9:15 AM EDT 10/03/2024 10:26 AM EDT David Leung MD LAB BLOOD ORDERABLES Final Result [facility] [address] [place] [address], documented in this encounter Visit Diagnoses Diagnosis Unspecified atrial fibrillation (CMS/HCC V24, CMS/HCC V28) Anemia, unspecified documented in this encounter Care Teams Project Management Consultant Relationship Specialty Start Date End Date Olu Norris MD [address] [place] [address], [phone] PCP - General Family Medicine 07/06/24 documented as of this encounter
--- OUTSIDE RECORDS SUMMARY | 2025-06-05 13:36 | XMS_ITS | Encounter Summary ---
Author Organization [facility] Address [address] [place] [address] Care Team Providers Care Branch Services Manager Name Role Phone Olu Norris MD Primary Care Provider [phone] Encounter Details Date Type Department Care Team (Late st Contact Info) Description 07/05/2024 Lab Requisition [facility] - Main Lab [address] [facility] [place] [address] Olu Norris MD [address] [facility] [address] [place], [phone] Presence of unspecified artificial hip joint; Vitamin deficiency, unspecified; Unspecified atrial fibrillation (CMS/HCC V24, CMS/HCC [...] D 25 hydroxy (07/05/2024 9:36 AM EST) Pathologist [facility] Vit D, 25-Hydroxy 22.7(L) 30.0 - 80.0 ng/mL LAB CHEMISTRY METHOD 07/05/2024 12:57 PM EST [facility] Blood Venous blood specimen / Unknown Venipuncture / Unknown 07/05/2024 9:36 AM EST 07/05/2024 10:45 AM EST us Olu Norris MD LAB BLOOD ORDERABLES Final Resul t Performing Organization Address [facility]/ZIP Co de Phone Number [facility] [address] [place] [address], [place] [phone] * (ABNORMAL) Folate (07/05/2024 9:36 AM EST) [facility] Folate 17.7(H) 2.8 - 17.0 ng/ml LAB CHEMISTRY METHOD 07/05/2024 12:58 PM EST [facility] Blood Venous blood specimen / Unknown Venipuncture / Unknown 07/05/2024 9:36 AM EST 07/05/2024 10:45 AM EST us Olu Norris MD LAB BLOOD ORDERABLES Final Resul t [facility] [address] [place] [address], [place] [phone] * Vitamin B12 (07/05/2024 9:36 AM EST) [facility] Vitamin B-12 251 250 - 900 pcg/mL LAB CHEMISTRY METHOD 07/05/2024 1:[address] [facility] Blood Venous blood specimen / Unknown Venipuncture / Unknown 07/05/2024 9:36 AM EST 07/05/2024 10:45 AM EST Olu Norris MD LAB BLOOD ORDERABLES Final Resul t [facility] [address] [place] [address], [place] [phone] * Thyroid stimulating hormone (07/05/2024 9:36 AM EST) [facility] TSH 1.20 0.40 - 4.00 mcIU/mL LAB CHEMISTRY METHOD 07/05/2024 12:[address] [facility] Blood Venous blood specimen / Unknown Venipuncture / Unknown 07/05/2024 9:36 AM EST 07/05/2024 10:45 AM EST Olu Norris MD LAB BLOOD ORDERABLES Final Resul t [facility] [address] [place] [address], [place] [phone] * (ABNORMAL) Comprehensive metabolic panel (07/05/2024 9:36 AM EST) [facility] Sodium 140 133 - 145 mmol/L LAB CHEMISTRY METHOD 07/05/2024 12:[address] [facility] Potassium 3.9 3.5 - 5.5 mmol/L LAB CHEMISTRY METHOD 07/05/2024 12:[address] [facility] Chloride 105 96 - 110 mmol/L LAB CHEMISTRY METHOD 07/05/2024 12:[address] [facility] CO2 28 21 - 32 mmol/L LAB CHEMISTRY METHOD 07/05/2024 12:[address] [facility] Anion Gap 7 3 - 11 LAB CHEMISTRY METHOD 07/05/2024 12:[address] [facility] Glucose 85 70 - 100 mg/dL LAB CHEMISTRY METHOD 07/05/2024 12:[address] [facility] BUN 16 5 - 25 mg/dL LAB CHEMISTRY METHOD 07/05/2024 12:[address] [facility] Creatinine 1.05 0.70 - 1.30 mg/dL LAB CHEMISTRY METHOD 07/05/2024 12:[address] [facility] eGFR 76 >=60 mL/min/1. 73m2 LAB CHEMISTRY METHOD 07/05/2024 12:[address] [facility] Comment:Calculation based on the Chronic Kidney Disease Epidemiology Collaboration (CKD-EPI) equation refit without adjustment for race. BUN/Creatinine Ratio 15.2 LAB CHEMISTRY METHOD 07/05/2024 12:[address] [facility] Calcium 8.9 8.5 - 10.5 mg/dL LAB CHEMISTRY METHOD 07/05/2024 12:[address] [facility] AST (SGOT) 19 10 - 42 unit/L LAB CHEMISTRY METHOD 07/05/2024 12:[address] [facility] ALT (SGPT) 34 10 - 60 unit/L LAB CHEMISTRY METHOD 07/05/2024 12:[address] [facility] Alkaline Phosphatase 110 42 - 121 unit/L LAB CHEMISTRY METHOD 07/05/2024 12:[address] [facility] Total Protein 5.5(L) 6.0 - 8.0 g/dL LAB CHEMISTRY METHOD 07/05/2024 12:[address] [facility] Albumin 2.6(L) 3.2 - 5.0 g/dL LAB CHEMISTRY METHOD 07/05/2024 12:[address] [facility] Total Bilirubin 1.0 0.0 - 1.4 mg/dL LAB CHEMISTRY METHOD 07/05/2024 12:[address] [facility] Blood Venous blood specimen / Unknown Venipuncture / Unknown 07/05/2024 9:36 AM EST 07/05/2024 10:45 AM EST us Olu Norris MD LAB BLOOD ORDERABLES Final Resul t [facility] [address] [place] [address], [place] [phone] * (ABNORMAL) Complete blood count (07/05/2024 9:36 AM EST) WBC 8.9 4.8 - 10.8 K/mcL LAB HEMETOLOGY METHOD 07/05/2024 12:[address] [facility] RBC 3.00(L) 4.50 - 5.50 M/mcL LAB HEMETOLOGY METHOD 07/05/2024 12:[address] [facility] Hemoglobin 9.6(L) 13.5 - 17.5 g/dL LAB HEMETOLOGY METHOD 07/05/2024 12:[address] [facility] Hematocrit 30.5(L) 42.0 - 54.0 % LAB HEMETOLOGY METHOD 07/05/2024 12:[address] [facility] MCV 101.0(H) 79.0 - 98.0 FL LAB HEMETOLOGY METHOD 07/05/2024 12:[address] [facility] MCH 31.8 27.0 - 32.0 pcg LAB HEMETOLOGY METHOD 07/05/2024 12:[address] [facility] MCHC 31.5(L) 32.0 - 37.0 g/dL LAB HEMETOLOGY METHOD 07/05/2024 12:[address] [facility] RDW 14.7 11.0 - 15.0 % LAB HEMETOLOGY METHOD 07/05/2024 12:14 PM EST [facility] Platelets 367 130 - 400 K/mcL LAB HEMETOLOGY METHOD 07/05/2024 12:[address] [facility] MPV 11.5(H) 7.0 - 11.0 FL LAB HEMETOLOGY METHOD 07/05/2024 12:14 PM EST [facility] NRBC 0.0 <1.0 % LAB HEMETOLOGY METHOD 07/05/2024 12:[address] [facility] NRBC Absolute 0.00 <0.10 K/mcL LAB HEMETOLOGY METHOD 07/05/2024 12:[address] [facility] Blood Venous blood specimen / Unknown Venipuncture / Unknown 07/05/2024 9:36 AM EST 07/05/2024 10:45 AM EST us Olu Norris MD LAB BLOOD ORDERABLES Final Resul t [facility] [address] [place] [address], documented in this encounter Visit Diagnoses Diagnosis Presence of unspecified artificial hip joint Vitamin deficiency, unspecified Unspecified atrial fibrillation (CMS/HCC V24, CMS/HCC V28) documented in this encounter Care Teams Branch Services Manager Relationship Specialty Start Date End Date Olu Norris MD [address] [place] [address], [phone] PCP - General Family Medicine 07/06/24 documented as of this encounter
--- OUTSIDE RECORDS SUMMARY | 2025-06-05 13:36 | XMS_ITS | Encounter Summary ---
Author Organization [facility] Address [address] [place] [address] Care Team Providers Care Locket Maker Name Role Phone Olu Norris MD Primary Care Provider [phone] Encounter Details Date Type Department Care Team (Late st Contact Info) Description 05/21/2025 Lab Requisition [facility] - Main Lab [address] [place] [address] David Leung MD [address] [place] [address] [phone] Anemia, unspecified Social History Tobacco Use Types [...] Associated Diagnosis Comments COMPLETE BLOOD COUNT Routine 05/22/2025 8:21 AM EDT Anemia, unspecified BASIC METABOLIC PANEL Routine 05/22/2025 8:21 AM EDT Anemia, unspecified documented in this encounter Results * (ABNORMAL) Basic metabolic panel (05/22/2025 8:21 AM EDT) Sodium 138 133 - 145 mmol/L LAB CHEMISTRY METHOD 05/22/2025 11:33 AM EDT [facility] Potassium 3.8 3.5 - 5.5 mmol/L LAB CHEMISTRY METHOD 05/22/2025 11:33 AM EDT [facility] Chloride 104 96 - 110 mmol/L LAB CHEMISTRY METHOD 05/22/2025 11:33 AM [facility] CO2 29 21 - 32 mmol/L LAB CHEMISTRY METHOD 05/22/2025 11:33 AM [facility] Anion Gap 5 3 - 11 LAB CHEMISTRY METHOD 05/22/2025 11:33 AM [facility] Glucose 70 70 - 100 mg/dL LAB CHEMISTRY METHOD 05/22/2025 11:33 AM [facility] BUN 11 5 - 25 mg/dL LAB CHEMISTRY METHOD 05/22/2025 11:33 AM [facility] Creatinine 0.88 0.70 - 1.30 mg/dL LAB CHEMISTRY METHOD 05/22/2025 11:33 AM [facility] eGFR 91 >=60 mL/min/1. 73m2 LAB CHEMISTRY METHOD 05/22/2025 11:33 AM [facility] Comment:Calculation based on the Chronic Kidney Disease Epidemiology Collaboration (CKD-EPI) equation refit without adjustment for race. BUN/Creatinine Ratio 12.5 LAB CHEMISTRY METHOD 05/22/2025 11:33 AM [facility] Calcium 8.1(L) 8.5 - 10.5 mg/dL LAB CHEMISTRY METHOD 05/22/2025 11:33 AM [facility] Blood Venous blood specimen / Unknown Venipuncture / Unknown 05/22/2025 8:21 AM EDT 05/22/2025 9:43 AM EDT us David Leung MD LAB BLOOD ORDERABLES Final Result [facility] [address] [place] [address], * (ABNORMAL) Complete blood count (05/22/2025 8:21 AM EDT) Pathologist [facility] WBC 8.0 4.8 - 10.8 K/mcL LAB HEMETOLOGY METHOD 05/22/2025 11:02 AM [facility] RBC 2.60(L) 4.50 - 5.50 M/mcL LAB HEMETOLOGY METHOD 05/22/2025 11:02 AM [facility] Hemoglobin 7.7(L) 13.5 - 17.5 g/dL LAB HEMETOLOGY METHOD 05/22/2025 11:02 AM [facility] Hematocrit 24.7(L) 42.0 - 54.0 % LAB HEMETOLOGY METHOD 05/22/2025 11:02 AM [facility] MCV 95.0 79.0 - 98.0 FL LAB HEMETOLOGY METHOD 05/22/2025 11:02 AM [facility] MCH 29.6 27.0 - 32.0 pcg LAB HEMETOLOGY METHOD 05/22/2025 11:02 AM [facility] MCHC 31.2(L) 32.0 - 37.0 g/dL LAB HEMETOLOGY METHOD 05/22/2025 11:02 AM [facility] RDW 15.4(H) 11.0 - 15.0 % LAB HEMETOLOGY METHOD 05/22/2025 11:02 AM [facility] Platelets 527(H) 130 - 400 K/mcL LAB HEMETOLOGY METHOD 05/22/2025 11:02 AM [facility] MPV 10.2 7.0 - 11.0 FL LAB HEMETOLOGY METHOD 05/22/2025 11:02 AM [facility] NRBC 0.0 <1.0 % LAB HEMETOLOGY METHOD 05/22/2025 11:02 AM [facility] NRBC Absolute 0.00 <0.10 K/mcL LAB HEMETOLOGY METHOD 05/22/2025 11:02 AM [facility] Blood Venous blood specimen / Unknown Venipuncture / Unknown 05/22/2025 8:21 AM EDT 05/22/2025 9:43 AM EDT David Leung MD LAB BLOOD ORDERABLES Final Result [facility] [address] [place] [address], documented in this encounter Visit Diagnoses Diagnosis Anemia, unspecified documented in this encounter Care Teams Locket Maker Relationship Specialty Start Date End Date Olu Norris MD [address] [place] [phone] PCP - General Family Medicine 07/06/24 documented as of this encounter
--- OUTSIDE RECORDS SUMMARY | 2025-06-05 13:36 | XMS_ITS | Encounter Summary ---
Author Organization [facility] Address [address] [place] [address] Care Team Providers Care Lead Accountant Name Role Phone Olu Norris MD Primary Care Provider [phone] Encounter Details Date Type Department Care Team (Late st Contact Info) Description 10/30/2024 Lab Requisition [facility] - Main Lab [address] [place] [address] David Leung MD [address] [place] [address] [phone] Unspecified atrial fibrillation (CMS/HCC V24, CMS/HCC V28); [...] Procedure Name Priority Date/Time Associated Diagnosis Comments CREATINE KINASE Routine 10/31/2024 8:36 AM EDT Unspecified atrial fibrillation (CMS/HCC) Anemia, unspecified COMPREHENSIVE METABOLIC PANEL Routine 10/31/2024 8:36 AM EDT Unspecified atrial fibrillation (CMS/HCC) Anemia, unspecified documented in this encounter Results * Creatine kinase (10/31/2024 8:36 AM EDT) Total CK 50 22 - 269 unit/L LAB CHEMISTRY METHOD 10/31/2024 10:28 AM EDT [facility] Blood Venous blood specimen / Unknown Venipuncture / Unknown 10/31/2024 8:36 AM EDT 10/31/2024 10:28 AM EDT David Leung MD LAB BLOOD ORDERABLES Final Result [facility] [address] [place] [address], [place] [phone] * (ABNORMAL) Comprehensive metabolic panel (10/31/2024 8:36 AM EDT) Sodium 138 133 - 145 mmol/L LAB CHEMISTRY METHOD 10/31/2024 10:30 AM [facility] Potassium 3.8 3.5 - 5.5 mmol/L LAB CHEMISTRY METHOD 10/31/2024 10:30 AM [facility] Chloride 104 96 - 110 mmol/L LAB CHEMISTRY METHOD 10/31/2024 10:30 AM [facility] CO2 27 21 - 32 mmol/L LAB CHEMISTRY METHOD 10/31/2024 10:30 AM [facility] Anion Gap 7 3 - 11 LAB CHEMISTRY METHOD 10/31/2024 10:30 AM [facility] Glucose 74 70 - 100 mg/dL LAB CHEMISTRY METHOD 10/31/2024 10:30 AM [facility] BUN 19 5 - 25 mg/dL LAB CHEMISTRY METHOD 10/31/2024 10:30 AM [facility] Creatinine 0.98 0.70 - 1.30 mg/dL LAB CHEMISTRY METHOD 10/31/2024 10:30 AM [facility] eGFR 82 >=60 mL/min/1. 73m2 LAB CHEMISTRY METHOD 10/31/2024 10:30 AM [facility] Comment:Calculation based on the Chronic Kidney Disease Epidemiology Collaboration (CKD-EPI) equation refit without adjustment for race. BUN/Creatinine Ratio 19.4 LAB CHEMISTRY METHOD 10/31/2024 10:30 AM EDT [facility] Calcium 9.2 8.5 - 10.5 mg/dL LAB CHEMISTRY METHOD 10/31/2024 10:30 AM [facility] AST (SGOT) 18 10 - 42 unit/L LAB CHEMISTRY METHOD 10/31/2024 10:30 AM [facility] ALT (SGPT) 22 10 - 60 unit/L LAB CHEMISTRY METHOD 10/31/2024 10:30 AM [facility] Alkaline Phosphatase 207(H) 42 - 121 unit/L LAB CHEMISTRY METHOD 10/31/2024 10:30 AM [facility] Total Protein 6.5 6.0 - 8.0 g/dL LAB CHEMISTRY METHOD 10/31/2024 10:30 AM [facility] Albumin 2.8(L) 3.2 - 5.0 g/dL LAB CHEMISTRY METHOD 10/31/2024 10:30 AM [facility] Total Bilirubin 0.4 0.0 - 1.4 mg/dL LAB CHEMISTRY METHOD 10/31/2024 10:30 AM [facility] Blood Venous blood specimen / Unknown Venipuncture / Unknown 10/31/2024 8:36 AM EDT 10/31/2024 10:28 AM EDT David Leung MD LAB BLOOD ORDERABLES Final Result [facility] [address] [place] [address], documented in this encounter Visit Diagnoses Diagnosis Unspecified atrial fibrillation (CMS/HCC V24, CMS/HCC V28) Anemia, unspecified documented in this encounter Care Teams Lead Accountant Relationship Specialty Start Date End Date Olu Norris MD [address] [place] [address] [address] [place], [phone] PCP - General Family Medicine 07/06/24 documented as of this encounter
--- OUTSIDE RECORDS SUMMARY | 2025-06-05 13:36 | XMS_ITS | Encounter Summary ---
Author Organization [facility] Address [address] [place] [address] Care Team Providers Care Mainspring Reverse Winder Name Role Phone Olu Norris MD Primary Care Provider [phone] Encounter Details Date Type Department Care Team (Late st Contact Info) Description 05/15/2025 Lab Requisition [facility] - Main Lab [address] [place] [address] David Leung MD [address] [place] [address] [phone] Anemia, unspecified Social History Tobacco Use Types [...] Associated Diagnosis Comments COMPLETE BLOOD COUNT Routine 05/15/2025 8:38 AM EDT Anemia, unspecified COMPREHENSIVE METABOLIC PANEL Routine 05/15/2025 8:38 AM EDT Anemia, unspecified documented in this encounter Results * (ABNORMAL) Comprehensive metabolic panel (05/15/2025 8:38 AM EDT) Sodium 135 133 - 145 mmol/L LAB CHEMISTRY METHOD 05/15/2025 11:42 AM EDT [facility] Potassium 3.5 3.5 - 5.5 mmol/L LAB CHEMISTRY METHOD 05/15/2025 11:42 AM EDT [facility] Chloride 101 96 - 110 mmol/L LAB CHEMISTRY METHOD 05/15/2025 11:[address] [facility] CO2 26 21 - 32 mmol/L LAB CHEMISTRY METHOD 05/15/2025 11:[address] [facility] Anion Gap 8 3 - 11 LAB CHEMISTRY METHOD 05/15/2025 11:[address] [facility] Glucose 84 70 - 100 mg/dL LAB CHEMISTRY METHOD 05/15/2025 11:[address] [facility] BUN 11 5 - 25 mg/dL LAB CHEMISTRY METHOD 05/15/2025 11:[address] [facility] Creatinine 0.94 0.70 - 1.30 mg/dL LAB CHEMISTRY METHOD 05/15/2025 11:[address] [facility] eGFR 86 >=60 mL/min/1. 73m2 LAB CHEMISTRY METHOD 05/15/2025 11:[address] [facility] Comment:Calculation based on the Chronic Kidney Disease Epidemiology Collaboration (CKD-EPI) equation refit without adjustment for race. BUN/Creatinine Ratio 11.7 LAB CHEMISTRY METHOD 05/15/2025 11:[address] [facility] Calcium 8.6 8.5 - 10.5 mg/dL LAB CHEMISTRY METHOD 05/15/2025 11:[address] [facility] AST (SGOT) 38 10 - 42 unit/L LAB CHEMISTRY METHOD 05/15/2025 11:[address] [facility] ALT (SGPT) 20 10 - 60 unit/L LAB CHEMISTRY METHOD 05/15/2025 11:[address] [facility] Alkaline Phosphatase 141(H) 42 - 121 unit/L LAB CHEMISTRY METHOD 05/15/2025 11:[address] [facility] Total Protein 5.7(L) 6.0 - 8.0 g/dL LAB CHEMISTRY METHOD 05/15/2025 11:[address] [facility] Albumin 2.8(L) 3.2 - 5.0 g/dL LAB CHEMISTRY METHOD 05/15/2025 11:42 AM T [facility] Total Bilirubin 1.5(H) 0.0 - 1.4 mg/dL LAB CHEMISTRY METHOD 05/15/2025 11:[address] [facility] Blood Venous blood specimen / Unknown Venipuncture / Unknown 05/15/2025 8:38 AM EDT 05/15/2025 10:08 AM EDT us David Leung MD LAB BLOOD ORDERABLES Final Result [facility] [address] [place] [address], * (ABNORMAL) Complete blood count (05/15/2025 8:38 AM EDT) WBC 9.9 4.8 - 10.8 K/mcL LAB HEMETOLOGY METHOD 05/15/2025 10:[address] [facility] RBC 3.30(L) 4.50 - 5.50 M/mcL LAB HEMETOLOGY METHOD 05/15/2025 10:[address] [facility] Hemoglobin 9.9(L) 13.5 - 17.5 g/dL LAB HEMETOLOGY METHOD 05/15/2025 10:[address] [facility] Hematocrit 31.0(L) 42.0 - 54.0 % LAB HEMETOLOGY METHOD 05/15/2025 10:[address] [facility] MCV 94.5 79.0 - 98.0 FL LAB HEMETOLOGY METHOD 05/15/2025 10:[address] [facility] MCH 30.2 27.0 - 32.0 pcg LAB HEMETOLOGY METHOD 05/15/2025 10:[address] [facility] MCHC 31.9(L) 32.0 - 37.0 g/dL LAB HEMETOLOGY METHOD 05/15/2025 10:34 AM EDT [facility] RDW 16.8(H) 11.0 - 15.0 % LAB HEMETOLOGY METHOD 05/15/2025 10:34 AM EDT [facility] Platelets 506(H) 130 - 400 K/mcL LAB HEMETOLOGY METHOD 05/15/2025 10:34 AM EDT [facility] MPV 10.3 7.0 - 11.0 FL LAB HEMETOLOGY METHOD 05/15/2025 10:34 AM EDT [facility] NRBC 0.0 <1.0 % LAB HEMETOLOGY METHOD 05/15/2025 10:34 AM EDT [facility] NRBC Absolute 0.00 <0.10 K/mcL LAB HEMETOLOGY METHOD 05/15/2025 10:34 AM EDT [facility] Blood Venous blood specimen / Unknown Venipuncture / Unknown 05/15/2025 8:38 AM EDT 05/15/2025 10:08 AM EDT David Leung MD LAB BLOOD ORDERABLES Final Result [facility] [address] [place] [address], documented in this encounter Visit Diagnoses Diagnosis Anemia, unspecified documented in this encounter Care Teams Mainspring Reverse Winder Relationship Specialty Start Date End Date Olu Norris MD [address] [place] [address], [phone] PCP - General Family Medicine 07/06/24 documented as of this encounter
--- OUTSIDE RECORDS SUMMARY | 2025-06-05 13:36 | XMS_ITS | Encounter Summary ---
Author Organization [facility] Address [address] [place] [address] Care Team Providers Care Sourcing Consultant Name Role Phone Olu Norris MD Primary Care Provider [phone] Encounter Details Date Type Department Care Team (Late st Contact Info) Description 09/25/2024 Lab Requisition [facility] - Main Lab 299 [facility] [place] [address] David Leung MD [address] [place], [place] [phone] Unspecified atrial fibrillation (CMS/HCC V24, CMS/HCC V28); [...] Associated Diagnosis Comments COMPLETE BLOOD COUNT Routine 09/26/2024 5:32 AM EST Unspecified atrial fibrillation (CMS/HCC) Anemia, unspecified CREATINE KINASE Routine 09/26/2024 5:32 AM EST Unspecified atrial fibrillation (CMS/HCC) Anemia, unspecified COMPREHENSIVE METABOLIC PANEL Routine 09/26/2024 5:32 AM EST Unspecified atrial fibrillation (CMS/HCC) Anemia, unspecified documented in this encounter Results * Creatine kinase (09/26/2024 5:32 AM EST) Total CK 59 22 - 269 unit/L LAB CHEMISTRY METHOD 09/26/2024 11:[address] [facility] Blood Venous blood specimen / Unknown Venipuncture / Unknown 09/26/2024 5:32 AM EST 09/26/2024 11:04 AM EST David Leung MD LAB BLOOD ORDERABLES Final Result [facility] [address] [place] [address], * (ABNORMAL) Comprehensive metabolic panel (09/26/2024 5:32 AM EST) Sodium 137 133 - 145 mmol/L LAB CHEMISTRY METHOD 09/26/2024 11:[address] [facility] Potassium 4.7 3.5 - 5.5 mmol/L LAB CHEMISTRY METHOD 09/26/2024 11:[address] [facility] Chloride 104 96 - 110 mmol/L LAB CHEMISTRY METHOD 09/26/2024 11:[address] [facility] CO2 26 21 - 32 mmol/L LAB CHEMISTRY METHOD 09/26/2024 11:[address] [facility] Anion Gap 7 3 - 11 LAB CHEMISTRY METHOD 09/26/2024 11:[address] [facility] Glucose 55(L) 70 - 100 mg/dL LAB CHEMISTRY METHOD 09/26/2024 11:[address] [facility] BUN 18 5 - 25 mg/dL LAB CHEMISTRY METHOD 09/26/2024 11:[address] [facility] Creatinine 1.09 0.70 - 1.30 mg/dL LAB CHEMISTRY METHOD 09/26/2024 11:[address] [facility] eGFR 73 >=60 mL/min/1. 73m2 LAB CHEMISTRY METHOD 09/26/2024 11:[address] [facility] Comment:Calculation based on the Chronic Kidney Disease Epidemiology Collaboration (CKD-EPI) equation refit without adjustment for race. BUN/Creatinine Ratio 16.5 LAB CHEMISTRY METHOD 09/26/2024 11:[address] [facility] Calcium 9.0 8.5 - 10.5 mg/dL LAB CHEMISTRY METHOD 09/26/2024 11:[address] [facility] AST (SGOT) 13 10 - 42 unit/L LAB CHEMISTRY METHOD 09/26/2024 11:[address] [facility] ALT (SGPT) 18 10 - 60 unit/L LAB CHEMISTRY METHOD 09/26/2024 11:[address] [facility] Alkaline Phosphatase 130(H) 42 - 121 unit/L LAB CHEMISTRY METHOD 09/26/2024 11:[address] [facility] Total Protein 6.0 6.0 - 8.0 g/dL LAB CHEMISTRY METHOD 09/26/2024 11:[address] [facility] Albumin 2.6(L) 3.2 - 5.0 g/dL LAB CHEMISTRY METHOD 09/26/2024 11:[address] [facility] Total Bilirubin 0.5 0.0 - 1.4 mg/dL LAB CHEMISTRY METHOD 09/26/2024 11:[address] [facility] Blood Venous blood specimen / Unknown Venipuncture / Unknown 09/26/2024 5:32 AM EST 09/26/2024 11:04 AM EST David Leung MD LAB BLOOD ORDERABLES Final Result [facility] [address] [place] [address], * (ABNORMAL) Complete blood count (09/26/2024 5:32 AM EST) WBC 7.6 4.8 - 10.8 K/mcL LAB HEMETOLOGY METHOD 09/26/2024 11:[address] [facility] RBC 3.30(L) 4.50 - 5.50 M/mcL LAB HEMETOLOGY METHOD 09/26/2024 11:[address] [facility] Hemoglobin 9.1(L) 13.5 - 17.5 g/dL LAB HEMETOLOGY METHOD 09/26/2024 11:[address] [facility] Hematocrit 30.0(L) 42.0 - 54.0 % LAB HEMETOLOGY METHOD 09/26/2024 11:[address] [facility] MCV 91.2 79.0 - 98.0 FL LAB HEMETOLOGY METHOD 09/26/2024 11:[address] [facility] MCH 27.7 27.0 - 32.0 pcg LAB HEMETOLOGY METHOD 09/26/2024 11:[address] [facility] MCHC 30.3(L) 32.0 - 37.0 g/dL LAB HEMETOLOGY METHOD 09/26/2024 11:[address] [facility] RDW 16.6(H) 11.0 - 15.0 % LAB HEMETOLOGY METHOD 09/26/2024 11:[address] [facility] Platelets 541(H) 130 - 400 K/mcL LAB HEMETOLOGY METHOD 09/26/2024 11:[address] [facility] MPV 11.2(H) 7.0 - 11.0 FL LAB HEMETOLOGY METHOD 09/26/2024 11:[address] [facility] NRBC 0.0 <1.0 % LAB HEMETOLOGY METHOD 09/26/2024 11:[address] [facility] NRBC Absolute 0.00 <0.10 K/mcL LAB HEMETOLOGY METHOD 09/26/2024 11:[address] [facility] Blood Venous blood specimen / Unknown Venipuncture / Unknown 09/26/2024 5:32 AM EST 09/26/2024 11:04 AM EST us David Leung MD LAB BLOOD ORDERABLES Final Result [facility] [address] [place] [address], documented in this encounter Visit Diagnoses Diagnosis Unspecified atrial fibrillation (CMS/HCC V24, CMS/HCC V28) Anemia, unspecified documented in this encounter Care Teams Sourcing Consultant Relationship Specialty Start Date End Date Olu Norris MD [address] [place] [address] [address] [place], [phone] PCP - General Family Medicine 07/06/24 documented as of this encounter
--- OUTSIDE RECORDS SUMMARY | 2025-06-05 13:36 | XMS_ITS | Encounter Summary ---
Author Organization [facility] Address [address] [place] [address] Care Team Providers Care Travel Accommodations Rater Name Role Phone Olu Norris MD Primary Care Provider [phone] Encounter Details Date Type Department Care Team (Late st Contact Info) Description 07/22/2024 Lab Requisition [facility] - Main Lab [address] [place] [address] Nicolle Rosenberg MD [address] [place] [address] Essential (primary) hypertension; Unspecified atrial fibrillation (CMS/HCC V24, CMS/HCC V28) [...] mmol/L LAB CHEMISTRY METHOD 07/22/2024 11:01 AM [facility] Chloride 106 96 - 110 mmol/L LAB CHEMISTRY METHOD 07/22/2024 11:01 AM [facility] CO2 28 21 - 32 mmol/L LAB CHEMISTRY METHOD 07/22/2024 11:01 AM [facility] Anion Gap 6 3 - 11 LAB CHEMISTRY METHOD 07/22/2024 11:01 AM [facility] Glucose 76 70 - 100 mg/dL LAB CHEMISTRY METHOD 07/22/2024 11:01 AM [facility] BUN 12 5 - 25 mg/dL LAB CHEMISTRY METHOD 07/22/2024 11:01 AM [facility] Creatinine 0.87 0.70 - 1.30 mg/dL LAB CHEMISTRY METHOD 07/22/2024 11:01 AM [facility] eGFR 92 >=60 mL/min/1. 73m2 LAB CHEMISTRY METHOD 07/22/2024 11:01 AM [facility] Comment:Calculation based on the Chronic Kidney Disease Epidemiology Collaboration (CKD-EPI) equation refit without adjustment for race. BUN/Creatinine Ratio 13.8 LAB CHEMISTRY METHOD 07/22/2024 11:01 AM [facility] Calcium 8.8 8.5 - 10.5 mg/dL LAB CHEMISTRY METHOD 07/22/2024 11:01 AM [facility] AST (SGOT) 31 10 - 42 unit/L LAB CHEMISTRY METHOD 07/22/2024 11:01 AM [facility] ALT (SGPT) 31 10 - 60 unit/L LAB CHEMISTRY METHOD 07/22/2024 11:01 AM [facility] Alkaline Phosphatase 128(H) 42 - 121 unit/L LAB CHEMISTRY METHOD 07/22/2024 11:01 AM [facility] Total Protein 5.5(L) 6.0 - 8.0 g/dL LAB CHEMISTRY METHOD 07/22/2024 11:01 AM [facility] Albumin 2.6(L) 3.2 - 5.0 g/dL LAB CHEMISTRY METHOD 07/22/2024 11:01 AM [facility] Total Bilirubin 1.1 0.0 - 1.4 mg/dL LAB CHEMISTRY METHOD 07/22/2024 11:01 AM [facility] Blood Venous blood specimen / Unknown Venipuncture / Unknown 07/22/2024 5:50 AM EST 07/22/2024 9:40 AM EST us Nicolle Rosenberg MD LAB BLOOD ORDERABLES Final Resul t [facility] [address] [place] [address], [place] [phone] * (ABNORMAL) Complete blood count (07/22/2024 5:50 AM EST) WBC 9.1 4.8 - 10.8 K/mcL LAB HEMETOLOGY METHOD 07/22/2024 10:39 AM [facility] RBC 3.10(L) 4.50 - 5.50 M/mcL LAB HEMETOLOGY METHOD 07/22/2024 10:39 AM [facility] Hemoglobin 9.5(L) 13.5 - 17.5 g/dL LAB HEMETOLOGY METHOD 07/22/2024 10:39 AM [facility] Hematocrit 30.5(L) 42.0 - 54.0 % LAB HEMETOLOGY METHOD 07/22/2024 10:39 AM [facility] MCV 97.1 79.0 - 98.0 FL LAB HEMETOLOGY METHOD 07/22/2024 10:39 AM [facility] MCH 30.3 27.0 - 32.0 pcg LAB HEMETOLOGY METHOD 07/22/2024 10:39 AM [facility] MCHC 31.1(L) 32.0 - 37.0 g/dL LAB HEMETOLOGY METHOD 07/22/2024 10:[address] [facility] RDW 15.0 11.0 - 15.0 % LAB HEMETOLOGY METHOD 07/22/2024 10:39 AM [facility] Platelets 415(H) 130 - 400 K/mcL LAB HEMETOLOGY METHOD 07/22/2024 10:[address] [facility] MPV 12.5(H) 7.0 - 11.0 FL LAB HEMETOLOGY METHOD 07/22/2024 10:[address] [facility] NRBC 0.0 <1.0 % LAB HEMETOLOGY METHOD 07/22/2024 10:39 AM [facility] NRBC Absolute 0.00 <0.10 K/mcL LAB HEMETOLOGY METHOD 07/22/2024 10:39 AM [facility] Blood Venous blood specimen / Unknown Venipuncture / Unknown 07/22/2024 5:50 AM EST 07/22/2024 9:40 AM EST Nicolle Rosenberg MD LAB BLOOD ORDERABLES Final Resul t [facility] [address] [place] [address], documented in this encounter Visit Diagnoses Diagnosis Essential (primary) hypertension Unspecified essential hypertension Unspecified atrial fibrillation (CMS/HCC V24, CMS/HCC V28) documented in this encounter Care Teams Travel Accommodations Rater Relationship Specialty Start Date End Date Olu Norris MD [address] [place] [address], [phone] PCP - General Family Medicine 07/06/24 documented as of this encounter
--- OUTSIDE RECORDS SUMMARY | 2025-06-05 13:36 | XMS_ITS | Encounter Summary ---
Author Organization [facility] Address [address] [place] [phone] Care Team Providers Care Loader Malt House Name Role Phone Olu Norris MD Primary Care Provider [phone] Encounter Details Date Type Department Care Team (Late st Contact Info) Description 01/17/2025 Lab Requisition [facility] - Main Lab 299 [facility] [place] [address] David Leung MD [address] [place] [phone] Sepsis, unspecified organism (CMS/HCC V24, CMS/HCC V28); [...] Date/Time Associated Diagnosis Comments SEDIMENTATION RATE Routine 01/18/2025 4: 56 AM EDT Sepsis, unspecified organism (CMS/HCC V24, CMS/HCC V28) Anemia, unspecified Unspecified atrial fibrillation (CMS/HCC V24, CMS/HCC V28) COMPLETE BLOOD COUNT Routine 01/18/2025 4:56 AM EDT Sepsis, unspecified organism (CMS/HCC V24, CMS/HCC V28) Anemia, unspecified Unspecified atrial fibrillation (CMS/HCC V24, CMS/HCC V28) C-REACTIVE PROTEIN Routine 01/18/2025 4: 56 AM EDT Sepsis, unspecified organism (CMS/HCC V24, CMS/HCC V28) Anemia, unspecified Unspecified atrial fibrillation (CMS/HCC V24, CMS/HCC V28) COMPREHENSIVE METABOLIC PANEL Routine 01/18/2025 4:56 AM EDT Sepsis, unspecified organism (CMS/HCC V24, CMS/HCC V28) Anemia, unspecified Unspecified atrial fibrillation (CMS/HCC V24, CMS/HCC V28) documented in this encounter Results * Sedimentation rate (01/18/2025 4:56 AM EDT) Pathologist [facility] Sed Rate 19 0 - 20 mm/hr LAB HEMETOLOGY METHOD 01/18/2025 9:21 AM EDT [facility] Blood Venous blood specimen / Unknown Venipuncture / Unknown 01/18/2025 4:56 AM EDT 01/18/2025 7:45 AM EDT us David Leung MD LAB BLOOD ORDERABLES Final Result [facility] [address] [place] [address], * (ABNORMAL) C-reactive protein (01/18/2025 4:56 AM EDT) [facility] C-Reactive Protein 1.85(H) <=0.50 mg/dL LAB CHEMISTRY METHOD 01/18/2025 8:39 AM EDT [facility] Blood Venous blood specimen / Unknown Venipuncture / Unknown 01/18/2025 4:56 AM EDT 01/18/2025 7:46 AM EDT us David Leung MD LAB BLOOD ORDERABLES Final Result [facility] [address] [place] [address], * (ABNORMAL) Comprehensive metabolic panel (01/18/2025 4:56 AM EDT) [facility] Signature Sodium 141 133 - 145 mmol/L LAB CHEMISTRY METHOD 01/18/2025 8:38 AM [facility] Potassium 4.1 3.5 - 5.5 mmol/L LAB CHEMISTRY METHOD 01/18/2025 8:38 AM [facility] Chloride 107 96 - 110 mmol/L LAB CHEMISTRY METHOD 01/18/2025 8:38 AM [facility] CO2 27 21 - 32 mmol/L LAB CHEMISTRY METHOD 01/18/2025 8:38 AM [facility] Anion Gap 7 3 - 11 LAB CHEMISTRY METHOD 01/18/2025 8:38 AM [facility] Glucose 73 70 - 100 mg/dL LAB CHEMISTRY METHOD 01/18/2025 8:38 AM [facility] BUN 13 5 - 25 mg/dL LAB CHEMISTRY METHOD 01/18/2025 8:38 AM [facility] Creatinine 0.99 0.70 - 1.30 mg/dL LAB CHEMISTRY METHOD 01/18/2025 8:38 AM [facility] eGFR 81 >=60 mL/min/1. 73m2 LAB CHEMISTRY METHOD 01/18/2025 8:38 AM [facility] Comment:Calculation based on the Chronic Kidney Disease Epidemiology Collaboration (CKD-EPI) equation refit without adjustment for race. BUN/Creatinine Ratio 13.1 LAB CHEMISTRY METHOD 01/18/2025 8:38 AM [facility] Calcium 8.4(L) 8.5 - 10.5 mg/dL LAB CHEMISTRY METHOD 01/18/2025 8:38 AM [facility] AST (SGOT) 14 10 - 42 unit/L LAB CHEMISTRY METHOD 01/18/2025 8:38 AM [facility] ALT (SGPT) 22 10 - 60 unit/L LAB CHEMISTRY METHOD 01/18/2025 8:38 AM EDT [facility] Alkaline Phosphatase 195(H) 42 - 121 unit/L LAB CHEMISTRY METHOD 01/18/2025 8:38 AM [facility] Total Protein 6.0 6.0 - 8.0 g/dL LAB CHEMISTRY METHOD 01/18/2025 8:38 AM [facility] Albumin 3.1(L) 3.2 - 5.0 g/dL LAB CHEMISTRY METHOD 01/18/2025 8:38 AM [facility] Total Bilirubin 0.7 0.0 - 1.4 mg/dL LAB CHEMISTRY METHOD 01/18/2025 8:38 AM [facility] Blood Venous blood specimen / Unknown Venipuncture / Unknown 01/18/2025 4:56 AM EDT 01/18/2025 7:46 AM EDT us David Leung MD LAB BLOOD ORDERABLES Final Result [facility] [address] [place] [address], * (ABNORMAL) Complete blood count (01/18/2025 4:56 AM EDT) WBC 6.7 4.8 - 10.8 K/mcL LAB HEMETOLOGY METHOD 01/18/2025 8:14 AM T [facility] RBC 4.10(L) 4.50 - 5.50 M/mcL LAB HEMETOLOGY METHOD 01/18/2025 8:14 AM T [facility] Hemoglobin 11.4(L) 13.5 - 17.5 g/dL LAB HEMETOLOGY METHOD 01/18/2025 8:14 AM [facility] Hematocrit 36.3(L) 42.0 - 54.0 % LAB HEMETOLOGY METHOD 01/18/2025 8:14 AM EDT [facility] MCV 88.8 79.0 - 98.0 FL LAB HEMETOLOGY METHOD 01/18/2025 8:14 AM EDT [facility] MCH 27.9 27.0 - 32.0 pcg LAB HEMETOLOGY METHOD 01/18/2025 8:14 AM EDT [facility] MCHC 31.4(L) 32.0 - 37.0 g/dL LAB HEMETOLOGY METHOD 01/18/2025 8:14 AM EDT [facility] RDW 18.4(H) 11.0 - 15.0 % LAB HEMETOLOGY METHOD 01/18/2025 8:14 AM EDT [facility] Platelets 305 130 - 400 K/mcL LAB HEMETOLOGY METHOD 01/18/2025 8:14 AM EDT [facility] MPV 11.7(H) 7.0 - 11.0 FL LAB HEMETOLOGY METHOD 01/18/2025 8:14 AM EDT [facility] NRBC 0.0 <1.0 % LAB HEMETOLOGY METHOD 01/18/2025 8:14 AM EDT [facility] NRBC Absolute 0.00 <0.10 K/mcL LAB HEMETOLOGY METHOD 01/18/2025 8:14 AM T [facility] Blood Venous blood specimen / Unknown Venipuncture / Unknown 01/18/2025 4:56 AM EDT 01/18/2025 7:45 AM EDT David Leung MD LAB BLOOD ORDERABLES Final Result [facility] [address] [place] [address], documented in this encounter Visit Diagnoses Diagnosis Sepsis, unspecified organism (CMS/HCC V24, CMS/HCC V28) Anemia, unspecified Unspecified atrial fibrillation (CMS/HCC V24, CMS/HCC V28) documented in this encounter Care Teams Loader Malt [employer] Relationship Specialty Start Date End Date Olu Norris MD [address] [place] [address], [phone] PCP - General Family Medicine 07/06/24 documented as of this encounter
--- OUTSIDE RECORDS SUMMARY | 2025-06-05 13:36 | XMS_ITS | Encounter Summary ---
Author Organization [facility] Address [address] [place] [address] Care Team Providers Care Professor Of Surgery Name Role Phone Olu Norris MD Primary Care Provider [phone] Encounter Details Date Type Department Care Team (Late st Contact Info) Description 04/30/2025 Lab Requisition [facility] - Main Lab 299 [facility] [place] [address] David Leung MD [address] [place] [phone] Anemia, unspecified Social History Tobacco Use Types [...] unspecified documented in this encounter Care Teams Professor Of Surgery Relationship Specialty Start Date End Date Olu Norris MD [address] [place] [address] [address] [facility] [phone] PCP - General Family Medicine 07/06/24 documented as of this encounter
--- OUTSIDE RECORDS SUMMARY | 2025-06-05 13:37 | XMS_ITS | Encounter Summary ---
Author Organization [facility] Address [address] [place] [address] Care Team Providers Care Brine Mixer Operator Name Role Phone Olu Norris MD Primary Care Provider [phone] Encounter Details Date Type Department Care Team (Late st Contact Info) Description 06/04/2025 Lab Requisition [facility] - Main Lab 299 [facility] [place] [address] David Leung MD [address] [place] [phone] Anemia, unspecified Social History Tobacco Use Types [...] unspecified documented in this encounter Care Teams Brine Mixer Operator Relationship Specialty Start Date End Date Olu Norris MD [address] [place] [address] 204 [facility] [phone] PCP - General Family Medicine 07/06/24 documented as of this encounter
--- OUTSIDE RECORDS SUMMARY | 2025-06-05 13:37 | XMS_ITS | Encounter Summary ---
Author Organization [facility] Address [address] [place] [address] Care Team Providers Care Bit Tapper Name Role Phone Olu Norris MD Primary Care Provider [phone] Encounter Details Date Type Department Care Team (Late st Contact Info) Description 10/23/2024 Lab Requisition [facility] - Main Lab 299 [facility] [place] [address] David Leung MD [address] [place], [place] [phone] Anemia, unspecified; Unspecified atrial fibrillation (CMS/HCC V24, [...] Associated Diagnosis Comments COMPLETE BLOOD COUNT Routine 10/24/2024 8:30 AM EDT Anemia, unspecified Unspecified atrial fibrillation (CMS/HCC) CREATINE KINASE Routine 10/24/2024 8:30 AM EDT Anemia, unspecified Unspecified atrial fibrillation (CMS/HCC) COMPREHENSIVE METABOLIC PANEL Routine 10/24/2024 8:30 AM EDT Anemia, unspecified Unspecified atrial fibrillation (CMS/HCC) documented in this encounter Results * Creatine kinase (10/24/2024 8:30 AM EDT) Total CK 45 22 - 269 unit/L LAB CHEMISTRY METHOD 10/24/2024 11:10 AM [facility] Blood Venous blood specimen / Unknown Venipuncture / Unknown 10/24/2024 8:30 AM EDT 10/24/2024 9:36 AM EDT David Leung MD LAB BLOOD ORDERABLES Final Result [facility] [address] [place] [address], * (ABNORMAL) Comprehensive metabolic panel (10/24/2024 8:30 AM EDT) Sodium 135 133 - 145 mmol/L LAB CHEMISTRY METHOD 10/24/2024 11:11 AM [facility] Potassium 3.8 3.5 - 5.5 mmol/L LAB CHEMISTRY METHOD 10/24/2024 11:11 AM [facility] Chloride 103 96 - 110 mmol/L LAB CHEMISTRY METHOD 10/24/2024 11:11 AM [facility] CO2 24 21 - 32 mmol/L LAB CHEMISTRY METHOD 10/24/2024 11:11 AM [facility] Anion Gap 8 3 - 11 LAB CHEMISTRY METHOD 10/24/2024 11:11 AM [facility] Glucose 86 70 - 100 mg/dL LAB CHEMISTRY METHOD 10/24/2024 11:11 AM [facility] BUN 16 5 - 25 mg/dL LAB CHEMISTRY METHOD 10/24/2024 11:11 AM [facility] Creatinine 1.03 0.70 - 1.30 mg/dL LAB CHEMISTRY METHOD 10/24/2024 11:11 AM [facility] eGFR 78 >=60 mL/min/1. 73m2 LAB CHEMISTRY METHOD 10/24/2024 11:11 AM [facility] Comment:Calculation based on the Chronic Kidney Disease Epidemiology Collaboration (CKD-EPI) equation refit without adjustment for race. BUN/Creatinine Ratio 15.5 LAB CHEMISTRY METHOD 10/24/2024 11:11 AM [facility] Calcium 8.6 8.5 - 10.5 mg/dL LAB CHEMISTRY METHOD 10/24/2024 11:11 AM [facility] AST (SGOT) 15 10 - 42 unit/L LAB CHEMISTRY METHOD 10/24/2024 11:11 AM [facility] ALT (SGPT) 24 10 - 60 unit/L LAB CHEMISTRY METHOD 10/24/2024 11:11 AM [facility] Alkaline Phosphatase 162(H) 42 - 121 unit/L LAB CHEMISTRY METHOD 10/24/2024 11:11 AM [facility] Total Protein 5.9(L) 6.0 - 8.0 g/dL LAB CHEMISTRY METHOD 10/24/2024 11:11 AM [facility] Albumin 2.5(L) 3.2 - 5.0 g/dL LAB CHEMISTRY METHOD 10/24/2024 11:11 AM [facility] Total Bilirubin 0.4 0.0 - 1.4 mg/dL LAB CHEMISTRY METHOD 10/24/2024 11:11 AM [facility] Blood Venous blood specimen / Unknown Venipuncture / Unknown 10/24/2024 8:30 AM EDT 10/24/2024 9:36 AM EDT us David Leung MD LAB BLOOD ORDERABLES Final Result [facility] [address] [place] [address], * (ABNORMAL) Complete blood count (10/24/2024 8:30 AM EDT) WBC 6.8 4.8 - 10.8 K/mcL LAB HEMETOLOGY METHOD 10/24/2024 10:17 AM [facility] RBC 3.50(L) 4.50 - 5.50 M/mcL LAB HEMETOLOGY METHOD 10/24/2024 10:17 AM [facility] Hemoglobin 9.2(L) 13.5 - 17.5 g/dL LAB HEMETOLOGY METHOD 10/24/2024 10:17 AM [facility] Hematocrit 29.2(L) 42.0 - 54.0 % LAB HEMETOLOGY METHOD 10/24/2024 10:17 AM [facility] MCV 84.1 79.0 - 98.0 FL LAB HEMETOLOGY METHOD 10/24/2024 10:17 AM [facility] MCH 26.5(L) 27.0 - 32.0 pcg LAB HEMETOLOGY METHOD 10/24/2024 10:17 AM [facility] MCHC 31.5(L) 32.0 - 37.0 g/dL LAB HEMETOLOGY METHOD 10/24/2024 10:17 AM [facility] RDW 16.2(H) 11.0 - 15.0 % LAB HEMETOLOGY METHOD 10/24/2024 10:17 AM [facility] Platelets 430(H) 130 - 400 K/mcL LAB HEMETOLOGY METHOD 10/24/2024 10:17 AM [facility] MPV 10.1 7.0 - 11.0 FL LAB HEMETOLOGY METHOD 10/24/2024 10:17 AM [facility] NRBC 0.0 <1.0 % LAB HEMETOLOGY METHOD 10/24/2024 10:17 AM [facility] NRBC Absolute 0.00 <0.10 K/mcL LAB HEMETOLOGY METHOD 10/24/2024 10:17 AM [facility] Blood Venous blood specimen / Unknown Venipuncture / Unknown 10/24/2024 8:30 AM EDT 10/24/2024 9:39 AM EDT David Leung MD LAB BLOOD ORDERABLES Final Result [facility] [address] [place] [address], documented in this encounter Visit Diagnoses Diagnosis Anemia, unspecified Unspecified atrial fibrillation (CMS/HCC V24, CMS/HCC V28) documented in this encounter Care Teams Bit Tapper Relationship Specialty Start Date End Date Olu Norris MD [address] [place] [address], [phone] PCP - General Family Medicine 07/06/24 documented as of this encounter
--- OUTSIDE RECORDS SUMMARY | 2025-06-05 13:37 | XMS_ITS | Encounter Summary ---
Author Organization [facility] Address [address] [place] [address] Care Team Providers Care Toolroom Helper Name Role Phone Olu Norris MD Primary Care Provider [phone] Encounter Details Date Type Department Care Team (Late st Contact Info) Description 10/18/2024 Lab Requisition [facility] - Main Lab [address] [facility] [place] [address] David Leung MD [address] [place], [place] [id number] Unspecified atrial fibrillation (CMS/HCC V24, CMS/HCC V28); [...] Associated Diagnosis Comments COMPLETE BLOOD COUNT Routine 10/19/2024 7:54 AM EDT Unspecified atrial fibrillation (CMS/HCC) Anemia, unspecified CREATINE KINASE Routine 10/19/2024 7:54 AM EDT Unspecified atrial fibrillation (CMS/HCC) Anemia, unspecified COMPREHENSIVE METABOLIC PANEL Routine 10/19/2024 7:54 AM EDT Unspecified atrial fibrillation (CMS/HCC) Anemia, unspecified documented in this encounter Results * Creatine kinase (10/19/2024 7:54 AM EDT) Total CK 44 22 - 269 unit/L LAB CHEMISTRY METHOD 10/19/2024 12:00 PM [facility] Blood Venous blood specimen / Unknown Venipuncture / Unknown 10/19/2024 7:54 AM EDT 10/19/2024 10:57 AM EDT David Leung MD LAB BLOOD ORDERABLES Final Result [facility] [address] [place] [address], * (ABNORMAL) Comprehensive metabolic panel (10/19/2024 7:54 AM EDT) Sodium 134 133 - 145 mmol/L LAB CHEMISTRY METHOD 10/19/2024 12:00 PM [facility] Potassium 3.9 3.5 - 5.5 mmol/L LAB CHEMISTRY METHOD 10/19/2024 12:00 PM [facility] Chloride 102 96 - 110 mmol/L LAB CHEMISTRY METHOD 10/19/2024 12:00 PM [facility] CO2 24 21 - 32 mmol/L LAB CHEMISTRY METHOD 10/19/2024 12:00 PM [facility] Anion Gap 8 3 - 11 LAB CHEMISTRY METHOD 10/19/2024 12:00 PM [facility] Glucose 66(L) 70 - 100 mg/dL LAB CHEMISTRY METHOD 10/19/2024 12:00 PM [facility] BUN 16 5 - 25 mg/dL LAB CHEMISTRY METHOD 10/19/2024 12:00 PM [facility] Creatinine 1.08 0.70 - 1.30 mg/dL LAB CHEMISTRY METHOD 10/19/2024 12:00 PM [facility] eGFR 73 >=60 mL/min/1. 73m2 LAB CHEMISTRY METHOD 10/19/2024 12:00 PM [facility] Comment:Calculation based on the Chronic Kidney Disease Epidemiology Collaboration (CKD-EPI) equation refit without adjustment for race. BUN/Creatinine Ratio 14.8 LAB CHEMISTRY METHOD 10/19/2024 12:00 PM [facility] Calcium 8.5 8.5 - 10.5 mg/dL LAB CHEMISTRY METHOD 10/19/2024 12:00 PM [facility] AST (SGOT) 13 10 - 42 unit/L LAB CHEMISTRY METHOD 10/19/2024 12:00 PM [facility] ALT (SGPT) 20 10 - 60 unit/L LAB CHEMISTRY METHOD 10/19/2024 12:00 PM [facility] Alkaline Phosphatase 160(H) 42 - 121 unit/L LAB CHEMISTRY METHOD 10/19/2024 12:00 PM [facility] Total Protein 6.0 6.0 - 8.0 g/dL LAB CHEMISTRY METHOD 10/19/2024 12:00 PM [facility] Albumin 2.5(L) 3.2 - 5.0 g/dL LAB CHEMISTRY METHOD 10/19/2024 12:00 PM [facility] Total Bilirubin 0.5 0.0 - 1.4 mg/dL LAB CHEMISTRY METHOD 10/19/2024 12:00 PM [facility] Blood Venous blood specimen / Unknown Venipuncture / Unknown 10/19/2024 7:54 AM EDT 10/19/2024 10:57 AM EDT us David Leung MD LAB BLOOD ORDERABLES Final Result [facility] [address] [place] [address], * (ABNORMAL) Complete blood count (10/19/2024 7:54 AM EDT) WBC 7.5 4.8 - 10.8 K/mcL LAB HEMETOLOGY METHOD 10/19/2024 11:15 AM [facility] RBC 3.50(L) 4.50 - 5.50 M/mcL LAB HEMETOLOGY METHOD 10/19/2024 11:15 AM [facility] Hemoglobin 9.2(L) 13.5 - 17.5 g/dL LAB HEMETOLOGY METHOD 10/19/2024 11:15 AM [facility] Hematocrit 29.4(L) 42.0 - 54.0 % LAB HEMETOLOGY METHOD 10/19/2024 11:15 AM [facility] MCV 84.2 79.0 - 98.0 FL LAB HEMETOLOGY METHOD 10/19/2024 11:15 AM [facility] MCH 26.4(L) 27.0 - 32.0 pcg LAB HEMETOLOGY METHOD 10/19/2024 11:15 AM [facility] MCHC 31.3(L) 32.0 - 37.0 g/dL LAB HEMETOLOGY METHOD 10/19/2024 11:15 AM [facility] RDW 16.0(H) 11.0 - 15.0 % LAB HEMETOLOGY METHOD 10/19/2024 11:15 AM [facility] Platelets 470(H) 130 - 400 K/mcL LAB HEMETOLOGY METHOD 10/19/2024 11:15 AM [facility] MPV 10.3 7.0 - 11.0 FL LAB HEMETOLOGY METHOD 10/19/2024 11:15 AM [facility] NRBC 0.0 <1.0 % LAB HEMETOLOGY METHOD 10/19/2024 11:15 AM [facility] NRBC Absolute 0.00 <0.10 K/mcL LAB HEMETOLOGY METHOD 10/19/2024 11:15 AM [facility] Blood Venous blood specimen / Unknown Venipuncture / Unknown 10/19/2024 7:54 AM EDT 10/19/2024 10:57 AM EDT David Leung MD LAB BLOOD ORDERABLES Final Result [facility] [address] [place] [address], documented in this encounter Visit Diagnoses Diagnosis Unspecified atrial fibrillation (CMS/HCC V24, CMS/HCC V28) Anemia, unspecified documented in this encounter Care Teams Toolroom Helper Relationship Specialty Start Date End Date Olu Norris MD [address] [place] [address], [phone] PCP - General Family Medicine 07/06/24 documented as of this encounter
--- OUTSIDE RECORDS SUMMARY | 2025-07-31 19:00 | XMS_ITS | Clinical Summary ---
Author Organization Unknown Care Team Providers Care Enthone Solder Stripper Name Role Phone PASSER AKASH ORTEGA Unavailable Unavailable ANAMARIA THOMPSON, FLOR Unavailable Unavailable DIAMOND PT, RADHA Unavailable Unavailable Payers Payer Name Policy Type Policy Number Effective Date Expira tion Date MEDICARE.NGS.PDGM [id number] Problems Condition Name Condition Details Condition Category Status Onset Date Resolution Date Last Treatment Date Treating Clinician Comments INFECT/INFL M REACTION DUE TO OTH INTERNAL JOINT PROSTH, SUBS Active 2024-07 00:00: 00 Allergies, Adverse Reactions, Alerts Allergy Name Allergy Type Status Severity Reaction(s) Onset Date Inactive Date Treating Clinician Comments NO KNOWN ALLERGIES Propensity to adverse reactions Active 2024-07 18:59: 30 Medications Ordered Medication Name Filled Medication Name Start Date Stop Date Current Medication? Ordering Clinician Indication Dosage Frequency Signature (SIG) Comments Components diltiazem CD 120 mg capsule,ext ended release 24 hr 04-02 00:00: 00 04-06 00:00 :00 No [id number] Per instruc tions Per instructio ns (route: oral) Med Classific ation: Cardiovas cular Therapy Agents diltiazem CD 240 mg capsule,ext ended release 24 hr 04-02 00:00: 00 Yes [id number] CARDIAC 1 capsule DAILY 1 capsule DAILY (route: oral) Med Classific ation: Cardiovas cular Therapy Agents Eliquis 5 mg tablet 9-03 00:00: 00 Yes [id number] AFIB 1 tablet 2 TIMES DAILY 1 tablet 2 TIMES DAILY (route: oral) Med Classific ation: Hematolog ical Agents metoprolol tartrate 75 mg tablet 8-19 00:00: 00 Yes [id number] HEART FAILURE, HTN 1 tablet 2 TIMES DAILY 1 tablet 2 TIMES DAILY (route: oral) Med Classific ation: Cardiovas cular Therapy Agents acetaminoph en 325 mg tablet 03-28 00:00: 00 Yes [id number] PAIN 2 tablet EVERY 6 HOURS 2 tablet EVERY 6 HOURS (route: oral) Med Classific ation: Analgesic , Anti-infl ammatory or Antipyret ic docusate sodium 100 mg capsule 03-28 00:00: 00 Yes [id number] CONSTIPATIO N 1 capsule 2 TIMES DAILY 1 capsule 2 TIMES DAILY (route: oral) Med Classific ation: Gastroint estinal Therapy Agents ferrous sulfate 324 mg (65 mg iron) tablet,rhona yed release 03-28 00:00: 00 Yes [id number] SUPPLEMENT 1 tablet EVERY AM 1 tablet EVERY AM (route: oral) Med Classific ation: Electroly te Balance-N utritiona l Products Lactobacill us acidophilus 1 billion cell tablet 03-28 00:00: 00 06-03 00:00 :00 No [id number] PROBIOTIC 1 tablet DAILY 1 tablet DAILY (route: oral) Med Classific ation: Gastroint estinal Therapy Agents omeprazole 20 mg capsule,del ayed release 03-28 00:00: 00 Yes [id number] GERD 1 capsule DAILY 1 capsule DAILY (route: oral) Med Classific ation: Gastroint estinal Therapy Agents oxycodone 5 mg tablet 03-28 00:00: 00 Yes [id number] SEVERE PAIN 1 tablet EVERY 4 HOURS 1 tablet EVERY 4 HOURS (route: oral) Med Classific ation: Analgesic , Anti-infl ammatory or Antipyret ic polyethylen e glycol 3350 17 gram/dose oral powder 03-28 00:00: 00 Yes [id number] CONSTIPATIO N. 17 gram NEEDED 17 gram NEEDED (route: oral) Med Classific ation: Gastroint estinal Therapy Agents Senna Lax 8.6 mg tablet 03-28 00:00: 00 Yes [id number] CONSTIPATIO N 2 tablet BEDTIME 2 tablet BEDTIME (route: oral) Med Classific ation: Gastroint estinal Therapy Agents Vital Signs Vital Name Observation Time Observation Value Commen ts Temperature 2025-06-03 19:13:00.000 97.8 [degF] BMI (%) 2025-06-03 11:27:41.000 28 kg/m2 Height 2025-06-03 11:27:37.000 68 [in_us] Pulse 2025-06-03 19:13:00.000 76 /min Respirations 2025-06-03 19:13:00.000 18 /min Weight (lbs) 2025-06-03 11:27:41.000 188 [lb_av] Systolic Blood Pressure 2025-06-03 19:13:00.000 124 mm [Hg] Diastolic Blood Pressure 2025-06-03 19:13:00.000 64 mm [Hg] Plan of Treatment Planned Activity Planned Date Details Comments Future Scheduled Test RN TO OBSE RVE, ASSESS, EVALUATE, AND DEVELOP AN INDIVIDUALIZED PLAN OF CARE. AGENCY MAY ACCEPT ORDERS FROM CONSULTING PHYSICIANS RN TO OBSERVE AND ASSESS, TYPISTS SUPERVISOR/SACK DEPARTMENT SUPERVISOR TO OBSERVE FOR RISK FOR FALLS AND INSTRUCT IN FALL PREVENTION, HOME SAFETY, MEDICATION MANAGEMENT, INFECTION PREVENTION, AND NUTRITION MANAGEMENT. RN/TYPISTS SUPERVISOR/SACK DEPARTMENT SUPERVISOR NURSE MAY PERFORM O2 SATURATION LEVEL ON ADMISSION AND PRN FOR RESP STATUS CHANGES FOR RN TO ASSESS/TYPISTS SUPERVISOR TO OBSERVE PATIENT, WITH NOTIFICATION TO THE PHYSICIAN IF SATURATION IS 90% IN THE ABSENCE OF MORE SPECIFIC PARAMETERS FROM THE PHYSICIAN. AGENCY MAY PERFORM A RESUMPTION OF CARE VISIT FOLLOWING ANY HOSPITAL ADMISSION. RN/TYPISTS SUPERVISOR/SACK DEPARTMENT SUPERVISOR TO MONITOR CO-MORBID CONDITIONS LISTED ON THE PLAN OF CARE AND ANY NEW CONDITIONS THAT PRESENT THEMSELVES DURING THIS EPISODE TO IDENTIFY CHANGES AND INTERVENE TO MINIMIZE COMPLICATIONS. [code = RN TO OBSERVE, ASSESS, EVALUATE, AND DEVELOP AN INDIVIDUALIZED PLAN OF CARE. AGENCY MAY ACCEPT ORDERS FROM CONSULTING PHYSICIANS RN TO OBSERVE AND ASSESS, TYPISTS SUPERVISOR/SACK DEPARTMENT SUPERVISOR TO OBSERVE FOR RISK FOR FALLS AND INSTRUCT IN FALL PREVENTION, HOME SAFETY, MEDICATION MANAGEMENT, INFECTION PREVENTION, AND NUTRITION MANAGEMENT. RN/TYPISTS SUPERVISOR/SACK DEPARTMENT SUPERVISOR NURSE MAY PERFORM O2 SATURATION LEVEL ON ADMISSION AND PRN FOR RESP STATUS CHANGES FOR RN TO ASSESS/TYPISTS SUPERVISOR TO OBSERVE PATIENT, WITH NOTIFICATION TO THE PHYSICIAN IF SATURATION IS 90% IN THE ABSENCE OF MORE SPECIFIC PARAMETERS FROM THE PHYSICIAN. AGENCY MAY PERFORM A RESUMPTION OF CARE VISIT FOLLOWING ANY HOSPITAL ADMISSION. RN/TYPISTS SUPERVISOR/SACK DEPARTMENT SUPERVISOR TO MONITOR CO-MORBID CONDITIONS LISTED ON THE PLAN OF CARE AND ANY NEW CONDITIONS THAT PRESENT THEMSELVES DURING THIS EPISODE TO IDENTIFY CHANGES AND INTERVENE TO MINIMIZE COMPLICATIONS.] Future Scheduled Test MEDICATION MANAGEMENT; RN/TYPISTS SUPERVISOR/SACK DEPARTMENT SUPERVISOR TO REVIEW MEDICATIONS FOR INTERACTIONS, EFFECTIVENESS OF DRUG THERAPY, AND SIGNS/SYMPTOMS OF ADVERSE REACTIONS. MAY INSTRUCT AND REINFORCE MEDICATION TEACHING RELATED TO THE USE OF MEDICATIONS, DOSAGE, FREQUENCY, PURPOSE, SIDE EFFECTS, AND TO REPORT COMPLICATIONS. [code = MEDICATION MANAGEMENT; RN/TYPISTS SUPERVISOR/SACK DEPARTMENT SUPERVISOR TO REVIEW MEDICATIONS FOR INTERACTIONS, EFFECTIVENESS OF DRUG THERAPY, AND SIGNS/SYMPTOMS OF ADVERSE REACTIONS. MAY INSTRUCT AND REINFORCE MEDICATION TEACHING RELATED TO THE USE OF MEDICATIONS, DOSAGE, FREQUENCY, PURPOSE, SIDE EFFECTS, AND TO REPORT COMPLICATIONS.] Future Scheduled Test CARDIOVASC ULAR SYSTEM; RN TO ASSESS/TEACH, TYPISTS SUPERVISOR/SACK DEPARTMENT SUPERVISOR TO OBSERVE/TEACH RELATED TO ALTERED CARDIOVASCULAR STATUS TO MINIMIZE COMPLICATIONS AND REDUCE HOSPITALIZATION. [code = CARDIOVASCULAR SYSTEM; RN TO ASSESS/TEACH, TYPISTS SUPERVISOR/SACK DEPARTMENT SUPERVISOR TO OBSERVE/TEACH RELATED TO ALTERED CARDIOVASCULAR STATUS TO MINIMIZE COMPLICATIONS AND REDUCE HOSPITALIZATION.] Future Scheduled Test HYPERTENSI ON MANAGEMENT; RN TO ASSESS AND TEACH, TYPISTS SUPERVISOR/SACK DEPARTMENT SUPERVISOR TO OBSERVE AND TEACH WARNING SIGNS AND SYMPTOMS TO AVOID HOSPITALIZATION. [code = HYPERTENSION MANAGEMENT; RN TO ASSESS AND TEACH, TYPISTS SUPERVISOR/SACK DEPARTMENT SUPERVISOR TO OBSERVE AND TEACH WARNING SIGNS AND SYMPTOMS TO AVOID HOSPITALIZATION.] Future Scheduled Test RN TO ASSE SS/TEACH, TYPISTS SUPERVISOR,SACK DEPARTMENT SUPERVISOR TO OBSERVE AND TEACH MEASURES FOR RECOVERY AND SELF MANAGEMENT POST HIP REPLACEMENT TO MINIMIZE COMPLICATIONS AND REDUCE RISK OF HOSPITALIZATION. [code = RN TO ASSESS/TEACH, TYPISTS SUPERVISOR,SACK DEPARTMENT SUPERVISOR TO OBSERVE AND TEACH MEASURES FOR RECOVERY AND SELF MANAGEMENT POST HIP REPLACEMENT TO MINIMIZE COMPLICATIONS AND REDUCE RISK OF HOSPITALIZATION.] Future Scheduled Test PAIN MANAG EMENT; RN TO ASSESS AND TEACH, SACK DEPARTMENT SUPERVISOR/TYPISTS SUPERVISOR TO OBSERVE AND TEACH AND PROVIDE EDUCATION ON PAIN MANAGEMENT TECHNIQUES. [code = PAIN MANAGEMENT; RN TO ASSESS AND TEACH, SACK DEPARTMENT SUPERVISOR/TYPISTS SUPERVISOR TO OBSERVE AND TEACH AND PROVIDE EDUCATION ON PAIN MANAGEMENT TECHNIQUES.] Future Scheduled Test RN/TYPISTS SUPERVISOR/SACK DEPARTMENT SUPERVISOR TO PERFORM/TEACH PATIENT/CAREGIVER WOUND CARE TO LEFT HEEL CLEANSE WITH WOUND CLEANSER APPLY MEDIHONEY MAY APPLY SKIN BARRIER TO PERIWOUND PRN TO PREVENT MACERATION AND PROTECT PERIWOUND COVER WITH GAUZE AND CONFORMING ROLL SECURE WITH TAPE CHANGE DRESSING EVERYDAY AND NEEDED FOR DSG DISLODGEMENT [code = RN/TYPISTS SUPERVISOR/SACK DEPARTMENT SUPERVISOR TO PERFORM/TEACH PATIENT/CAREGIVER WOUND CARE TO LEFT HEEL CLEANSE WITH WOUND CLEANSER APPLY MEDIHONEY MAY APPLY SKIN BARRIER TO PERIWOUND PRN TO PREVENT MACERATION AND PROTECT PERIWOUND COVER WITH GAUZE AND CONFORMING ROLL SECURE WITH TAPE CHANGE DRESSING EVERYDAY AND NEEDED FOR DSG DISLODGEMENT] Future Scheduled Test FALL REDUC TION MANAGEMENT; RN TO ASSESS AND OBSERVE, TYPISTS SUPERVISOR/SACK DEPARTMENT SUPERVISOR TO OBSERVE FALL RISK FACTORS AND EDUCATE PATIENT/CAREGIVER ON STRATEGIES TO MINIMIZE THE RISK OF FALLING. [code = FALL REDUCTION MANAGEMENT; RN TO ASSESS AND OBSERVE, TYPISTS SUPERVISOR/SACK DEPARTMENT SUPERVISOR TO OBSERVE FALL RISK FACTORS AND EDUCATE PATIENT/CAREGIVER ON STRATEGIES TO MINIMIZE THE RISK OF FALLING.] Goal Patient Goal - TO HEAL MY WO UND Goal Provider Goal - A PLAN OF CARE WILL BE ESTABLISHED THAT MEETS THE PATIENT S NEEDS. PATIENT WILL DEMONSTRATE OXYGEN SATURATION WITHIN NORMAL LIMITS OR PATIENT S OPTIMAL LEVEL ESTABLISHED BY THE PHYSICIAN THROUGHOUT CARE. CHANGES TO CO-MORBID CONDITIONS AND ANY NEW CONDITIONS WILL BE IDENTIFIED AND REPORTED TO THE PHYSICIAN. Goal Provider Goal - PATIENT/CAREGIVER TO VERBALIZE, AND CONSISTENTLY DEMONSTRATE EFFECTIVE, SAFE MANAGEMENT OF MEDICATION INCLUDING KNOWLEDGE OF EFFECTIVENESS, POTENTIAL SIDE EFFECTS AND DRUG REACTIONS AND WHEN TO CONTACT THE APPROPRIATE CARE PROVIDER. PATIENT/CAREGIVER WILL BE ABLE TO VERBALIZE UNDERSTANDING OF MEDICATION REGIMEN AND ACCURATELY TAKE MEDICATIONS PRESCRIBED WITHOUT ADVERSE EFFECTS BY 08/01/25 Goal Provider Goal - PATIENT / CAREGIVER WILL VERBALIZE/DEMONSTRATE UNDERSTANDING OF MEASURES TO MANAGE ALTERED CARDIOVASCULAR STATUS BY 08/01/25 Goal Provider Goal - PATIENT / CAREGIVER WILL VERBALIZE/DEMONSTRATE AN ABILITY TO ADHERE TO SELF-MANAGEMENT OF HTN TO MINIMIZE COMPLICATIONS AND AVOID HOSPITALIZATION BY END OF EPISODE. Goal Provider Goal - PATIENT/CAREGIVER WILL DEMONSTRATE UNDERSTANDING OF MEASURES FOR SELF-MANAGEMENT OF A HIP REPLACEMENT. Goal Provider Goal - PATIENT / CAREGIVER WILL VERBALIZE / DEMONSTRATE UNDERSTANDING OF PAIN CONTROL MEASURES BY 08/01/25 Goal Provider Goal - PATIENT / CAREGIVER WILL VERBALIZE/DEMONSTRATE ABILITY TO PERFORM WOUND CARE. WOUND STATUS WILL IMPROVE EVIDENCED BY A DECREASE IN SIZE, DRAINAGE, ABSENCE OF INFECTION, AND DECREASED PAIN BY 08/01/25 Goal Provider Goal - PATIENT/CAREGIVER WILL VERBALIZE/DEMONSTRATE UNDERSTANDING OF FALL RISK FACTORS AND IMPLEMENT STRATEGIES TO MINIMIZE FALL RISK. PATIENT/CAREGIVER WILL VERBALIZE/DEMONSTRATE AN ABILITY TO ADHERE TO FALL REDUCTION SELF-MANAGEMENT AND LIFE-STYLE CHANGES BY 08/01/25 Progress Notes Progress Notes <paragraph>[Visit Date: 2024 by EDDY HUGHES RN]:</paragraph><paragraph>74 YEAR OLD MALE LIVES ALONE IN SECOND FLOOR APT. PT UNDERWENT A LEFT HIP REPLACEMENT. PT COMPLETED REHAB BEFORE RETURNING HOME WITH SERVICES. PT HAS WOUND ON LEFT HEEL, REPORTS IT STARTED OUT A BLISTER. HEEL IS 100% SLOUGH. HE HAS A FRIEND THAT MAY BE WILLING TO HELP DO DSG CHANGES IN NURSES ABSCENCE. NO MEDHONEY SENT HOME WITH PT. HAS PCP APPT 06/05/25 AND WILL DISCUSS REFERRAL TO WOUND CARE CLINIC. LEFT HIP INCISION EPITHELIALIZED. PT REPORTS MINIMAL DISCOMFORT WITH ACTIVITY WELL TOLERATED WITH CURRENT POC. VSS, LS CLEAR, LLE EDEMA. CALL [facility] FIRST REVIEWED. DECLINES TELEHEALTH VISITS AND TOUCH CALLS. PT IS HOMEBOUND DUE TO DECREASED ENDURANCE AND EASILY FATIGUED AND REQUIRES ONE ASSIST AND ASSISTIVE DEVICE TO GO OUT IN THE COMMUNITY.</paragraph> Encounters Start Date/Time End Date/Time Encounter Type Admission Type [facility] Care Department Encounter ID Discharge Date Discharge Status Discharge Condition Discharge Reason Percent Goals Met 2025-06-03 00:00:00 2025-08-01 00:00:00 Outpatient [facility] [id number] 80.00
== END 2025-06-05 12:12 | disposition home or self-care (01) ==
LOC: HO.HMCHD 11:30
PROVIDERS: PCP Physician Assistant Medical; Visit Provider Physician Assistant Medical
DX: I10 Essential (primary) hypertension (principal); D64.9 Anemia, unspecified; R60.9 Edema, unspecified; I48.0 Paroxysmal atrial fibrillation; M25.551 Pain in right hip; M25.552 Pain in left hip; G89.28 Other chronic postprocedural pain; Z96.643 Presence of artificial hip joint, bilateral